=== PATIENT | female | born 1940 | race Caucasian/White ===

== ENCOUNTER → 2018-04-17 07:18 | Outpatient (CLI) | payer MEDICARE, SELFPAY ==
[2018-04-17 08:38] LABS: Alanine Aminotransfer ALT/SGPT 21 U/L (13-56); CPK Total, Creatine Kinase 88 U/L (26-192); Cholesterol 202 mg/dL (200); High Density Lipoprotein 52 mg/dL; Triglycerides 217 mg/dL; Very Low Density Lipoprotein 43 mg/dL (5-40)
== END ==
PROVIDERS: Family Provider Family Medicine; PCP Family Medicine; Visit Provider Internal Medicine Cardiovascular Disease
DX: E78.5 Hyperlipidemia, unspecified (principal)
CPT/HCPCS: 36415; 80061; 82550; 84460

== ENCOUNTER → 2018-07-24 07:36 | Outpatient (CLI) | payer MEDICARE, SELFPAY ==
[2018-07-24 08:30] LABS: Alanine Aminotransfer ALT/SGPT 21 U/L (13-56); CPK Total, Creatine Kinase 108 U/L (26-192); Cholesterol 194 mg/dL (200); High Density Lipoprotein 51 mg/dL; Triglycerides 194 mg/dL; Very Low Density Lipoprotein 39 mg/dL (5-40)
== END ==
PROVIDERS: Family Provider Family Medicine; PCP Family Medicine; Visit Provider Internal Medicine Cardiovascular Disease
DX: E78.5 Hyperlipidemia, unspecified (principal)
CPT/HCPCS: 36415; 80061; 82550; 84460

== ENCOUNTER → 2018-10-30 08:08 | Outpatient (CLI) | payer MEDICARE, SELFPAY ==
[2018-10-30 09:31] LABS: Alanine Aminotransfer ALT/SGPT 20 U/L (13-56); CPK Total, Creatine Kinase 71 U/L (26-192); Cholesterol 172 mg/dL (200); High Density Lipoprotein 51 mg/dL; Triglycerides 192 mg/dL; Very Low Density Lipoprotein 38 mg/dL (5-40)
--- OUTSIDE RECORDS SUMMARY | 2018-12-16 01:15 | XMS RPT_ITS ---
:1940 Author Organization OHIP Care Team Providers Name Role Phone Roya Chaudhary Attending Unavailable Roya Chaudhary Referring Unavailable Cebul III, Brian Primary Care Unavailable Cebul III, Brian Attending Unavailable Cebul III, Brian Primary Care Unavailable Cebul III, Brian Referring Unavailable Cebul III, Brian Attending Unavailable Cebul III, Brian Referring Unavailable Cebul III, Brian Primary Care Unavailable Cebul III, Brian Attending Unavailable Cebul III, Brian Referring Unavailable Cebul III, Brian Primary Care Unavailable Roya Chaudhary Attending Unavailable Cebul III, Brian Primary Care Unavailable Roya Chaudhary Referring Unavailable Roya Chaudhary Attending Unavailable Cebul III, Brian Primary Care Unavailable Jet, Roya Referring Unavailable JET, ROYA Attending Unavailable JET, ROYA Referring Unavailable CEBUL, BRIAN Primary Care Unavailable JET, ROYA Attending Unavailable JET, ROYA Referring Unavailable CEBUL, BRIAN Primary Care Unavailable JET, ROYA E Attending Unavailable JET, ROYA E Referring Unavailable JET, ROYA E Referring Unavailable JET, ROYA E Attending Unavailable JET, ROYA E Referring Unavailable CEBUL III, BRIAN A Attending Unavailable PROBLEMS PROBLEMS DATE TYPE CONDITION / CODE ATTENDING STATUS SOURCE 12/03/2018 Unknown M85.89 - Other Cebul III, Active [place] specified disorders [facility] bone density and Hospital structure, multiple Repository sites / M85.89(ICD-10) 10/30/2018 Unknown Z95.2 - Presence of Jet, 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 [facility] valve / Hospital Z95.2(ICD-10) Repository 10/30/2018 Unknown 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, 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 / Hospital I45.10(ICD-10) Repository 08/25/2018 Active Other hyperlipidemia NA Active [place] / E78.49(ICD-10) [facility] [place] Repository 09/17/2018 Unknown E78.5 - [place], Active [place] Hyperlipidemia, [facility] unspecified / Hospital E78.5(ICD-10) Repository 12/24/2017 Active Presence of JET, Active [place] prosthetic heart [facility] Other valve / [place] Z95.2(ICD-10) Repository 12/24/2017 Active Other hyperlipidemia JET, Active [place] / E78.4(ICD-10) RO[facility] E Clinic Other [place] Repository 12/24/2017 Admitting Unknown / JET, Active [facility] diagnosis UNK(Unknown) [facility] Repository PROCEDURES PROCEDURES No Procedure Records FoundRESULTS RESULTS DEXA BONE DENSITY Observed: 12/03/2018 Status: F Source: [place] ST[place] 9:51 AM [facility] REPOSITORY [facility] Imaging Services [address] [place] [address] Dexa Bone Density Study MR#: [id number] Acct: [id number] Name: CHRISTINA CHEN Rep #: [id number] : 1940 F 78 From: Dharmesh Lee MD PCP: Brian Hayward III, MD Status: REG CLI Study: Dexa Bone Density Study Date of Exam: 12/03/18 Exam# [id number] Ordering Dr: Brian Hayward III, MD STUDY: DUAL ENERGY X-RAY ABSORPTIOMETRY / DXA REASON FOR EXAM: Female, 78 years old. The patient is postmenopausal. Loss of height. TECHNIQUE: Bone Mineral Density (BMD) measurements of lumbar spine and bilateral hips were obtained. COMPARISON: Comparison is made with prior study dated August 17, 2002. FINDINGS: Lumbar Spine (L1-L4): g/cm2 (0.968) / T-score (-1.8) / Z-score (0.0) Findings are suggestive of osteopenia with a moderate fracture risk. Increased kyphosis Left Femur Total: g/cm2 (0.767) / T-score (-1.9) / Z- score (0.0) Left Femoral Neck: g/cm2 (0.733) / T-score (-2.2) / Z- score (-0.1) Right Femur Total: g/cm2 (0.807) / T-score (-1.6) / Z- score (0.3) Right Femoral Neck: g/cm2 (0.690) / T-score (-2.5) / Z-score (-0.5) The T-Scores on the most recent prior examination were: Lumbar Spine (L1-L4): There has been worsening of bone density since the previous examination. Left Femur Total: which represents a worsening of 13%. BD/Dexa Bone Density Study IMPRESSION: The patient is considered osteopenic as outlined below according to World Donovan Organization (WHO) criteria with a high fracture risk. There has been worsening of bone density since the previous examination. Reference Information: The T-score is the number of standard deviations above or below the standard which is normal for young adults at their peak bone mineral density. The World Health Organization (WHO) interprets the T-scores as follows: Above -1 Normal bone density Between -1 and -2.5 Osteopenia Equal to / or below -2.5 Osteoporosis As a practical clinical guideline, osteopenia may be graded as follows: Mild -1 through -1.5 Moderate -1.6 through -2.0 Severe -2.1 through -2.4 The Z-score is the number of standard deviations above or below age-matched controls. A Z-score of less than -1.5 would be considered abnormal. References: 1. NIH Osteoporosis and Related Bone Diseases http://www.osteo.org 2. International Society for Clinical Densitometry http://www.iscd.org 3. National Osteoporosis Foundation http://www.nof.org Electronically Signed: Dharmesh Lee MD at 15:51 EST Tel [phone], Service support , CC: Brian Hayward III, MD User Support Specialist: Signed SCOLIOSIS 1 VIEW Observed: 11/25/2018 Status: F Source: [place] 9:55 AM [facility] REPOSITORY [facility] Imaging Services [address] [place] [address] Scoliosis 1 view MR#: [id number] Acct: [id number] Name: CHRISTINA CHEN Rep #: [id number] : 1940 F 78 From: Gary Rosado MD PCP: Brian Hayward III, MD Status: REG CLI Study: Scoliosis 1 view Date of Exam: 11/25/18 Exam# [id number] Ordering Dr: Brian Hayward III, MD HISTORY: Scoliosis check, pt. states she has notice her bra strap keeps falling down on one side and not the other, no pain EXAM/TECHNIQUE: XR Spine Single View Specify Level: Frontal radiographs of the thoracolumbar spine for scoliosis. COMPARISON: None. FINDINGS: # of images incl. paperwork: 3 Mild to moderate S-shaped scoliosis is noted. Left scoliosis centered at T11 has Wu angle of 16 measured at the inferior endplate of T10 and the inferior endplate of L1. Mild right scoliosis centered at L3 has Wu angle of 14 measured at the inferior endplate of L2 and the inferior end plate of L4. No apparent acute findings. Mild elevation left hemidiaphragm. Sternotomy wires. Calcific atherosclerosis. RAD/Scoliosis 1 view IMPRESSION: Mild to moderate S-shaped scoliosis as above. at 0854 Reported and signed by: Gary Rosado MD Electronically Signed: Gray Rosado, at 8:53 EST Tel , Service support , CC: Brian Hayward III, MD User Support Specialist: Signed PROGRESS Observed: 11/25/2018 Status: COMPLETED Source: [place] 8:45 AM [facility] REPOSITORY O ID: [id number] Author: Brian Hayward III Service: (none) Author Type: Physician Type: Progress Notes Filed: 11/25/2018 10:43 AM Note Text: SUBJECTIVE: This is a 78 year old female that is here today for 1. hypertension 2. hyperlipidemia 3. L shoulder seems lower than R shoulder, for past several mos. Pain L lower back when bending forward to put on shoes 4. painful fingers with some deformities 5. hx of dilatation of ascending aorta: 4.5 cm aorta diameter in 08/2017 (4.2 cm in 2014) 6. 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 7. hyperlipidemia--on crestor. 8. recent excision of skin ca. on tip of nose. Echocardiography Report: [facility] Date of service: 08/25/2018 10:05:13 AM Ordering physician: Roya Chaudhary Indication: Routine surveillance of prosthetic valve (>3yrs) ? Technologist: Korin Gilbert [facility] Interpreting physician: Branden Navarro MD ? PATIENT: Name: MRS. CHRISTINA CHEN : 1940 Age: 78 years Gender: F History of dyslipidemia and valvular heart disease. Previous cardiovascular interventions: Aortic valve replacement (2007) Primary rhythm: sinus. Height: 160.02 cm BSA: 1.73 m? Weight: 67.59 kg ?BMI: 26.4 kg/m? ? Heart rate ? ? 62 bpm Blood pressure 124/73 mmHg Technically difficult exam due to body habitus. Color Doppler was utilized to interrogate the cardiac valves assessed and spectral ?Doppler was utilized to determine the flow velocities and pressure gradients reported in this exam. ? MEASUREMENTS: ?Value ? Indexed ? ?Normal Max aortic dimension ? ? 4.4 cm ?2.54 cm/m? Left atrial volume ? ? ? 63 ml (biplane A-L) 36 ml/m? ? Ashley <= 34 LV ID (diastole) ? 3.9 cm (2D) LV ID (systole) ?2.4 cm (2D) IVS, leaflet tips ?1.1 cm (2D) Posterior wall thickness 0.9 cm (2D) Left ventricular mass ?71 g/m? LV stroke volume ? 36 ml (2D biplane) LV end diastolic volume ?57 ml (2D biplane) ?32.6 ml/m? 29<=EDVi<62 LV end systolic volume ? 21 ml (2D biplane) ?12.0 ml/m? Ejection Fraction ?63 % (2D biplane) ?EF > 54 ? FINDINGS: ? LEFT VENTRICLE The left ventricle is normal in size. Left ventricular systolic function is normal. Grade II left ventricular diastolic dysfunction. Mitral annular lateral E/e': 13.9. Mitral annular septal E/e': 13.9. Wall Motion: All scored segments are normal. ? ? RIGHT VENTRICLE The right ventricle is normal in size. Right ventricular systolic function is normal. RV systolic tissue Doppler velocity ?is 9.0 cm/s. Tricuspid annular displacement is 1.6 cm. Estimated right ventricular systolic pressure is 26 mmHg consistent with normal pulmonary artery pressures. Estimated right atrial pressure is 0 mmHg. ? LEFT ATRIUM The left atrial cavity is mildly dilated. ? RIGHT ATRIUM The right atrial cavity is normal in size. Inferior Vena Cava: The inferior vena cava appears small measuring 1.0 cm. The vessel decreases greater than 50 percent with inspiration. MITRAL VALVE There is trivial (trivial - 1+) mitral valve regurgitation. The pressure half time ?is 53 msec. The peak mitral E/A ratio is 1.17. The average mitral E/e' ratio is 13.9. The mitral flow deceleration time is 184 msec. ? TRICUSPID VALVE The tricuspid valve leaflets are structurally normal. Deering tricuspid valve. There is trivial (trivial - 1+) tricuspid valve regurgitation. ? AORTIC VALVE Bioprosthetic prosthetic valve. There is trivial aortic valve regurgitation. The peak gradient is 25 mmHg (peak velocity = 248.3 cm/s). The mean gradient is 14 mmHg. The LVOT mean velocity is 54.2 cm/s. The aortic VTI is 57.5 cm. The mean velocity in the aortic valve is 176.9 cm/s. The dimensionless valve index is 0.32. ? PULMONIC VALVE There is mild (1+ - 2+) pulmonic valve regurgitation. ? AORTA The visualized aorta is dilated. Measurements - Mid ascending aorta 4.2 cm. Distal ascending aorta 4.4 cm. PULMONARY ARTERIES The pulmonary arteries are unseen or not interrogated. ? PERICARDIUM There is no pericardial effusion. There is an epicardial fat pad. ? CONCLUSIONS: - Technically difficult exam due to body habitus. - Exam indication: Routine surveillance of prosthetic valve (>3yrs) - The left ventricle is normal in size. Left ventricular systolic function is normal. EF = 63 ? 5% (2D biplane) Grade II left ventricular diastolic dysfunction. - The right ventricle is normal in size. Right ventricular systolic function is normal. - The left atrial cavity is mildly dilated. - Bioprosthetic prosthetic aortic valve. There is trivial aortic valve regurgitation. The peak gradient is 25 mmHg, the mean gradient is 14 mmHg and the dimensionless valve index is 0.32. - The aorta is dilated measuring 4.4 cm distal ascending segment - Exam was compared with the prior echocardiographic exam performed on 08/23/2017, no significant change. ? 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 metoprolol tartrate, short acting, (LOPRESSOR) 25 mg tablet Take 0.5 tablets by mouth twice daily. Lssrmzzwoax-Gzwbzaiwu-Lyy C-Mn (GLUCOSAMINE CHONDROITIN MAXSTR) 500-400 mg cap Take 1 capsule by mouth twice daily. CRANBERRY EXTRACT (CRANBERRY ORAL) Take by mouth. cinnamon bark(CINNAMON 500 MG CAP) Take one(1) tablet two(2) times daily. FLAXSEED OIL 1,030 MG CAP Take one(1) tablet once (1) daily. aspirin(ECOTRIN LOW STRENGTH 81 MG TAB) Take one(1) tablet daily. Fshfrordhpwar-Yx-Zyzc-Minerals (ONE-A-DAY WOMENS FORMULA) 27-0.4 mg ORAL Tab Take one(1) tablet daily. triamcinolone (KENALOG) 0.025 % cream Apply 1 application to affected area twice daily. Biotin 10,000 mcg cap Take by mouth. No current facility-administered medications on file prior to visit. FAMILY HISTORY Problem Relation Age of Onset - Cancer Sister Lung - other (cerebral hemorrhage) Mother - Heart Father Social History Substance Use Topics - Smoking status: Never Smoker - Smokeless tobacco: Never Used - Alcohol use No REVIEW OF SYSTEMS GENERAL: No weight loss, malaise or fevers RESPIRATORY: Negative for cough, hemoptysis, wheezing, COPD, dyspnea or shortness of breath CARDIOVASCULAR: Negative for chest pain, leg swelling, hypertension, CHF or palpitations GI: No nausea, vomiting, or diarrhea : No history of dysuria, frequency or incontinence MUSCULOSKELETAL: Negative for joint pain or swelling, back pain or muscle pain SKIN: Negative for lesions, rash, and itching PSYCH: Negative for sleep disturbance, mood disorder and recent psychosocial stressors HEMATOLOGY/LYMPHOLOGY: Negative for prolonged bleeding, bruising easily or swollen nodes ENDOCRINE: Negative for cold or heat intolerance, polyuria, polydipsia and goiter NEURO: No history of headaches, syncope, paralysis, seizures or tremors BP 128/79 Pulse 69 Temp 36.8 ?C (98.2 ?F) (Right Tympanic) Resp 12 Wt 68.5 kg (151 lb) BMI 26.75 kg/m? . OBJECTIVE: APPEARANCE Well appearing, alert, in no acute distress, well-hydrated, well nourished. Left shoulder is lower than the right shoulder with scoliosis of the spine. No localized tenderness along the spinous processes NECK Supple, no adenopathy; thyroid symmetric, normal size, no bruits HEART RRR with normal S1 and S2, no murmurs, no gallops, no JVD appreciated LUNG clear to auscultation BREAST FEMALE Symmetrical, normal consistency without masses., No dimpling or skin changes, Normal nipples without discharge and no axillary lymphadenopathy LYMPH NODES No cervical lymphadenopathy, No supraclavicular lymphadenopathy and No axillary lymphadenopathy. ABDOMEN soft, non-tender, non-distended, without organomegaly or palpable masses, no tenderness to palpation EXTREMITIES Extremities normal, No deformities, No skin discoloration, No edema and Normal pulses bilaterally. [place] nodes involving several fingers bilaterally NEURO Awake, alert and oriented x 3, Normal gait and No involuntary motions. SKIN Skin color, texture, turgor normal, no suspicious rashes or lesions, healing scar on tip of nose. Erythematous plaque on dorsum of the right hand with some keratinization consistent with her known lichen planus. Measured 27 mm x 20 mm Lab Results for CHRISTINA CHEN ( ) as of 11/25/2018 08:46 Ref. Range 11/02/2018 00:00 11/20/2018 00:00 Sodium Latest Ref Range: 136 - 145 MEQ/L 143 Potassium Latest Ref Range: 3.5 - 5.1 MEQ/L 3.7 Chloride Latest Ref Range: 98 - 107 MEQ/L 105 Creatinine Latest Ref Range: 0.6 - 1.3 MG/DL 0.90 Glucose Latest Ref Range: 74 - 106 MG/DL 79 Anion Gap Unknown 8 Triglyceride Latest Ref Range: 149 mg/dL 172 (A) Urea Nitrogen Latest Ref Range: 6 - 20 mg/dL 13 BICARBONATE Unknown 30.0 Calcium Latest Ref Range: 8.8 - 10.5 MG/DL 8.8 Cholesterol, Total Latest Ref Range: 0 - 200 MG/DL 192 GFR Latest Units: mL/MIN 64 GFR AFR AMER Latest Units: mL/MIN 77 HDC-L Latest Ref Range: 41 mg/dL 51 (A) LDL Chol, calculated Latest Ref Range: 130 MG/DL 83 ASSESSMENT: 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 hyperlipidemia--at goal s/p Aortic valve replacement--doing well aortic root dilatation--stable diameter 4.4 cm Lichen planus dorsum right hand Arthritis of fingers PLAN: healthy diet and regular exercise same medications spine xray to evaluate scoliosis bone density test Brian Hayward III MD CNOV Observed: 11/25/2018 Status: COMPLETED Source: [place] 8:40 AM [facility] REPOSITORY Office Visit (FAMPWS) CHRISTINA CHEN ([id number]) 1940 F Date Time Provider Department 11/25/18 8:40 AM BRIAN HAYWARD III During your visit today, we recorded the following information about you: Temperature Pulse Respiration Blood pressure 98.2 degrees 69/minute 12/minute 128/79 Weight 68.5 kg Brian Hayward III MD 11/25/2018 10:43 AM Signed SUBJECTIVE: This is a 78 year old female that is here today for 1. hypertension 2. hyperlipidemia 3. L shoulder seems lower than R shoulder, for past several mos. Pain L lower back when bending forward to put on shoes 4. painful fingers with some deformities 5. hx of dilatation of ascending aorta: 4.5 cm aorta diameter in 08/2017 (4.2 cm in 2015) 6. 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 7. hyperlipidemia--on crestor. 8. recent excision of skin ca. on tip of nose. Echocardiography Report: [facility] Date of service: 08/25/2018 10:05:13 AM Ordering physician: Roya Chaudhary Indication: Routine surveillance of prosthetic valve (>3yrs) ? Technologist: Korin Gilbert [facility] Interpreting physician: Branden Navarro MD ? PATIENT: Name: MRS. CHRISTINA CHEN : 1940 Age: 78 years Gender: F History of dyslipidemia and valvular heart disease. Previous cardiovascular interventions: Aortic valve replacement (2007) Primary rhythm: sinus. Height: 160.02 cm BSA: 1.73 m? Weight: 67.59 kg ?BMI: 26.4 kg/m? ? Heart rate ? ? 62 bpm Blood pressure 124/73 mmHg Technically difficult exam due to body habitus. Color Doppler was utilized to interrogate the cardiac valves assessed and spectral ?Doppler was utilized to determine the flow velocities and pressure gradients reported in this exam. ? MEASUREMENTS: ?Value ? Indexed ? ?Normal Max aortic dimension ? ? 4.4 cm ?2.54 cm/m? Left atrial volume ? ? ? 63 ml (biplane A-L) 36 ml/m? ? Ashley <= 34 LV ID (diastole) ? 3.9 cm (2D) LV ID (systole) ?2.4 cm (2D) IVS, leaflet tips ?1.1 cm (2D) Posterior wall thickness 0.9 cm (2D) Left ventricular mass ?71 g/m? LV stroke volume ? 36 ml (2D biplane) LV end diastolic volume ?57 ml (2D biplane) ?32.6 ml/m? 29<=EDVi<62 LV end systolic volume ? 21 ml (2D biplane) ?12.0 ml/m? Ejection Fraction ?63 % (2D biplane) ?EF > 54 ? FINDINGS: ? LEFT VENTRICLE The left ventricle is normal in size. Left ventricular systolic function is normal. Grade II left ventricular diastolic dysfunction. Mitral annular lateral E/e': 13.9. Mitral annular septal E/e': 13.9. Wall Motion: All scored segments are normal. ? ? RIGHT VENTRICLE The right ventricle is normal in size. Right ventricular systolic function is normal. RV systolic tissue Doppler velocity ?is 9.0 cm/s. Tricuspid annular displacement is 1.6 cm. Estimated right ventricular systolic pressure is 26 mmHg consistent with normal pulmonary artery pressures. Estimated right atrial pressure is 0 mmHg. ? LEFT ATRIUM The left atrial cavity is mildly dilated. ? RIGHT ATRIUM The right atrial cavity is normal in size. Inferior Vena Cava: The inferior vena cava appears small measuring 1.0 cm. The vessel decreases greater than 50 percent with inspiration. MITRAL VALVE There is trivial (trivial - 1+) mitral valve regurgitation. The pressure half time ?is 53 msec. The peak mitral E/A ratio is 1.17. The average mitral E/e' ratio is 13.9. The mitral flow deceleration time is 184 msec. ? TRICUSPID VALVE The tricuspid valve leaflets are structurally normal. Deering tricuspid valve. There is trivial (trivial - 1+) tricuspid valve regurgitation. ? AORTIC VALVE Bioprosthetic prosthetic valve. There is trivial aortic valve regurgitation. The peak gradient is 25 mmHg (peak velocity = 248.3 cm/s). The mean gradient is 14 mmHg. The LVOT mean velocity is 54.2 cm/s. The aortic VTI is 57.5 cm. The mean velocity in the aortic valve is 176.9 cm/s. The dimensionless valve index is 0.32. ? PULMONIC VALVE There is mild (1+ - 2+) pulmonic valve regurgitation. ? AORTA The visualized aorta is dilated. Measurements - Mid ascending aorta 4.2 cm. Distal ascending aorta 4.4 cm. PULMONARY ARTERIES The pulmonary arteries are unseen or not interrogated. ? PERICARDIUM There is no pericardial effusion. There is an epicardial fat pad. ? CONCLUSIONS: - Technically difficult exam due to body habitus. - Exam indication: Routine surveillance of prosthetic valve (>3yrs) - The left ventricle is normal in size. Left ventricular systolic function is normal. EF = 63 ? 5% (2D biplane) Grade II left ventricular diastolic dysfunction. - The right ventricle is normal in size. Right ventricular systolic function is normal. - The left atrial cavity is mildly dilated. - Bioprosthetic prosthetic aortic valve. There is trivial aortic valve regurgitation. The peak gradient is 25 mmHg, the mean gradient is 14 mmHg and the dimensionless valve index is 0.32. - The aorta is dilated measuring 4.4 cm distal ascending segment - Exam was compared with the prior echocardiographic exam performed on 08/23/2017, no significant change. ? MEDICAL HISTORY Diagnosis Date - Acquired absence of ovaries, bilateral - Aortic root dilatation (HCC) 10/07/2015 - Benign neoplasm of colon - Body mass index 26.0-26.9, adult - Essential hypertension, benign - Family history of cancer of trachea, bronchus and lung - Family history of ischemic heart disease and other diseases of the circulatory system - Family history of stroke - H/O aortic valve replacement 08/2008 - Hyperlipidemia LDL goal <130 10/07/2015 - Insomnia, unspecified - Internal hemorrhoids without mention of complication - half-way (current) use of aspirin - Low back pain - Need for prophylactic hormone replacement therapy (postmenopausal) - Osteopenia 10/23/2011 - Other and unspecified hyperlipidemia - Overweight - Presence of prosthetic heart valve - Primary generalized (osteo)arthritis - Statin intolerance 10/07/2015 Current Outpatient Prescriptions on File Prior to Visit: rosuvastatin (CRESTOR) 20 mg tablet Take 1 tablet by mouth daily at bedtime. metoprolol tartrate, short acting, (LOPRESSOR) 25 mg tablet Take 0.5 tablets by mouth twice daily. Onekejznktr-Wuihltida-Pfr C-Mn (GLUCOSAMINE CHONDROITIN MAXSTR) 500-400 mg cap Take 1 capsule by mouth twice daily. CRANBERRY EXTRACT (CRANBERRY ORAL) Take by mouth. cinnamon bark(CINNAMON 500 MG CAP) Take one(1) tablet two(2) times daily. FLAXSEED OIL 1,030 MG CAP Take one(1) tablet once (1) daily. aspirin(ECOTRIN LOW STRENGTH 81 MG TAB) Take one(1) tablet daily. Fuxmbzbsdviwq-Px-Ijem-Minerals (ONE-A-DAY WOMENS FORMULA) 27-0.4 mg ORAL Tab Take one(1) tablet daily. triamcinolone (KENALOG) 0.025 % cream Apply 1 application to affected area twice daily. Biotin 10,000 mcg cap Take by mouth. No current facility-administered medications on file prior to visit. FAMILY HISTORY Problem Relation Age of Onset - Cancer Sister Lung - other (cerebral hemorrhage) Mother - Heart Father Social History Substance Use Topics - Smoking status: Never Smoker - Smokeless tobacco: Never Used - Alcohol use No REVIEW OF SYSTEMS GENERAL: No weight loss, malaise or fevers RESPIRATORY: Negative for cough, hemoptysis, wheezing, COPD, dyspnea or shortness of breath CARDIOVASCULAR: Negative for chest pain, leg swelling, hypertension, CHF or palpitations GI: No nausea, vomiting, or diarrhea : No history of dysuria, frequency or incontinence MUSCULOSKELETAL: Negative for joint pain or swelling, back pain or muscle pain SKIN: Negative for lesions, rash, and itching PSYCH: Negative for sleep disturbance, mood disorder and recent psychosocial stressors HEMATOLOGY/LYMPHOLOGY: Negative for prolonged bleeding, bruising easily or swollen nodes ENDOCRINE: Negative for cold or heat intolerance, polyuria, polydipsia and goiter NEURO: No history of headaches, syncope, paralysis, seizures or tremors BP 128/79 Pulse 69 Temp 36.8 ?C (98.2 ?F) (Right Tympanic) Resp 12 Wt 68.5 kg (151 lb) BMI 26.75 kg/m? . OBJECTIVE: APPEARANCE Well appearing, alert, in no acute distress, well- hydrated, well nourished. Left shoulder is lower than the right shoulder with scoliosis of the spine. No localized tenderness along the spinous processes NECK Supple, no adenopathy; thyroid symmetric, normal size, no bruits HEART RRR with normal S1 and S2, no murmurs, no gallops, no JVD appreciated LUNG clear to auscultation BREAST FEMALE Symmetrical, normal consistency without masses., No dimpling or skin changes, Normal nipples without discharge and no axillary lymphadenopathy LYMPH NODES No cervical lymphadenopathy, No supraclavicular lymphadenopathy and No axillary lymphadenopathy. ABDOMEN soft, non-tender, non-distended, without organomegaly or palpable masses, no tenderness to palpation EXTREMITIES Extremities normal, No deformities, No skin discoloration, No edema and Normal pulses bilaterally. [place] nodes involving several fingers bilaterally NEURO Awake, alert and oriented x 3, Normal gait and No involuntary motions. SKIN Skin color, texture, turgor normal, no suspicious rashes or lesions, healing scar on tip of nose. Erythematous plaque on dorsum of the right hand with some keratinization consistent with her known lichen planus. Measured 27 mm x 20 mm Lab Results for CHRISTINA CHEN ( ) as of 11/25/2018 08:46 Ref. Range 11/02/2018 00:00 11/20/2018 00:00 Sodium Latest Ref Range: 136 - 145 MEQ/L 143 Potassium Latest Ref Range: 3.5 - 5.1 MEQ/L 3.7 Chloride Latest Ref Range: 98 - 107 MEQ/L 105 Creatinine Latest Ref Range: 0.6 - 1.3 MG/DL 0.90 Glucose Latest Ref Range: 74 - 106 MG/DL 79 Anion Gap Unknown 8 Triglyceride Latest Ref Range: 149 mg/dL 172 (A) Urea Nitrogen Latest Ref Range: 6 - 20 mg/dL 13 BICARBONATE Unknown 30.0 Calcium Latest Ref Range: 8.8 - 10.5 MG/DL 8.8 Cholesterol, Total Latest Ref Range: 0 - 200 MG/DL 192 GFR Latest Units: mL/MIN 64 GFR AFR AMER Latest Units: mL/MIN 77 HDC-L Latest Ref Range: 41 mg/dL 51 (A) LDL Chol, calculated Latest Ref Range: 130 MG/DL 83 ASSESSMENT: 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 hyperlipidemia--at goal s/p Aortic valve replacement--doing well aortic root dilatation--stable diameter 4.4 cm Lichen planus dorsum right hand Arthritis of fingers PLAN: healthy diet and regular exercise same medications spine xray to evaluate scoliosis bone density test CHRISTINE Bojorquez MD, III MD 11/25/2018 9:31 AM Signed PLAN: healthy diet and regular exercise same medications spine xray to evaluate scoliosis bone density test Brian Hayward III MD Referring Provider: SELF [[id number]] Allergies As of Date: 11/25/2018 Noted Allergy Reaction AMOXICILLIN 12/17/2008 2 - Rash INFLUENZA VACC,TRI 2002 (LIVE) 07/27/2005 16 - Unknown Comments: Patient states that she gets this every year and is unsure why this is listed. LIPITOR (ATORVASTATIN CALCIUM) 10/07/2015 17 - Myalgia SULFA (SULFONAMIDE ANTIBIOTICS) 07/27/2005 ZOCOR (SIMVASTATIN) 10/07/2015 17 - Myalgia Date Reviewed: 11/25/2018 Reviewed by: Shahida Krishnan Ma - Fully Assessed Reason for Visit: Physical [83] Primary Visit Diagnosis:Osteopenia of lumbar spine [M85.88] Other Visit Diagnoses:H/O aortic valve replacement [Z95.2] Aortic root dilatation (HCC) [I77.810] Hyperlipidemia LDL goal <130 [E78.5] Lichen planus [L43.9] Other idiopathic scoliosis, unspecified spinal region [M41.20] Prescriptions as of 11/25/2018 Sig: CALCIUM 600 + D ORAL Take by mouth. ROSUVASTATIN 20 MG TABLET Take 1 tablet by mouth daily * METOPROLOL TARTRATE 25 MG TAB* Take 0.5 tablets by mouth twi* CVDZRWSFVDP-BROYDDBDJ-DNL C-M* Take 1 capsule by mouth twice* CRANBERRY ORAL Take by mouth. * CINNAMON 500 MG CAPSULE Take one(1) tablet two(2) michelle* * FLAXSEED OIL 1,030 MG CAPSULE Take one(1) tablet once (1) d* * ECOTRIN LOW STRENGTH 81 MG TA* Take one(1) tablet daily. * ONE-A-DAY WOMENS FORMULA 27 M* Take one(1) tablet daily. TRIAMCINOLONE ACETONIDE 0.025* Apply 1 application to affect* BIOTIN 10,000 MCG CAPSULE Take by mouth. Problem List As Of Date 11/25/2018 Noted Resolved Essential hypertension, benign [I10] 11/21/2017 POSTMENOPAUSAL HORMONAL REPLACEMENT TX [Z79.890] DIFFUS CYSTIC MASTOPATHY [N60.19] INVALID FOR* BENIGN NEOPLASM LG BOWEL [D12.6] Internal hemorrhoids without mention of complic* 11/25/2018 Aortic valve disorders [I35.9] 11/17/2014 More... 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 Other instructions from your clinician: PLAN: healthy diet and regular exercise same medications spine xray to evaluate scoliosis bone density test Brian Hayward III MD Encounter Status:Closed by BRIAN HAYWARD III, MD on 11/25/18 BASIC METABOLIC Collected: 11/20/2018 Status: F Source: [place] PROFILE (BMP) 8:11 AM [facility] REPOSITORY TYPE CODE TESTS RESULT OUT OF RANGE REFERENCE UNITS LAB L501.0100 74-106 mg/dL Normal GLU 79 Result Comment: Please note revised GLUCOSE reference range effective 2017. LAB L501.1000 7-18 mg/dL Normal BUN 13 LAB L501.1100 0.55-1.02 mg/dL Normal CREAT,SERUM 0.90 Result Comment: The validity of the calculated GFR AND GFRAA in patients over 70 years has not been determined. Clinical correlation is essential. LAB L501.1110 >60 mL/min Normal EST GFR 64 Result Comment: Non- GFR Calc LAB L501.1115 >60 mL/min Normal EST GFR - AA 77 Result Comment: GFR Calc LAB L501.1300 10-20 RATIO Normal BUN/CRE 14.4 LAB L501.2200 8.5-10.1 mg/dL CA Normal 8.8 LAB L501.5300 136-145 mmol/L NA Normal 143 LAB L501.5600 3.5-5.1 mmol/L K Normal 3.7 LAB L501.5900 98-107 mmol/L CL Normal 105 LAB L501.6100 21.0-32.0 mmol/L Normal CO2 30.0 LAB L501.6200 5-15 Normal GAP 8 Performed By: #### L500.2500 #### [facility] [address] [place], [address] [facility] Observed: 11/20/2018 Status: COMPLETED Source: [place] 12:00 AM [facility] REPOSITORY [facility] CHRISTINA CHEN ([id number]) 1940 F Date Time Provider Department 11/20/18 [facility] During your visit today, we recorded the following information about you: Brian Hayward III MD 11/26/2018 3:04 PM Signed Mrs. Chen, The blood sugar, kidney function tests, and cholesterol panel are all normal. Continue with a healthy diet and regular exercise as able. Same medications. Brian Hayward III, MD, FAAFP Allergies As of Date: 11/20/2018 Noted Allergy Reaction AMOXICILLIN 12/17/2008 2 - Rash INFLUENZA VACC,TRI 2002 (LIVE) 07/27/2005 16 - Unknown Comments: Patient states that she gets this every year and is unsure why this is listed. LIPITOR (ATORVASTATIN CALCIUM) 10/07/2015 17 - Myalgia SULFA (SULFONAMIDE ANTIBIOTICS) 07/27/2005 ZOCOR (SIMVASTATIN) 10/07/2015 17 - Myalgia Date Reviewed: 08/25/2018 Reviewed by: Eboni GalvezField Operations Coordinatorbonnie Merida - Fully Assessed Reason for Visit: Outside Labs-[facility] Ordered [1004] Order(s):LIPID PANEL (EXTERNAL) [0752229] Order #: [id number] BMP - EXTERNAL [0434737] Order #: [id number] Prescriptions as of 11/20/2018 Sig: ROSUVASTATIN 20 MG TABLET Take 1 tablet by mouth daily * METOPROLOL TARTRATE 25 MG TAB* Take 0.5 tablets by mouth twi* TRIAMCINOLONE ACETONIDE 0.025* Apply 1 application to affect* BIOTIN 10,000 MCG CAPSULE Take by mouth. NTYHTPPKETA-BAKUOVJDM-ARE C-M* Take 1 capsule by mouth twice* CRANBERRY ORAL Take by mouth. * CINNAMON 500 MG CAPSULE Take one(1) tablet two(2) michelle* * FLAXSEED OIL 1,030 MG CAPSULE Take one(1) tablet once (1) d* * ECOTRIN LOW STRENGTH 81 MG TA* Take one(1) tablet daily. * ONE-A-DAY WOMENS FORMULA 27 M* Take one(1) tablet daily. Problem List As Of Date 11/20/2018 Noted Resolved Essential hypertension, benign [I10] 11/21/2017 POSTMENOPAUSAL HORMONAL REPLACEMENT TX [Z79.890] DIFFUS CYSTIC MASTOPATHY [N60.19] INVALID FOR* BENIGN NEOPLASM LG BOWEL [D12.6] INT HEMORRHOID W/O COMPL [K64.8] Aortic valve disorders [I35.9] 11/17/2014 More... 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 Letter Text Brian Cadet M.D. [address] [place], [place] [address] Christina Chen [address] [place] [address] [place] [id number] Clinic #: [id number] 11/26/2018 Dear Ms. Chen, I have received the results of your recent tests. The blood sugar, kidney function tests, and cholesterol panel are all normal. Continue with a healthy diet and regular exercise as able. ?Continue the same medications. We can discuss this at your next visit. Please do not hesitate to contact me with any questions. Sincerely, Brian Cadet M.D. electronically signed to expedite mailing Encounter Status:Closed by MICHAEL CONNOLLY MA on 11/20/18 [facility]OUTREACH Observed: 11/10/2018 Status: COMPLETED Source: [place] 12:00 AM [facility] REPOSITORY Patient Outreach ([facility]) CHRISTINA CHEN ([id number]) 1940 F Date Time Provider Department 11/10/18 BRIAN HAYWARD III [facility] During your visit today, we recorded the following information about you: Allergies As of Date: 11/10/2018 Noted Allergy Reaction AMOXICILLIN 12/17/2008 2 - Rash INFLUENZA VACC,TRI 2002 (LIVE) 07/27/2005 16 - Unknown Comments: Patient states that she gets this every year and is unsure why this is listed. LIPITOR (ATORVASTATIN CALCIUM) 10/07/2015 17 - Myalgia SULFA (SULFONAMIDE ANTIBIOTICS) 07/27/2005 ZOCOR (SIMVASTATIN) 10/07/2015 17 - Myalgia Date Reviewed: 08/25/2018 Reviewed by: Eboni (Field Operations Coordinator) Fuad - Fully Assessed Visit Diagnosis:Medication management [Z79.899] Order(s):BASIC METABOLIC PNL [SQBMP] Order #: [id number] FUTURE Prescriptions as of 11/10/2018 Sig: ROSUVASTATIN 20 MG TABLET Take 1 tablet by mouth daily * METOPROLOL TARTRATE 25 MG TAB* Take 0.5 tablets by mouth twi* TRIAMCINOLONE ACETONIDE 0.025* Apply 1 application to affect* BIOTIN 10,000 MCG CAPSULE Take by mouth. WJAMCZBFYWR-VDQBKIHXO-HUR C-M* Take 1 capsule by mouth twice* CRANBERRY ORAL Take by mouth. * CINNAMON 500 MG CAPSULE Take one(1) tablet two(2) michelle* * FLAXSEED OIL 1,030 MG CAPSULE Take one(1) tablet once (1) d* * ECOTRIN LOW STRENGTH 81 MG TA* Take one(1) tablet daily. * ONE-A-DAY WOMENS FORMULA 27 M* Take one(1) tablet daily. Problem List As Of Date 11/10/2018 Noted Resolved Essential hypertension, benign [I10] 11/21/2017 POSTMENOPAUSAL HORMONAL REPLACEMENT TX [Z79.890] DIFFUS CYSTIC MASTOPATHY [N60.19] INVALID FOR* BENIGN NEOPLASM LG BOWEL [D12.6] INT HEMORRHOID W/O COMPL [K64.8] Aortic valve disorders [I35.9] 11/17/2014 More... 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 Encounter Status:Closed by KINA TUCKER on 11/25/18 LIPID PROFILE Collected: 10/30/2018 Status: F Source: [place] 8:14 AM [facility] REPOSITORY TYPE CODE TESTS RESULT OUT OF RANGE REFERENCE UNITS LAB L501.4900 200 mg/dL Normal CHOL 172 Result Comment: <200 mg/dL Desirable 200-240 mg/dL Borderline >240 mg/dL High Risk LAB L501.5000 mg/dL Normal TRIG 192 Result Comment: The drugs N-Acetylcysteine and Metamizole may falsely depress this assay. Serum Triglycerides Reference Interval Normal <150 mg/dL Borderline high 150 - 199 mg/dL High 200 - 499 mg/dL Very High > or = 500 mg/dL LAB L501.6400 mg/dL Normal HDL 51 Result Comment: The drugs N-Acetylcysteine and Metamizole may falsely depress this assay. Reference Range HDL <40 mg/dL Low HDL Cholesterol HDL >or= 60 mg/dL High HDL Cholesterol LAB L501.6500 0-130 mg/dL Normal LDL 83 LAB L501.6600 5-40 mg/dL Normal VLDL 38 Performed By: #### L500.4100, L501.3620, L501.4405 #### [facility] [address] [place], [address] CPK TOTAL, CREATINE Collected: 10/30/2018 Status: F Source: [place] 8:14 AM [facility] REPOSITORY TYPE CODE TESTS RESULT OUT OF RANGE REFERENCE UNITS LAB L501.3620 26-192 U/L Normal CPK TOTAL 71 Performed By: #### L500.4100, L501.3620, L501.4405 #### [facility] [address] [place], [address] ALANINE AMINOTRANSFERAS Collected: 10/30/2018 Status: F Source: [place] (SGPT) 8:14 AM [facility] REPOSITORY TYPE CODE TESTS RESULT OUT OF RANGE REFERENCE UNITS LAB L501.4405 13-56 U/L Normal ALT 20 Performed By: #### L500.4100, L501.3620, L501.4405 #### [facility] [address] [place], [address] PROGRESS Observed: 08/25/2018 Status: COMPLETED Source: [place] 11:15 AM [facility] REPOSITORY HNO ID: [id number] Author: Roya Chaudhary Service: (none) Author Type: Physician Type: Progress Notes Filed: 08/25/2018 5:43 PM Note Text: PERTINENT CARDIAC HISTORY Aortic stenosis - AVR 2007 Normal coronaries 2007 HL - statin intolerant RBBB TAA - 4.5 cm ADHERENCE TO GUIDELINES FARZANEH-I or ARB for HF with prior LVEF<40 (NQF 0081) - N/A ASA or Plavix for ASHD (NQF 0067) - met Beta karina for ASHD with prior VT or prior LVEF<40 (NQF 0070) - N/A Beta karina for HF with prior LVEF<40 (NQF 0083) - N/A FARZANEH-I or ARB for ASHD with DM or prior LVEF<40 (NQF 0066) - N/A Statin therapy for ASHD or FHL or DM - intolerant BMI documented and plan if >25 (NQF 0421) - lifestyle recommendation form Tobacco use screening and referral (NQF 0028) - lifestyle recommendation form Recommendation for whole food, plant based diet - lifestyle recommendation form CLINICAL IMPRESSION/PLAN: Christina Chen is doing well. She is advised to continue her exercise program. She will have her lipids done as scheduled. Her aortic valve disease is stable and she has great exercise tolerance. I will see her in 6 months or as needed. Written and verbal health teaching given to patient, patient verbalizes understanding and agrees with treatment plan. DIAGNOSIS FOR VISIT: AVR HISTORY OF PRESENT ILLNESS Christina Chen returns for follow-up of her valvular heart disease. She reports stable exercise tolerance. She's been walking 3 miles a day and rides her bicycle in her neighborhood. She denies chest discomfort. She's had no edema, syncope, palpitations, TIAs, amaurosis or claudication. ALLERGIES: ALLERGIES Allergen Reactions - Amoxicillin Rash - Influenza Vacc,Tri * Unknown Patient states that she gets this every year and is unsure why this is listed. - Lipitor [Atorvastat* Myalgia - Sulfa (Sulfonamide * - Zocor [Simvastatin] Myalgia CURRENT OUTPATIENT MEDICATIONS: rosuvastatin (CRESTOR) 20 mg tablet Take 1 tablet by mouth daily at bedtime. metoprolol tartrate, short acting, (LOPRESSOR) 25 mg tablet Take 0.5 tablets by mouth twice daily. Iqzbsawqfpr-Csabfamrw-Sbx C-Mn (GLUCOSAMINE CHONDROITIN MAXSTR) 500-400 mg cap Take 1 capsule by mouth twice daily. CRANBERRY EXTRACT (CRANBERRY ORAL) Take by mouth. cinnamon bark(CINNAMON 500 MG CAP) Take one(1) tablet two(2) times daily. FLAXSEED OIL 1,030 MG CAP Take one(1) tablet once (1) daily. aspirin(ECOTRIN LOW STRENGTH 81 MG TAB) Take one(1) tablet daily. triamcinolone (KENALOG) 0.025 % cream Apply 1 application to affected area twice daily. Biotin 10,000 mcg cap Take by mouth. Znrqquvuvxlim-Ff-Eipg-Minerals (ONE-A-DAY WOMENS FORMULA) 27-0.4 mg ORAL Tab Take one(1) tablet daily. PHYSICAL EXAMINATION: VITAL SIGNS: BP 132/81 Pulse 64 Wt 153 lb 12.8 oz (69.8kg) Chest: Clear to auscultation. Trachea is midline. Air entry is equal. Cardiac: Regular rhythm. S1 and S2 are normal. PMI is nondisplaced. There is a soft systolic ejection murmur without radiation. There is no aortic insufficiency. Carotids are brisk without bruits. JVP is less than 10 cm. Abdomen: Soft and nontender. There are no pulsatile masses or bruits. No liver enlargement. Bowel sounds are active. Extremities: No edema. Pulses are intact and symmetrical. Recent lipids were reviewed. He have improved with the addition of Crestor. Echocardiogram was performed today. This shows slight increase in her valve gradients, but they are still within normal range. The aorta is stable. Lipid profile is due again in October. Electronically Signed: Roya Chaudhary MD August 25, 2018 11:15 AM CC: CHRISTINE Bojorquez MD Observed: 08/25/2018 Status: COMPLETED Source: [place] 11:00 AM [facility] REPOSITORY Office Visit (CAWSTR) CHRISTINA CHEN ([id number]) 1940 F Date Time Provider Department 08/25/18 11:00 AM ROYA CHAUDHARY During your visit today, we recorded the following information about you: Pulse Blood pressure Weight 64/minute 132/81 69.8 kg Roya Chaudhary MD 08/25/2018 5:43 PM Signed PERTINENT CARDIAC HISTORY Aortic stenosis - AVR 2007 Normal coronaries 2007 HL - statin intolerant RBBB TAA - 4.5 cm ADHERENCE TO GUIDELINES FARZANEH-I or ARB for HF with prior LVEF<40 (NQF 0081) - N/A ASA or Plavix for ASHD (NQF 0067) - met Beta karina for ASHD with prior VT or prior LVEF<40 (NQF 0070) - N/A Beta karina for HF with prior LVEF<40 (NQF 0083) - N/A FARZANEH-I or ARB for ASHD with DM or prior LVEF<40 (NQF 0066) - N/A Statin therapy for ASHD or FHL or DM - intolerant BMI documented and plan if >25 (NQF 0421) - lifestyle recommendation form Tobacco use screening and referral (NQF 0028) - lifestyle recommendation form Recommendation for whole food, plant based diet - lifestyle recommendation form CLINICAL IMPRESSION/PLAN: Christina Chen is doing well. She is advised to continue her exercise program. She will have her lipids done as scheduled. Her aortic valve disease is stable and she has great exercise tolerance. I will see her in 6 months or as needed. Written and verbal health teaching given to patient, patient verbalizes understanding and agrees with treatment plan. DIAGNOSIS FOR VISIT: AVR HISTORY OF PRESENT ILLNESS Christina Chen returns for follow-up of her valvular heart disease. She reports stable exercise tolerance. She's been walking 3 miles a day and rides her bicycle in her neighborhood. She denies chest discomfort. She's had no edema, syncope, palpitations, TIAs, amaurosis or claudication. ALLERGIES: ALLERGIES Allergen Reactions - Amoxicillin Rash - Influenza Vacc,Tri * Unknown Patient states that she gets this every year and is unsure why this is listed. - Lipitor [Atorvastat* Myalgia - Sulfa (Sulfonamide * - Zocor [Simvastatin] Myalgia CURRENT OUTPATIENT MEDICATIONS: rosuvastatin (CRESTOR) 20 mg tablet Take 1 tablet by mouth daily at bedtime. metoprolol tartrate, short acting, (LOPRESSOR) 25 mg tablet Take 0.5 tablets by mouth twice daily. Dlkklmwskde-Ztcndfunf-Srx C-Mn (GLUCOSAMINE CHONDROITIN MAXSTR) 500-400 mg cap Take 1 capsule by mouth twice daily. CRANBERRY EXTRACT (CRANBERRY ORAL) Take by mouth. cinnamon bark(CINNAMON 500 MG CAP) Take one(1) tablet two(2) times daily. FLAXSEED OIL 1,030 MG CAP Take one(1) tablet once (1) daily. aspirin(ECOTRIN LOW STRENGTH 81 MG TAB) Take one(1) tablet daily. triamcinolone (KENALOG) 0.025 % cream Apply 1 application to affected area twice daily. Biotin 10,000 mcg cap Take by mouth. Klzumihjshgke-Om-Fusk-Minerals (ONE-A-DAY WOMENS FORMULA) 27-0.4 mg ORAL Tab Take one(1) tablet daily. PHYSICAL EXAMINATION: VITAL SIGNS: BP 132/81 Pulse 64 Wt 153 lb 12.8 oz (69.8kg) Chest: Clear to auscultation. Trachea is midline. Air entry is equal. Cardiac: Regular rhythm. S1 and S2 are normal. PMI is nondisplaced. There is a soft systolic ejection murmur without radiation. There is no aortic insufficiency. Carotids are brisk without bruits. JVP is less than 10 cm. Abdomen: Soft and nontender. There are no pulsatile masses or bruits. No liver enlargement. Bowel sounds are active. Extremities: No edema. Pulses are intact and symmetrical. Recent lipids were reviewed. He have improved with the addition of Crestor. Echocardiogram was performed today. This shows slight increase in her valve gradients, but they are still within normal range. The aorta is stable. Lipid profile is due again in October. Electronically Signed: Roya Chaudhary MD August 25, 2018 11:15 AM CC: CHRISTINE Bojorquez MD, MD 08/25/2018 11:15 AM Signed LIFESTYLE CHANGE A healthy lifestyle is the most important component of your overall treatment plan. Please give serious thought to the following areas and commit to making [facility] changes. EAT A WHOLE FOOD, PLANT BASED DIET The nutrition your body gets is more important than the medicine you take. What matters most is the overall way you eat. We encourage you to minimize the use of animal products (which include dairy and all meats except fatty fish) and use whole, unprocessed plant foods to provide your protein, vitamins and other nutrients. We have a lot of information to share with you on this topic. This is not a diet. It is a way of life that you will keep with you. EXERCISE REGULARLY It is not important to spend hours in the gym, lifting weights and perspiring heavily. A total of 2-3 hours per week of aerobic (causing you to be moderately short of breath) exercise is sufficient to improve your health. Talk to us before you begin a new exercise program, if you have heart disease or experience shortness of breath or chest pain. REDUCE STRESS Chronic emotional and physical stress leads to disease. Ways of reducing stress include meditation, visualization, prayer, yoga and other forms of relaxation therapy. Consistency is the david. Find a technique that works for you and do it every day. CULTIVATE RELATIONSHIPS Loneliness and isolation have a major negative impact on health. Seek out others who can love, care for and nurture you. Avoid hurtful relationships. MAINTAIN IDEAL BODY WEIGHT The best way to do this is to do all the things above. Our bodies naturally find the right weight if we keep moving and feed ourselves the right food. If your BMI is greater than 25, we strongly recommend a referral to a weight management program. Please speak to us or your family physician about available programs. AVOID NICOTINE IN ALL FORMS This includes all tobacco products, whether chewed, smoked, vaped, or rubbed on the skin. Smoking cessation programs, which can make use of tobacco substitutes, medications to suppress cravings and behavior management, are available. Please contact your family physician about programs in your area. Referring Provider: ROYA CHAUDHARY [[id number]] Allergies As of Date: 08/25/2018 Noted Allergy Reaction AMOXICILLIN 12/17/2008 2 - Rash INFLUENZA VACC,TRI 2003 (LIVE) 07/27/2005 16 - Unknown Comments: Patient states that she gets this every year and is unsure why this is listed. LIPITOR (ATORVASTATIN CALCIUM) 10/07/2015 17 - Myalgia SULFA (SULFONAMIDE ANTIBIOTICS) 07/27/2005 ZOCOR (SIMVASTATIN) 10/07/2015 17 - Myalgia Date Reviewed: 08/25/2018 Reviewed by: Eboni (Field Operations Coordinator) Fuad - Fully Assessed Reason for Visit: Recheck [92] Primary Visit Diagnosis:S/P AVR [Z95.2] Other Visit Diagnosis:RBBB (right bundle branch block) [I45.10] Order(s):LIPID PANEL BASIC [SQLIPB] Order #: [id number] FUTURE ALT/SGPT [SQALT] Order #: [id number] FUTURE CK CREATINE KINASE [SQCK] Order #: [id number] FUTURE Prescriptions as of 08/25/2018 Sig: ROSUVASTATIN 20 MG TABLET Take 1 tablet by mouth daily * METOPROLOL TARTRATE 25 MG TAB* Take 0.5 tablets by mouth twi* ZUMJPVFTACR-MPDSZKLGU-YRJ C-M* Take 1 capsule by mouth twice* CRANBERRY ORAL Take by mouth. * CINNAMON 500 MG CAPSULE Take one(1) tablet two(2) michelle* * FLAXSEED OIL 1,030 MG CAPSULE Take one(1) tablet once (1) d* * ECOTRIN LOW STRENGTH 81 MG TA* Take one(1) tablet daily. TRIAMCINOLONE ACETONIDE 0.025* Apply 1 application to affect* BIOTIN 10,000 MCG CAPSULE Take by mouth. * ONE-A-DAY WOMENS FORMULA 27 M* Take one(1) tablet daily. Problem List As Of Date 08/25/2018 Noted Resolved Essential hypertension, benign [I10] 11/21/2017 POSTMENOPAUSAL HORMONAL REPLACEMENT TX [Z79.890] DIFFUS CYSTIC MASTOPATHY [N60.19] INVALID FOR* BENIGN NEOPLASM LG BOWEL [D12.6] INT HEMORRHOID W/O COMPL [K64.8] Aortic valve disorders [I35.9] 11/17/2014 More... 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 Other instructions from your clinician: LIFESTYLE CHANGE A healthy lifestyle is the most important component of your overall treatment plan. Please give serious thought to the following areas and commit to making [facility] changes. EAT A WHOLE FOOD, PLANT BASED DIET The nutrition your body gets is more important than the medicine you take. What matters most is the overall way you eat. We encourage you to minimize the use of animal products (which include dairy and all meats except fatty fish) and use whole, unprocessed plant foods to provide your protein, vitamins and other nutrients. We have a lot of information to share with you on this topic. This is not a diet. It is a way of life that you will keep with you. EXERCISE REGULARLY It is not important to spend hours in the gym, lifting weights and perspiring heavily. A total of 2-3 hours per week of aerobic (causing you to be moderately short of breath) exercise is sufficient to improve your health. Talk to us before you begin a new exercise program, if you have heart disease or experience shortness of breath or chest pain. REDUCE STRESS Chronic emotional and physical stress leads to disease. Ways of reducing stress include meditation, visualization, prayer, yoga and other forms of relaxation therapy. Consistency is the david. Find a technique that works for you and do it every day. CULTIVATE RELATIONSHIPS Loneliness and isolation have a major negative impact on health. Seek out others who can love, care for and nurture you. Avoid hurtful relationships. MAINTAIN IDEAL BODY WEIGHT The best way to do this is to do all the things above. Our bodies naturally find the right weight if we keep moving and feed ourselves the right food. If your BMI is greater than 25, we strongly recommend a referral to a weight management program. Please speak to us or your family physician about available programs. AVOID NICOTINE IN ALL FORMS This includes all tobacco products, whether chewed, smoked, vaped, or rubbed on the skin. Smoking cessation programs, which can make use of tobacco substitutes, medications to suppress cravings and behavior management, are available. Please contact your family physician about programs in your area. Encounter Status:Closed by ROYA CHAUDHARY MD on 08/25/18 LIPID PROFILE Collected: 07/24/2018 Status: F Source: ER[place] 7:42 AM [facility] REPOSITORY TYPE CODE TESTS RESULT OUT OF RANGE REFERENCE UNITS LAB L501.4900 200 mg/dL Normal CHOL 194 Result Comment: <200 mg/dL Desirable 200-240 mg/dL Borderline >240 mg/dL High Risk LAB L501.5000 mg/dL Normal TRIG 194 Result Comment: The drugs N-Acetylcysteine and Metamizole may falsely depress this assay. Serum Triglycerides Reference Interval Normal <150 mg/dL Borderline high 150 - 199 mg/dL High 200 - 499 mg/dL Very High > or = 500 mg/dL LAB L501.6400 mg/dL Normal HDL 51 Result Comment: The drugs N-Acetylcysteine and Metamizole may falsely depress this assay. Reference Range HDL <40 mg/dL Low HDL Cholesterol HDL >or= 60 mg/dL High HDL Cholesterol LAB L501.6500 0-130 mg/dL Normal LDL 104 LAB L501.6600 5-40 mg/dL Normal VLDL 39 Performed By: #### L500.4100, L501.3620, L501.4405 #### [facility] [address] [place], [address] CPK TOTAL, CREATINE Collected: 07/24/2018 Status: F Source: ERIN KINASE 7:42 AM [facility] REPOSITORY TYPE CODE TESTS RESULT OUT OF RANGE REFERENCE UNITS LAB L501.3620 26-192 U/L Normal CPK TOTAL 108 Performed By: #### L500.4100, L501.3620, L501.4405 #### [facility] [address] [place], [address] ALANINE AMINOTRANSFERAS Collected: 07/24/2018 Status: F Source: ERIN (SGPT) 7:42 AM [facility] REPOSITORY TYPE CODE TESTS RESULT OUT OF RANGE REFERENCE UNITS LAB L501.4405 13-56 U/L Normal ALT 21 Performed By: #### L500.4100, L501.3620, L501.4405 #### [facility] [address] [place], [address] CNPN Observed: 07/22/2018 Status: COMPLETED Source: [place] 12:00 AM [facility] REPOSITORY Telephone (CAWSTR) CHRISTINA CHEN ([id number]) 1940 F Date Time Provider Department 07/22/18 ROYA CHAUDHARY CAWSTR During your visit today, we recorded the following information about you: Radha Gamble RN 07/22/2018 9:59 AM Signed Pt called, verified by name and birthdate. Pt asking if labs are at [facility] lab for her to be drawn. Told pt I would call [facility] lab to verify and return call to her. Pt verbalized understanding Radha Gamble RN 07/22/2018 9:59 AM Signed Called [facility] lab talked to Cat, verified order is in lab. Radha Gamble RN 07/22/2018 9:59 AM Signed Called pt, notified her that lab order is at [facility] and ready for her. Pt verbalized understanding Radha Gamble RN 07/22/2018 10:13 AM Signed Received call from Cat at [facility] lab, she states after she got off phone she realized order for 04-17-18 that was to be drawn in 3 months pt had drawn when it was received. Radha Gamble RN 07/22/2018 10:44 AM Signed Called AND notified pt order was already used and I will see if Dr. Chaudhary wants new order faxed to [facility]. Pt verbalized understanding. Copy of blood work completed on 04-17-18 placed in box to review. Radha Chaudhary MD 07/22/2018 11:08 AM Signed Please order lipid profile, ALT and CK to be drawn after she has been on Crestor 10 milligrams daily for at least 6 weeks. Roya Chaudhary MD Allergies As of Date: 07/22/2018 Noted Allergy Reaction AMOXICILLIN 12/17/2008 2 - Rash INFLUENZA VACC,TRI 2002 (LIVE) 07/27/2005 16 - Unknown Comments: Patient states that she gets this every year and is unsure why this is listed. LIPITOR (ATORVASTATIN CALCIUM) 10/07/2015 17 - Myalgia SULFA (SULFONAMIDE ANTIBIOTICS) 07/27/2005 ZOCOR (SIMVASTATIN) 10/07/2015 17 - Myalgia Date Reviewed: 05/28/2018 Reviewed by: Nohemi ([facility]) Amena - Fully Assessed Reason for Visit: Orders [681] Reason For Visit History Recorded Prescriptions as of 07/22/2018 Sig: METOPROLOL TARTRATE 25 MG TAB* Take 0.5 tablets by mouth twi* TRIAMCINOLONE ACETONIDE 0.025* Apply 1 application to affect* ROSUVASTATIN 10 MG TABLET Take 1 tablet by mouth daily * BIOTIN 10,000 MCG CAPSULE Take by mouth. CVKQJSSZWTH-JRFCTLONW-NQN C-M* Take 1 capsule by mouth twice* CRANBERRY ORAL Take by mouth. * CINNAMON 500 MG CAPSULE Take one(1) tablet two(2) michelle* * FLAXSEED OIL 1,030 MG CAPSULE Take one(1) tablet once (1) d* * ECOTRIN LOW STRENGTH 81 MG TA* Take one(1) tablet daily. * ONE-A-DAY WOMENS FORMULA 27 M* Take one(1) tablet daily. Problem List As Of Date 07/22/2018 Noted Resolved Essential hypertension, benign [I10] 11/21/2017 POSTMENOPAUSAL HORMONAL REPLACEMENT TX [Z79.890] DIFFUS CYSTIC MASTOPATHY [N60.19] INVALID FOR* BENIGN NEOPLASM LG BOWEL [D12.6] INT HEMORRHOID W/O COMPL [K64.8] Aortic valve disorders [I35.9] 11/17/2014 More... 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 Encounter Status:Closed by RADHA GAMBLE RN on 07/22/18 PROGRESS Observed: 05/28/2018 Status: COMPLETED Source: [place] 7:49 AM [facility] REPOSITORY HNO ID: [id number] Author: Nohemi Beckwith Service: (none) Author Type: Nurse Practitioner Type: Progress Notes Filed: 05/28/2018 8:10 AM Note Text: Subjective HPI Christina Chen is a 78 year old female who presents with an itchy rash for the past few days. She had been cutting jack and the rash appeared afterwards. She used benadryl cream and tablets without relief. Her right eye is slightly swollen today and the rash is present on her face, forearms, abdomen and thighs. Review of Systems Constitutional: Negative. Negative for fever. Respiratory: Negative. Cardiovascular: Negative. Skin: Positive for itching and rash. BP 110/68 Pulse 70 Temp 36.7 ?C (98.1 ?F) (Tympanic) Resp 16 Wt 67.6 kg (149 lb) BMI 26.39 kg/m? PAST MEDICAL HISTORY Diagnosis Date - Acquired absence of ovaries, bilateral - Aortic root dilatation (HCC) 10/07/2015 - Benign neoplasm of colon - Body mass index 26.0-26.9, adult - Essential hypertension, benign - Family history of cancer of trachea, bronchus and lung - Family history of ischemic heart disease and other diseases of the circulatory system - Family history of stroke - H/O aortic valve replacement 08/2008 - Hyperlipidemia LDL goal <130 10/07/2015 - Insomnia, unspecified - Internal hemorrhoids without mention of complication - half-way (current) use of aspirin - Low back pain - Need for prophylactic hormone replacement therapy (postmenopausal) - Osteopenia 10/23/2011 - Other and unspecified hyperlipidemia - Overweight - Presence of prosthetic heart valve - Primary generalized (osteo)arthritis - Statin intolerance 10/07/2015 PAST SURGICAL HISTORY Procedure Laterality Date - COLONOSCOP W/ OR W/O [facility] SPEC 05/16/16 normal - ? follow up - COLONOSCOPY W/BX 12/04/05 - CORRECT BUNION,SIMPLE - LIGATE FALLOPIAN TUBE Tubal ligation - REMOVAL OF OVARY(S) Left Oophorectomy - REPLAC AORT VALV PROSTH VALV 08/24/08 Aortic valve replacement ALLERGIES Amoxicillin; Influenza Vacc,Tri 2002 (Live); Lipitor [Atorvastatin Calcium]; Sulfa (Sulfonamide Antibiotics); Zocor [Simvastatin] MEDICATIONS rosuvastatin (CRESTOR) 10 mg tablet Take 1 tablet by mouth daily at bedtime. metoprolol tartrate, short acting, (LOPRESSOR) 25 mg tablet TAKE ONE-HALF TABLET BY MOUTH TWICE DAILY Erjucejhlki-Iqnmadbvo-Ayq C-Mn (GLUCOSAMINE CHONDROITIN MAXSTR) 500-400 mg cap Take 1 capsule by mouth twice daily. CRANBERRY EXTRACT (CRANBERRY ORAL) Take by mouth. cinnamon bark(CINNAMON 500 MG CAP) Take one(1) tablet two(2) times daily. FLAXSEED OIL 1,030 MG CAP Take one(1) tablet once (1) daily. aspirin(ECOTRIN LOW STRENGTH 81 MG TAB) Take one(1) tablet daily. Wtupdmhwokynv-Bp-Elqz-Minerals (ONE-A-DAY WOMENS FORMULA) 27-0.4 mg ORAL Tab Take one(1) tablet daily. Biotin 10,000 mcg cap Take by mouth. FAMILY HISTORY Problem Relation Age of Onset - Cancer Sister Lung - cerebral hemorrhage [OTHER] Mother - Heart Father Social History Substance Use Topics - Smoking status: Never Smoker - Smokeless tobacco: Never Used - Alcohol use No Objective Physical Exam Constitutional: She is well-developed, well-nourished, and in no distress. HENT: Head: Cardiovascular: Normal rate and regular rhythm. Pulmonary/Chest: Effort normal and breath sounds normal. No respiratory distress. She has no wheezes. Neurological: She is alert. Skin: Skin is warm and dry. Rash noted. There is erythema. Nursing note and vitals reviewed. ASSESSMENT/PLAN: 1. Dermatitis due to plants, including poison anne marie, sumac, and oak - ICD9: 692.6, ICD10: L25.5 - Oral Steriod tx -Prednisone taper - Topical steriod tx with Rx for steriod cream/ointment- for use on extremities only. - discussed skin care of rash - follow up if symptoms persist or worsen. - PREDNISONE 10 MG TABLET - TRIAMCINOLONE ACETONIDE 0.025 % TOPICAL CREAM - avoid use of other NSAIDS while on prednisone. - Follow-up with your PCP in 3-5 days if symptoms have not improved or sooner if symptoms worsen - Discussed red flags and need for immediate medical evaluation if any occur. - Discussed supportive care treatment with fluids, rest and analgesia. - Discussed expected course of illness EVERT RamirezOV Observed: 05/28/2018 Status: COMPLETED Source: [place] 7:45 AM [facility] REPOSITORY Office Visit (WSTR) GUSTAVOCHRISTINA Rosie ([id number]) 1940 F Date Time Provider Department 05/28/18 7:45 AM NOHEMI BECKWITH (MICHAEL) WSTR During your visit today, we recorded the following information about you: Temperature Pulse Respiration Blood pressure 98.1 degrees 70/minute 16/minute 110/68 Weight 67.6 kg Nohemi Beckwith APRN.CNP 05/28/2018 8:10 AM Signed Subjective HPI Christina Chen is a 78 year old female who presents with an itchy rash for the past few days. She had been cutting jack and the rash appeared afterwards. She used benadryl cream and tablets without relief. Her right eye is slightly swollen today and the rash is present on her face, forearms, abdomen and thighs. Review of Systems Constitutional: Negative. Negative for fever. Respiratory: Negative. Cardiovascular: Negative. Skin: Positive for itching and rash. BP 110/68 Pulse 70 Temp 36.7 ?C (98.1 ?F) (Tympanic) Resp 16 Wt 67.6 kg (149 lb) BMI 26.39 kg/m? 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 follow up - COLONOSCOPY W/BX 12/04/05 - CORRECT BUNION,SIMPLE - LIGATE FALLOPIAN TUBE Tubal ligation - REMOVAL OF OVARY(S) Left Oophorectomy - REPLAC AORT VALV PROSTH VALV 08/24/08 Aortic valve replacement ALLERGIES Amoxicillin; Influenza Vacc,Tri 2002 (Live); Lipitor [Atorvastatin Calcium]; Sulfa (Sulfonamide Antibiotics); Zocor [Simvastatin] MEDICATIONS rosuvastatin (CRESTOR) 10 mg tablet Take 1 tablet by mouth daily at bedtime. metoprolol tartrate, short acting, (LOPRESSOR) 25 mg tablet TAKE ONE-HALF TABLET BY MOUTH TWICE DAILY Bppdlrmmkjo-Xtgauetpz-Uji C-Mn (GLUCOSAMINE CHONDROITIN MAXSTR) 500-400 mg cap Take 1 capsule by mouth twice daily. CRANBERRY EXTRACT (CRANBERRY ORAL) Take by mouth. cinnamon bark(CINNAMON 500 MG CAP) Take one(1) tablet two(2) times daily. FLAXSEED OIL 1,030 MG CAP Take one(1) tablet once (1) daily. aspirin(ECOTRIN LOW STRENGTH 81 MG TAB) Take one(1) tablet daily. Hiujrdsnlxdjm-Dg-Vprc-Minerals (ONE-A-DAY WOMENS FORMULA) 27-0.4 mg ORAL Tab Take one(1) tablet daily. Biotin 10,000 mcg cap Take by mouth. FAMILY HISTORY Problem Relation Age of Onset - Cancer Sister Lung - cerebral hemorrhage [OTHER] Mother - Heart Father Social History Substance Use Topics - Smoking status: Never Smoker - Smokeless tobacco: Never Used - Alcohol use No Objective Physical Exam Constitutional: She is well-developed, well-nourished, and in no distress. HENT: Head: Cardiovascular: Normal rate and regular rhythm. Pulmonary/Chest: Effort normal and breath sounds normal. No respiratory distress. She has no wheezes. Neurological: She is alert. Skin: Skin is warm and dry. Rash noted. There is erythema. Nursing note and vitals reviewed. ASSESSMENT/PLAN: 1. Dermatitis due to plants, including poison anne marie, sumac, and oak - ICD9: 692.6, ICD10: L25.5 - Oral Steriod tx -Prednisone taper - Topical steriod tx with Rx for steriod cream/ointment- for use on extremities only. - discussed skin care of rash - follow up if symptoms persist or worsen. - PREDNISONE 10 MG TABLET - TRIAMCINOLONE ACETONIDE 0.025 % TOPICAL CREAM - avoid use of other NSAIDS while on prednisone. - Follow-up with your PCP in 3-5 days if symptoms have not improved or sooner if symptoms worsen - Discussed red flags and need for immediate medical evaluation if any occur. - Discussed supportive care treatment with fluids, rest and analgesia. - Discussed expected course of illness EVERT Ramirez APRN.CNP 05/28/2018 7:57 AM Signed [facility] PATIENT INFO POISON ANNE MARIE INTRODUCTION When the skin comes in direct contact with an irritating or allergy-causing substance, contact dermatitis can develop. Exposure to poison anne marie, poison oak, and poison sumac cause more cases of allergic contact dermatitis than all other plant families combined. People of all ethnicities and skin types are at risk for developing poison anne marie dermatitis. The severity of the reaction tends to decrease with age, especially in people who have had mild reactions in the past. People in occupations such as firefighting, forestry, and farming are at a higher risk of poison anne marie dermatitis because of repeated exposure to toxic plants. POISON ANNE MARIE CAUSES Poison anne marie, poison oak, and poison sumac plants all contain a compound called urushiol, which is a light, colorless oil that is found on the fruit, leaves, stem, root, and sap of the plant. When urushiol is exposed to air, it turns brown and the plant leaves develop small black spots. There are several ways that you can be exposed to urushiol: ? By touching the sap or rubbing against the leaves of the toxic plant ? By touching something that has urushiol on it, such as animal fur or garden tools ? By breathing in smoke when toxic plants are burned ? Ginkgo fruit and the skin of mangoes also contain urushiol and can produce symptoms similar to poison anne marie dermatitis. IDENTIFYING POISON ANNE MARIE Leaves of three, let them be is a phrase often used to identify plants that cause poison anne marie dermatitis. Generally, poison anne marie and poison oak have three leaves with flowering branches on a single stem. Poison sumac has five, seven, or more leaves that angle upward toward the top of the stem. Some types of poison anne marie produce a green or off-white fruit in tulio, and in some cases, black dots form on the plants' leaves. It is not always possible to identify the plant by the leaves alone since the appearance can vary depending upon the season, growth cycle, region, and climate. Poison anne marie, oak, and sumac plants grow in many areas across the [facility] and throughout the world. East of the [facility], poison anne marie commonly grows as a climbing vine. In the [place] area and west, poison anne marie tends to grow low to the ground as a shrub. Poison oak most often grows west of the [facility], and poison sumac inhabits boggy areas in the southeastern part of the [place]. The plants are not usually found in areas at high elevations or in desert climates. POISON ANNE MARIE SIGNS AND SYMPTOMS After contact with urushiol, approximately 50 percent of people develop signs and symptoms of poison anne marie dermatitis. The symptoms and severity differ from person to person. The most common signs and symptoms of poison anne marie dermatitis are: ? Intense itching ? Skin swelling ? Skin redness These symptoms usually develop within four hours to four days after exposure to the urushiol. After the initial symptoms, you will develop fluid-filled blisters in a line or streak-like pattern. The symptoms are worst within 1 to 14 days after touching the plant, but can develop up to 21 days later if you have never been exposed to urushiol before. The blisters can occur at different times in different people; blisters can develop on the arms several days after blisters on the hands developed. This does not mean that the reaction is spreading from one area of the body to the other. The fluid that leaks from blisters does not cause symptoms. Poison anne marie dermatitis is not contagious and cannot be passed from person to person. However, urushiol can be carried under fingernails and on clothes; if another person comes in contact with the urushiol, they can develop poison anne marie dermatitis. POISON ANNE MARIE DIAGNOSIS Poison anne marie is usually diagnosed based upon how your skin looks. Further testing is not usually necessary. POISON ANNE MARIE TREATMENT Poison anne marie dermatitis usually resolves within one to three weeks without treatment. Treatments that may help relieve the itching, soreness, and discomfort caused by poison anne marie dermatitis include: Skin treatments ? For some people, adding oatmeal to a bath, applying cool wet compresses, and applying calamine lotion may help to relieve itching. Once the blisters begin weeping fluid, astringents containing aluminum acetate (Jaelyn's solution) and Domeboro may help to relieve the rash. Antihistamines ? Antihistamines may help to relieve itching caused by poison anne marie dermatitis. Some antihistamines make you sleepy while others do not. ? Antihistamines that make you sleepy (eg, diphenhydramine [Benadryl?]) may be helpful if you have trouble sleeping due to itching. ? Other formulas (eg, loratadine [Claritin?], cetirizine [Zyrtec?]) may be preferable for daytime. Steroid creams ? Steroid creams may be helpful if they are used during the first few days after symptoms develop. Low potency steroid creams, such as 1 percent hydrocortisone (available in the [place] without prescription) are not usually helpful. A stronger prescription formula may be helpful. Steroids ? If you develop severe symptoms or the rash covers a large area (especially on the face or genitals), you may need steroid pills or injections (eg, prednisone) to help relieve itching and swelling. Pills are usually given for 14 to 21 days, with the dosage slowly decreased over time. Antibiotics ? Skin infections are a potential complication of poison anne marie, especially if you scratch your skin. If you develop a skin infection because of poison anne marie dermatitis, you may need antibiotics to treat the infection. Other treatments ? An herbal therapy called jewelweed extract has been used to treat poison anne marie dermatitis, although it has not been proven effective. You should not use antihistamine creams or lotions, anesthetic creams containing benzocaine, or antibiotic creams containing neomycin or bacitracin to the skin. These creams or ointments could make the rash worse. POISON ANNE MRAIE PREVENTION The best way to prevent poison anne marie dermatitis is to identify and avoid the plants that cause it. These plants can irritate the skin year round, even during the winter months, and can still cause a reaction years after the plant dies. ? Wear protective clothing, including long sleeves and pants when working in areas where toxic plants may be found. Keep in mind that the resin and oils from the toxic plants can be carried on clothing, pets, and under fingernails. ? Wear heavy-duty vinyl gloves when doing yard work or gardening. The oils from toxic plants can seep through latex or rubber gloves. ? After coming in contact with poison anne marie, remove any contaminated clothing and gently wash (do not scrub or rub) you skin and under the fingernails with mild soap and water as soon as possible. Washing within two hours after exposure can reduce the likelihood and severity of symptoms; washing the skin after you have symptoms will not help. ? Creams and ointments that create a barrier between the skin and the urushiol oil may be somewhat effective for people who are frequently exposed to poison anne marie. Bentoquatam (Anne Marie Block?) is one type of barrier cream that may prevent poison anne marie dermatitis. It must be reapplied every four hours and it leaves a bert residue on the skin. ? Avoid burning poisonous vegetation, which can disperse the plant particles in the smoke, irritate the skin, and cause poison anne marie dermatitis. Referring Provider: SELF [200] Allergies As of Date: 05/28/2018 Noted Allergy Reaction AMOXICILLIN 12/17/2008 2 - Rash INFLUENZA VACC,TRI 2002 (LIVE) 07/27/2005 16 - Unknown Comments: Patient states that she gets this every year and is unsure why this is listed. LIPITOR (ATORVASTATIN CALCIUM) 10/07/2015 17 - Myalgia SULFA (SULFONAMIDE ANTIBIOTICS) 07/27/2005 ZOCOR (SIMVASTATIN) 10/07/2015 17 - Myalgia Date Reviewed: 05/28/2018 Reviewed by: Nohemi ([facility]) Amena - Fully Assessed Reason for Visit: Rash [1087] Cmt: itching, face and all over using benadryl cream and tablets x saturday Primary Visit Diagnosis:Dermatitis due to plants, including poison anne marie, sumac, and oak [L25.5] Order(s):predniSONE (DELTASONE) 10 mg tabletTake 4 tabs daily for 3 days, then 2 tabs daily for 3 days, then 1 tab daily for 3 days with food.Disp: 21 tabletRfl: 0 triamcinolone (KENALOG) 0.025 % creamApply 1 application to affected area twice daily.Disp: 30 gRfl: 0 Prescriptions as of 05/28/2018 Sig: ROSUVASTATIN 10 MG TABLET Take 1 tablet by mouth daily * METOPROLOL TARTRATE 25 MG TAB* TAKE ONE-HALF TABLET BY MOUTH* [id number]-[id number]-LVO C-M* Take 1 capsule by mouth twice* CRANBERRY ORAL Take by mouth. * CINNAMON 500 MG CAPSULE Take one(1) tablet two(2) michelle* * FLAXSEED OIL 1,030 MG CAPSULE Take one(1) tablet once (1) d* * ECOTRIN LOW STRENGTH 81 MG TA* Take one(1) tablet daily. * ONE-A-DAY WOMENS FORMULA 27 M* Take one(1) tablet daily. PREDNISONE 10 MG TABLET Take 4 tabs daily for 3 days,* TRIAMCINOLONE ACETONIDE 0.025* Apply 1 application to affect* BIOTIN 10,000 MCG CAPSULE Take by mouth. Problem List As Of Date 05/28/2018 Noted Resolved Essential hypertension, benign [I10] 11/21/2017 POSTMENOPAUSAL HORMONAL REPLACEMENT TX [Z79.890] DIFFUS CYSTIC MASTOPATHY [N60.19] INVALID FOR* BENIGN NEOPLASM LG BOWEL [D12.6] INT HEMORRHOID W/O COMPL [K64.8] Aortic valve disorders [I35.9] 11/17/2014 More... 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 Other instructions from your clinician: EXPRESS CARE PATIENT INFO POISON NANE MARIE INTRODUCTION When the skin comes in direct contact with an irritating or allergy-causing substance, contact dermatitis can develop. Exposure to poison anne marie, poison oak, and poison sumac cause more cases of allergic contact dermatitis than all other plant families combined. People of all ethnicities and skin types are at risk for developing poison anne marie dermatitis. The severity of the reaction tends to decrease with age, especially in people who have had mild reactions in the past. People in occupations such as firefighting, forestry, and farming are at a higher risk of poison anne marie dermatitis because of repeated exposure to toxic plants. POISON ANNE MARIE CAUSES Poison anne marie, poison oak, and poison sumac plants all contain a compound called urushiol, which is a light, colorless oil that is found on the fruit, leaves, stem, root, and sap of the plant. When urushiol is exposed to air, it turns brown and the plant leaves develop small black spots. There are several ways that you can be exposed to urushiol: ? By touching the sap or rubbing against the leaves of the toxic plant ? By touching something that has urushiol on it, such as animal fur or garden tools ? By breathing in smoke when toxic plants are burned ? Ginkgo fruit and the skin of mangoes also contain urushiol and can produce symptoms similar to poison anne marie dermatitis. IDENTIFYING POISON ANNE MARIE Leaves of three, let them be is a phrase often used to identify plants that cause poison anne marie dermatitis. Generally, poison anne marie and poison oak have three leaves with flowering branches on a single stem. Poison sumac has five, seven, or more leaves that angle upward toward the top of the stem. Some types of poison anne marie produce a green or off-white fruit in tulio, and in some cases, black dots form on the plants' leaves. It is not always possible to identify the plant by the leaves alone since the appearance can vary depending upon the season, growth cycle, region, and climate. Poison anne marie, oak, and sumac plants grow in many areas across the [facility] and throughout the world. East of the [facility], poison anne marie commonly grows as a climbing vine. In the [place] area and west, poison anne marie tends to grow low to the ground as a shrub. Poison oak most often grows west of the [facility], and poison sumac inhabits boggy areas in the southeastern part of the [facility]. The plants are not usually found in areas at high elevations or in desert climates. POISON ANNE MARIE SIGNS AND SYMPTOMS After contact with urushiol, approximately 50 percent of people develop signs and symptoms of poison anne marie dermatitis. The symptoms and severity differ from person to person. The most common signs and symptoms of poison anne marie dermatitis are: ? Intense itching ? Skin swelling ? Skin redness These symptoms usually develop within four hours to four days after exposure to the urushiol. After the initial symptoms, you will develop fluid-filled blisters in a line or streak-like pattern. The symptoms are worst within 1 to 14 days after touching the plant, but can develop up to 21 days later if you have never been exposed to urushiol before. The blisters can occur at different times in different people; blisters can develop on the arms several days after blisters on the hands developed. This does not mean that the reaction is spreading from one area of the body to the other. The fluid that leaks from blisters does not cause symptoms. Poison anne marie dermatitis is not contagious and cannot be passed from person to person. However, urushiol can be carried under fingernails and on clothes; if another person comes in contact with the urushiol, they can develop poison anne marie dermatitis. POISON ANNE MARIE DIAGNOSIS Poison anne marie is usually diagnosed based upon how your skin looks. Further testing is not usually necessary. POISON ANNE MARIE TREATMENT Poison anne marie dermatitis usually resolves within one to three weeks without treatment. Treatments that may help relieve the itching, soreness, and discomfort caused by poison anne marie dermatitis include: Skin treatments ? For some people, adding oatmeal to a bath, applying cool wet compresses, and applying calamine lotion may help to relieve itching. Once the blisters begin weeping fluid, astringents containing aluminum acetate (Jaelyn's solution) and [place] may help to relieve the rash. Antihistamines ? Antihistamines may help to relieve itching caused by poison anne marie dermatitis. Some antihistamines make you sleepy while others do not. ? Antihistamines that make you sleepy (eg, diphenhydramine [Benadryl?]) may be helpful if you have trouble sleeping due to itching. ? Other formulas (eg, loratadine [Claritin?], cetirizine [Zyrtec?]) may be preferable for daytime. Steroid creams ? Steroid creams may be helpful if they are used during the first few days after symptoms develop. Low potency steroid creams, such as 1 percent hydrocortisone (available in the [place] without prescription) are not usually helpful. A stronger prescription formula may be helpful. Steroids ? If you develop severe symptoms or the rash covers a large area (especially on the face or genitals), you may need steroid pills or injections (eg, prednisone) to help relieve itching and swelling. Pills are usually given for 14 to 21 days, with the dosage slowly decreased over time. Antibiotics ? Skin infections are a potential complication of poison anne marie, especially if you scratch your skin. If you develop a skin infection because of poison anne marie dermatitis, you may need antibiotics to treat the infection. Other treatments ? An herbal therapy called jewelweed extract has been used to treat poison anne marie dermatitis, although it has not been proven effective. You should not use antihistamine creams or lotions, anesthetic creams containing benzocaine, or antibiotic creams containing neomycin or bacitracin to the skin. These creams or ointments could make the rash worse. POISON ANNE MARIE PREVENTION The best way to prevent poison anne marie dermatitis is to identify and avoid the plants that cause it. These plants can irritate the skin year round, even during the winter months, and can still cause a reaction years after the plant dies. ? Wear protective clothing, including long sleeves and pants when working in areas where toxic plants may be found. Keep in mind that the resin and oils from the toxic plants can be carried on clothing, pets, and under fingernails. ? Wear heavy-duty vinyl gloves when doing yard work or gardening. The oils from toxic plants can seep through latex or rubber gloves. ? After coming in contact with poison anne marie, remove any contaminated clothing and gently wash (do not scrub or rub) you skin and under the fingernails with mild soap and water as soon as possible. Washing within two hours after exposure can reduce the likelihood and severity of symptoms; washing the skin after you have symptoms will not help. ? Creams and ointments that create a barrier between the skin and the urushiol oil may be somewhat effective for people who are frequently exposed to poison anne marie. Bentoquatam (Anne Marie Block?) is one type of barrier cream that may prevent poison anne marie dermatitis. It must be reapplied every four hours and it leaves a bert residue on the skin. ? Avoid burning poisonous vegetation, which can disperse the plant particles in the smoke, irritate the skin, and cause poison anne marie dermatitis. Prescriptions ordered this encounter Disp Refills Start End PREDNISONE 10 MG TABLET 21 t* 0 05/28/2018 06/06/2018 Sig: Take 4 tabs daily for 3 days, then 2 tabs daily for 3 days, then 1 tab daily for 3 days with food. TRIAMCINOLONE ACETONIDE 0.025 % TOPI* 30 g 0 05/28/2018 Route: TOPICAL Sig: Apply 1 application to affected area twice daily. Encounter Status:Closed by NOHEMI BECKWITH on 05/28/18 LIPID PROFILE Collected: 04/17/2018 Status: F Source: ER[place] 7:21 AM [facility] REPOSITORY TYPE CODE TESTS RESULT OUT OF RANGE REFERENCE UNITS LAB L501.4900 200 mg/dL High CHOL 202 Result Comment: <200 mg/dL Desirable 200-240 mg/dL Borderline >240 mg/dL High Risk LAB L501.5000 mg/dL High TRIG 217 Result Comment: The drugs N-Acetylcysteine and Metamizole may falsely depress this assay. Serum Triglycerides Reference Interval Normal <150 mg/dL Borderline high 150 - 199 mg/dL High 200 - 499 mg/dL Very High > or = 500 mg/dL LAB L501.6400 mg/dL Normal HDL 52 Result Comment: The drugs N-Acetylcysteine and Metamizole may falsely depress this assay. Reference Range HDL <40 mg/dL Low HDL Cholesterol HDL >or= 60 mg/dL High HDL Cholesterol LAB L501.6500 0-130 mg/dL Normal LDL 107 LAB L501.6600 5-40 mg/dL High VLDL 43 Performed By: #### L500.4100, L501.3620, L501.4405 #### [facility] [address] [place], [address] CPK TOTAL, CREATINE Collected: 04/17/2018 Status: F Source: ERIN KINASE 7:21 AM [facility] REPOSITORY TYPE CODE TESTS RESULT OUT OF RANGE REFERENCE UNITS LAB L501.3620 26-192 U/L Normal CPK TOTAL 88 Performed By: #### L500.4100, L501.3620, L501.4405 #### [facility] [address] [place], [address] ALANINE AMINOTRANSFERAS Collected: 04/17/2018 Status: F Source: ERIN (SGPT) 7:21 AM [facility] REPOSITORY TYPE CODE TESTS RESULT OUT OF RANGE REFERENCE UNITS LAB L501.4405 13-56 U/L Normal ALT 21 Performed By: #### L500.4100, L501.3620, L501.4405 #### [facility] [address] [place], [address] OBSOLETE Observed: 04/01/2018 Status: COMPLETED Source: [place] 12:00 AM [facility] REPOSIT[facility] Refill (AGCARDWST) CHRISTINA CHEN ([id number]) 1940 F Date Time Provider Department 04/01/18 ROYA CHAUDHARY AGCARDWST During your visit today, we recorded the following information about you: Heidi Rollins MA 04/01/2018 10:03 AM Signed Patient phones requesting refills as follows: Pending Prescriptions Disp Refills ROSUVASTATIN 5 MG TABLET 30 tablet 11 Sig: Take 1 tablet by mouth daily at bedtime. HALLIE: No Please review and advise. Heidi Rollins MA Allergies As of Date: 04/01/2018 Noted Allergy Reaction AMOXICILLIN 12/17/2008 2 - Rash INFLUENZA VACC,TRI 2003 (LIVE) 07/27/2005 16 - Unknown Comments: Patient states that she gets this every year and is unsure why this is listed. LIPITOR (ATORVASTATIN CALCIUM) 10/07/2015 17 - Myalgia SULFA (SULFONAMIDE ANTIBIOTICS) 07/27/2005 ZOCOR (SIMVASTATIN) 10/07/2015 17 - Myalgia Date Reviewed: 12/24/2017 Reviewed by: Heidi Rollins - Fully Assessed Reason for Visit: Refill Request [94] Order(s):rosuvastatin (CRESTOR) 5 mg tabletTake 1 tablet by mouth daily at bedtime.Disp: 30 tabletRfl: 11 Prescriptions as of 04/01/2018 Sig: ROSUVASTATIN 5 MG TABLET Take 1 tablet by mouth daily * METOPROLOL TARTRATE 25 MG TAB* TAKE ONE-HALF TABLET BY MOUTH* BIOTIN 10,000 MCG CAPSULE Take by mouth. PJCSRHOZCGD-PAWPOQJEN-OKK C-M* Take 1 capsule by mouth twice* CRANBERRY ORAL Take by mouth. * CINNAMON 500 MG CAPSULE Take one(1) tablet two(2) michelle* * FLAXSEED OIL 1,030 MG CAPSULE Take one(1) tablet once (1) d* * ECOTRIN LOW STRENGTH 81 MG TA* Take one(1) tablet daily. * ONE-A-DAY WOMENS FORMULA 27 M* Take one(1) tablet daily. Problem List As Of Date 04/01/2018 Noted Resolved Essential hypertension, benign [I10] 11/21/2017 POSTMENOPAUSAL HORMONAL REPLACEMENT TX [Z79.890] DIFFUS CYSTIC MASTOPATHY [N60.19] INVALID FOR* BENIGN NEOPLASM LG BOWEL [D12.6] INT HEMORRHOID W/O COMPL [K64.8] Aortic valve disorders [I35.9] 11/17/2014 More... 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 Prescriptions ordered this encounter Disp Refills Start End ROSUVASTATIN 5 MG TABLET 30 t* 11 04/01/2018 Route: ORAL Sig: Take 1 tablet by mouth daily at bedtime. Medications Discontinued During This Encounter rosuvastatin (CRESTOR) 5 mg tablet 30 t* 11 12/24/2017 04/01/2018 Route: ORAL Sig: Take 0.5 tablets by mouth daily at bedtime. Disc: Reason for discontinue is not on file. Encounter Status:Closed by HEIDI ROLLINS MA on 04/01/18 PROGRESS Observed: 12/24/2017 Status: COMPLETED Source: [place] 10:55 AM [facility] O ID: [id number] Author: Roya Chaudhary Service: (none) Author Type: Physician Type: Progress Notes Filed: 12/24/2017 1:38 PM Note Text: PERTINENT CARDIAC HISTORY Aortic stenosis - AVR 2007 Normal coronaries 2007 HL - statin intolerant RBBB TAA - 4.5 cm ADHERENCE TO GUIDELINES FARZANEH-I or ARB for HF with prior LVEF<40 (NQF 0081) - N/A ASA or Plavix for ASHD (NQF 0067) - met Beta karina for ASHD with prior VT or prior LVEF<40 (NQF 0070) - N/A Beta karina for HF with prior LVEF<40 (NQF 0083) - N/A FARZANEH-I or ARB for ASHD with DM or prior LVEF<40 (NQF 0066) - N/A Statin therapy for ASHD or FHL or DM - intolerant BMI documented and plan if >25 (NQF 0421) - lifestyle recommendation form Tobacco use screening and referral (NQF 0028) - lifestyle recommendation form Recommendation for whole food, plant based diet - lifestyle recommendation form CLINICAL IMPRESSION/PLAN: Christina Chen has stable aortic valve disease. Her thoracic aorta will be watched annually. We had a long conversation regarding options for treatment of her hyperlipidemia. She has not tolerated simvastatin or atorvastatin but has never tried rosuvastatin. We will initiate a dose of 2.5 milligrams 3 times weekly. I've asked her to contact me in a couple weeks let me know how she is tolerating this. Dose can be increased as tolerated and we will check lipids. Other options include Zetia or a PCSK9 inhibitor. I will see her in 8 months, which time she will have an echocardiogram. If there is increased chest pain or shortness of breath, she has been advised to contact me. She's been encouraged to remain active. Written and verbal health teaching given to patient, patient verbalizes understanding and agrees with treatment plan. This note was generated using Stealth10 voice recognition system, and there may be some incorrect words, spellings, and punctuation that were not noted in checking the note before saving. DIAGNOSIS FOR VISIT: AVR Hyperlipidemia HISTORY OF PRESENT ILLNESS Christina Chen returns for follow-up of her aortic valve disease, dilated thoracic aorta and hyperlipidemia. She reports stable exercise tolerance. She is walking on a regular basis. She is also been shoveling her walk. She denies chest discomfort. She's had no edema, syncope, palpitations, TIAs, amaurosis or claudication. She reports that she has not tried any statin therapy recently. She was not seen in primary care until just recently and has not had a conversation regarding treatment of her hyperlipidemia. ALLERGIES: ALLERGIES Allergen Reactions - Amoxicillin Rash - Influenza Vacc,Tri * Unknown Patient states that she gets this every year and is unsure why this is listed. - Lipitor [Atorvastat* Myalgia - Sulfa (Sulfonamide * - Zocor [Simvastatin] Myalgia CURRENT OUTPATIENT MEDICATIONS: metoprolol tartrate, short acting, (LOPRESSOR) 25 mg tablet TAKE ONE-HALF TABLET BY MOUTH TWICE DAILY Biotin 10,000 mcg cap Take by mouth. Rdacxszxuae-Cieaubzcu-Qaf C-Mn (GLUCOSAMINE CHONDROITIN MAXSTR) 500-400 mg cap Take 1 capsule by mouth twice daily. CRANBERRY EXTRACT (CRANBERRY ORAL) Take by mouth. cinnamon bark(CINNAMON 500 MG CAP) Take one(1) tablet two(2) times daily. FLAXSEED OIL 1,030 MG CAP Take one(1) tablet once (1) daily. aspirin(ECOTRIN LOW STRENGTH 81 MG TAB) Take one(1) tablet daily. Bnuapkeaiesom-Rq-Omlf-Minerals (ONE-A-DAY WOMENS FORMULA) 27-0.4 mg ORAL Tab Take one(1) tablet daily. PHYSICAL EXAMINATION: VITAL SIGNS: BP 108/80 Pulse 65 Ht 5' 3 (1.60m) Wt 149 lb 9.6 oz (67.9kg) BMI 26.51 kg/(m2). Chest: Clear to percussion and auscultation. Trachea is midline. Air entry is equal. Cardiac: Regular rhythm. S1 and S2 are normal. PMI is nondisplaced. There is a soft systolic ejection murmur. There is no aortic insufficiency. Carotids are brisk without bruits. JVP is less than 10 cm. Abdomen: Soft and nontender. There are no pulsatile masses or bruits. No liver enlargement. Bowel sounds are active. Extremities: No edema. Pulses are intact and symmetrical. EKG demonstrates sinus rhythm with atrial prematures and incomplete right bundle block. There is no change from 12/24/16. Recent labs were reviewed. LDL was 219. Renal function is normal. Recent echocardiogram shows excellent bioprosthetic aortic valve gradients. There is slightly dilated aorta, which is now 4.5 centimeters. This has increased slightly since last study. Electronically Signed: Roya Chaudhary MD December 24, 2017 10:55 AM CC: Brian Hayward III MD CNOV Observed: 12/24/2017 Status: COMPLETED Source: [facility] 10:30 AM [facility] Office Visit (AGCARDWST) CHRISTINA CHEN ([id number]) 1940 F Date Time Provider Department 12/24/17 10:30 AM ROYA CHAUDHARY AGCARDWST During your visit today, we recorded the following information about you: Pulse Blood pressure Weight Height 65/minute 108/80 67.9 kg 1.6 m Roya Chaudhary MD 12/24/2017 1:38 PM Signed PERTINENT CARDIAC HISTORY Aortic stenosis - AVR 2007 Normal coronaries 2007 HL - statin intolerant RBBB TAA - 4.5 cm ADHERENCE TO GUIDELINES FARZANEH-I or ARB for HF with prior LVEFANDlt;40 (NQF 0081) - N/A ASA or Plavix for ASHD (NQF 0067) - met Beta karina for ASHD with prior VT or prior LVEFANDlt;40 (NQF 0070) - N/A Beta karina for HF with prior LVEFANDlt;40 (NQF 0083) - N/A FARZANEH-I or ARB for ASHD with DM or prior LVEFANDlt;40 (NQF 0066) - N/A Statin therapy for ASHD or FHL or DM - intolerant BMI documented and plan if ANDgt;25 (NQF 0421) - lifestyle recommendation form Tobacco use screening and referral (NQF 0028) - lifestyle recommendation form Recommendation for whole food, plant based diet - lifestyle recommendation form CLINICAL IMPRESSION/PLAN: Christina Chen has stable aortic valve disease. Her thoracic aorta will be watched annually. We had a long conversation regarding options for treatment of her hyperlipidemia. She has not tolerated simvastatin or atorvastatin but has never tried rosuvastatin. We will initiate a dose of 2.5 milligrams 3 times weekly. I've asked her to contact me in a couple weeks let me know how she is tolerating this. Dose can be increased as tolerated and we will check lipids. Other options include Zetia or a PCSK9 inhibitor. I will see her in 8 months, which time she will have an echocardiogram. If there is increased chest pain or shortness of breath, she has been advised to contact me. She's been encouraged to remain active. Written and verbal health teaching given to patient, patient verbalizes understanding and agrees with treatment plan. This note was generated using [employer] recognition system, and there may be some incorrect words, spellings, and punctuation that were not noted in checking the note before saving. DIAGNOSIS FOR VISIT: AVR Hyperlipidemia HISTORY OF PRESENT ILLNESS Christina Chen returns for follow-up of her aortic valve disease, dilated thoracic aorta and hyperlipidemia. She reports stable exercise tolerance. She is walking on a regular basis. She is also been shoveling her walk. She denies chest discomfort. She's had no edema, syncope, palpitations, TIAs, amaurosis or claudication. She reports that she has not tried any statin therapy recently. She was not seen in primary care until just recently and has not had a conversation regarding treatment of her hyperlipidemia. ALLERGIES: ALLERGIES Allergen Reactions - Amoxicillin Rash - Influenza Vacc,Tri * Unknown Patient states that she gets this every year and is unsure why this is listed. - Lipitor [Atorvastat* Myalgia - Sulfa (Sulfonamide * - Zocor [Simvastatin] Myalgia CURRENT OUTPATIENT MEDICATIONS: metoprolol tartrate, short acting, (LOPRESSOR) 25 mg tablet TAKE ONE-HALF TABLET BY MOUTH TWICE DAILY Biotin 10,000 mcg cap Take by mouth. Djcxrvkjmqh-Qmmwgpebc-Znm C-Mn (GLUCOSAMINE CHONDROITIN MAXSTR) 500-400 mg cap Take 1 capsule by mouth twice daily. CRANBERRY EXTRACT (CRANBERRY ORAL) Take by mouth. cinnamon bark(CINNAMON 500 MG CAP) Take one(1) tablet two(2) times daily. FLAXSEED OIL 1,030 MG CAP Take one(1) tablet once (1) daily. aspirin(ECOTRIN LOW STRENGTH 81 MG TAB) Take one(1) tablet daily. Tlphsygjndfll-Tj-Tshk-Minerals (ONE-A-DAY WOMENS FORMULA) 27-0.4 mg ORAL Tab Take one(1) tablet daily. PHYSICAL EXAMINATION: VITAL SIGNS: BP 108/80 Pulse 65 Ht 5' 3ANDquot; (1.60m) Wt 149 lb 9.6 oz (67.9kg) BMI 26.51 kg/(m2). Chest: Clear to percussion and auscultation. Trachea is midline. Air entry is equal. Cardiac: Regular rhythm. S1 and S2 are normal. PMI is nondisplaced. There is a soft systolic ejection murmur. There is no aortic insufficiency. Carotids are brisk without bruits. JVP is less than 10 cm. Abdomen: Soft and nontender. There are no pulsatile masses or bruits. No liver enlargement. Bowel sounds are active. Extremities: No edema. Pulses are intact and symmetrical. EKG demonstrates sinus rhythm with atrial prematures and incomplete right bundle block. There is no change from 12/24/16. Recent labs were reviewed. LDL was 219. Renal function is normal. Recent echocardiogram shows excellent bioprosthetic aortic valve gradients. There is slightly dilated aorta, which is now 4.5 centimeters. This has increased slightly since last study. Electronically Signed: Roya Chaudhary MD December 24, 2017 10:55 AM CC: CHRISTINE Bojorquez MD, MD 12/24/2017 10:56 AM Addendum Start Crestor at 2.5 mg three times a week Call in two weeks and report progress LIFESTYLE CHANGE A healthy lifestyle is the most important component of your overall treatment plan. Please give serious thought to the following areas and commit to making [facility] changes. EAT A WHOLE FOOD, PLANT BASED DIET The nutrition your body gets is more important than the medicine you take. What matters most is the overall way you eat. We encourage you to minimize the use of animal products (which include dairy and all meats except fatty fish) and use whole, unprocessed plant foods to provide your protein, vitamins and other nutrients. We have a lot of information to share with you on this topic. We also hold Shared Medical Appointments, where you can come visit with Dr. Chaudhary in the company of other patients and spend over an hour talking about the challenges of changing the way you eat. This is not a ANDquot;dietANDquot;. It is a way of life that you will keep with you. EXERCISE REGULARLY It is not important to spend hours in the gym, lifting weights and perspiring heavily. A total of 2-3 hours per week of aerobic (causing you to be moderately short of breath) exercise is sufficient to improve your health. Talk to us before you begin a new exercise program, if you have heart disease or experience shortness of breath or chest pain. REDUCE STRESS Chronic emotional and physical stress leads to disease. Ways of reducing stress include meditation, visualization, prayer, yoga and other forms of relaxation therapy. Consistency is the david. Find a technique that works for you and do it every day. CULTIVATE RELATIONSHIPS Loneliness and isolation have a major negative impact on health. Seek out others who can love, care for and nurture you. Avoid hurtful relationships. MAINTAIN IDEAL BODY WEIGHT The best way to do this is to do all the things above. Our bodies naturally find the right weight if we keep moving and feed ourselves the right food. If your BMI is greater than 25, we strongly recommend a referral to a weight management program. Please speak to us or your family physician about available programs. AVOID NICOTINE IN ALL FORMS This includes all tobacco products, whether chewed, smoked, vaped, or rubbed on the skin. Smoking cessation programs, which can make use of tobacco substitutes, medications to suppress cravings and behavior management, are available. Please contact your family physician about programs in your area. Referring Provider: ROYA CHAUDHARY [[id number]] Allergies As of Date: 12/24/2017 Noted Allergy Reaction AMOXICILLIN 12/17/2008 2 - Rash INFLUENZA VACC,TRI 2002 (LIVE) 07/27/2005 16 - Unknown Comments: Patient states that she gets this every year and is unsure why this is listed. LIPITOR (ATORVASTATIN CALCIUM) 10/07/2015 17 - Myalgia SULFA (SULFONAMIDE ANTIBIOTICS) 07/27/2005 ZOCOR (SIMVASTATIN) 10/07/2015 17 - Myalgia Date Reviewed: 12/24/2017 Reviewed by: Heidi Rollins - Fully Assessed Reason for Visit: Follow Up [171] Primary Visit Diagnosis:S/P AVR [Z95.2] Other Visit Diagnosis:Other hyperlipidemia [E78.4] Order(s):ECG B/O W INTERP (MED OFFICE) [ECG06] Order #: [id number] rosuvastatin (CRESTOR) 5 mg tabletTake 0.5 tablets by mouth daily at bedtime.Disp: 30 tabletRfl: 11 ECHO [381020] Order #: [id number]: 1 FUTURE Prescriptions as of 12/24/2017 Sig: METOPROLOL TARTRATE 25 MG TAB* TAKE ONE-HALF TABLET BY MOUTH* BIOTIN 10,000 MCG CAPSULE Take by mouth. QPLLRARDPXH-FDKJFXOPM-IWW C-M* Take 1 capsule by mouth twice* CRANBERRY ORAL Take by mouth. * CINNAMON 500 MG CAPSULE Take one(1) tablet two(2) michelle* * FLAXSEED OIL 1,030 MG CAPSULE Take one(1) tablet once (1) d* * ECOTRIN LOW STRENGTH 81 MG TA* Take one(1) tablet daily. * ONE-A-DAY WOMENS FORMULA 27 M* Take one(1) tablet daily. ROSUVASTATIN 5 MG TABLET Take 0.5 tablets by mouth quynh* Problem List As Of Date 12/24/2017 Noted Resolved Essential hypertension, benign [I10] 11/21/2017 POSTMENOPAUSAL HORMONAL REPLACEMENT TX [Z79.890] DIFFUS CYSTIC MASTOPATHY [N60.19] INVALID FOR* BENIGN NEOPLASM LG BOWEL [D12.6] INT HEMORRHOID W/O COMPL [K64.8] Aortic valve disorders [I35.9] 11/17/2014 More... 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 Other instructions from your clinician: Start Crestor at 2.5 mg three times a week Call in two weeks and report progress LIFESTYLE CHANGE A healthy lifestyle is the most important component of your overall treatment plan. 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 EAT A WHOLE FOOD, PLANT BASED DIET The nutrition your body gets is more important than the medicine you take. What matters most is the overall way you eat. We encourage you to minimize the use of animal products (which include dairy and all meats except fatty fish) and use whole, unprocessed plant foods to provide your protein, vitamins and other nutrients. We have a lot of information to share with you on this topic. We also hold Shared Medical Appointments, where you can come visit with Dr. Chaudhary in the company of other patients and spend over an hour talking about the challenges of changing the way you eat. This is not a diet. It is a way of life that you will keep with you. EXERCISE REGULARLY It is not important to spend hours in the gym, lifting weights and perspiring heavily. A total of 2-3 hours per week of aerobic (causing you to be moderately short of breath) exercise is sufficient to improve your health. Talk to us before you begin a new exercise program, if you have heart disease or experience shortness of breath or chest pain. REDUCE STRESS Chronic emotional and physical stress leads to disease. Ways of reducing stress include meditation, visualization, prayer, yoga and other forms of relaxation therapy. Consistency is the david. Find a technique that works for you and do it every day. CULTIVATE RELATIONSHIPS Loneliness and isolation have a major negative impact on health. Seek out others who can love, care for and nurture you. Avoid hurtful relationships. MAINTAIN IDEAL BODY WEIGHT The best way to do this is to do all the things above. Our bodies naturally find the right weight if we keep moving and feed ourselves the right food. If your BMI is greater than 25, we strongly recommend a referral to a weight management program. Please speak to us or your family physician about available programs. AVOID NICOTINE IN ALL FORMS This includes all tobacco products, whether chewed, smoked, vaped, or rubbed on the skin. Smoking cessation programs, which can make use of tobacco substitutes, medications to suppress cravings and behavior management, are available. Please contact your family physician about programs in your area. Prescriptions ordered this encounter Disp Refills Start End ROSUVASTATIN 5 MG TABLET 30 t* 11 12/24/2017 Route: ORAL Sig: Take 0.5 tablets by mouth daily at bedtime. Follow-up and Disposition History Recorded Encounter Status:Closed by ROYA CHAUDHARY MD on 12/24/17 ALLERGIES ALLERGIES DATE TYPE / CODE NAME / CODE REACTION SEVERITY SOURCE 05/16/2016 Drug atorvastatin Pain in joints Unknown [place] Allergy/416 calcium/[id number]( [facility] 369911[facility] ED [facility]) Repository 05/16/2016 Drug Penicillins/[id number] Hives Unknown [place] Allergy/416 476(RXNORM) [facility] 315804([facility] ED CT) Repository 05/16/2016 Drug Sulfa (Sulfonamide Hives Unknown [place] Allergy/416 Antibiotics)/O34690 [place] [id number]([address]) Repository 05/16/2016 Drug Influenza Virus Unknown Unknown [place] Allergy/416 Vaccines/[id number] [place] [id number]([facility] ED CT) Repository 05/16/2016 Drug simvastatin/Q422212 Pain in joints Unknown [place] Allergy/416 621(RXNORM) [facility] 852030([facility] ED [facility]) Repository 10/07/[address] [facility] INGREDI/419 CALCIUM Other [place] 983943(SNOM Repository ED CT) 10/07/[address] [facility] INGREDI/419 Other [place] 552335(SNOM Repository ED CT) 12/17/[address] [facility] INGREDI/419 Other [place] 878058(SNOM Repository ED CT) 07/27/2005 DRUG/585626 INFLUENZA VACC,TRI UNKNOWN [facility] 003(SNOMED 2003 (LIVE) Other [place]) Repository 07/27/2005 Drug SULFA (SULFONAMIDE [facility] Class/21046 ANTIBIOTICS) Other [place] 1003(SNOMED Repository CT) NG/75093278 AMOXICILLIN [facility] 6(SNOMED [facility]) Repository NG/81955101 INFLUENZA VACC,TRI [facility] 6(SNOMED 2003 (LIVE) [facility]) Repository NG/06864865 ATORVASTATIN [facility] 6(SNOMED CALCIUM [facility]) Repository NG/79373773 SULFA (SULFONAMIDE [facility] 6(SNOMED ANTIBIOTICS) [facility] System [facility]) Repository NG/20272477 SIMVASTATIN [facility] 6(SNOMED [facility]) Repository ENCOUNTERS ENCOUNTERS ADMIT/DISCHARGE ACCOUNT NUMBER ADMITTING ENCOUNTER LOCATION SOURCE CLASS 12/03/2018 [id number] [facility] ding:OPBD Repository 11/25/2018 [id number] [facility] ding:RAD Repository 11/25/2018/11/26/19 [id number] Ambulatory [address] [place] Repository 11/20/2018 [id number] [facility] ding:LAB.FUT Repository URE 10/30/2018 [id number] [facility] ding:LAB Repository 08/25/2018/08/26/20 [id number] Ambulatory [address] [place] Repository 08/25/2018/08/25/[id number] Repository 08/25/2018 [id number] Ambulatory [facility] 07/24/2018 [id number] [facility] ding:LAB.FUT Repository URE 05/28/2018/05/28/20 [id number] Ambulatory [address] [place] Repository 04/17/2018 [id number] [facility] ding:LAB.FUT Repository URE 12/24/2017/12/24/19 [id number] Ambulatory [address] Other [place] Repository 12/24/2017/12/24/19 [id number] Ambulatory [address] MEDICAL Repository CENTERBuildi ng:CAGWS PAYERS PAYERS ENCOUNTER GUARANTOR PAYER SUBSCRIBER SOURCE 12/03/2018 CHRISTINA Velez Primary CHRISTINA Khan [id number] [place] Insurance:ALTAF THOMASDOB: [id number] [address]Hbf[facility] Number: Repository [id number] (HP) Date:[id number] [address]BM: 12/03/2018 Secondary NOT GIVENUNK [place] Insurance:SELF PAY [facility] Number: Effective Repository Date:2018-11-25 11/25/2018 CHRISTINA Velez Primary CHRISTINA Khan [id number] [place] Insurance:ALTAF THOMASDOB: [facility] [id number] [place] [address]Dos: OPolicy Number: Repository [id number] (HP) Date:4205-82-11FS [address] [place] [address]JR: 11/25/2018 Secondary NOT GIVENUNK [place] Insurance:SELF PAY [facility] Number: Effective Repository Date:2018-11-25 11/20/2018 CHRISTINA Velez Primary CHRISTINA Khan [id number] [place] Insurance:ALTAF THOMASDOB: [facility] [id number] [place] [address]Baw: OPolicy Number: Repository [id number] (HP) Date:7697-33-57[address] [address]FQ: 11/20/2018 Secondary NOT GIVENUNK [place] Insurance:SELF PAY [facility] Number: Effective Repository Date:2018-11-19 10/30/2018 CHRISTINA Velez Primary CHRISTINA Khan [id number] [place] Insurance:ALTAF THOMASDOB: [facility] [id number] [place] [address]Mmh: OPolicy Number: Repository [id number] (HP) Date:5492-27-70QY [address], [place] [address]GP: 10/30/2018 Secondary NOT GIVENUNK [place] Insurance:SELF PAY [facility] Number: Effective Repository Date:2018-10-30 08/25/2018 CHRISTINA M Primary CHRISTINA Velez [facility] THOMASDOB: Insurance:PRIMETIME THOMASDOB: [facility] HEALTH PLAN [facility] [id number] Repository [place] Number: [place], [place] [id number]: 330) Date: [phone] () 07/24/2018 CHRISTINA Velez Primary CHRISTINA Khan [id number] [place] Insurance:ALTAF THOMASDOB: [facility] [id number] [place] [address]Ifi: [facility] Number: Repository [id number] (HP) Date:7243-89-46OQ [address] [address]BK: 07/24/2018 Secondary NOT GIVENUNK [place] Insurance:SELF PAY [facility] Number: Effective Repository Date:2018-07-23 04/17/2018 MAHENDRA Broderick Primary CHRISTINA Khan [id number] [place] Insurance:ALTAF THOMASDOB[facility] [id number] Hospital [place] [address]Ocn: [facility] Number: Repository [phone] [id number] (HP) Date:3644-57-95IX [address] [address]XX: 04/17/2018 Secondary NOT GIVENUNK [place] Insurance:SELF PAY [facility] Number: Effective Repository Date:2018-03-14 12/24/2017 CHRISTINA Velez Primary [facility]RISTINA [facility]elez [place] [facility] [id number] HEALTH PLAN [facility] [id number] Repository [place] Number: DRWOORUPINDER MILLAN [id number]: 330) Date: [phone] ()
== END ==
PROVIDERS: Family Provider Family Medicine; PCP Family Medicine; Referring Provider Internal Medicine Cardiovascular Disease; Visit Provider Internal Medicine Cardiovascular Disease
DX: I45.10 Unspecified right bundle-branch block (principal); Z95.2 Presence of prosthetic heart valve; E78.5 Hyperlipidemia, unspecified
CPT/HCPCS: 36415; 80061; 82550; 84460

== ENCOUNTER → 2018-11-20 08:06 | Outpatient (CLI) | payer MEDICARE, SELFPAY ==
[2018-11-20 09:36] LABS: Anion Gap 8 (5-15); BUN 13 mg/dL (7-18); BUN/Creat Ratio 14.4 RATIO (10-20); Calcium,Total 8.8 mg/dL (8.5-10.1); Chloride 105 mmol/L (98-107); EST Glomerular Filtration Rate 64 mL/min (>60); Est Glom Filt Rate - Afr Amer 77 mL/min (>60); Glucose 79 mg/dL (74-106); Potassium 3.7 mmol/L (3.5-5.1); Sodium Level 143 mmol/L (136-145)
== END ==
PROVIDERS: Family Provider Family Medicine; PCP Family Medicine; Referring Provider Family Medicine; Visit Provider Family Medicine
DX: Z79.899 Other long term (current) drug therapy (principal)
CPT/HCPCS: 36415; 80048

== ENCOUNTER → 2018-11-25 09:45 | Outpatient (CLI) | payer MEDICARE, SELFPAY ==
--- NOTE | 2018-11-25 10:15 | RAD_ITS ---
HISTORY: Scoliosis check, pt. states she has notice her bra strap keeps falling down on one side and not the other, no pain EXAM/TECHNIQUE: XR Spine Single View Specify Level: Frontal radiographs of the thoracolumbar spine for scoliosis. COMPARISON: None. FINDINGS: # of images incl. paperwork: 3 Mild to moderate S-shaped scoliosis is noted. Left scoliosis centered at T11 has Wu angle of 16 measured at the inferior endplate of T10 and the inferior endplate of L1. Mild right scoliosis centered at L3 has Wu angle of 14 measured at the inferior endplate of L2 and the inferior end plate of L4. No apparent acute findings. Mild elevation left hemidiaphragm. Sternotomy wires. Calcific atherosclerosis. RAD/Scoliosis 1 view IMPRESSION: Mild to moderate S-shaped scoliosis as above. at 0854 Reported and signed by: Gary Rosado MD Electronically Signed: Gary Rosado, at 8:53 EST Tel , Service support ,
== END ==
PROVIDERS: Family Provider Family Medicine; PCP Family Medicine; Referring Provider Family Medicine; Visit Provider Family Medicine
DX: M41.9 Scoliosis, unspecified (principal); M85.80 Other specified disorders of bone density and structure, unspecified site
CPT/HCPCS: 72081

== ENCOUNTER → 2018-12-03 09:47 | Outpatient (CLI) | payer MEDICARE, SELFPAY ==
--- NOTE | 2018-12-03 09:53 | BD_ITS ---
STUDY: DUAL ENERGY X-RAY ABSORPTIOMETRY / DXA REASON FOR EXAM: Female, 78 years old. The patient is postmenopausal. Loss of height. TECHNIQUE: Bone Mineral Density (BMD) measurements of lumbar spine and bilateral hips were obtained. COMPARISON: Comparison is made with prior study dated August 17, 2002. FINDINGS: Lumbar Spine (L1-L4): g/cm2 (0.968) / T-score (-1.8) / Z-score (0.0) Findings are suggestive of osteopenia with a moderate fracture risk. Increased kyphosis Left Femur Total: g/cm2 (0.767) / T-score (-1.9) / Z-score (0.0) Left Femoral Neck: g/cm2 (0.733) / T-score (-2.2) / Z-score (-0.1) Right Femur Total: g/cm2 (0.807) / T-score (-1.6) / Z-score (0.3) Right Femoral Neck: g/cm2 (0.690) / T-score (-2.5) / Z-score (-0.5) The T-Scores on the most recent prior examination were: Lumbar Spine (L1-L4): There has been worsening of bone density since the previous examination. Left Femur Total: which represents a worsening of 13%. BD/Dexa Bone Density Study IMPRESSION: The patient is considered osteopenic as outlined below according to World Donovan Organization (WHO) criteria with a high fracture risk. There has been worsening of bone density since the previous examination. Reference Information: The T-score is the number of standard deviations above or below the standard which is normal for young adults at their peak bone mineral density. The World Health Organization (WHO) interprets the T-scores as follows: Above -1 Normal bone density Between -1 and -2.5 Osteopenia Equal to / or below -2.5 Osteoporosis As a practical clinical guideline, osteopenia may be graded as follows: Mild -1 through -1.5 Moderate -1.6 through -2.0 Severe -2.1 through -2.4 The Z-score is the number of standard deviations above or below age-matched controls. A Z-score of less than -1.5 would be considered abnormal. References: 1. NIH Osteoporosis and Related Bone Diseases http://www.osteo.org 2. International Society for Clinical Densitometry http://www.iscd.org 3. National Osteoporosis Foundation http://www.nof.org Electronically Signed: Dharmesh Lee MD at 15:51 EST Tel [phone], Service support ,
--- OUTSIDE RECORDS SUMMARY | 2019-02-07 02:03 | XMS RPT_ITS ---
:1940 Author Organization OHIP Care Team Providers Name Role Phone Roya Chaudhary Attending Unavailable Cebul III, Brian Primary Care Unavailable Roya Chaudhary Referring Unavailable Cebul III, Brian Attending Unavailable Cebul III, Brian Referring Unavailable Cebul III, Brian Primary Care Unavailable Cebul III, Brian Attending Unavailable Cebul III, Brian Primary Care Unavailable Cebul III, Brian Referring Unavailable Roya Chaudhayr Attending Unavailable Roya Chaudhary Referring Unavailable Cebul III, Brian Primary Care Unavailable Cebul III, Brian Attending Unavailable Cebul III, Brian Referring Unavailable Cebul III, Brian Primary Care Unavailable Roya Chaudhary Attending Unavailable Cebul III, Brian Primary Care Unavailable Jet, Roya Referring Unavailable JET, ROYA E Attending Unavailable JET, ROYA E Referring Unavailable CEBUL III, BRIAN A Attending Unavailable JET, ROYA E Attending Unavailable JET, ROYA E Referring Unavailable JET, ROYA E Referring Unavailable JET, ROYA Attending Unavailable JET, ROYA Referring Unavailable CEBUL, BRIAN Primary Care Unavailable JET, ROYA Attending Unavailable JET, ROYA Referring Unavailable CEBUL, BRIAN Primary Care Unavailable PROBLEMS PROBLEMS DATE TYPE CONDITION / CODE ATTENDING STATUS SOURCE 12/03/2018 Unknown M85.89 - Other Cebul III, Active [place] specified disorders [facility] bone density and Hospital structure, multiple Repository sites / M85.89(ICD-10) 10/30/2018 Unknown Z95.2 - Presence of Jet, 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 [facility] valve / Hospital Z95.2(ICD-10) Repository 10/30/2018 Unknown 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, Active [place] right bundle-branch [facility] block / Hospital I45.10(ICD-10) Repository 08/25/2018 Active Other hyperlipidemia NA Active [place] / E78.49(ICD-10) Clinic Main [place] Repository 09/17/2018 Unknown E78.5 - [place], Active [place] Hyperlipidemia, [facility] unspecified / Hospital E78.5(ICD-10) Repository 12/24/2017 Active Presence of JET, Active [place] prosthetic heart [facility] Other valve / [place] Z95.2(ICD-10) Repository 12/24/2017 Active Other hyperlipidemia JET, Active [place] / E78.4(ICD-10) [facility] E Clinic Other [place] Repository 12/24/2017 Admitting Unknown / JET, Active [facility] diagnosis UNK(Unknown) [facility] Repository PROCEDURES PROCEDURES No Procedure Records FoundRESULTS RESULTS DEXA BONE DENSITY Observed: 12/03/2018 Status: F Source: ERIN STUDY 9:51 AM [facility] REPOSITORY [facility] Imaging Services [address] [place] [address] Dexa Bone Density Study MR#: [id number] Acct: [id number] Name: CHRISTINA CHEN Rep #: [id number] : 1940 F 78 From: Dharmesh Lee MD PCP: Brian Hayward III, MD Status: REG CLI Study: Dexa Bone Density Study Date of Exam: 12/03/18 Exam# [id number] Ordering Dr: Brian Hayward III, MD STUDY: [...] Dharmesh Lee MD at 15:51 EST Tel [phone], Service support , CC: Brian Hayward III, MD Substation Operator Transforming: Signed SCOLIOSIS 1 VIEW Observed: 11/25/2018 Status: F Source: [place] 9:55 AM [facility] REPOSITORY [facility] Imaging Services [address] [place] [address] Scoliosis 1 view MR#: [id number] Acct: [id number] Name: CHRISTINA CHEN Rep #: [id number] : 1940 F 78 From: Gary Rosado MD PCP: Brian Hayward III, MD Status: REG CLI Study: Scoliosis 1 view Date of Exam: 11/25/18 Exam# [id number] Ordering Dr: Brian Hayward III, MD HISTORY: [...] signed by: Gary Rosado MD Electronically Signed: Gary Rosado, at 8:53 EST Tel , Service support , CC: Brian Hayward III, MD Substation Operator Transforming: Signed PROGRESS Observed: 11/25/2018 Status: COMPLETED Source: RACINE 8:45 AM [facility] REPOSITORY O ID: [id number] Author: Brian Hayward III Service: (none) Author [...] tip of nose. Echocardiography Report: Transthoracic Echo [facility] Date of service: 08/25/2018 10:05:13 AM Ordering physician: Roya Chaudhary Indication: Routine surveillance of prosthetic valve (>3yrs) ? Technologist: Korin Gilbert [facility] Interpreting physician: Branden Navarro MD ? [...] The tricuspid valve leaflets are structurally normal. [place] tricuspid valve. There is trivial (trivial - [...] Internal hemorrhoids without mention of complication - intermediate frame tender (current) use of aspirin - Low back [...] Take 0.5 tablets by mouth twice daily. Kmeuuworhqe-Pebhzfdde-Pqk C-Mn (GLUCOSAMINE CHONDROITIN MAXSTR) 500-400 mg cap Take 1 capsule by mouth twice daily. CRANBERRY EXTRACT (CRANBERRY ORAL) Take by mouth. cinnamon bark(CINNAMON 500 MG CAP) Take one(1) tablet two(2) times daily. FLAXSEED OIL 1,030 MG CAP Take one(1) tablet once (1) daily. aspirin(ECOTRIN LOW STRENGTH 81 MG TAB) Take one(1) tablet daily. Nymuzixjaluqy-Tu-Onwm-Minerals (ONE-A-DAY WOMENS FORMULA) 27-0.4 mg ORAL Tab [...] MD CNOV Observed: 11/25/2018 Status: COMPLETED Source: RACINE 8:40 AM [facility] REPOSITORY Office Visit (FAMPWS) CHRISTINA CHEN ([id number]) 1940 F Date Time Provider Department 11/25/18 [...] tip of nose. Echocardiography Report: Transthoracic Echo [facility] Date of service: 08/25/2018 10:05:13 AM Ordering physician: Roya Chaudhary Indication: Routine surveillance of prosthetic valve (>3yrs) ? Technologist: Korin Gilbert [facility] Interpreting physician: Branden Navarro MD ? [...] The tricuspid valve leaflets are structurally normal. [place] tricuspid valve. There is trivial (trivial - [...] Internal hemorrhoids without mention of complication - MCFP (current) use of aspirin - Low back [...] Take 0.5 tablets by mouth twice daily. Xlhkqzxogvr-Pshdnspfo-Uqv C-Mn (GLUCOSAMINE CHONDROITIN MAXSTR) 500-400 mg cap Take 1 capsule by mouth twice daily. CRANBERRY EXTRACT (CRANBERRY ORAL) Take by mouth. cinnamon bark(CINNAMON 500 MG CAP) Take one(1) tablet two(2) times daily. FLAXSEED OIL 1,030 MG CAP Take one(1) tablet once (1) daily. aspirin(ECOTRIN LOW STRENGTH 81 MG TAB) Take one(1) tablet daily. Wblgrpbfthati-Oe-Dggb-Minerals (ONE-A-DAY WOMENS FORMULA) 27-0.4 mg ORAL Tab [...] TAB* Take 0.5 tablets by mouth twi* SHPPLMDXBBU-RAWGTRJUQ-VEB C-M* Take 1 capsule by mouth twice* [...] BASIC METABOLIC Collected: 11/20/2018 Status: F Source: [place] PROFILE (BMP) 8:11 AM [facility] REPOSITORY TYPE CODE TESTS RESULT OUT OF [...] GAP 8 Performed By: #### L500.2500 #### [facility] [address] [place], [address] [facility] Observed: 11/20/2018 Status: COMPLETED Source: RACINE 12:00 AM [facility] REPOSITORY [facility] CHRISTINA CHEN ([id number]) 1940 F Date Time Provider Department 11/20/18 [facility] your visit today, we recorded [...] Myalgia Date Reviewed: 08/25/2018 Reviewed by: Eboni GalvezAluminum Boats Assemblerbonnie Merida - Fully Assessed Reason for Visit: Outside Labs-[facility] Ordered [1004] Order(s):LIPID PANEL (EXTERNAL) [1391374] Order #: [id number] BMP - EXTERNAL [[id number]] Order #: [id number] Prescriptions as of 11/20/2018 Sig: ROSUVASTATIN 20 MG TABLET Take 1 tablet by mouth daily * METOPROLOL TARTRATE 25 MG TAB* Take 0.5 tablets by mouth twi* TRIAMCINOLONE ACETONIDE 0.025* Apply 1 application to affect* BIOTIN 10,000 MCG CAPSULE Take by mouth. NKQORVPNFHQ-YSZNLWAIS-ZKL C-M* Take 1 capsule by mouth twice* [...] FOR* More... Letter Text Brian Cadet M.D. [address] [place], [place] [address] Christina Chen [address] [place] [address] [place] [phone] Clinic #: [id number] 11/26/2018 Dear Ms. Chen, I have received [...] 11/20/18 CNPTOUTREACH Observed: 11/10/2018 Status: COMPLETED Source: RACINE 12:00 AM [facility] REPOSITORY Patient Outreach (INTMWH) CHRISTINA CHEN ([id number]) 1940 F Date Time Provider Department 11/10/18 [facility] During your visit today, we recorded the [...] Myalgia Date Reviewed: 08/25/2018 Reviewed by: Eboni ([employer]er) Fuad - Fully Assessed Visit Diagnosis:Medication management [Z79.899] Order(s):BASIC METABOLIC PNL [SQBMP] Order #: [id number] FUTURE Prescriptions as of 11/10/2018 Sig: ROSUVASTATIN 20 MG TABLET Take 1 tablet by mouth daily * METOPROLOL TARTRATE 25 MG TAB* Take 0.5 tablets by mouth twi* TRIAMCINOLONE ACETONIDE 0.025* Apply 1 application to affect* BIOTIN 10,000 MCG CAPSULE Take by mouth. YBELCNAUNUB-CPTLHDCJF-ZTP C-M* Take 1 capsule by mouth twice* [...] LIPID PROFILE Collected: 10/30/2018 Status: F Source: [place] 8:14 AM [facility] REPOSITORY TYPE CODE TESTS RESULT OUT OF [...] Performed By: #### L500.4100, L501.3620, L501.4405 #### [facility] [address] [place], [address] CPK TOTAL, CREATINE Collected: 10/30/2018 Status: F Source: ERIN KINASE 8:14 AM [facility] REPOSITORY TYPE CODE TESTS RESULT OUT OF RANGE REFERENCE UNITS LAB L501.3620 26-192 U/L Normal CPK TOTAL 71 Performed By: #### L500.4100, L501.3620, L501.4405 #### [facility] [address] [place], [address] ALANINE AMINOTRANSFERAS Collected: 10/30/2018 Status: F Source: ERIN (SGPT) 8:14 AM [facility] REPOSITORY TYPE CODE TESTS RESULT OUT OF RANGE REFERENCE UNITS LAB L501.4405 13-56 U/L Normal ALT 20 Performed By: #### L500.4100, L501.3620, L501.4405 #### [facility] [address] [place], [address] PROGRESS Observed: 08/25/2018 Status: COMPLETED Source: RACINE 11:15 AM [facility] REPOSITORY HNO ID: [id number] Author: Roya Chaudhary Service: (none) Author Type: [...] met Beta karina for ASHD with prior TX or prior LVEF<40 (NQF 0070) - N/A [...] Take 0.5 tablets by mouth twice daily. Bfvbmpuwmqs-Aojzvmgmq-Vim C-Mn (GLUCOSAMINE CHONDROITIN MAXSTR) 500-400 mg cap [...] Biotin 10,000 mcg cap Take by mouth. Kxpzyrwhhxpke-Hq-Mctg-Minerals (ONE-A-DAY WOMENS FORMULA) 27-0.4 mg ORAL Tab [...] Bojorquez MD Observed: 08/25/2018 Status: COMPLETED Source: RACINE 11:00 AM [facility] REPOSITORY Office Visit (CAWSTR) CHRISTINA CHEN ([id number]) 1940 F Date Time Provider Department 08/25/18 [...] met Beta karina for ASHD with prior TX or prior LVEF<40 (NQF 0070) - N/A [...] Take 0.5 tablets by mouth twice daily. Wjdwzwavslu-Lhrjtldrl-Yln C-Mn (GLUCOSAMINE CHONDROITIN MAXSTR) 500-400 mg cap [...] Biotin 10,000 mcg cap Take by mouth. Fnevnkimidjdh-Rs-Ocki-Minerals (ONE-A-DAY WOMENS FORMULA) 27-0.4 mg ORAL Tab [...] the following areas and commit to making senior care changes. EAT A WHOLE FOOD, PLANT BASED [...] in your area. Referring Provider: ROYA CHAUDHARY [[id number]] Allergies As of Date: 08/25/2018 Noted Allergy Reaction AMOXICILLIN 12/17/2008 2 - Rash INFLUENZA VACC,TRI 2003 (LIVE) 07/27/2005 16 - Unknown Comments: Patient states that she gets this every year and is unsure why this is listed. LIPITOR (ATORVASTATIN CALCIUM) 10/07/2015 17 - Myalgia SULFA (SULFONAMIDE ANTIBIOTICS) 07/27/2005 ZOCOR (SIMVASTATIN) 10/07/2015 17 - Myalgia Date Reviewed: 08/25/2018 Reviewed by: Eboni ([employer]um [employer]ats [employer]sembler) Fuad - Fully Assessed Reason for Visit: Recheck [92] Primary Visit Diagnosis:S/P AVR [Z95.2] Other Visit Diagnosis:RBBB (right bundle branch block) [I45.10] Order(s):LIPID PANEL BASIC [SQLIPB] Order #: [id number] FUTURE ALT/SGPT [SQALT] Order #: [id number] FUTURE CK CREATINE KINASE [SQCK] Order #: [id number] FUTURE Prescriptions as of 08/25/2018 Sig: ROSUVASTATIN 20 MG TABLET Take 1 tablet by mouth daily * METOPROLOL TARTRATE 25 MG TAB* Take 0.5 tablets by mouth twi* HIWEREOCASW-GLYBTWECV-GLP C-M* Take 1 capsule by mouth twice* [...] the following areas and commit to making senior care changes. EAT A WHOLE FOOD, PLANT BASED [...] 07/24/2018 Status: F Source: ERIN 7:42 AM [facility] REPOSITORY TYPE CODE TESTS RESULT OUT OF [...] Performed By: #### L500.4100, L501.3620, L501.4405 #### [facility] [address] [place], [address] CPK TOTAL, CREATINE Collected: 07/24/2018 Status: F Source: ERIN KINASE 7:42 AM [facility] REPOSITORY TYPE CODE TESTS RESULT OUT OF RANGE REFERENCE UNITS LAB L501.3620 26-192 U/L Normal CPK TOTAL 108 Performed By: #### L500.4100, L501.3620, L501.4405 #### [place] [facility] [address] [place], [address] ALANINE AMINOTRANSFERAS Collected: 07/24/2018 Status: F Source: ERIN (SGPT) 7:42 AM [facility] REPOSITORY TYPE CODE TESTS RESULT OUT OF RANGE REFERENCE UNITS LAB L501.4405 13-56 U/L Normal ALT 21 Performed By: #### L500.4100, L501.3620, L501.4405 #### [facility] [address] [place], [address] CNPN Observed: 07/22/2018 Status: COMPLETED Source: RACINE 12:00 AM [facility] REPOSITORY Telephone (CAWSTR) CHRISTINA CHEN ([id number]) 1940 F Date Time Provider Department 07/22/18 ROYA CHAUDHARY CAWSTR During your visit today, we recorded the following information about you: Radha Gamble RN 07/22/2018 9:59 AM Signed Pt called, verified by name and birthdate. Pt asking if labs are at [facility] lab for her to be drawn. Told pt I would call [facility] lab to verify and return call to her. Pt verbalized understanding Radha Gamble RN 07/22/2018 9:59 AM Signed Called [facility] lab talked to Cat, verified order is in lab. Radha Gamble RN 07/22/2018 9:59 AM Signed Called pt, notified her that lab order is at [facility] and ready for her. Pt verbalized understanding Radha Gamble RN 07/22/2018 10:13 AM Signed Received call from Cat at [facility] lab, she states after she got off phone she realized order for 04-17-18 that was to be drawn in 3 months pt had drawn when it was received. Radha Gamble RN 07/22/2018 10:44 AM Signed Called AND notified pt order was already used and I will see if Dr. Chaudhary wants new order faxed to [facility]. Pt verbalized understanding. Copy of blood work [...] Myalgia Date Reviewed: 05/28/2018 Reviewed by: Nohemi ([facility]) Amena - Fully Assessed Reason for Visit: Orders [681] Reason For Visit History Recorded Prescriptions as of 07/22/2018 Sig: METOPROLOL TARTRATE 25 MG TAB* Take 0.5 tablets by mouth twi* TRIAMCINOLONE ACETONIDE 0.025* Apply 1 application to affect* ROSUVASTATIN 10 MG TABLET Take 1 tablet by mouth daily * BIOTIN 10,000 MCG CAPSULE Take by mouth. SHCOBDNMOCI-DDKWVMJBZ-PFS C-M* Take 1 capsule by mouth twice* [...] 07/22/18 PROGRESS Observed: 05/28/2018 Status: COMPLETED Source: RACINE 7:49 AM [facility] [place] REPOSITORY HNO ID: [id number] Author: Nohemi Beckwith Service: (none) Author Type: [...] Internal hemorrhoids without mention of complication - MCFP (current) use of aspirin - Low back [...] TAKE ONE-HALF TABLET BY MOUTH TWICE DAILY Tuanjnrfyts-Owckoamvt-Nyy C-Mn (GLUCOSAMINE CHONDROITIN MAXSTR) 500-400 mg cap Take 1 capsule by mouth twice daily. CRANBERRY EXTRACT (CRANBERRY ORAL) Take by mouth. cinnamon bark(CINNAMON 500 MG CAP) Take one(1) tablet two(2) times daily. FLAXSEED OIL 1,030 MG CAP Take one(1) tablet once (1) daily. aspirin(ECOTRIN LOW STRENGTH 81 MG TAB) Take one(1) tablet daily. Sbszmxglbcwwq-Mi-Rvre-Minerals (ONE-A-DAY WOMENS FORMULA) 27-0.4 mg ORAL Tab [...] EVERT RamirezOV Observed: 05/28/2018 Status: COMPLETED Source: RACINE 7:45 AM [facility] REPOSITORY Office Visit (WSTR) GUSTAVOCHIRSTINA Rosie ([id number]) 1940 F Date Time Provider Department 05/28/18 [...] Internal hemorrhoids without mention of complication - intermediate frame tender (current) use of aspirin - Low back pain - Need for prophylactic hormone replacement therapy (postmenopausal) - Osteopenia 10/23/2011 - Other and unspecified hyperlipidemia - Overweight - Presence of prosthetic heart valve - Primary generalized (osteo)arthritis - Statin intolerance 10/07/2015 PAST SURGICAL HISTORY Procedure Laterality Date - COLONOSCOP W/ OR W/O [facility] SPEC 05/16/16 normal - ? follow [...] TAKE ONE-HALF TABLET BY MOUTH TWICE DAILY Bhqjxosrsdx-Flfimowop-Kcv C-Mn (GLUCOSAMINE CHONDROITIN MAXSTR) 500-400 mg cap Take 1 capsule by mouth twice daily. CRANBERRY EXTRACT (CRANBERRY ORAL) Take by mouth. cinnamon bark(CINNAMON 500 MG CAP) Take one(1) tablet two(2) times daily. FLAXSEED OIL 1,030 MG CAP Take one(1) tablet once (1) daily. aspirin(ECOTRIN LOW STRENGTH 81 MG TAB) Take one(1) tablet daily. Ooafpqwjrulht-Kf-Fmnw-Minerals (ONE-A-DAY WOMENS FORMULA) 27-0.4 mg ORAL Tab [...] plants grow in many areas across the [facility] and throughout the world. [place] of the [facility], poison anne marie commonly grows as a climbing vine. In the [place] area and west, poison anne marie tends to grow low to the ground as a shrub. Poison oak most often grows west of the [facility], and poison sumac inhabits boggy areas in the southeastern part of the [place]. The plants are not usually found [...] Myalgia Date Reviewed: 05/28/2018 Reviewed by: Nohemi ([facility]) Amena - Fully Assessed Reason for [...] MG TAB* TAKE ONE-HALF TABLET BY MOUTH* NKLIHAIMXGB-MJEOSUFOZ-JDT C-M* Take 1 capsule by mouth twice* [...] your clinician: [facility] PATIENT INFO POISON ANNE MARIE [...] plants grow in many areas across the [facility] and throughout the world. [place] of the [facility], poison anne marie commonly grows as a climbing vine. In the [place] area and west, poison anne marie tends to grow low to the ground as a shrub. Poison oak most often grows west of the [facility], and poison sumac inhabits boggy areas in the southeastern part of the [facility]. The plants are not usually found in [...] 04/17/2018 Status: F Source: ERIN 7:21 AM [facility] REPOSITORY TYPE CODE TESTS RESULT OUT OF [...] Performed By: #### L500.4100, L501.3620, L501.4405 #### [facility] [address] [place], [address] CPK TOTAL, CREATINE Collected: 04/17/2018 Status: F Source: ERIN KINASE 7:21 AM [facility] REPOSITORY TYPE CODE TESTS RESULT OUT OF RANGE REFERENCE UNITS LAB L501.3620 26-192 U/L Normal CPK TOTAL 88 Performed By: #### L500.4100, L501.3620, L501.4405 #### [facility] [address] [facility] [place], [address] ALANINE AMINOTRANSFERAS Collected: 04/17/2018 Status: F Source: ERIN (SGPT) 7:21 AM [facility] REPOSITORY TYPE CODE TESTS RESULT OUT OF RANGE REFERENCE UNITS LAB L501.4405 13-56 U/L Normal ALT 21 Performed By: #### L500.4100, L501.3620, L501.4405 #### [facility] [address] [facility] [place], [address] OBSOLETE Observed: 04/01/2018 Status: COMPLETED Source: RACINE 12:00 AM [facility] OTHER [place] REPOSITORY Refill (AGCARDWST) CHRISTINA CHEN ([id number]) 1940 F Date Time Provider Department 04/01/18 [...] BIOTIN 10,000 MCG CAPSULE Take by mouth. QZOUXWASFVN-OFNZSRTBX-PMY C-M* Take 1 capsule by mouth twice* [...] 04/01/18 PROGRESS Observed: 12/24/2017 Status: COMPLETED Source: RACINE 10:55 AM [facility] OTHER CAMPUS REPOSITORY O ID: [id number] Author: Roya Chaudhary Service: (none) Author Type: [...] met Beta karina for ASHD with prior TX or prior LVEF<40 (NQF 0070) - N/A [...] treatment plan. This note was generated using [employer] voice recognition system, and there may be [...] Biotin 10,000 mcg cap Take by mouth. Oqlrflbuvsb-Zzltqwpph-Lmt C-Mn (GLUCOSAMINE CHONDROITIN MAXSTR) 500-400 mg cap Take 1 capsule by mouth twice daily. CRANBERRY EXTRACT (CRANBERRY ORAL) Take by mouth. cinnamon bark(CINNAMON 500 MG CAP) Take one(1) tablet two(2) times daily. FLAXSEED OIL 1,030 MG CAP Take one(1) tablet once (1) daily. aspirin(ECOTRIN LOW STRENGTH 81 MG TAB) Take one(1) tablet daily. Kjufoqdzosseh-Pt-Wypv-Minerals (ONE-A-DAY WOMENS FORMULA) 27-0.4 mg ORAL Tab [...] MD CNOV Observed: 12/24/2017 Status: COMPLETED Source: RACINE 10:30 AM CLINIC OTHER CAMPUS REPOSITORY Office Visit (AGCARDWST) CHRISTINA CHEN ([id number]) 1940 F Date Time Provider Department 12/24/17 [...] met Beta karina for ASHD with prior TX or prior LVEFANDlt;40 (NQF 0070) - N/A [...] treatment plan. This note was generated using [employer] recognition system, and there may be some [...] Biotin 10,000 mcg cap Take by mouth. Rgohoqwsjkx-Fiqtsekjg-Ygf C-Mn (GLUCOSAMINE CHONDROITIN MAXSTR) 500-400 mg cap Take 1 capsule by mouth twice daily. CRANBERRY EXTRACT (CRANBERRY ORAL) Take by mouth. cinnamon bark(CINNAMON 500 MG CAP) Take one(1) tablet two(2) times daily. FLAXSEED OIL 1,030 MG CAP Take one(1) tablet once (1) daily. aspirin(ECOTRIN LOW STRENGTH 81 MG TAB) Take one(1) tablet daily. Abekiwqskfszl-Kz-Ufaj-Minerals (ONE-A-DAY WOMENS FORMULA) 27-0.4 mg ORAL Tab [...] the following areas and commit to making senior care changes. EAT A WHOLE FOOD, PLANT BASED [...] in your area. Referring Provider: ROYA CHAUDHARY [[id number]] Allergies As of Date: 12/24/2017 Noted Allergy [...] W INTERP (MED OFFICE) [ECG06] Order #: [id number] rosuvastatin (CRESTOR) 5 mg tabletTake 0.5 tablets by mouth daily at bedtime.Disp: 30 tabletRfl: 11 ECHO [[id number]] Order #: [id number]: 1 FUTURE Prescriptions as of 12/24/2017 Sig: METOPROLOL TARTRATE 25 MG TAB* TAKE ONE-HALF TABLET BY MOUTH* BIOTIN 10,000 MCG CAPSULE Take by mouth. ADIMLCPRFRI-CJIJQWXKL-YIR C-M* Take 1 capsule by mouth twice* [...] the following areas and commit to making termite control technician changes. EAT A WHOLE FOOD, [...] 05/16/2016 Drug atorvastatin Pain in joints Unknown [place] All[facility]/416 calcium/[id number]( [facility] 136303[facility] ED CT) Repository 05/16/2016 Drug Penicillins/[id number] Hives Unknown [place] [facility]/416 476(RXNORM) [facility] 710775([facility] ED CT) Repository 05/16/2016 Drug Sulfa (Sulfonamide Hives Unknown [place] Allergy/416 Antibiotics)/[id number] [place] [id number]([address]) Repository 05/16/2016 Drug Influenza Virus Unknown Unknown [place] [facility]/416 Vaccines/[id number] [place] [id number]([facility] ED [facility]) Repository 05/16/2016 Drug simvastatin/D919574 Pain in joints Unknown [place] [facility]/416 621(RXNORM) [facility] 322724([facility] ED CT) Repository 10/07/2015 DRUG ATORVASTATIN Myalgia [facility] INGREDI/419 CALCIUM Other [place] 694380(SNOM Repository ED CT) 10/07/2015 DRUG SIMVASTATIN Myalgia [facility] INGREDI/419 Other [place] 815727(SNOM Repository ED CT) 12/17/2008 DRUG AMOXICILLIN RASH [facility] INGREDI/419 Other [place] 924416(SNOM Repository ED CT) 07/27/2005 DRUG/199120 INFLUENZA VACC,TRI UNKNOWN [facility] 003(SNOMED 2003 (LIVE) Other [place] CT) Repository 07/27/2005 Drug SULFA (SULFONAMIDE [facility] Class/61035 ANTIBIOTICS) Other [place] 1003(SNOMED Repository CT) NG/13650039 AMOXICILLIN [facility] 6(SNOMED [facility]) Repository NG/[id number] INFLUENZA VACC,TRI [facility] 6(SNOMED 2003 (LIVE) [facility]) Repository NG/[id number] ATORVASTATIN [facility] 6(SNOMED CALCIUM [facility]) Repository NG/[id number] SULFA (SULFONAMIDE [facility] 6(SNOMED ANTIBIOTICS) [facility] System [facility]) Repository NG/[id number] SIMVASTATIN [facility] 6(SNOMED [facility]) Repository ENCOUNTERS ENCOUNTERS ADMIT/DISCHARGE ACCOUNT NUMBER ADMITTING ENCOUNTER LOCATION SOURCE CLASS 12/03/2018 [id number] [facility] ding:OPBD Repository 11/25/2018 [id number] [facility] ding:RAD Repository 11/25/2018/11/26/19 [id number] Ambulatory [address] Main [place] Repository 11/20/2018 [id number] [facility] ding:LAB.FUT Repository URE 10/30/2018 [id number] [facility] ding:LAB Repository 08/25/2018/08/26/20 [id number] Ambulatory [address] [place] Repository 08/25/2018/08/25/[id number] Repository 08/25/2018 [id number] Ambulatory [facility] 07/24/2018 [id number] [facility] ding:LAB.FUT Repository URE 05/28/2018/05/28/20 [id number] Ambulatory [address] [place] Repository 04/17/2018 [id number] [facility] ding:LAB.FUT Repository URE 12/24/2017/12/24/19 [id number] Ambulatory [address] Other [place] Repository 12/24/2017/12/24/19 [id number] Ambulatory [address] MEDICAL Repository CENTERBuildi ng:CAGWS PAYERS PAYERS ENCOUNTER GUARANTOR PAYER SUBSCRIBER SOURCE 12/03/2018 CHRISTINA Velez Primary CHRISTINA Khan [id number] [place] Insurance:ALTAF THOMASDOB: [id number] [address]Vli: [facility] Repository [id number] (HP) Date:[id number] [address]OC: 12/03/2018 Secondary NOT GIVENUNK [place] Insurance:SELF PAY [facility] ([place], [place]) Number: Effective Repository Date:2018-11-25 11/25/2018 CHRISTINA Velez Primary CHRISTINA Khan [id number] [place] Insurance:ALTAF THOMASDOB: [facility] [id number] [place] [address]Gvc: OPolicy Number: Repository [id number] (HP) Date:7625-92-68[address] [place] [id number]: 11/25/2018 Secondary NOT GIVENUNK [place] Insurance:SELF PAY [facility] ([place], [place]) Number: Effective Repository Date:2018-11-25 11/20/2018 CHRISTINA Velez Primary CHRISTINA Khan [id number] [place] Insurance:ALTAF THOMASDOB: [facility] [id number] [place] [address]Piy: OPolicy Number: Repository [id number] (HP) Date:0553-08-67SY [address] [address]AI: 11/20/2018 Secondary NOT GIVENUNK [place] Insurance:SELF PAY [facility] ([place], [place]) Number: Effective Repository Date:2018-11-19 10/30/2018 CHRISTINA Velez Primary CHRISTINA Khan [id number] [place] Insurance:ALTAF THOMASDOB: [facility] [id number] [place] [address]Ehj: OPolicy Number: Repository [id number] (HP) Date:0190-98-13[address], [place] [address]AS: 10/30/2018 Secondary NOT GIVENUNK [place] Insurance:SELF PAY [facility] ([place], [place]) Number: Effective Repository Date:2018-10-30 08/25/2018 CHRISTINA M Primary CHRISTINA Velez [facility] THOMASDOB: Insurance:PRIMETIME THOMASDOB: [facility] HEALTH PLAN [facility] [id number] Repository [place] STILLAGUAMISH Number: [place], [place] [id number]: 330) Date: [phone] () 07/24/2018 CHRISTINA Velez Primary CHRISTINA Khan [id number] [place] Insurance:ALTAF THOMASDOB: [facility] [id number] [place] [address]Htm: [facility] Number: Repository [id number] (HP) Date:[id number] [address]MY: 07/24/2018 Secondary NOT GIVENUNK [place] Insurance:SELF PAY [facility] ([place], [place]) Number: Effective Repository Date:2018-07-23 04/17/2018 MAHENDRA Broderick Primary CHRISTINA Khan [id number] [place] Insurance:ALTAF THOMASDOB: [facility], [facility] [id number] [place] [address]Vtz: [facility] Number: Repository [phone] [id number] (HP) Date:4169-28-09MI [address] [address]PU: 04/17/2018 Secondary NOT GIVENUNK [place] Insurance:SELF PAY [facility] Number: Effective Repository Date:2018-03-14 12/24/2017 CHRISTINA Velez Primary [facility]RISTINA [facility]elez [facility] [id number] HEALTH PLAN [facility] [id number] Repository [place] Number: DRWOORUPINDER MILLAN [id number]: [phone]) Date: [phone] ()
== END ==
PROVIDERS: Family Provider Family Medicine; PCP Family Medicine; Referring Provider Family Medicine; Visit Provider Family Medicine
DX: M85.80 Other specified disorders of bone density and structure, unspecified site (principal); Z78.0 Asymptomatic menopausal state; M41.9 Scoliosis, unspecified
CPT/HCPCS: 77080

== ENCOUNTER → 2019-05-15 | Outpatient (CLI) | payer MEDICARE, SELFPAY ==
[2019-05-12 09:03] VITALS: BMI 28.2
--- NOTE | 2019-05-15 10:36 | ECHOCS_ITS ---
Reason For Study: Valve Replacement Evaluation Procedure This was a 2D Doppler, Color Flow transthoracic echocardiogram. The study was technically difficult. Contrast injection was performed. Exam performed in department. Left Ventricle Mild eccentric left ventricular hypertrophy. The estimated ejection fraction is 65 %. Stage 1 diastolic dysfunction. No regional wall motion abnormalities noted. Right Ventricle Normal size and thickness. Normal systolic function. Atria The left atrium is moderately enlarged. Normal right atrium. Normal atrial septum. Mitral Valve The mitral valve is structurally normal. No prolapse or stenosis seen. Tricuspid Valve Normal tricuspid valve. Mild (1+) tricuspid valve insufficiency. Right ventricular systolic pressure estimated to be 28 mmHg. Aortic Valve Peak aortic valve gradient 19 mmHg. Mean aortic valve gradient 9 mmHg. Trivial aortic valve insufficiency. Stable appearing bioprosthetic aortic valve apparatus. Pulmonic Valve Normal pulmonic valve. Mild (1+) pulmonic valve insufficiency. Great Vessels Mildly dilated aortic root. Normal arch. Normal inferior vena cava. Inferior vena cava collapse with sniff. Pericardium/Pleural No pericardial effusion. Medication 22 gauge I.V. with prn adaptor inserted into right arm. Diluted definity 2ml given slow IV push to enhance endocardial definition. MMode/2D Measurements & Calculations LVIDd: 3.7 cm IVSd: 1.5 cm LVOT diam: 2.0 cm LVIDs: 2.5 cm LVPWd: 1.1 cm RVDd: 3.6 cm FS: 32.5 % LVOT area: 3.0 cm2 Ao root diam: 3.5 cm LAV(MOD-sp4): 76.8 ml LVAd ap4: 24.9 cm2 EDV(MOD-sp4): 72.3 ml EDV(sp4-el): 73.1 ml LVAs ap4: 13.9 cm2 ESV(MOD-sp4): 28.8 ml ESV(sp4-el): 27.7 ml EF(MOD-sp4): 60.2 % EF(sp4-el): 62.1 % SV(MOD-sp4): 43.5 ml SV(sp4-el): 45.4 ml LA A4 area: 24.7 cm2 RA A4 area: 17.3 cm2 Time Measurements MV dec time: 0.24 sec Doppler Measurements & Calculations MV E max julián: 75.5 cm/sec Lat Peak E' Julián: 5.6 cm/sec Med Peak E' Julián: 5.1 cm/sec MV A max julián: 82.5 cm/sec E/E' lat: 13.4 E/E' med: 14.8 MV E/A: 0.92 MV V2 max: 84.7 cm/sec MV P1/2t max julián: 79.0 cm/sec Ao V2 max: 222.6 cm/sec MV max P.9 mmHg MV P1/2t: 91.4 msec Ao max P.8 mmHg MV V2 mean: 49.2 cm/sec MV dec slope: 253.0 cm/sec2 Ao V2 mean: 134.1 cm/sec MV mean P.1 mmHg MVA(P1/2t): 2.4 cm2 Ao mean P.6 mmHg MV V2 VTI: 29.0 cm Ao V2 VTI: 44.5 cm MVA(VTI): 1.8 cm2 MATHEW(I,D): 1.2 cm2 MATHEW(V,D): 1.1 cm2 LV V1 max: 78.8 cm/sec SV(LVOT): 51.3 ml PA V2 max: 82.8 cm/sec LV V1 max P.5 mmHg LV V1 mean P.4 mmHg LV V1 mean: 55.8 cm/sec LV V1 VTI: 17.1 cm PI end-d julián: 93.4 cm/sec TR max julián: 226.4 cm/sec TR max P.6 mmHg Interpretation Summary The estimated ejection fraction is 65 %. Stage 1 diastolic dysfunction. The left atrium is moderately enlarged. Mild (1+) tricuspid valve insufficiency. Right ventricular systolic pressure estimated to be 28 mmHg. Peak aortic valve gradient 19 mmHg. Mean aortic valve gradient 9 mmHg. Mildly dilated aortic root. Compared to echo report dated 08/18/2008, no appreciable changes noted. The study was technically difficult. Contrast injection was performed. Ordering Physician: James Shoemaker Referring Physician: CHRISTINE Hayward M.D. Performed By: Bryan Montanez RCS
== END | disposition home or self-care (01) ==
LOC: CVS 10:33
PROVIDERS: Family Provider Family Medicine; PCP Family Medicine; Referring Provider Internal Medicine Cardiovascular Disease; Visit Provider Internal Medicine Cardiovascular Disease
DX: Z95.2 Presence of prosthetic heart valve (principal)
CPT/HCPCS: 93306; Q9957; A4216; C8929

== ENCOUNTER → 2019-05-26 | Outpatient (CLI) | payer MEDICARE, SELFPAY ==
[2019-05-12 09:03] VITALS: BMI 28.2
--- NOTE | 2019-05-26 12:20 | STEWCON_ITS ---
Reason For Study: DYSPNEA/SOB Stress Results Protocol: [place] Protocol WITH DEFINITY Maximum Predicted HR: 142 bpm Target HR: 121 bpm % Maximum Predicted HR: 132 % DurationHeart Rate Stage (mm:ss) (bpm) BP Comment BASELINE 66 142/883 CC DEFINITY STAGE 1 3:00 131 172/90INCREASED SOB STAGE 2 3:00 188 178/881.5CC DEFINITY RECOVERY 79 144/82 Stress Duration: 6:00 mm:ss Maximum Stress HR: 188 bpm Baseline Echocardiogram Findings The estimated ejection fraction is 65 %. Stress Echo Wall motion Data Resting WM Intermediate WM Stress WM Resting Wall Motion Wall Motion Stress No regional wall motion No regional wall motion abnormalities noted. abnormalities noted. EKG Data The baseline ECG displays normal sinus rhythm. The patient exercised according to the regular [place] protocol for a total duration of 6:00. The maximum heart rate attained was 187 beats per minute. This was 131% of maximum predicted heart rate. The patient exercised into stage 3 of the Gilmar protocol. During stress, there were no ST or T wave changes noted to suggest ischemia. No clinical angina was noted. Interpretation Summary The estimated ejection fraction is 65 %. Normal, adequate, treadmill echocardiogram. Negative for ischemia by EKG and echocardiographic criteria. No anginal symptoms noted. Rare PVCs noted. Appropriate blood pressure response to exercise. Average exercise capacity for age. Final LVEF is 75%. Decreased sensitivity due to poor echo windows requiring Definity agent. Test terminated due to dyspnea and attainment of target heart rate. No complications. The study was technically difficult. Contrast injection was performed. Ordering Physician: James Shoemaker Referring Physician: James Shoemaker Performed By: Gina Davis, RDCS, RVT
== END | disposition home or self-care (01) ==
LOC: CVS 12:19
PROVIDERS: Family Provider Family Medicine; PCP Family Medicine; Referring Provider Internal Medicine Cardiovascular Disease; Visit Provider Internal Medicine Cardiovascular Disease
DX: R06.02 Shortness of breath (principal); I10 Essential (primary) hypertension; Z95.2 Presence of prosthetic heart valve; Z86.79 Personal history of other diseases of the circulatory system; E78.5 Hyperlipidemia, unspecified; I45.10 Unspecified right bundle-branch block
CPT/HCPCS: 93017; 93350; Q9957; A4216; C8928

== ENCOUNTER → 2019-11-25 08:16 | Outpatient (CLI) | payer MEDICARE, SELFPAY ==
[2019-11-19 09:47] VITALS: BMI 29.8
[2019-11-25 10:53] LABS: AST(SGOT) 26 U/L (15-37); Alanine Aminotransfer ALT/SGPT 23 U/L (13-56); Albumin, Serum 3.9 g/dL (3.2-5.0); Alkaline Phosphatase 66 U/L (45-117); Bilirubin, Direct 0.19 mg/dL (0.00-0.30); Cholesterol 168 mg/dL (200); Globulin 3.6 g/dL (2.2-4.2); High Density Lipoprotein 58 mg/dL; Protein, Total 7.5 g/dL (6.4-8.2); Triglycerides 210 mg/dL; Very Low Density Lipoprotein 42 mg/dL (5-40)
== END ==
PROVIDERS: Family Provider Family Medicine; PCP Family Medicine; Referring Provider Internal Medicine Cardiovascular Disease; Visit Provider Internal Medicine Cardiovascular Disease
DX: E78.5 Hyperlipidemia, unspecified (principal)
CPT/HCPCS: 36415; 80061; 80076

== ENCOUNTER → 2020-06-03 10:34 | Outpatient (CLI) | payer MEDICARE, SELFPAY ==
[2020-05-23 13:36] VITALS: BMI 30.5
--- NOTE | 2020-06-03 10:38 | ECHOCS_ITS ---
Reason For Study: VALVE REPL Procedure This was a 2D Doppler, Color Flow transthoracic echocardiogram. The study was technically difficult. Contrast injection was performed. Exam performed in department. Left Ventricle Normal size and thickness. The estimated ejection fraction is 65 %. Stage 1 diastolic dysfunction. No regional wall motion abnormalities noted. Right Ventricle Normal size and thickness. Normal systolic function. Atria Normal left atrium. Normal right atrium. Normal atrial septum. Bubble contrast study negative for right to left interatrial shunt. Mitral Valve The mitral valve is structurally normal. No prolapse or stenosis seen. Trivial mitral valve insufficiency. Tricuspid Valve Normal tricuspid valve. Mild (1+) tricuspid valve insufficiency. Right ventricular systolic pressure estimated to be 24 mmHg. Aortic Valve Mild focal aortic valve thickening. Mild aortic stenosis. Peak aortic valve gradient 38 mmHg. Mean aortic valve gradient 27 mmHg. Trivial aortic valve insufficiency. Stable appearing bioprosthetic aortic valve apparatus. Pulmonic Valve Normal pulmonic valve. Mild (1+) pulmonic valve insufficiency. Great Vessels Mildly dilated aortic root. Normal arch. Normal inferior vena cava. Inferior vena cava collapse with sniff. Pericardium/Pleural No pericardial effusion. Medication 22 gauge I.V. with prn adaptor inserted into right arm. Diluted definity 3.0ml given slow IV push to enhance endocardial definition. MMode/2D Measurements & Calculations LVIDd: 4.6 cm IVSd: 0.97 cm LVOT diam: 2.1 cm LVIDs: 2.2 cm LVPWd: 1.0 cm FS: 51.6 % LVOT area: 3.3 cm2 Ao root diam: 4.5 cm LAV(MOD-bp): 50.9 ml LA A4 area: 18.9 cm2 LAV(MOD-bp) Indexed: 28.0 ml/m2 LAV(MOD-sp2): 53.6 ml LAV(MOD-sp4): 45.6 ml LA dimension(2D): 4.3 cm RA A4 area: 11.8 cm2 Doppler Measurements & Calculations MV E max julián: 59.6 cm/sec Lat Peak E' Julián: 6.5 cm/sec Med Peak E' Julián: 3.7 cm/sec MV A max julián: 96.3 cm/sec E/E' lat: 9.2 E/E' med: 15.9 MV E/A: 0.62 Ao V2 max: 307.8 cm/sec AI max julián: 454.0 cm/sec LV V1 max: 92.4 cm/sec Ao max P.0 mmHg AI max P.5 mmHg LV V1 max P.4 mmHg Ao V2 mean: 228.1 cm/sec AI dec slope: 350.0 cm/sec2 LV V1 mean P.0 mmHg Ao mean P.7 mmHg AI P1/2t: 379.9 msec LV V1 mean: 66.8 cm/sec Ao V2 VTI: 58.2 cm LV V1 VTI: 18.5 cm MATHEW(I,D): 1.1 cm2 MATHEW(V,D): 1.00 cm2 SV(LVOT): 61.2 ml PA V2 max: 87.5 cm/sec PI end-d julián: 104.2 cm/sec TR max julián: 229.0 cm/sec TR max P.1 mmHg Interpretation Summary The estimated ejection fraction is 65 %. Stage 1 diastolic dysfunction. Bubble contrast study negative for right to left interatrial shunt. Trivial mitral valve insufficiency. Mild (1+) tricuspid valve insufficiency. Right ventricular systolic pressure estimated to be 24 mmHg. Stable appearing bioprosthetic aortic valve apparatus with mild aortic leaflet restriction. Mild aortic stenosis. Peak aortic valve gradient 38 mmHg. Mean aortic valve gradient 27 mmHg. Trivial aortic valve insufficiency. Mildly dilated aortic root. Compared to echo report dated 05/15/2019, LV function has remained the same, RVSP has remained about the same, and peak/mean gradient have increased across the aortic valve to 38/27 mmHg respectively, giving an estimated aortic valve area of 1.1 cm??. Estimated aortic valve area on previous echocardiogram was 1.1 cm??. Ordering Physician: James Shoemaker Referring Physician: MASON TORRES Performed By: Gina Davis, KAMRYN, RVT
== END ==
PROVIDERS: PCP Family Medicine; Referring Provider Internal Medicine Cardiovascular Disease; Visit Provider Internal Medicine Cardiovascular Disease
DX: R06.00 Dyspnea, unspecified (principal); R06.02 Shortness of breath; I10 Essential (primary) hypertension; Z95.2 Presence of prosthetic heart valve
CPT/HCPCS: 93306; Q9957; A4216; C8929

== ENCOUNTER → 2020-06-10 12:06 | Outpatient (CLI) | payer MEDICARE, SELFPAY ==
[2020-05-23 13:36] VITALS: BMI 30.5
--- NOTE | 2020-06-10 12:09 | STEWCON_ITS ---
Reason For Study: dyspnea/shortness of breath Stress Results Protocol: Stress Echocardiogram Maximum Predicted HR: 141 bpm Target HR: 120 bpm % Maximum Predicted HR: 113 % DurationHeart Rate Stage (mm:ss) (bpm) BP Comment baseline 68 124/805ml total definity given per protocol stage 1 3:00 151 130/80mild shortness of breath, I'm getting tired stage 2 1:31 160 / mild shortness of breath, mild leg weakness, I'm ready to stop recovery 82 132/74shortness of breath resolved Stress Duration: 4:31 mm:ss Maximum Stress HR: 160 bpm Baseline Echocardiogram Findings The estimated ejection fraction is 65 %. Stress Echo Wall motion Data Resting WM Intermediate WM Stress WM Resting Wall Motion Wall Motion Stress No regional wall motion No regional wall motion abnormalities noted. abnormalities noted. EKG Data The baseline ECG displays normal sinus rhythm. The patient exercised according to the regular [place] protocol for a total duration of 4:30. The maximum heart rate attained was 160 beats per minute. This was 113% of maximum predicted heart rate. The patient exercised into stage 2 of the [place]mar protocol. During stress, there were no ST or T wave changes noted to suggest ischemia. No clinical angina was noted. Interpretation Summary The estimated ejection fraction is 65 %. Normal, adequate, treadmill echocardiogram. Negative for ischemia by EKG or echocardiographic criteria. No anginal symptoms noted. Rare PVCs noted. Appropriate blood pressure response to exercise. Average exercise capacity for age. Test terminated with attainment of target heart rate. Final LVEF is 75%. Decrease sensitivity due to poor echo windows requiring Definity agent. No complications. The study was technically difficult. Contrast injection was performed. Ordering Physician: James Shoemaker Referring Physician: James Shoemaker Performed By: Chen Hermosillo RDCS
== END ==
PROVIDERS: PCP Family Medicine; Referring Provider Internal Medicine Cardiovascular Disease; Visit Provider Internal Medicine Cardiovascular Disease
DX: R06.00 Dyspnea, unspecified (principal); R06.02 Shortness of breath; I10 Essential (primary) hypertension; Z95.2 Presence of prosthetic heart valve
CPT/HCPCS: 93017; 93350; Q9957; A4216; C8928

== ENCOUNTER 2020-07-20 20:07 | Emergency (ER) | payer MEDICARE, SELFPAY ==
[2020-05-23 13:36] VITALS: BMI 30.5
[2020-07-20 20:09] VITALS: BP 163/102; PULSE 75; RESP 18; TEMP 36.6; O2SAT 96; BMI 30.1
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
[2020-07-20] MEDS: Diphth,Pertuss(Acell),Tet Vac 0.5 ML Vial IM (21:43)
[2020-07-20] MEDS: traMADol 50 MG Tablet PO (21:43)
[2020-07-20 21:48] VITALS: RESP 18
== END 2020-07-20 22:23 | disposition home or self-care (01) ==
LOC: ED 21:27
PROVIDERS: Emergency Provider Student in an Organized Health Care Education/Training Program; PCP Family Medicine
DX: S42.322A Displaced transverse fracture of shaft of humerus, left arm, initial encounter for closed fracture (principal); S50.312A Abrasion of left elbow, initial encounter; S80.212A Abrasion, left knee, initial encounter; V19.9XXA Pedal cyclist (driver) (passenger) injured in unspecified traffic accident, initial encounter; Y93.55 Activity, bike riding; Y92.9 Unspecified place or not applicable; I10 Essential (primary) hypertension; Q23.1 Congenital insufficiency of aortic valve; E78.5 Hyperlipidemia, unspecified; Z95.2 Presence of prosthetic heart valve; Z79.82 Long term (current) use of aspirin; Z79.899 Other long term (current) drug therapy
CPT/HCPCS: 73030; 90715; 99283

== ENCOUNTER → 2020-07-21 15:56 | Outpatient (CLI) | payer MEDICARE, SELFPAY ==
[2020-07-21 14:41] VITALS: BMI 30.1
--- NOTE | 2020-07-21 15:58 | CT_ITS ---
STUDY: CT UPPER EXTREMITY WITHOUT CONTRAST: LEFT REASON FOR EXAM: Female, 80 years old. PT STATED LEFT HUMERUS FX LAST NIGHT, PRE OP RADIATION DOSAGE (If Supplied By Facility): CTDIvol = ( 24.72 ) mGy, DLP = ( 569.77 ) mGycm. Individualized dose optimization techniques were used for this CT.? TECHNIQUE: Transaxial imaging with sagittal and coronal reconstruction. COMPARISON: Prior left shoulder radiographs of July 20 and 2019. FINDINGS: Acute comminuted fracture of the left humeral neck extending into the greater tubercle with mild impaction and 7 mm medial displacement and no substantial anterior or posterior displacement. The glenohumeral joint is located. Negative for scapular fracture. Moderate degenerative narrowing of the AC joint without fracture of the clavicle. Negative for adjacent rib fracture. CT/Extremity Upper without Contra IMPRESSION: Acute comminuted fracture of the left humeral neck extending into the greater tubercle with mild impaction, 7 mm medial displacement and no substantial anterior or posterior displacement. Glenohumeral joint located. No other fracture in the [id number]. Electronically Signed: Celia Bryant MD at 16:48 EDT , Service support ,
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
== END ==
PROVIDERS: PCP Family Medicine; Referring Provider Orthopaedic Surgery; Visit Provider Orthopaedic Surgery
DX: S59.902A Unspecified injury of left elbow, initial encounter (principal); S42.212A Unspecified displaced fracture of surgical neck of left humerus, initial encounter for closed fracture
CPT/HCPCS: 73080; 73200

== ENCOUNTER 2020-11-17 07:30 | Outpatient (RCR) | payer MEDICARE, SELFPAY ==
[2020-07-21 14:41] VITALS: BMI 30.1
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
--- NOTE | 2020-09-23 08:41 | HP.PTREVAL ---
Dr. Kristina Werner MD, It has been my pleasure to treat ERIC CHEN over the last 13 visits for 3 part fx of surgical neck of L humerus. Please see the progress note below for an update on the physical therapy plan of care! Subjective: Pt reports minimal pain today it feels like arthritis. Like I have in my hands. SHe did reprot some shoulder symptoms when she woke up this AM. Objective/Function: Pt. is doing well overall. PROM- flexion 130deg, abd 120deg, ER 20deg, IR 30deg. AROM- flexion 125deg, abd 100deg, functional ER C1 aberrant motion, functional IR L5 aberrant motion. MMT- 3+/5 throughout. Pt. is sleeping well without issues most of the time. Plan Plan: Cont. with AROM and PROM focus on slowly increasing. Progress strength as tolerated. Goals Goal 1:: LTG: Pt. to be I with HEP. Goal Time Frame: 4-6 Weeks Goal Progress: Progressing Goal 2:: STG: Pt. to have PROM of L shoulder to 90deg of flexion, scaption and abuction. Goal Time Frame: 2-4 Weeks Goal Progress: Goal Met Goal 3:: LTG: pt. to have greater than 120deg of flexion, scaption, and abduction of L shoulder passively. Goal Time Frame: 4-6 Weeks Goal Progress: Progressing Goal 4:: LTG: pt. to have 120deg of active L shoulder flexion, scaption and abduction. Goal Time Frame: 6-8 Weeks Goal Progress: Progressing Goal 5:: STG: Pt. to have full L elbow active ROM. NEW GOAL: 09/23/20: Pt. to have icnreased strength of L shoulder to 4/5 allowing for increased ability to complete all ADLs. Goal Time Frame: 2-4 Weeks Goal Progress: Goal Met Goal 6:: STG: Pt. to have no increase in symptoms with sleeping, allowing for increased quality of life. Goal Time Frame: 2-4 Weeks Goal Progress: Progressing Anticipated Interventions Patient/Client Instruction: Educate patient on: Condition, Plan of Care, Risk Factors, Benefits of Fitness Program For the Purpose of:: To facilitate caregiver knowledge, To improve self management, To prevent re-injury, To improve ability to perform tasks related to life management, To improve tolerance to ADL's Therapeutic Exercise to Include: Strength training, Power training, Passive ROM, Active ROM, Dynamic Lumbar Stabilization, Scapular Strength/Stabilization For the Purpose of:: To decrease pain, To decrease swelling/inflammation, To increase ROM, To improve nutrient delivery to tissue, To increase oxygenation perfusion, To improve muscle performance and motor function, To improve health of tissue, To decrease soft tissue restriction Please do not hesitate to contact me at [phone] by phone or if you have questions or concerns regarding this new plan of care! Sincerely, JESSE PerryT
--- NOTE | 2020-10-28 12:08 | HP.PTREVAL ---
Dr. Kristina Werner MD, It has been my pleasure to treat ERIC CHEN over the last 28 visits for 3 part fx of surgical neck of L humerus. Please see the progress note below for an update on the physical therapy plan of care! Subjective: Pt. reports overall she is doing very well. Pt. reports being ~80% better. Pt. reports no pain, occassional twinge in her arm, but no sharp pain. Eric also reports being HEP compliant. Objective/Function: ROM: AROM: L shoulder- flexon 100deg, abd 95deg, functional ER C3 aberrant motion, functional IR L PSIS aberrant motion. MMT: 4/5 throughout LUE without increase in symptoms. Pt. is doing well, but is limited with her function active ROM. Pt. is back to most actiivities. I would like her to have increased functional IR/ER. Cont. to work on ROM progressing HEP and and increase endurance focused strengthening, of deltoid and RTC/scapular musculature. Plan Plan: Cont. to work on ROM progressing HEP and and increase endurance focused strengthening, of deltoid and RTC/scapular musculature. Goals Goal 1:: LTG: Pt. to be I with HEP. Goal Time Frame: 4-6 Weeks Goal Progress: Goal Met Goal 2:: STG: Pt. to have PROM of L shoulder to 90deg of flexion, scaption and abuction. Goal Time Frame: 2-4 Weeks Goal Progress: Goal Met Goal 3:: LTG: pt. to have greater than 120deg of flexion, scaption, and abduction of L shoulder passively. Goal Time Frame: 4-6 Weeks Goal Progress: Progressing Goal 4:: LTG: pt. to have 120deg of active L shoulder flexion, scaption and abduction. Goal Time Frame: 6-8 Weeks Goal Progress: Progressing Goal 5:: STG: Pt. to have full L elbow active ROM. NEW GOAL: 09/23/20: Pt. to have icnreased strength of L shoulder to 4/5 allowing for increased ability to complete all ADLs. Goal Time Frame: 2-4 Weeks Goal Progress: Goal Met Goal 6:: STG: Pt. to have no increase in symptoms with sleeping, allowing for increased quality of life. Goal Time Frame: 2-4 Weeks Goal Progress: Goal Met Anticipated Interventions Patient/Client Instruction: Educate patient on: Condition, Plan of Care, Risk Factors, Benefits of Fitness Program For the Purpose of:: To facilitate caregiver knowledge, To improve self management, To prevent re-injury, To improve ability to perform tasks related to life management, To improve tolerance to ADL's Therapeutic Exercise to Include: Strength training, Power training, Passive ROM, Active ROM, Dynamic Lumbar Stabilization, Scapular Strength/Stabilization For the Purpose of:: To decrease pain, To decrease swelling/inflammation, To increase ROM, To improve nutrient delivery to tissue, To increase oxygenation perfusion, To improve muscle performance and motor function, To improve health of tissue, To decrease soft tissue restriction Please do not hesitate to contact me at [phone] by phone or if you have questions or concerns regarding this new plan of care! Sincerely, Michael Chung DPT
== END 2020-11-17 19:00 | disposition home or self-care (01) ==
LOC: PT 07:30
PROVIDERS: PCP Family Medicine; Visit Provider Orthopaedic Surgery
DX: S42.232D 3-part fracture of surgical neck of left humerus, subsequent encounter for fracture with routine healing (principal); M25.512 Pain in left shoulder
CPT/HCPCS: 97110; 97140; 97161; 97530

== ENCOUNTER → 2021-01-25 07:23 | Outpatient (CLI) | payer MEDICARE, SELFPAY ==
[2020-12-12 13:13] VITALS: BMI 31.1
[2021-01-25 09:05] LABS: AST(SGOT) 27 U/L (15-37); Alanine Aminotransfer ALT/SGPT 26 U/L (13-56); Albumin, Serum 3.7 g/dL (3.2-5.0); Alkaline Phosphatase 70 U/L (45-117); Anion Gap 5 (5-15); BUN 14 mg/dL (7-18); BUN/Creat Ratio 14.9 RATIO (10-20); Bilirubin, Direct 0.19 mg/dL (0.00-0.30); Calcium,Total 8.9 mg/dL (8.5-10.1); Chloride 105 mmol/L (98-107); Cholesterol 188 mg/dL (200); Creatinine, Serum 0.94 mg/dL (0.55-1.02); EST Glomerular Filtration Rate 61 mL/min (>60); Est Glom Filt Rate - Afr Amer 74 mL/min (>60); Globulin 3.6 g/dL (2.2-4.2); Glucose 108 mg/dL (74-106); High Density Lipoprotein 53 mg/dL; Potassium 4.1 mmol/L (3.5-5.1); Protein, Total 7.3 g/dL (6.4-8.2); Sodium Level 139 mmol/L (136-145); Triglycerides 268 mg/dL; Very Low Density Lipoprotein 54 mg/dL (5-40)
== END ==
PROVIDERS: PCP Family Medicine; Referring Provider Nurse Practitioner Family; Visit Provider Nurse Practitioner Family
DX: I10 Essential (primary) hypertension (principal); Z95.2 Presence of prosthetic heart valve; E78.5 Hyperlipidemia, unspecified
CPT/HCPCS: 36415; 80053; 80061; 82248

== ENCOUNTER → 2021-05-29 08:45 | Outpatient (CLI) | payer MEDICARE, SELFPAY ==
[2021-03-29 14:14] VITALS: BMI 31.9
--- NOTE | 2021-05-29 08:46 | ECHOCS_ITS ---
Reason For Study: VALVE REPLACEMENT EVAL Procedure This was a 2D Doppler, Color Flow transthoracic echocardiogram. The study was technically difficult. Poor parasternal accoustic windows. Contrast injection was performed. Exam performed in department. Left Ventricle Normal LV size. Left ventricular systolic function is normal. The estimated ejection fraction is 65 %. Diastolic function is indeterminate. No regional wall motion abnormalities noted. Right Ventricle Normal RV size. Normal systolic function. Atria The left atrium is mildly enlarged. Normal right atrium. No doppler evidence for ASD. Mitral Valve There is no mitral annular calcification. Normal mitral valve. Trivial mitral valve insufficiency. Tricuspid Valve Normal tricuspid valve. Mild tricuspid valve insufficiency. Right ventricular systolic pressure estimated to be 25 mmHg. Aortic Valve The aortic valve apparatus is not well visualized, however, based upon the 2D echocardiographic images obtained there appears to be a stable appearing bioprosthetic aortic valve apparatus present. Mild aortic stenosis. Trivial transvalvular insufficiency of the aortic valve. Pulmonic Valve The pulmonic valve is not well visualized. Great Vessels Mildly dilated aortic root. Pericardium/Pleural No pericardial effusion. Medication 22 gauge I.V. with prn adaptor inserted into right arm. Diluted definity 4.0ml given slow IV push to enhance endocardial definition. MMode/2D Measurements & Calculations LVIDd: 4.6 cm IVSd: 0.66 cm LVOT diam: 2.1 cm LVIDs: 3.2 cm LVPWd: 0.99 cm RVDd: 2.9 cm FS: 31.0 % LVOT area: 3.3 cm2 Ao root diam: 4.0 cm LAV(MOD-bp): 69.4 ml LA A4 area: 21.9 cm2 LAV(MOD-bp) Indexed: 38.0 ml/m2 LAV(MOD-sp2): 72.0 ml LAV(MOD-sp4): 66.4 ml LA dimension(2D): 3.9 cm RA A4 area: 10.3 cm2 Time Measurements MV dec time: 0.21 sec Doppler Measurements & Calculations MV E max julián: 68.4 cm/sec Lat Peak E' Julián: 5.7 cm/sec Med Peak E' Julián: 7.4 cm/sec MV A max julián: 92.9 cm/sec E/E' lat: 11.9 E/E' med: 9.3 MV E/A: 0.74 Ao V2 max: 220.0 cm/sec LV V1 max: 91.1 cm/sec SV(LVOT): 60.6 ml Ao max P.4 mmHg LV V1 max P.3 mmHg Ao V2 mean: 151.5 cm/sec LV V1 mean P.7 mmHg Ao mean P.0 mmHg LV V1 mean: 62.8 cm/sec Ao V2 VTI: 44.3 cm LV V1 VTI: 18.3 cm MATHEW(I,D): 1.4 cm2 MATHEW(V,D): 1.4 cm2 PA V2 max: 93.8 cm/sec TR max julián: 235.9 cm/sec TR max P.3 mmHg ECHO/Echo Complete W/ Contrast Interpretation Summary The study was technically difficult. Contrast injection was performed. Left ventricular systolic function is normal. The estimated ejection fraction is 65 %. The left atrium is mildly enlarged. Trivial mitral valve insufficiency. Mild tricuspid valve insufficiency. The aortic valve apparatus is not well visualized, however, based upon the 2D e chocardiographic images obtained there appears to be a stable appearing bioprosthetic aortic maria elena ve apparatus present. Mild aortic stenosis. Trivial transvalvular insufficiency of the aortic valve. Mildly dilated aortic root. Right ventricular systolic pressure estimated to be 25 mmHg. Diastolic function is indeterminate. Ordering Physician: Reuben Ramirez Referring Physician: Brian Hayward Performed By: Elise Chi, IDALIACS, RVT
== END ==
PROVIDERS: PCP Family Medicine; Referring Provider Internal Medicine Cardiovascular Disease; Visit Provider Internal Medicine Cardiovascular Disease
DX: Z95.3 Presence of xenogenic heart valve (principal)
CPT/HCPCS: 93306; Q9957; C8929; J3490

== ENCOUNTER → 2021-07-29 08:13 | Outpatient (CLI) | payer MEDICARE, SELFPAY ==
[2021-07-29 09:31] LABS: AST(SGOT) 23 U/L (15-37); Alanine Aminotransfer ALT/SGPT 30 U/L (13-56); Albumin, Serum 3.8 g/dL (3.2-5.0); Alkaline Phosphatase 65 U/L (45-117); Bilirubin, Direct 0.23 mg/dL (0.00-0.30); Cholesterol 175 mg/dL (200); Globulin 3.6 g/dL (2.2-4.2); High Density Lipoprotein 57 mg/dL; Protein, Total 7.4 g/dL (6.4-8.2); Triglycerides 223 mg/dL; Very Low Density Lipoprotein 45 mg/dL (5-40)
== END ==
PROVIDERS: PCP Family Medicine; Referring Provider Nurse Practitioner Family; Visit Provider Nurse Practitioner Family
DX: E78.5 Hyperlipidemia, unspecified (principal); E78.00 Pure hypercholesterolemia, unspecified
CPT/HCPCS: 36415; 80061; 80076

== ENCOUNTER → 2021-10-04 11:00 | Outpatient (CLI) | payer MEDICARE, SELFPAY ==
[2021-10-04 11:03] LABS: Mucous, Urine 0 SEEN /hpf (<or=2+)
[2021-10-04 12:47] LABS: Absolute Lymphocyte Count 1.84 X10^3/uL (0.83-4.51); Absolute Neutrophil Count 4.8 X10^3/uL (2.0-7.7); Basophil# 0.07 X10^3/uL; Basophil% 0.9 % (0-1); Color, Urine Yellow (Yellow); Eosinophil# 0.13 X10^3/uL; Eosinophils% 1.7 % (0-5); Glucose, Dipstick Normal (Normal); Hematocrit 43.9 % (37-47); Hemoglobin 14.9 g/dL (12.0-15.0); Ketone-Dipstick Negative (Negative); Leukocyte Esterase-Dipstick 500 /ul (Negative); Lymphocyte # 1.84 X10^3/ul (0.83-4.51); Mean Corp Hgb Conc 33.9 g/dL (32-36); Mean Corpuscular Hgb 32.3 pg (27.0-32.0); Mean Corpuscular Volume 95.2 fL (81-99); Mean Platelet Vol. 9.8 fl (6.2-12.0); Monocyte# 0.79 X10^3/uL; Monocyte% 10.3 % (0-10); NRBC Flagged by Analyzer 0 % (0-5); Neutrophil # 4.81 X10^3/uL (2.7-7.7); Neutrophil % 62.8 % (47-70); Nitrite-Dipstick Negative (Negative); Occult Blood-Urine Negative /ul (Negative); Platelet Count 246 K/mm3 (150-450); Protein-Dipstick Negative (Negative); RBC Distribution Width CV 12.7 % (11.6-14.6); RBC Distribution Width SD 44.7 fl (35.1-43.9); Red Blood Count 4.61 M/mm3 (4.2-5.4); Urine Bilirubin Dipstick Negative (Negative); Urine Clarity Clear (Clear); Urine Urobilinogen Normal (Normal); White Blood Count 7.7 K/mm3 (4.4-11.0)
[2021-10-04 13:09] LABS: Bacteria RARE /hpf (None Seen); Red Blood Cells-Urine 0-5 SEEN /hpf (0-5); Squamous Epithelial Cells - UA 0-5 SEEN /hpf (5-10); White Blood Cells 0-5 SEEN /hpf (0-5)
[2021-10-04 13:35] LABS: AST(SGOT) 23 U/L (15-37); Alanine Aminotransfer ALT/SGPT 25 U/L (13-56); Albumin, Serum 3.8 g/dL (3.2-5.0); Alkaline Phosphatase 63 U/L (45-117); Anion Gap 7 (5-15); BUN 19 mg/dL (7-18); BUN/Creat Ratio 21.3 RATIO (10-20); Calcium,Total 10.1 mg/dL (8.5-10.1); Chloride 104 mmol/L (98-107); Creatinine, Serum 0.89 mg/dL (0.55-1.02); EST Glomerular Filtration Rate 65 mL/min (>60); Est Glom Filt Rate - Afr Amer 78 mL/min (>60); Globulin 3.7 g/dL (2.2-4.2); Glucose 91 mg/dL (74-106); Magnesium 2.1 mg/dL (1.6-2.6); Potassium 3.5 mmol/L (3.5-5.1); Protein, Total 7.5 g/dL (6.4-8.2); Sodium Level 138 mmol/L (136-145)
== END ==
PROVIDERS: PCP Family Medicine; Referring Provider Family Medicine; Visit Provider Family Medicine
DX: I10 Essential (primary) hypertension (principal)
CPT/HCPCS: 36415; 80053; 81001; 83735; 84443; 85025

== ENCOUNTER 2021-12-18 18:20 | Outpatient (CLI) | payer MEDICARE, SELFPAY ==
[2021-12-18 18:22] LABS: Mucous, Urine 0 SEEN /hpf (<or=2+); Squamous Epithelial Cells - UA 0 SEEN /hpf (5-10)
[2021-12-18 18:43] LABS: Color, Urine Yellow (Yellow); Glucose, Dipstick Normal (Normal); Ketone-Dipstick Negative (Negative); Leukocyte Esterase-Dipstick 500 /ul (Negative); Nitrite-Dipstick Negative (Negative); Occult Blood-Urine 250 /ul (Negative); Protein-Dipstick 30 mg/dl (Negative); Urine Bilirubin Dipstick Negative (Negative); Urine Clarity Cloudy (Clear); Urine Urobilinogen Normal (Normal); Urine pH 6.5 (5.0 - 8.0)
[2021-12-18 18:50] LABS: White Blood Cells >100 SEEN /hpf (0-5)
[2021-12-18 18:52] LABS: Red Blood Cells-Urine 50-100 SEEN /hpf (0-5)
[2021-12-18 18:53] LABS: Bacteria 2+ /hpf (None Seen)
== END 2021-12-18 23:59 | disposition short-term general hospital (02) ==
PROVIDERS: PCP Family Medicine; Visit Provider Physician Assistant
DX: N39.0 Urinary tract infection, site not specified (principal); R30.9 Painful micturition, unspecified
CPT/HCPCS: 81001; 87077; 87086; 87088; 87186

== ENCOUNTER 2022-01-04 23:35 | Outpatient (CLI) | payer MEDICARE, SELFPAY ==
[2022-01-04 23:40] LABS: Mucous, Urine 0 SEEN /hpf (<or=2+); Squamous Epithelial Cells - UA 0 SEEN /hpf (5-10)
[2022-01-04 23:45] LABS: Color, Urine Yellow (Yellow); Glucose, Dipstick Normal (Normal); Ketone-Dipstick Negative (Negative); Leukocyte Esterase-Dipstick 500 /ul (Negative); Nitrite-Dipstick Negative (Negative); Occult Blood-Urine 250 /ul (Negative); Protein-Dipstick 30 mg/dl (Negative); Urine Bilirubin Dipstick Negative (Negative); Urine Clarity Sl. Cloudy (Clear); Urine Urobilinogen Normal (Normal)
[2022-01-04 23:52] LABS: White Blood Cells >100 SEEN /hpf (0-5)
[2022-01-04 23:53] LABS: Bacteria 1+ /hpf (None Seen); Red Blood Cells-Urine 0-5 SEEN /hpf (0-5)
== END 2022-01-04 23:59 | disposition home or self-care (01) ==
PROVIDERS: PCP Family Medicine; Referring Provider Physician Assistant; Visit Provider Physician Assistant
DX: N39.0 Urinary tract infection, site not specified (principal); R31.9 Hematuria, unspecified
CPT/HCPCS: 81001; 87077; 87086; 87088; 87186

== ENCOUNTER 2022-01-26 08:00 | Outpatient (CLI) | payer MEDICARE, SELFPAY ==
[2022-01-26 08:46] LABS: AST(SGOT) 26 U/L (15-37); Alanine Aminotransfer ALT/SGPT 24 U/L (13-56); Albumin, Serum 3.9 g/dL (3.2-5.0); Alkaline Phosphatase 59 U/L (45-117); Bilirubin, Direct 0.17 mg/dL (0.00-0.30); Cholesterol 159 mg/dL (200); Globulin 3.5 g/dL (2.2-4.2); High Density Lipoprotein 53 mg/dL; Protein, Total 7.4 g/dL (6.4-8.2); Triglycerides 209 mg/dL; Very Low Density Lipoprotein 42 mg/dL (5-40)
== END 2022-01-26 23:59 | disposition home or self-care (01) ==
LOC: LAB 08:02
PROVIDERS: PCP Family Medicine; Referring Provider Nurse Practitioner Family; Visit Provider Nurse Practitioner Family
DX: E78.00 Pure hypercholesterolemia, unspecified (principal); E78.5 Hyperlipidemia, unspecified
CPT/HCPCS: 36415; 80061; 80076

== ENCOUNTER → 2022-03-20 | Outpatient (CLI) | payer MEDICARE, SELFPAY ==
--- NOTE | 2022-03-20 10:31 | BD_ITS ---
STUDY: DUAL ENERGY X-RAY ABSORPTIOMETRY / DXA REASON FOR EXAM: Female, 82 years old. Z78.0 TECHNIQUE: Bone Mineral Density (BMD) measurements of lumbar spine and bilateral hips were obtained. COMPARISON: Comparison is made with prior study dated 12/03/2018. FINDINGS: Lumbar Spine (L1-L4): g/cm2 (0.897) / T-score (-1.1) / Z-score (1.6) Findings are suggestive of osteopenia with a low fracture risk. Left Femur Total: g/cm2 (0.776) / T-score (-1.4) / Z-score (0.8) Left Femoral Neck: g/cm2 (0.590) / T-score (-2.3) / Z-score (0.0) Right Femur Total: g/cm2 (0.773) / T-score (-1.4) / Z-score (0.7) Right Femoral Neck: g/cm2 (0.574) / T-score (-2.5) / Z-score (-0.1) The T-Scores on the most recent prior examination were: Lumbar Spine (L1-L4): There has been improvement of bone density since the previous examination. Left Femur Total: which represents an improvement of 9.6%. Right Femur Total: which represents an improvement of 3.4%. BD/Dexa Bone Density Study IMPRESSION: The patient is considered osteopenic as outlined below according to World Donovan Organization (WHO) criteria with a high fracture risk. There has been improvement of bone density since the previous examination. Reference Information: The T-score is the number of standard deviations above or below the standard which is normal for young adults at their peak bone mineral density. The World Health Organization (WHO) interprets the T-scores as follows: Above -1 Normal bone density Between -1 and -2.5 Osteopenia Equal to / or below -2.5 Osteoporosis As a practical clinical guideline, osteopenia may be graded as follows: Mild -1 through -1.5 Moderate -1.6 through -2.0 Severe -2.1 through -2.4 The Z-score is the number of standard deviations above or below age-matched controls. A Z-score of less than -1.5 would be considered abnormal. References: 1. NIH Osteoporosis and Related Bone Diseases www osteo.org 2. International Society for Clinical Densitometry www iscd.org 3. National Osteoporosis Foundation www nof.org Electronically Signed: Dharmesh Lee MD at 13:46 EDT ,
== END | disposition home or self-care (01) ==
LOC: OPBD 10:18
PROVIDERS: PCP Family Medicine; Referring Provider Family Medicine; Visit Provider Family Medicine
DX: Z78.0 Asymptomatic menopausal state (principal)
CPT/HCPCS: 77080

== ENCOUNTER → 2022-03-29 | Outpatient (CLI) | payer MEDICARE, SELFPAY ==
[2022-03-29 16:02] LABS: ALB/GLOB Ratio 1.2 RATIO (0.9-2.4); AST(SGOT) 26 U/L (15-37); Alanine Aminotransfer ALT/SGPT 23 U/L (13-56); Alkaline Phosphatase 57 U/L (45-117); Anion Gap 8 (5-15); BUN 15 mg/dL (7-18); BUN/Creat Ratio 16.3 RATIO (10-20); Calcium,Total 9.5 mg/dL (8.5-10.1); Chloride 105 mmol/L (98-107); Creatinine, Serum 0.92 mg/dL (0.55-1.02); EST Glomerular Filtration Rate 62 mL/min (>60); Est Glom Filt Rate - Afr Amer 75 mL/min (>60); Globulin 3.3 g/dL (2.2-4.2); Glucose 88 mg/dL (74-106); Potassium 3.4 mmol/L (3.5-5.1); Protein, Total 7.3 g/dL (6.4-8.2); Sodium Level 139 mmol/L (136-145)
[2022-03-29 16:20] LABS: Vitamin D,25 Hydroxy 64.4 ng/mL
== END | disposition home or self-care (01) ==
LOC: MFPLAB 13:47
PROVIDERS: PCP Family Medicine; Visit Provider Family Medicine
DX: M81.0 Age-related osteoporosis without current pathological fracture (principal)
CPT/HCPCS: 36415; 80053; 82306

== ENCOUNTER → 2022-07-06 | Outpatient (CLI) | payer MEDICARE, SELFPAY ==
[2022-07-06 10:06] LABS: Absolute Lymphocyte Count 1.65 X10^3/uL (0.83-4.51); Absolute Neutrophil Count 7.4 X10^3/uL (2.0-7.7); Basophil# 0.07 X10^3/uL; Basophil% 0.7 % (0-1); Color, Urine Yellow (Yellow); Eosinophil# 0.18 X10^3/uL; Eosinophils% 1.7 % (0-5); Glucose, Dipstick Normal (Normal); Hematocrit 43.5 % (37-47); Hemoglobin 15.2 g/dL (12.0-15.0); Ketone-Dipstick Negative (Negative); Leukocyte Esterase-Dipstick 500 /ul (Negative); Lymphocyte # 1.65 X10^3/ul (0.83-4.51); Lymphocyte % 15.8 % (19-41); Mean Corp Hgb Conc 34.9 g/dL (32-36); Mean Corpuscular Hgb 32.4 pg (27.0-32.0); Mean Corpuscular Volume 92.8 fL (81-99); Mean Platelet Vol. 10.6 fl (6.2-12.0); Monocyte# 1.08 X10^3/uL; Monocyte% 10.4 % (0-10); NRBC Flagged by Analyzer 0 % (0-5); Neutrophil # 7.42 X10^3/uL (2.7-7.7); Neutrophil % 71.1 % (47-70); Nitrite-Dipstick Positive (Negative); Occult Blood-Urine 250 /ul (Negative); Platelet Count 191 K/mm3 (150-450); Protein-Dipstick 30 mg/dl (Negative); RBC Distribution Width CV 13.2 % (11.6-14.6); RBC Distribution Width SD 44.3 fl (35.1-43.9); Red Blood Count 4.69 M/mm3 (4.2-5.4); Urine Bilirubin Dipstick Negative (Negative); Urine Clarity Turbid (Clear); Urine Urobilinogen Normal (Normal); White Blood Count 10.4 K/mm3 (4.4-11.0)
[2022-07-06 10:25] LABS: AST(SGOT) 23 U/L (15-37); Alanine Aminotransfer ALT/SGPT 24 U/L (13-56); Albumin, Serum 3.8 g/dL (3.2-5.0); Alkaline Phosphatase 52 U/L (45-117); Bilirubin, Direct 0.23 mg/dL (0.00-0.30); Cholesterol 160 mg/dL (200); Globulin 3.6 g/dL (2.2-4.2); High Density Lipoprotein 51 mg/dL; Protein, Total 7.4 g/dL (6.4-8.2); Triglycerides 204 mg/dL; Very Low Density Lipoprotein 41 mg/dL (5-40)
[2022-07-06 10:36] LABS: AST(SGOT) 24 U/L (15-37); Alanine Aminotransfer ALT/SGPT 23 U/L (13-56); Albumin, Serum 3.8 g/dL (3.2-5.0); Alkaline Phosphatase 53 U/L (45-117); Anion Gap 7 (5-15); BUN 14 mg/dL (7-18); BUN/Creat Ratio 15.8 RATIO (10-20); Calcium,Total 9.4 mg/dL (8.5-10.1); Chloride 106 mmol/L (98-107); Cholesterol 158 mg/dL (200); Creatinine, Serum 0.88 mg/dL (0.55-1.02); EST Glomerular Filtration Rate 65 mL/min (>60); Est Glom Filt Rate - Afr Amer 79 mL/min (>60); Globulin 3.7 g/dL (2.2-4.2); Glucose 123 mg/dL (74-106); High Density Lipoprotein 51 mg/dL; Potassium 3.5 mmol/L (3.5-5.1); Protein, Total 7.5 g/dL (6.4-8.2); Sodium Level 139 mmol/L (136-145); Thyroid Stim Hormone (TSH) 2.21 uIU/mL (0.358-3.74); Triglycerides 201 mg/dL; Very Low Density Lipoprotein 40 mg/dL (5-40)
[2022-07-06 15:11] LABS: Mucous, Urine 0 SEEN /hpf (<or=2+)
[2022-07-06 15:23] LABS: Color, Urine Straw (Yellow); Glucose, Dipstick Normal (Normal); Ketone-Dipstick Negative (Negative); Leukocyte Esterase-Dipstick 500 /ul (Negative); Nitrite-Dipstick Positive (Negative); Occult Blood-Urine 250 /ul (Negative); Protein-Dipstick 30 mg/dl (Negative); Urine Bilirubin Dipstick Negative (Negative); Urine Clarity Cloudy (Clear); Urine Urobilinogen Normal (Normal); Urine pH 6.5 (5.0 - 8.0)
[2022-07-06 15:33] LABS: Bacteria 4+ /hpf (None Seen); Red Blood Cells-Urine 50-100 SEEN /hpf (0-5); Squamous Epithelial Cells - UA 5-10 SEEN /hpf (5-10); White Blood Cells >100 SEEN /hpf (0-5)
== END | disposition home or self-care (01) ==
PROVIDERS: Nurse Practitioner Family; Physician Assistant Surgical; PCP Family Medicine; Referring Provider Family Medicine; Visit Provider Family Medicine
DX: N39.0 Urinary tract infection, site not specified (principal); R31.9 Hematuria, unspecified; E78.00 Pure hypercholesterolemia, unspecified; I10 Essential (primary) hypertension; N39.41 Urge incontinence
CPT/HCPCS: 36415; 80053; 80061; 80076; 81001; 81002; 84443; 85025; 87086; 87088; 87186

== ENCOUNTER → 2022-07-13 | Outpatient (CLI) | payer MEDICARE, SELFPAY ==
--- NOTE | 2022-07-13 09:43 | RAD_ITS ---
INDICATION: PAIN EXAMINATION/TECHNIQUE: X-RAY - BILATERAL XR Hips Bilateral with Pelvis when performed; 2 Views COMPARISON: None. FINDINGS: PELVIC BONES: No displaced fracture, destructive or sclerotic lesions. Note that overlapping bowel shadows may however obscure fine detail. Sacroiliac joints are unremarkable. No widening of the pubic symphysis. HIPS: Normal joint spacing with no degenerative bony proliferative changes. No displaced fracture seen in this frontal view. Chronic enthesopathic changes anterior iliac spine and greater tuberosities, bilaterally symmetric, as can be seen in older patients. SOFT TISSUES: No soft tissue swelling or gas. RAD/Hips B/L min 2 views w/ Pelvis IMPRESSION: No evidence of displaced pelvic or hip fracture. Electronically Signed: Silvestre Carpenter DO at 20:12 EDT ,
== END | disposition home or self-care (01) ==
LOC: MTRAD 09:41
PROVIDERS: PCP Family Medicine; Referring Provider Family Medicine; Visit Provider Family Medicine
DX: M25.551 Pain in right hip (principal); M25.552 Pain in left hip
CPT/HCPCS: 73521

== ENCOUNTER → 2022-08-06 | Outpatient (CLI) | payer MEDICARE, SELFPAY ==
[2022-08-06 12:17] LABS: Color, Urine Yellow (Yellow); Glucose, Dipstick Normal (Normal); Ketone-Dipstick Negative (Negative); Leukocyte Esterase-Dipstick 500 /ul (Negative); Nitrite-Dipstick Negative (Negative); Occult Blood-Urine 50 /ul (Negative); Protein-Dipstick 30 mg/dl (Negative); Urine Bilirubin Dipstick Negative (Negative); Urine Clarity Sl. Cloudy (Clear); Urine Urobilinogen Normal (Normal); Urine pH 6.5 (5.0 - 8.0)
== END | disposition home or self-care (01) ==
LOC: MFPLAB 08:17
PROVIDERS: PCP Family Medicine; Visit Provider Family Medicine
DX: N39.41 Urge incontinence (principal)
CPT/HCPCS: 81002; 87086; 87088; 87186

== ENCOUNTER → 2022-08-29 | Outpatient (CLI) | payer MEDICARE, SELFPAY ==
--- NOTE | 2022-08-29 11:45 | US_ITS ---
HISTORY: UTI. TECHNIQUE: Glez scale and color doppler images were obtained of the kidneys. 56 images. COMPARISON: None. FINDINGS: RIGHT KIDNEY: 10.4 cm in length with a cortical thickness of 1.2 cm. Echogenicity unremarkable. No hydronephrosis. No gross renal mass demonstrated. LEFT KIDNEY: 10.3 cm in length with a cortical thickness of 1.1 cm. Echogenicity unremarkable. No hydronephrosis. No gross renal mass demonstrated. URINARY BLADDER: Unremarkable at 221 cc with the bilateral ureteral jets visualized. 4 mm wall thickness. US/Kidney and Bladder IMPRESSION: Unremarkable examination of the kidneys. Electronically Signed: Jannet Montana MD at 15:57 EDT ,
== END | disposition home or self-care (01) ==
LOC: US 11:44
PROVIDERS: PCP Family Medicine; Referring Provider Urology; Visit Provider Urology
DX: N39.0 Urinary tract infection, site not specified (principal)
CPT/HCPCS: 76770

== ENCOUNTER → 2022-10-02 | Outpatient (CLI) | payer MEDICARE, SELFPAY ==
[2022-10-03 00:16] LABS: Mucous, Urine 0 SEEN /hpf (<or=2+); Squamous Epithelial Cells - UA 0 SEEN /hpf (5-10)
[2022-10-03 00:19] LABS: Color, Urine Yellow (Yellow); Glucose, Dipstick Normal (Normal); Ketone-Dipstick Negative (Negative); Leukocyte Esterase-Dipstick 500 /ul (Negative); Nitrite-Dipstick Positive (Negative); Occult Blood-Urine 50 /ul (Negative); Protein-Dipstick 30 mg/dl (Negative); Urine Bilirubin Dipstick Negative (Negative); Urine Clarity Cloudy (Clear); Urine Urobilinogen Normal (Normal)
[2022-10-03 00:28] LABS: Bacteria 3+ /hpf (None Seen); Red Blood Cells-Urine 0-5 SEEN /hpf (0-5); White Blood Cells >100 SEEN /hpf (0-5)
== END | disposition home or self-care (01) ==
PROVIDERS: PCP Family Medicine; Referring Provider Physician Assistant Surgical; Visit Provider Physician Assistant Surgical
DX: N39.0 Urinary tract infection, site not specified (principal); R31.9 Hematuria, unspecified
CPT/HCPCS: 81001; 87077; 87086; 87088; 87186

== ENCOUNTER → 2022-11-06 | Outpatient (CLI) | payer MEDICARE, SELFPAY ==
[2022-11-06 10:21] LABS: Mucous, Urine 0 SEEN /hpf (<or=2+)
[2022-11-06 10:29] LABS: Color, Urine Yellow (Yellow); Glucose, Dipstick Normal (Normal); Ketone-Dipstick Negative (Negative); Leukocyte Esterase-Dipstick 500 /ul (Negative); Nitrite-Dipstick Negative (Negative); Occult Blood-Urine 150 /ul (Negative); Protein-Dipstick 30 mg/dl (Negative); Urine Bilirubin Dipstick Negative (Negative); Urine Clarity Sl. Cloudy (Clear); Urine Urobilinogen Normal (Normal)
[2022-11-06 10:41] LABS: Bacteria 1+ /hpf (None Seen); Red Blood Cells-Urine 10-25 SEEN /hpf (0-5); Squamous Epithelial Cells - UA 0-5 SEEN /hpf (5-10); White Blood Cells 25-50 SEEN /hpf (0-5)
== END | disposition home or self-care (01) ==
LOC: LABSPEC 10:02
PROVIDERS: PCP Family Medicine; Visit Provider Physician Assistant Surgical
DX: N39.0 Urinary tract infection, site not specified (principal); R31.9 Hematuria, unspecified
CPT/HCPCS: 81001; 87086; 87088; 87186

== ENCOUNTER → 2022-11-14 | Outpatient (CLI) | payer MEDICARE, SELFPAY ==
--- NOTE | 2022-11-14 09:50 | ECHOD_ITS ---
Reason For Study: VALVE REPLACEMENT Procedure This was a 2D Doppler, Color Flow transthoracic echocardiogram. The study was technically difficult. Exam performed in department. Left Ventricle Left ventricular systolic function is normal. The estimated ejection fraction is 65 %. The global longitudinal strain = -21 % (normal). Stage 2 diastolic dysfunction. No regional wall motion abnormalities noted. Right Ventricle Normal RV size. Normal systolic function. Atria The left atrium is severely enlarged. The right atrium is mildly enlarged. No doppler evidence for ASD. Mitral Valve There is no mitral annular calcification. Normal mitral valve. Mild (1+) mitral valve insufficiency. Tricuspid Valve Normal tricuspid valve. Moderate (2+) tricuspid valve insufficiency. Right ventricular systolic pressure estimated to be 34 mmHg. Aortic Valve The aortic valve apparatus is not well visualized, however, based upon the 2D echocardiographic images obtained, spectral Doppler information obtained, and color-flow Doppler information obtained there appears to be a stable bioprosthetic aortic valve apparatus with associated mild aortic valve stenosis and trivial transvalvular aortic valve insufficiency. Pulmonic Valve The pulmonic valve is not well visualized. Mild (1+) pulmonic valve insufficiency. Great Vessels Mildly dilated aortic root. Pericardium/Pleural No pericardial effusion. MMode/2D Measurements & Calculations RVDd: 3.1 cm LVOT diam: 2.0 cm Ao root diam: 4.4 cm LVOT area: 3.2 cm2 LAV(MOD-bp): 83.0 ml SV(MOD-sp4): 25.6 ml LVAd ap4: 18.8 cm2 LAV(MOD-bp) Indexed: 46.0 ml/m2 LVLd ap4: 6.4 cm LAV(MOD-sp2): 72.7 ml EDV(MOD-sp4): 44.9 ml LAV(MOD-sp4): 84.3 ml EDV(sp4-el): 47.1 ml LVAs ap4: 10.4 cm2 LVLs ap4: 4.8 cm ESV(MOD-sp4): 19.3 ml ESV(sp4-el): 19.0 ml EF(MOD-sp4): 57.0 % EF(sp4-el): 59.6 % SV(sp4-el): 28.1 ml LA A4 area: 26.0 cm2 LA dimension(2D): 3.9 cm RA A4 area: 14.2 cm2 Time Measurements MV dec time: 0.17 sec Doppler Measurements & Calculations MV E max julián: 86.7 cm/sec Lat Peak E' Julián: 6.0 cm/sec Med Peak E' Julián: 4.9 cm/sec MV A max julián: 74.5 cm/sec E/E' lat: 14.4 E/E' med: 17.7 MV E/A: 1.2 MV V2 max: 83.9 cm/sec MV dec slope: 508.5 cm/sec2 Ao V2 max: 208.0 cm/sec MV max P.8 mmHg Ao max P.3 mmHg MV V2 mean: 43.8 cm/sec Ao V2 mean: 143.6 cm/sec MV mean P.95 mmHg Ao mean P.5 mmHg MV V2 VTI: 25.4 cm Ao V2 VTI: 47.5 cm MVA(VTI): 3.5 cm2 AV (velocity ratio): 0.58 MATHEW(I,D): 1.9 cm2 MATHEW(V,D): 1.9 cm2 AI max julián: 286.4 cm/sec LV V1 max: 120.3 cm/sec MR max julián: 371.9 cm/sec AI max P.9 mmHg LV V1 max P.9 mmHg MR max P.3 mmHg AI dec slope: 170.0 cm/sec2 LV V1 mean P.4 mmHg AI P1/2t: 493.4 msec LV V1 mean: 86.8 cm/sec LV V1 VTI: 27.7 cm SV(LVOT): 88.7 ml PA V2 max: 85.0 cm/sec PA V2 mean: 55.0 cm/sec PI dec slope: 222.4 cm/sec2 TR max julián: 276.8 cm/sec TR max P.6 mmHg ECHO/Echo Complete Interpretation Summary The study was technically difficult. Left ventricular systolic function is normal. The estimated ejection fraction is 65 %. The global longitudinal strain = -21 % (normal). The left atrium is severely enlarged. The right atrium is mildly enlarged. Mild (1+) mitral valve insufficiency. Moderate (2+) tricuspid valve insufficiency. The aortic valve apparatus is not well visualized, however, based upon the 2D e chocardiographic images obtained, spectral Doppler information obtained, and color-flow Doppler information obtained there appears to be a stable bioprosthetic aortic valve apparatus with associat ed mild aortic valve stenosis and trivial transvalvular aortic valve insufficiency. Mild (1+) pulmonic valve insufficiency. Mildly dilated aortic root. Right ventricular systolic pressure estimated to be 34 mmHg. Stage 2 diastolic dysfunction. Ordering Physician: Reuben Ramirez Referring Physician: Lul Domínguez Performed By: Ees Montalvo RCS
== END | disposition home or self-care (01) ==
LOC: CVS 09:49
PROVIDERS: PCP Family Medicine; Visit Provider Internal Medicine Cardiovascular Disease
DX: Z95.3 Presence of xenogenic heart valve (principal); I77.810 Thoracic aortic ectasia; I10 Essential (primary) hypertension; E78.5 Hyperlipidemia, unspecified
CPT/HCPCS: 93306

== ENCOUNTER → 2023-01-02 | Outpatient (CLI) | payer MEDICARE, SELFPAY ==
[2023-01-02 10:46] LABS: Absolute Lymphocyte Count 1.45 X10^3/uL (0.83-4.51); Absolute Neutrophil Count 4.8 X10^3/uL (2.0-7.7); Basophil# 0.07 X10^3/uL; Eosinophils% 2.8 % (0-5); Hemoglobin 14.2 g/dL (12.0-15.0); Lymphocyte # 1.45 X10^3/ul (0.83-4.51); Mean Corpuscular Volume 96.8 fL (81-99); Mean Platelet Vol. 10.4 fl (6.2-12.0); Monocyte# 0.67 X10^3/uL; Monocyte% 9.2 % (0-10); NRBC Flagged by Analyzer 0 % (0-5); Neutrophil # 4.84 X10^3/uL (2.7-7.7); Neutrophil % 66.7 % (47-70); Platelet Count 210 K/mm3 (150-450); RBC Distribution Width CV 13.1 % (11.6-14.6); RBC Distribution Width SD 46.7 fl (35.1-43.9); Red Blood Count 4.44 M/mm3 (4.2-5.4); White Blood Count 7.3 K/mm3 (4.4-11.0)
[2023-01-02 11:01] LABS: Color, Urine Yellow (Yellow); Glucose, Dipstick Normal (Normal); Ketone-Dipstick Negative (Negative); Leukocyte Esterase-Dipstick 500 /ul (Negative); Nitrite-Dipstick Positive (Negative); Occult Blood-Urine 50 /ul (Negative); Protein-Dipstick 30 mg/dl (Negative); Urine Bilirubin Dipstick Negative (Negative); Urine Clarity Cloudy (Clear); Urine Urobilinogen Normal (Normal)
[2023-01-02 11:06] LABS: White Blood Cells >100 SEEN /hpf (0-5)
[2023-01-02 11:07] LABS: Bacteria 4+ /hpf (None Seen); Mucous, Urine 1+ /hpf (<or=2+); Red Blood Cells-Urine 0-5 SEEN /hpf (0-5); Squamous Epithelial Cells - UA 5-10 SEEN /hpf (5-10)
[2023-01-02 11:10] LABS: AST(SGOT) 21 U/L (15-37); Alanine Aminotransfer ALT/SGPT 20 U/L (13-56); Albumin, Serum 3.6 g/dL (3.2-5.0); Alkaline Phosphatase 63 U/L (45-117); Anion Gap 8 (5-15); BUN 16 mg/dL (7-18); BUN/Creat Ratio 19.9 RATIO (10-20); Chloride 106 mmol/L (98-107); Cholesterol 154 mg/dL (200); Creatinine, Serum 0.81 mg/dL (0.55-1.02); EST Glomerular Filtration Rate 72 mL/min (>60); Est Glom Filt Rate - Afr Amer 88 mL/min (>60); Globulin 3.7 g/dL (2.2-4.2); Glucose 106 mg/dL (74-106); High Density Lipoprotein 55 mg/dL; Potassium 3.7 mmol/L (3.5-5.1); Protein, Total 7.3 g/dL (6.4-8.2); Sodium Level 141 mmol/L (136-145); Triglycerides 163 mg/dL; Very Low Density Lipoprotein 33 mg/dL (5-40)
[2023-01-02 11:14] LABS: Vitamin D,25 Hydroxy 47.8 ng/mL
== END | disposition home or self-care (01) ==
LOC: MFPLAB 08:30
PROVIDERS: PCP Family Medicine; Referring Provider Family Medicine; Visit Provider Family Medicine
DX: N39.41 Urge incontinence (principal); M81.0 Age-related osteoporosis without current pathological fracture; E78.5 Hyperlipidemia, unspecified; I10 Essential (primary) hypertension
CPT/HCPCS: 36415; 80053; 80061; 81001; 82306; 85025; 87077; 87086; 87088; 87186

== ENCOUNTER → 2023-03-14 | Outpatient (CLI) | payer MEDICARE, SELFPAY ==
[2023-03-14 15:41] LABS: Bacteria 0 SEEN /hpf (None Seen); Mucous, Urine 0 SEEN /hpf (<or=2+); Red Blood Cells-Urine 0 SEEN /hpf (0-5); Squamous Epithelial Cells - UA 0 SEEN /hpf (5-10)
[2023-03-14 15:58] LABS: Color, Urine Yellow (Yellow); Glucose, Dipstick Normal (Normal); Ketone-Dipstick Negative (Negative); Leukocyte Esterase-Dipstick 500 /ul (Negative); Nitrite-Dipstick Positive (Negative); Occult Blood-Urine 50 /ul (Negative); Protein-Dipstick 100 mg/dl (Negative); Urine Bilirubin Dipstick Negative (Negative); Urine Clarity Turbid (Clear); Urine Urobilinogen Normal (Normal)
[2023-03-14 16:37] LABS: White Blood Cells >100 SEEN /hpf (0-5)
== END | disposition home or self-care (01) ==
LOC: LABSPEC 15:20
PROVIDERS: PCP Family Medicine; Referring Provider Physician Assistant; Visit Provider Physician Assistant
DX: N39.0 Urinary tract infection, site not specified (principal); R35.0 Frequency of micturition
CPT/HCPCS: 81001; 87077; 87086; 87088; 87186

== ENCOUNTER → 2023-09-02 | Outpatient (CLI) | payer MEDICARE, SELFPAY ==
--- NOTE | 2023-09-02 08:27 | RAD_ITS ---
STUDY: X-RAY CHEST REASON FOR EXAM: Female, 83 years old. Shortness of breath and cough TECHNIQUE: Frontal and lateral views of the chest. COMPARISON: None. FINDINGS: The lungs are clear and expanded. Probable mild scarring in the right lung base. There is no demonstrated pleural abnormality. Normal size heart. Previous median sternotomy. Normal mediastinum and laura. Normal visualized pulmonary arteries. Normal visualized aortic arch and descending thoracic aorta. Normal visualized thoracic spine. Old proximal left humeral fracture, otherwise negative visualized ribs, clavicles, and shoulders. There is no demonstrated abnormality of the visualized soft tissue structures of the upper abdomen. RAD/Chest PA and Lateral IMPRESSION: No definite acute or significant abnormality seen. Electronically Signed: Bg Donahue MD at 23:01 EDT ,
[2023-09-02 08:47] LABS: Absolute Lymphocyte Count 1.52 X10^3/uL (0.83-4.51); Absolute Neutrophil Count 7.5 X10^3/uL (2.0-7.7); Basophil# 0.08 X10^3/uL; Basophil% 0.8 % (0-1); Eosinophil# 0.27 X10^3/uL; Eosinophils% 2.7 % (0-5); Hematocrit 43.2 % (37-47); Hemoglobin 14.5 g/dL (12.0-15.0); Lymphocyte # 1.52 X10^3/ul (0.83-4.51); Lymphocyte % 14.9 % (19-41); Mean Corp Hgb Conc 33.6 g/dL (32-36); Mean Corpuscular Hgb 32.2 pg (27.0-32.0); Mean Corpuscular Volume 95.8 fL (81-99); Mean Platelet Vol. 9.9 fl (6.2-12.0); Monocyte# 0.76 X10^3/uL; Monocyte% 7.5 % (0-10); NRBC Flagged by Analyzer 0 % (0-5); Neutrophil # 7.53 X10^3/uL (2.7-7.7); Neutrophil % 73.9 % (47-70); Platelet Count 215 K/mm3 (150-450); RBC Distribution Width CV 13.6 % (11.6-14.6); Red Blood Count 4.51 M/mm3 (4.2-5.4); White Blood Count 10.2 K/mm3 (4.4-11.0)
[2023-09-02 09:26] LABS: BNP,B-Type NATRIURETIC PEPTIDE 260.8 pg/mL (0-100)
[2023-09-02 09:30] LABS: Vitamin D,25 Hydroxy 44.9 ng/mL
[2023-09-02 09:41] LABS: AST(SGOT) 24 U/L (15-37); Alanine Aminotransfer ALT/SGPT 33 U/L (13-56); Albumin, Serum 3.6 g/dL (3.2-5.0); Alkaline Phosphatase 101 U/L (45-117); Anion Gap 5 (5-15); BUN 10 mg/dL (7-18); BUN/Creat Ratio 10.6 RATIO (10-20); Calcium,Total 9.1 mg/dL (8.5-10.1); Chloride 107 mmol/L (98-107); Cholesterol 122 mg/dL (200); Creatinine, Serum 0.94 mg/dL (0.55-1.02); EST Glomerular Filtration Rate 60 mL/min (>60); Est Glom Filt Rate - Afr Amer 73 mL/min (>60); Globulin 3.6 g/dL (2.2-4.2); Glucose 131 mg/dL (74-106); High Density Lipoprotein 61 mg/dL; Potassium 3.7 mmol/L (3.5-5.1); Protein, Total 7.2 g/dL (6.4-8.2); Sodium Level 139 mmol/L (136-145); Thyroid Stim Hormone (TSH) 2.79 uIU/mL (0.358-3.74); Triglycerides 156 mg/dL; Very Low Density Lipoprotein 31 mg/dL (5-40)
[2023-09-04 18:51] LABS: Hemoglobin A1c 5.9 % (3.8-5.6)
== END | disposition home or self-care (01) ==
LOC: LAB 08:10
PROVIDERS: PCP Family Medicine; Referring Provider Nurse Practitioner Family; Visit Provider Nurse Practitioner Family
DX: R05.8 Other specified cough (principal); R06.02 Shortness of breath; Z95.3 Presence of xenogenic heart valve; E78.00 Pure hypercholesterolemia, unspecified; R73.09 Other abnormal glucose; I10 Essential (primary) hypertension; M81.0 Age-related osteoporosis without current pathological fracture
CPT/HCPCS: 36415; 71046; 80053; 80061; 82306; 83036; 83880; 84443; 85025

== ENCOUNTER → 2023-09-10 | Outpatient (CLI) | payer MEDICARE, SELFPAY ==
[2023-09-10 09:55] LABS: International Normalized Ratio 1.7
[2023-09-10 09:57] LABS: Partial Thromboplast Time 38.7 Seconds (24.1-36.2)
[2023-09-10 10:19] LABS: Anion Gap 3 (5-15); BUN 16 mg/dL (7-18); BUN/Creat Ratio 16.2 RATIO (10-20); Calcium,Total 9.2 mg/dL (8.5-10.1); Chloride 104 mmol/L (98-107); Creatinine, Serum 0.99 mg/dL (0.55-1.02); EST Glomerular Filtration Rate 57 mL/min (>60); Est Glom Filt Rate - Afr Amer 69 mL/min (>60); Glucose 136 mg/dL (74-106); Potassium 3.4 mmol/L (3.5-5.1); Sodium Level 138 mmol/L (136-145)
[2023-09-10 10:32] LABS: Hemoglobin A1c 5.8 % (3.8-5.6)
== END | disposition home or self-care (01) ==
LOC: LAB 08:59
PROVIDERS: PCP Family Medicine; Referring Provider Nurse Practitioner Gerontology; Visit Provider Nurse Practitioner Gerontology
DX: R73.09 Other abnormal glucose (principal); I48.91 Unspecified atrial fibrillation; Z95.3 Presence of xenogenic heart valve
CPT/HCPCS: 36415; 80048; 83036; 85610; 85730

== ENCOUNTER → 2023-09-17 | Outpatient (CLI) | payer MEDICARE, SELFPAY ==
--- NOTE | 2023-09-17 06:53 | ECHOD_ITS ---
Reason For Study: NEW ONSET AFIB Procedure This was a 2D Doppler, Color Flow transthoracic echocardiogram. Exam performed in department. Left Ventricle Normal LV size. Left ventricular systolic function is normal. The estimated ejection fraction is 55 %. No regional wall motion abnormalities noted. Right Ventricle Normal RV size. Normal systolic function. Atria The left atrium is mildly enlarged. The right atrium is moderately enlarged. Mitral Valve Normal mitral valve. Mild-Moderate (1-2+) eccentric mitral valve insufficiency. Tricuspid Valve Normal tricuspid valve. Mild to moderate (1-2+) tricuspid valve insufficiency. Pulmonary artery systolic pressure is 44 mmHg. Aortic Valve Mean aortic valve gradient 7 mmHg. Bioprosthetic aortic valve. Pulmonic Valve Normal pulmonic valve. Great Vessels Mildly dilated aortic root. The pulmonary artery is normal size. Normal inferior vena cava. Pericardium/Pleural No pericardial effusion. MMode/2D Measurements & Calculations RVDd: 3.1 cm Ao root diam: 4.1 cm LAV(MOD-bp): 96.7 ml LAV(MOD-bp) Indexed: 53.6 ml/m2 LAV(MOD-sp2): 118.4 ml LAV(MOD-sp4): 77.8 ml SV(MOD-sp4): 19.7 ml SV(sp4-el): 19.3 ml LVAd ap4: 15.6 cm2 LVLd ap4: 6.0 cm EDV(MOD-sp4): 36.1 ml EDV(sp4-el): 34.5 ml LVAs ap4: 9.1 cm2 LVLs ap4: 4.7 cm ESV(MOD-sp4): 16.4 ml ESV(sp4-el): 15.2 ml EF(MOD-sp4): 54.5 % EF(sp4-el): 56.0 % LA A4 area: 24.8 cm2 LA dimension(2D): 4.8 cm RA A4 area: 21.0 cm2 TAPSE: 1.2 cm Time Measurements MV dec time: 0.17 sec Doppler Measurements & Calculations MV E max antonio: 110.2 cm/sec Ao V2 max: 186.9 cm/sec LV V1 max: 140.1 cm/sec Ao max P.1 mmHg LV V1 max P.0 mmHg Ao V2 mean: 127.1 cm/sec LV V1 mean P.3 mmHg Ao mean P.4 mmHg LV V1 mean: 95.8 cm/sec Ao V2 VTI: 33.5 cm LV V1 VTI: 24.6 cm AV (velocity ratio): 0.73 TR max antonio: 311.9 cm/sec TR max P.9 mmHg ECHO/Echo Complete Interpretation Summary Normal LV size. Left ventricular systolic function is normal. The estimated ejection fraction is 55 %. The right atrium is moderately enlarged. Mild-Moderate (1-2+) eccentric mitral valve insufficiency. Pulmonary artery systolic pressure is 44 mmHg. Bioprosthetic aortic valve. Ordering Physician: Elizabeth Krishnan Referring Physician: Elizabeth Krishnan Performed By: Ese Montalvo RCS
[2023-09-17 12:07] LABS: Anion Gap 2 (5-15); BUN 12 mg/dL (7-18); BUN/Creat Ratio 12.8 RATIO (10-20); Calcium,Total 9.1 mg/dL (8.5-10.1); Chloride 108 mmol/L (98-107); Creatinine, Serum 0.94 mg/dL (0.55-1.02); EST Glomerular Filtration Rate 61 mL/min (>60); Est Glom Filt Rate - Afr Amer 74 mL/min (>60); Glucose 120 mg/dL (74-106); Potassium 4.1 mmol/L (3.5-5.1); Sodium Level 138 mmol/L (136-145)
--- NOTE | 2023-09-17 17:17 | STRESSREP ---
Stress Test Report Pharmacologic myocardial perfusion stress test. 83-year-old with a history of new onset atrial fibrillation Resting EKG demonstrates atrial fibrillation with a rate of 88 bpm. Resting blood pressure is 120/84 mmHg. 0.4 mg of regadenoson was infused per usual protocol followed by rapid intravenous saline flush injection. Continuous EKG monitoring was performed. The maximum heart rate was 121 bpm which was 87% of max impacted heart rate the maximum workload was 1 metabolic equivalent. At rest there were no ST or T wave changes noted to suggest ischemia and at peak infusion nonspecific ST changes were noted which did not meet the criteria for ischemia. No clinical angina is noted. The final blood pressure was 116/84 mmHg. Myocardial perfusion protocol. 11.1 mCi of technetium 99m sestamibi was injected at rest. 0.4 mg of regadenoson was infused per usual protocol. At peak infusion 34.2 mCi of technetium 99m sestamibi was injected stress images were obtained stress and rest images were reconstructed and compared in the short axis vertical long and horizontal long axis. Gated images were also obtained. Perfusion SPECT analysis: Review of the stress images demonstrate normal uptake of tracer noted in all areas of the myocardium. The resting images similar demonstrated normal uptake of tracer noted in all areas of the myocardium. No areas of reversibility are noted to suggest ischemia and no previous infarct is noted. Gated SPECT analysis: The gated ejection fraction is 65%. Conclusion: Normal pharmacologic myocardial perfusion stress test. Preserved ejection fraction.
== END | disposition home or self-care (01) ==
PROVIDERS: PCP Family Medicine; Referring Provider Nurse Practitioner Gerontology; Visit Provider Nurse Practitioner Gerontology
DX: I48.91 Unspecified atrial fibrillation (principal); Z95.3 Presence of xenogenic heart valve; R94.31 Abnormal electrocardiogram [ECG] [EKG]; R06.02 Shortness of breath
CPT/HCPCS: 36415; 78452; 80048; 93017; 93225; 93226; 93306; A9500; A4216; J2785

== ENCOUNTER → 2023-09-25 | Outpatient (CLI) | payer MEDICARE, SELFPAY ==
[2023-09-25 11:01] LABS: Anion Gap 4 (5-15); BUN 14 mg/dL (7-18); BUN/Creat Ratio 15.8 RATIO (10-20); Calcium,Total 8.8 mg/dL (8.5-10.1); Chloride 107 mmol/L (98-107); Creatinine, Serum 0.88 mg/dL (0.55-1.02); EST Glomerular Filtration Rate 65 mL/min (>60); Est Glom Filt Rate - Afr Amer 79 mL/min (>60); Glucose 92 mg/dL (74-106); Potassium 3.3 mmol/L (3.5-5.1); Sodium Level 140 mmol/L (136-145)
== END | disposition home or self-care (01) ==
LOC: MFPLAB 09:10
PROVIDERS: PCP Family Medicine; Visit Provider Nurse Practitioner Gerontology
DX: R06.02 Shortness of breath (principal)
CPT/HCPCS: 36415; 80048

== ENCOUNTER → 2023-10-03 | Outpatient (CLI) | payer MEDICARE, SELFPAY ==
[2023-10-03 09:32] LABS: Anion Gap 6 (5-15); BUN 13 mg/dL (7-18); BUN/Creat Ratio 14.1 RATIO (10-20); Calcium,Total 8.5 mg/dL (8.5-10.1); Chloride 108 mmol/L (98-107); Creatinine, Serum 0.92 mg/dL (0.55-1.02); EST Glomerular Filtration Rate 62 mL/min (>60); Est Glom Filt Rate - Afr Amer 75 mL/min (>60); Glucose 114 mg/dL (74-106); Potassium 4.1 mmol/L (3.5-5.1); Sodium Level 141 mmol/L (136-145)
== END | disposition home or self-care (01) ==
LOC: LAB 08:02
PROVIDERS: PCP Family Medicine; Referring Provider Nurse Practitioner Gerontology; Visit Provider Nurse Practitioner Gerontology
DX: E87.6 Hypokalemia (principal)
CPT/HCPCS: 36415; 80048

== ENCOUNTER → 2023-10-14 | Outpatient (CLI) | payer MEDICARE, SELFPAY ==
--- NOTE | 2023-10-14 15:27 | US_ITS ---
INDICATION: PMB EXAMINATION: Ultrasound US Pelvis Non-OB Complete TECHNIQUE: Transabdominal and transvaginal pelvic ultrasound was performed. Grayscale, spectral waveform, and color flow Doppler evaluation of the adnexa. COMPARISON: FINDINGS: UTERUS: Anteverted. The uterus measures 7.3 x 3.1 x 4.2 cm. There is a possible 2 cm fibroid. There is echogenicity in the endometrial cavity up to 9 mm . Nabothian cysts. RIGHT OVARY: Nonvisualization. LEFT OVARY: Nonvisualization. FREE FLUID: None. US/Pelvic (Non ) IMPRESSION: Left-sided uterine fibroid. Echogenicity in the endometrial cavity. Electronically Signed: Jordan Woods DO at 16:11 EST Reading Location ID and State: [facility] / [place] Tel [phone], Service support ,
== END | disposition home or self-care (01) ==
LOC: US 15:25
PROVIDERS: PCP Family Medicine; Referring Provider Urology; Visit Provider Urology
DX: N93.9 Abnormal uterine and vaginal bleeding, unspecified (principal)
CPT/HCPCS: 76856

== ENCOUNTER → 2023-10-14 | Outpatient (CLI) | payer MEDICARE, SELFPAY ==
[2023-10-14 12:58] LABS: International Normalized Ratio 3.8; Prothrombin Time (Protime)PT. 38.4 SECONDS (11.7-14.9)
== END | disposition home or self-care (01) ==
LOC: LAB 11:13
PROVIDERS: PCP Family Medicine; Referring Provider Nurse Practitioner Gerontology; Visit Provider Nurse Practitioner Gerontology
DX: I48.91 Unspecified atrial fibrillation (principal)
CPT/HCPCS: 36415; 85610

== ENCOUNTER → 2023-10-24 | Outpatient (CLI) | payer MEDICARE, SELFPAY ==
[2023-10-29 17:07] LABS: HPV APTIMA, High Risk Negative (Negative)
== END | disposition home or self-care (01) ==
PROVIDERS: PCP Family Medicine; Referring Provider Obstetrics & Gynecology; Visit Provider Obstetrics & Gynecology
DX: N93.9 Abnormal uterine and vaginal bleeding, unspecified (principal); Z12.4 Encounter for screening for malignant neoplasm of cervix
CPT/HCPCS: 87624; 88175; G0145

== ENCOUNTER 2023-11-13 09:20 | Outpatient (RCR) | payer MEDICARE, SELFPAY ==
--- OUTSIDE RECORDS SUMMARY | 2023-10-18 09:10 | XMS RPT_ITS | CCD ---
Author Name Unknown Address [facility] [place] [address] Organization [facility] Care Team Providers Care Medication Tech Name Role Phone JET, ROYA E Unavailable Unavailable JET, ROYA E Unavailable Unavailable JET, ROYA Unavailable Unavailable JET, ROYA Unavailable Unavailable CEBUL, BRIAN Unavailable Unavailable JET, ROYA Unavailable Unavailable JET, ROYA Unavailable Unavailable CEBUL, BRIAN Unavailable Unavailable Allergies Allergy Classification Reported Allergen(s) Allergy Type Date of Onset Reaction(s) Facility (2 sources) amoxicillin; Translations: [AMOXICILLIN] Drug Allergy 9 [facility] Repository (2 sources) atorvastatin; Translations: [ATORVASTATIN CALCIUM] Drug Allergy 5 [facility] Repository (2 sources) influenza virus vaccine; Translations: [INFLUENZA VACC,TRI 2002 (LIVE)] Drug Allergy 5 [facility] Repository (2 sources) simvastatin; Translations: [SIMVASTATIN] Drug Allergy 5 [facility] Repository (2 sources) Sulfonamides (Antibiotic); Translations: [SULFA (SULFONAMIDE ANTIBIOTICS)] Propensity to adverse reactions to drug (disorder) 5 [facility] Repository Problems Problem Classification Problem Date Documented Da te Episodic/Chronic Disorders of lipid metabolism (1 source) Other hyperlipidemia; Translations: [Other hyperlipidemia] Onset: 12-24-2017 Chronic Heart valve disorders (2 sources) Presence of prosthetic heart valve; Translations: [Presence of prosthetic heart valve] Onset: 12-24-2017 Chronic Unclassified (1 source) Unknown / UNK(Unknown) Onset: 12-24-2017 Results Test Name Value Interpretation Reference Range Facil ity Encounters Encounter Date Encounter Type Care Provider Facility Start: 08-25-2018 Ambulatory ROYA CHAUDHARY Facility :[facility] Start: 12-24-2017 End: 12-24-2017 Ambulatory ROYA CHAUDHARY [facility] Payers Date Payer Category Payer Policy ID Unknown [id number] Progress note 11-14-2021 Note Date & Type Note Facility 11-14-2021 Note HNO ID: [id number] Author: Elise Fitch MA Service: ? Author Type: Chenille Machine Operator Type: Progress Notes Filed: 11/14/2021 3:01 PM Note Text: POPULATION HEALTH NAVIGATION OUTREACH Action/FYI Upon reviewing the patient's chart, it has been found that Dr. Lul Domínguez with [facility] is her current PCP. PCP field has been updated. Medical Record release form scanned into patient's chart on 10/19/2021. Contact made with patient or family member? NO Pt identified by name and : NO Outreach Outcome/Action PCP field updated Reason for Outreach Attribution: Provider Off-boarding Payer: Payor: PRIMETIME / Plan: PRIMETIME HMO POS / Product Type: HMO / Care Gap Reviewed:: Reminder: Reminder note to check Health Maintenance for items below Health Maintenance items due: There are no preventive care reminders to display for this patient. Advanced Directives Completed: Have you ever planned for future healthcare decisions with a power of sidewalk repairer, living will, or advance directives? Referrals: Message Sent to Practice: Navigation Signature: Elise Fitch MA November 14, 2021 2:57 PM [facility] Clinical Note 11-14-2021 Note Date & Type Note Facility 11-14-2021 Note Patient Outreach (NE TNAV) ERIC CUEVAS ([id number]) 1940 F Date Time Provider Department 11/14/21 ELISE FITCH During your visit today, we recorded the following information about you: Elise Fitch MA 11/14/2021 3:01 PM Signed POPULATION HEALTH NAVIGATION OUTREACH Action/FYI Upon reviewing the patient's chart, it has been found that Dr. Lul Domínguez with [facility] is her current PCP. PCP field has been updated. Medical Record release form scanned into patient's chart on 10/19/2021. Contact made with patient or family member? NO Pt identified by name and : NO Outreach Outcome/Action PCP field updated Reason for Outreach Attribution: Provider Off-boarding Payer: Payor: PRIMETIME / Plan: PRIMETIME HMO POS / Product Type: HMO / Care Gap Reviewed:: Reminder: Reminder note to check Health Maintenance for items below Health Maintenance items due: There are no preventive care reminders to display for this patient. Advanced Directives Completed: Have you ever planned for future healthcare decisions with a power of sidewalk repairer, living will, or advance directives? Referrals: Message Sent to Practice: Navigation Signature: Elise Fitch MA November 14, 2021 2:57 PM Allergies As of Date: 11/14/2021 Noted Allergy Reaction AMOXICILLIN 12/17/2008 2 - Rash LIPITOR (ATORVASTATIN CALCIUM) 10/07/2015 17 - Myalgia SULFA (SULFONAMIDE ANTIBIOTICS) 07/27/2005 ZOCOR (SIMVASTATIN) 10/07/2015 17 - Myalgia Date Reviewed: 06/02/2021 Reviewed by: Adela Kumar Ma - Fully Assessed Reason for Visit: Population Health Navigation Outreach [3910] Cmt: PCP Offboarding Prescriptions as of 11/14/2021 - losartan-hydrochlorothiazide (HYZAAR) 50-12.5 mg per tablet Take 1 tablet by mouth once daily. - calcium carbonate/vitamin D3 (CALCIUM 600 + D ORAL) Take by mouth. - rosuvastatin (CRESTOR) 20 mg tablet Take 1 tablet by mouth daily at bedtime. - metoprolol tartrate, short acting, (LOPRESSOR) 25 mg tablet Take 0.5 tablets by mouth twice daily. - Biotin 10,000 mcg cap Take by mouth. - Dudyfbikqzv-Qwnowsxlr-Fzo C-Mn (GLUCOSAMINE CHONDROITIN MAXSTR) 500-400 mg cap Take 1 capsule by mouth twice daily. - CRANBERRY EXTRACT (CRANBERRY ORAL) Take by mouth. - cinnamon bark(CINNAMON 500 MG CAP) Take one(1) tablet two(2) times daily. - FLAXSEED OIL 1,030 MG CAP Take one(1) tablet once (1) daily. - aspirin(ECOTRIN LOW STRENGTH 81 MG TAB) Take one(1) tablet daily. - Udmbffwyntmzp-Cd-Lnil-Minerals (ONE-A-DAY WOMENS FORMULA) 27-0.4 mg ORAL Tab Take one(1) tablet daily. 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 Author Type: Nurse Practitioner Type: Progress Notes Filed: 06/02/2021 10:16 AM Note Text: Subjective HPI HPI Eric Cuevas is a 81 year old female who presents today for CC of increase frequency and incontinence. She denies any fever, nausea or vomiting. Did feel chilled in past week. Last UTI 03/2020. Normal kidney function 01/2021 BP 128/70 Pulse 82 Temp 36.8 ?C (98.2 ?F) Resp 16 Wt 81.2 kg (179 lb) SpO2 96% BMI 31.72 kg/m? Social History Tobacco Use - Smoking status: Never Smoker - Smokeless tobacco: Never Used Substance Use Topics - Alcohol use: No - Drug use: No PAST MEDICAL HISTORY Diagnosis Date - Acquired [...] Internal hemorrhoids without mention of complication - USP (current) use of aspirin - Low back pain - Need for prophylactic hormone replacement therapy (postmenopausal) - Osteopenia 10/23/2011 - Other and unspecified hyperlipidemia - Overweight - Presence of prosthetic heart valve - Primary generalized (osteo)arthritis - Statin intolerance 10/07/2015 I have confirmed and edited as necessary, the [facility] Review of Systems Constitutional: Negative for chills and fever. Gastrointestinal: Negative for abdominal pain. Genitourinary: Positive for dysuria and frequency. Negative for flank pain, hematuria and urgency. Objective Physical Exam Vitals and nursing note reviewed. Constitutional: Appearance: Normal appearance. Abdominal: General: Bowel sounds are normal. There is no abdominal bruit. Palpations: Abdomen is not rigid. There is no mass or pulsatile mass. Tenderness: There is no abdominal tenderness. There is no guarding or rebound. Negative signs include Vail's sign and McBurney's sign. Neurological: Mental Status: She is alert and oriented to person, place, and time. Psychiatric: Mood and Affect: Affect normal. Component Latest Ref Rng AND Units 06/02/2021 GLUCOSE UA (POCT) Negative mg/dL Negative BILIRUBIN UA (POCT) Negative Negative KETONE UA (POCT) Negative mg/dL Negative SPECIFIC GRAVITY UA (POCT) 1.005 - 1.030 1.015 HEMOGLOBIN/BLOOD UA (POCT) Negative Moderate (A) PH UA (POCT) 4.5 - 8.0 7.0 PROTEIN UA (POCT) Negative mg/dL Negative UROBILINOGEN UA (POCT) Normal E.U./dL 0.2 NITRITE UA (POCT) Negative Negative LEUKOCYTES UA (POCT) Negative Moderate (A) COLOR UA (POCT) Yellow CLARITY UA (POCT) Slightly Cloudy ASSESSMENT/PLAN: 1. Urinary frequency - ICD9: 788.41, ICD10: R35.0 (primary diagnosis) acute - UA positive for evens esterase and proteinuria - Send urine for culture - Begin treatment with Macrobid 100 mg BID for 5 days - Patient education for prevention given - UA DIP, URINE (POC) - URINE CULTURE 2. UTI symptoms - ICD9: 788.99, ICD10: R39.9 Follow up with PCP if no improvement ER precautions given Diagnosis and treatment plan were discussed and questions were answered to the patient's satisfaction. Pt acknowledged understanding of concepts and follow up plan. Specific signs and symptoms that would indicate the need for higher level of care were discussed in detail warranting prompt ER evaluation. Chrissy Freitas APRN.[facility] Progress note 01-24-2021 Note Date & Type Note Facility 01-24-2021 Note HNO ID: [id number] Author: Brian Hayward III Service: ? Author Type: Physician Type: Progress Notes Filed: 01/24/2021 9:19 AM Note Text: SUBJECTIVE: This is a 81 year old female that is here today for physical exam 1. hx of aortic root dilatation. s/p aortic valve replacement 13 yrs ago. (porcine). 2. treadmill stress echo test 06/10/20 normal at 113 % MPHR; and echo in 06/03/20= normal. aortic valve Regular exercise-walking and cycle. no chest pain, angina, KLINE, cough, abd pain, change in BM, rectal bleeding, change in urination depression screen 02/11 PAST MEDICAL HISTORY Diagnosis Date - Acquired [...] Internal hemorrhoids without mention of complication - emt intermediate (current) use of aspirin - Low back pain - Need for prophylactic hormone replacement therapy (postmenopausal) - Osteopenia 10/23/2011 - Other and unspecified hyperlipidemia - Overweight - Presence of prosthetic heart valve - Primary generalized (osteo)arthritis - Statin intolerance 10/07/2015 Current Outpatient Medications on File Prior to Visit Medication Sig - losartan-hydrochlorothiazide (HYZAAR) 50-12.5 mg per tablet Take 1 tablet by mouth once daily. - calcium carbonate/vitamin D3 (CALCIUM 600 + D ORAL) Take by mouth. - rosuvastatin (CRESTOR) 20 mg tablet Take 1 tablet by mouth daily at bedtime. - metoprolol tartrate, short acting, (LOPRESSOR) 25 mg tablet Take 0.5 tablets by mouth twice daily. - Llqttgcurao-Cmeyryare-Aht C-Mn (GLUCOSAMINE CHONDROITIN MAXSTR) 500-400 mg cap Take 1 capsule by mouth twice daily. - CRANBERRY EXTRACT (CRANBERRY ORAL) Take by mouth. - cinnamon bark(CINNAMON 500 MG CAP) Take one(1) tablet two(2) times daily. - Calwtryauujoe-Kt-Lfmp-Minerals (ONE-A-DAY WOMENS FORMULA) 27-0.4 mg ORAL Tab Take one(1) tablet daily. - Biotin 10,000 mcg cap Take by mouth. - FLAXSEED OIL 1,030 MG CAP Take one(1) tablet once (1) daily. - aspirin(ECOTRIN LOW STRENGTH 81 MG TAB) Take one(1) tablet daily. No current facility-administered medications on file prior to visit. FAMILY HISTORY Problem Relation Age of Onset - Cancer Sister Lung - other (cerebral hemorrhage) Mother - Heart Father Social History Tobacco Use - Smoking status: Never Smoker - Smokeless tobacco: Never Used Substance Use Topics - Alcohol use: No - Drug use: No BP 140/84 Pulse 80 Resp 18 Ht 160 cm (5' 2.99 ) Wt 80.3 kg (177 lb) BMI 31.36 kg/m? . OBJECTIVE: APPEARANCE Well appearing, alert, in no acute distress, well-hydrated, well nourished. NECK Supple, no adenopathy; thyroid symmetric, normal size, no bruits HEART RRR with normal S1 and S2, no murmurs, no gallops, no JVD appreciated LUNG clear to auscultation ABDOMEN soft, non-tender, non-distended, without organomegaly or palpable masses, no tenderness to palpation EXTREMITIES Extremities normal, No deformities, No edema and Normal pulses bilaterally. NEURO Awake, alert and oriented x 3, Normal gait and No involuntary motions. ASSESSMENT: hypertension--at goal hyperlipidemia-at goal s/p aortic valve replacement--doing well PLAN: healthy diet and regular exercise same medications CMP, lipid Brian Hayward III MD Medical Decision Making: Problems: Moderate: 2+ stable chronic illnesses Data: Unique test result(s) reviewed: 2 Unique test(s) ordered: 2 Risk: Moderate: Drug management Medical Decision Making Level: 4 - Moderate Brian Hayward III MD [facility] Summary Purpose Family History No Family History Records FoundNo Family History Records FoundNo Family History Records FoundNo Family History Records Found Advance Directives No Advanced Directives Records FoundNo Advanced Directives Records FoundNo Advanced Directives Records FoundNo Advanced Directives Records Found Additional Source Comments INFORMATION SOURCE (unrecogn ized section and content) DATE CREATED AUTHOR AUTHOR'S ORGANIZ ATION 05/12/2018 [facility] DATE CREATED AUTHOR AUTHOR'S ORGANIZ ATION 02/25/2021 [facility] DATE CREATED AUTHOR AUTHOR'S ORGANIZ ATION 01/06/2022 [facility] FOR RECORDS PERTAINING TO PATIENTS WHO ARE OR HAVE BEEN ENROLLED IN A CHEMICAL DEPENDENCY/SUBSTANCEABUSE PROGRAM, SOME INFORMATION MAY BE OMITTED. This clinical summary was aggregated from multiple sources. Caution should be exercised in using it in the provision of clinical care. This summary normalizes information from multiple sources, and as a consequence, information in this document may materially change the coding, format and clinical context of patient data. In addition, data may be omitted in some cases. CLINICAL DECISIONS SHOULD BE BASED ON THE PRIMARY CLINICAL RECORDS. [facility] [employer] [facility]. provides no warranty or guarantee of the accuracy or completeness of information in this document.
[2023-10-18 10:19] LABS: International Normalized Ratio 3.5; Prothrombin Time (Protime)PT. 35.9 SECONDS (11.7-14.9)
[2023-10-23 09:56] LABS: International Normalized Ratio 2.2; Prothrombin Time (Protime)PT. 24.5 SECONDS (11.7-14.9)
[2023-10-30 10:31] LABS: International Normalized Ratio 1.8; Prothrombin Time (Protime)PT. 20.5 SECONDS (11.7-14.9)
[2023-11-06 10:28] LABS: International Normalized Ratio 1.9; Prothrombin Time (Protime)PT. 21.7 SECONDS (11.7-14.9)
[2023-11-13 10:10] LABS: International Normalized Ratio 2.1; Prothrombin Time (Protime)PT. 23.8 SECONDS (11.7-14.9)
== END 2023-11-17 18:00 | disposition home or self-care (01) ==
LOC: MTLAB 09:20
PROVIDERS: PCP Family Medicine; Referring Provider Nurse Practitioner Gerontology; Visit Provider Nurse Practitioner Gerontology
DX: I48.91 Unspecified atrial fibrillation (principal); Z79.01 Long term (current) use of anticoagulants
CPT/HCPCS: 36415; 85610

== ENCOUNTER → 2023-11-28 | Outpatient (CLI) | payer MEDICARE, SELFPAY ==
[2023-11-28 12:25] LABS: Absolute Lymphocyte Count 1.35 X10^3/uL (0.83-4.51); Absolute Neutrophil Count 6.1 X10^3/uL (2.0-7.7); Basophil% 1.2 % (0-1); Eosinophils% 2.3 % (0-5); Hematocrit 45.3 % (37-47); Hemoglobin 14.9 g/dL (12.0-15.0); Lymphocyte # 1.35 X10^3/ul (0.83-4.51); Lymphocyte % 15.8 % (19-41); Mean Corp Hgb Conc 32.9 g/dL (32-36); Mean Corpuscular Hgb 30.4 pg (27.0-32.0); Mean Corpuscular Volume 92.4 fL (81-99); Mean Platelet Vol. 10.5 fl (6.2-12.0); Monocyte# 0.79 X10^3/uL; Monocyte% 9.2 % (0-10); NRBC Flagged by Analyzer 0 % (0-5); Neutrophil # 6.09 X10^3/uL (2.7-7.7); Neutrophil % 71.3 % (47-70); Platelet Count 206 K/mm3 (150-450); RBC Distribution Width CV 13.3 % (11.6-14.6); RBC Distribution Width SD 45.8 fl (35.1-43.9); White Blood Count 8.6 K/mm3 (4.4-11.0)
[2023-11-28 13:37] LABS: ALB/GLOB Ratio 0.9 RATIO (0.9-2.4); AST(SGOT) 31 U/L (15-37); Alanine Aminotransfer ALT/SGPT 30 U/L (13-56); Albumin, Serum 3.6 g/dL (3.2-5.0); Alkaline Phosphatase 88 U/L (45-117); Anion Gap 6 (5-15); BUN 16 mg/dL (7-18); BUN/Creat Ratio 15.5 RATIO (10-20); Calcium,Total 9.7 mg/dL (8.5-10.1); Chloride 106 mmol/L (98-107); Cholesterol 147 mg/dL (200); Creatinine, Serum 1.03 mg/dL (0.55-1.02); EST Glomerular Filtration Rate 54 mL/min (>60); Est Glom Filt Rate - Afr Amer 66 mL/min (>60); Globulin 3.8 g/dL (2.2-4.2); Glucose 92 mg/dL (74-106); High Density Lipoprotein 57 mg/dL; Magnesium 2.4 mg/dL (1.6-2.6); Potassium 4.2 mmol/L (3.5-5.1); Protein, Total 7.4 g/dL (6.4-8.2); Sodium Level 138 mmol/L (136-145); Thyroid Stim Hormone (TSH) 2.78 uIU/mL (0.358-3.74); Triglycerides 159 mg/dL; Very Low Density Lipoprotein 32 mg/dL (5-40)
[2023-11-28 14:34] LABS: Hemoglobin A1c 6.2 % (3.8-5.6)
== END | disposition home or self-care (01) ==
LOC: MTLAB 09:32
PROVIDERS: PCP Family Medicine; Referring Provider Family Medicine; Visit Provider Family Medicine
DX: I10 Essential (primary) hypertension (principal); R73.02 Impaired glucose tolerance (oral); M81.0 Age-related osteoporosis without current pathological fracture
CPT/HCPCS: 36415; 80053; 80061; 82306; 83036; 83735; 84443; 85025

== ENCOUNTER 2023-12-04 08:00 | Outpatient (CLI) | payer MEDICARE, SELFPAY ==
--- NOTE | 2023-12-17 | EMB_PTH ---
PATHOLOGY RESULTS PATIENT: ERIC CHEN LOC: [facility] U#:[id number] AGE/SX: 83/F ROOM: RE12/04/[address]: Dr. Shyann Chamberlain MD : 1940 BED: DIS: 12/04/2023 SPEC #: [id number] RECD: 12/17/23 13:06 STATUS: CORINA REDe #: [id number] LAN: 12/17/23 00:[address]: Shyann Chamberlain DEPT: SURGICAL PATHOLOGY RECD BY: Ana Raman ENTERED: 12/17/23 13:44 SP TYPE: ENDOM BX/C CATALINA DR: Dr. Lul Domínguez MD Tissues: Endometrium, NOS Procedures: Surgery Specimen Level IV HEADER OPERATION: Endometrial biopsy PRE-OP DIAGNOSIS: Abnormal uterine bleeding, postmenopausal bleeding TISSUE SUBMITTED: Endometrial lining MICROSCOPIC DIAGNOSIS Endometrial biopsy: Strips of benign endometrial epithelium and scant fragments of superficial benign endometrial tissue. See comment. SJ:eliza 12/18/2023 COMMENT Clinical correlation and appropriate follow up are necessary. MICROSCOPIC DESCRIPTION Slides are reviewed. GROSS DESCRIPTION Received is one container labeled with the patient's name and not further designated. The specimen consists of multiple irregular fragments of mucoid tissue that in aggregate measure 1.5 x 1.0 x 0.1 cm. The specimen is totally submitted in one cassette. / RACHEL:eliza 12/17/2023 TC:4 CPT: 31977
[2023-12-17 10:20] LABS: INR Fingerstick 1.4; Prothrombin Time Fingerstick 15.1 SEC (11.7-14.9)
--- OUTSIDE RECORDS SUMMARY | 2023-12-17 10:28 | XMS RPT_ITS | CCD ---
Author Name Unknown Address [facility] [place] [address] Organization [facility] Care Team Providers Care Union Organiser Name Role Phone JET, ROYA E Unavailable Unavailable JET, ROYA E Unavailable Unavailable JET, ROYA Unavailable Unavailable JET, ROYA Unavailable Unavailable CEBUL, BRIAN Unavailable Unavailable JET, ROYA Unavailable Unavailable JET, ROYA Unavailable Unavailable CEBUL, BRIAN Unavailable Unavailable Allergies Allergy Classification Reported Allergen(s) Allergy Type Date of Onset Reaction(s) Facility (2 sources) amoxicillin; Translations: [AMOXICILLIN] Drug Allergy 9 [facility] Repository (2 sources) atorvastatin; Translations: [ATORVASTATIN CALCIUM] Drug Allergy 5 [facility] Repository (2 sources) influenza virus vaccine; Translations: [INFLUENZA VACC,TRI 2002 (LIVE)] Drug Allergy 5 [facility] Repository (2 sources) simvastatin; Translations: [SIMVASTATIN] Drug Allergy 5 [facility] Repository (2 sources) Sulfonamides (Antibiotic); Translations: [SULFA (SULFONAMIDE ANTIBIOTICS)] Propensity to adverse reactions to drug (disorder) 5 [facility] Repository Problems Problem Classification Problem Date [...] Facility Start: 08-25-2018 Ambulatory ROYA CHAUDHARY Facility :[facility] Start: 12-24-2017 End: 12-24-2017 Ambulatory ROYA CHAUDHARY [facility] Payers Date Payer Category Payer Policy ID Unknown [id number] Progress note 11-14-2021 Note Date & Type Note Facility 11-14-2021 Note HNO ID: [id number] Author: Elise Fitch MA Service: ? Author Type: [employer] Maker Type: Progress Notes Filed: 11/14/2021 3:01 PM Note Text: POPULATION HEALTH NAVIGATION OUTREACH Action/FYI Upon reviewing the patient's chart, it has been found that Dr. Lul Domínguez with [facility] is her current PCP. PCP field [...] future healthcare decisions with a power of consumer loan officer, living will, or advance directives? Referrals: Message Sent to Practice: Navigation Signature: Elise Fitch MA November 14, 2021 2:57 PM [facility] Clinical Note 11-14-2021 Note Date & Type Note Facility 11-14-2021 Note Patient Outreach (NE TNAV) ERIC CUEVAS ([id number]) 1940 F Date Time Provider Department 11/14/21 ELISE FITCH During your visit today, we recorded the following information about you: Elise Fitch MA 11/14/2021 3:01 PM Signed POPULATION HEALTH NAVIGATION OUTREACH Action/FYI Upon reviewing the patient's chart, it has been found that Dr. Lul Domínguez with [facility] is her current PCP. PCP field [...] future healthcare decisions with a power of consumer loan officer, living will, or advance directives? Referrals: Message [...] 10,000 mcg cap Take by mouth. - Dhriixpamek-Yednknpwx-Rod C-Mn (GLUCOSAMINE CHONDROITIN MAXSTR) 500-400 mg cap Take 1 capsule by mouth twice daily. - CRANBERRY EXTRACT (CRANBERRY ORAL) Take by mouth. - cinnamon bark(CINNAMON 500 MG CAP) Take one(1) tablet two(2) times daily. - FLAXSEED OIL 1,030 MG CAP Take one(1) tablet once (1) daily. - aspirin(ECOTRIN LOW STRENGTH 81 MG TAB) Take one(1) tablet daily. - Dmetsixupnbnh-Kb-Cyrg-Minerals (ONE-A-DAY WOMENS FORMULA) 27-0.4 mg ORAL Tab [...] Encounter Status:Closed by ELISE FITCH on 11/14/21 [facility] Progress note 06-02-2021 Note Date & Type Note Facility 06-02-2021 Note HNO ID: [id number] Author: Chrissy Freitas APRN.[facility] Service: ? Author Type: Nurse Practitioner Type: [...] Internal hemorrhoids without mention of complication - [facility] (current) use of aspirin - Low back pain - Need for prophylactic hormone replacement therapy (postmenopausal) - Osteopenia 10/23/2011 - Other and unspecified hyperlipidemia - Overweight - Presence of prosthetic heart valve - Primary generalized (osteo)arthritis - Statin intolerance 10/07/2015 I have confirmed and edited as necessary, the [facility] Review of Systems Constitutional: Negative for chills [...] detail warranting prompt ER evaluation. Chrissy Freitas APRN.[facility] Progress note 01-24-2021 Note Date & Type Note Facility 01-24-2021 Note HNO ID: [id number] Author: Brian Hayward III Service: ? Author [...] Internal hemorrhoids without mention of complication - rodent exterminator (current) use of aspirin - Low back [...] 0.5 tablets by mouth twice daily. - Fpbqbrfualj-Puldcqujt-Qif C-Mn (GLUCOSAMINE CHONDROITIN MAXSTR) 500-400 mg cap Take 1 capsule by mouth twice daily. - CRANBERRY EXTRACT (CRANBERRY ORAL) Take by mouth. - cinnamon bark(CINNAMON 500 MG CAP) Take one(1) tablet two(2) times daily. - Nvxobquqapuhq-Zo-Bifq-Minerals (ONE-A-DAY WOMENS FORMULA) 27-0.4 mg ORAL Tab [...] 4 - Moderate Brian Hayward III MD [facility] Summary Purpose Family History No Family History Records FoundNo Family History Records FoundNo Family History Records FoundNo Family History Records Found Advance Directives No Advanced Directives Records FoundNo Advanced Directives Records FoundNo Advanced Directives Records FoundNo Advanced Directives Records Found Additional Source Comments INFORMATION SOURCE (unrecogn ized section and content) DATE CREATED AUTHOR AUTHOR'S ORGANIZ ATION 05/12/2018 [facility] DATE CREATED AUTHOR AUTHOR'S ORGANIZ ATION 02/25/2021 [facility] DATE CREATED AUTHOR AUTHOR'S ORGANIZ ATION 01/06/2022 [facility] FOR RECORDS PERTAINING TO PATIENTS WHO [...] BE BASED ON THE PRIMARY CLINICAL RECORDS. [facility]. provides no warranty or guarantee of the accuracy or completeness of information in this document.
[2023-12-17 11:20] VITALS: BP 133/88; PULSE 105
[2023-12-17] MEDS: Metoprolol Tartrate 50 MG Tablet PO (11:20)
--- NOTE | 2023-12-17 11:33 | NURSING ---
Patient arrived for procedure with Dr. Chamberlain. Upon check in, patient's pulse on the monitor was seen to change from 80-134 BPM. Asymptomatic. Patient took 50mg metoprolol this morning, as prescribed. Dr. Tate ordered EKG with shows Afib. See ekg for rate change. Dr Chamberlain made aware. Patient educated on the change in rate and need to see her PCP. Patient taken to dr. sylvester's office for bedside procedure without anesthesia. iv removed. daughter with patient. vss. see chart.
== END 2023-12-04 09:00 | disposition home or self-care (01) ==
LOC: AC 12-17 10:56 → PAT 01-15 13:37
PROVIDERS: PCP Family Medicine; Referring Provider Obstetrics & Gynecology; Visit Provider Obstetrics & Gynecology
DX: N93.9 Abnormal uterine and vaginal bleeding, unspecified (principal); N95.0 Postmenopausal bleeding
CPT/HCPCS: 36416; 85610; 88305; 93005; J7120; J2405

== ENCOUNTER 2023-12-11 08:15 | Outpatient (RCR) | payer MEDICARE, SELFPAY ==
[2023-11-20 11:07] LABS: International Normalized Ratio 3.3; Prothrombin Time (Protime)PT. 33.7 SECONDS (11.7-14.9)
[2023-11-27 10:42] LABS: International Normalized Ratio 3.4; Prothrombin Time (Protime)PT. 34.6 SECONDS (11.7-14.9)
[2023-12-11 10:47] LABS: Hematocrit 40.9 % (37-47); Hemoglobin 13.5 g/dL (12.0-15.0); Mean Corpuscular Hgb 30.4 pg (27.0-32.0); Mean Corpuscular Volume 92.1 fL (81-99); Mean Platelet Vol. 10.8 fl (6.2-12.0); Platelet Count 179 K/mm3 (150-450); RBC Distribution Width CV 13.4 % (11.6-14.6); RBC Distribution Width SD 45.7 fl (35.1-43.9); Red Blood Count 4.44 M/mm3 (4.2-5.4); White Blood Count 6.6 K/mm3 (4.4-11.0)
[2023-12-11 10:58] LABS: International Normalized Ratio 3.9; Prothrombin Time (Protime)PT. 38.8 SECONDS (11.7-14.9)
[2023-12-11 11:58] LABS: Anion Gap 7 (5-15); BUN 14 mg/dL (7-18); BUN/Creat Ratio 15.5 RATIO (10-20); Calcium,Total 9.1 mg/dL (8.5-10.1); Chloride 110 mmol/L (98-107); Creatinine, Serum 0.91 mg/dL (0.55-1.02); EST Glomerular Filtration Rate 63 mL/min (>60); Est Glom Filt Rate - Afr Amer 76 mL/min (>60); Glucose 125 mg/dL (74-106); Sodium Level 139 mmol/L (136-145)
== END 2023-12-11 18:00 | disposition home or self-care (01) ==
LOC: MTLAB 08:15
PROVIDERS: Obstetrics & Gynecology; PCP Family Medicine; Referring Provider Nurse Practitioner Gerontology; Visit Provider Nurse Practitioner Gerontology
DX: I48.91 Unspecified atrial fibrillation (principal); Z79.01 Long term (current) use of anticoagulants
CPT/HCPCS: 36415; 80048; 85027; 85610; 85730; 86850; 86900; 86901

== ENCOUNTER → 2023-12-23 | Outpatient (CLI) | payer MEDICARE, SELFPAY | END | disposition home or self-care (01) | LOC: PSN 08:47 | PROVIDERS: PCP Family Medicine; Referring Provider Physician Assistant Medical; Visit Provider Physician Assistant Medical | DX: I48.91 Unspecified atrial fibrillation (principal); R00.0 Tachycardia, unspecified | CPT/HCPCS: 93225; 93226 ==

== ENCOUNTER → 2023-12-30 | Outpatient (CLI) | payer MEDICARE, SELFPAY ==
--- NOTE | 2023-12-30 12:12 | US_ITS ---
STUDY: ULTRASOUND OF THE FEMALE PELVIS - COMPLETE REASON FOR EXAM: Female, 83 years old. Abnormal uterine bleeding LMP: Patient is postmenopausal. TECHNIQUE: Transabdominal and Transvaginal TECHNICAL QUALITY: Adequate. COMPARISON: Comparison is made with prior study dated October 14, 2023. FINDINGS: The uterus is anteverted and is in a midline position. The uterus measures 6.9 cm x 4 cm x 3 cm. Normal uterine cervix. The endometrium is thickened and measures 5.8 mm in thickness, and is hyperechoic. The endometrium is fluid distended. Possible 1 cm x 0.8 cm x 0.4 cm endometrial polyp. There is a 1.6 cm x 1.7 cm and 1.3 cm uterine fibroid. I.U.D. - The patient does not have an I.U.D. The right ovary is non-visualized. The left ovary is non-visualized. There is no fluid in the cul-de-sac. The pre void volume of the bladder was 217.7 ml. US/Pelvic (Non ) IMPRESSION: Thickened endometrium. Possible endometrial polyp. Heterogeneous echotexture of the myometrium with small fibroid. Electronically Signed: Dharmesh Lee MD at 14:48 EST ,
== END | disposition home or self-care (01) ==
LOC: OPUS 12:11
PROVIDERS: PCP Family Medicine; Referring Provider Obstetrics & Gynecology; Visit Provider Obstetrics & Gynecology
DX: R93.89 Abnormal findings on diagnostic imaging of other specified body structures (principal); N95.0 Postmenopausal bleeding
CPT/HCPCS: 76830; 76856

== ENCOUNTER 2024-01-13 08:07 | Outpatient (RCR) | payer MEDICARE, SELFPAY ==
[2023-12-24 12:22] LABS: International Normalized Ratio 1.8; Prothrombin Time (Protime)PT. 21.3 SECONDS (11.7-14.9)
[2023-12-31 10:35] LABS: International Normalized Ratio 2.9; Prothrombin Time (Protime)PT. 30.9 SECONDS (11.7-14.9)
[2024-01-13 10:28] LABS: International Normalized Ratio 3.3; Prothrombin Time (Protime)PT. 33.1 SECONDS (11.7-14.9)
== END 2024-01-16 18:00 | disposition home or self-care (01) ==
LOC: MTLAB 08:07
PROVIDERS: PCP Family Medicine; Referring Provider Nurse Practitioner Gerontology; Visit Provider Nurse Practitioner Gerontology
DX: I48.91 Unspecified atrial fibrillation (principal); Z79.01 Long term (current) use of anticoagulants
CPT/HCPCS: 36415; 85610

== ENCOUNTER 2024-02-03 07:50 | Outpatient (RCR) | payer MEDICARE, SELFPAY ==
[2024-02-03 11:01] LABS: International Normalized Ratio 3.2; Prothrombin Time (Protime)PT. 32.2 SECONDS (11.7-14.9)
== END 2024-02-16 02:17 | disposition home or self-care (01) ==
LOC: MTLAB 07:50
PROVIDERS: PCP Family Medicine; Referring Provider Nurse Practitioner Gerontology; Visit Provider Nurse Practitioner Gerontology
DX: I48.91 Unspecified atrial fibrillation (principal); Z79.01 Long term (current) use of anticoagulants
CPT/HCPCS: 36415; 85610

== ENCOUNTER → 2024-02-06 | Outpatient (CLI) | payer MEDICARE, SELFPAY | END | disposition home or self-care (01) | LOC: LABSPEC 16:59 | PROVIDERS: PCP Family Medicine; Referring Provider Obstetrics & Gynecology; Visit Provider Obstetrics & Gynecology | DX: N39.0 Urinary tract infection, site not specified (principal); R31.9 Hematuria, unspecified | CPT/HCPCS: 87086; 87088; 87186 ==

== ENCOUNTER → 2024-02-07 | Outpatient (CLI) | payer MEDICARE, SELFPAY ==
[2024-02-07 10:23] LABS: Absolute Lymphocyte Count 1.46 X10^3/uL (0.83-4.51); Absolute Neutrophil Count 4.6 X10^3/uL (2.0-7.7); Basophil# 0.08 X10^3/uL; Basophil% 1.1 % (0-1); Eosinophil# 0.28 X10^3/uL; Hematocrit 45.3 % (37-47); Hemoglobin 14.9 g/dL (12.0-15.0); Lymphocyte # 1.46 X10^3/ul (0.83-4.51); Lymphocyte % 20.9 % (19-41); Mean Corp Hgb Conc 32.9 g/dL (32-36); Mean Corpuscular Hgb 30.6 pg (27.0-32.0); Mean Platelet Vol. 10.6 fl (6.2-12.0); Monocyte% 8.6 % (0-10); NRBC Flagged by Analyzer 0 % (0-5); Neutrophil # 4.55 X10^3/uL (2.7-7.7); Neutrophil % 65.3 % (47-70); Platelet Count 203 K/mm3 (150-450); RBC Distribution Width CV 14.4 % (11.6-14.6); RBC Distribution Width SD 49.1 fl (35.1-43.9); Red Blood Count 4.87 M/mm3 (4.2-5.4)
== END | disposition home or self-care (01) ==
LOC: MTLAB 08:52
PROVIDERS: PCP Family Medicine; Referring Provider Nurse Practitioner Gerontology; Visit Provider Nurse Practitioner Gerontology
DX: Z79.01 Long term (current) use of anticoagulants (principal)
CPT/HCPCS: 36415; 85025

== ENCOUNTER 2024-03-16 07:59 | Outpatient (RCR) | payer MEDICARE, SELFPAY ==
[2024-02-17 10:18] LABS: International Normalized Ratio 3.1; Prothrombin Time (Protime)PT. 31.9 SECONDS (11.7-14.9)
[2024-03-02 10:29] LABS: International Normalized Ratio 2.9; Prothrombin Time (Protime)PT. 29.8 SECONDS (11.7-14.9)
[2024-03-16 10:13] LABS: International Normalized Ratio 3.6; Prothrombin Time (Protime)PT. 35.5 SECONDS (11.7-14.9)
== END 2024-03-17 21:48 | disposition home or self-care (01) ==
LOC: MTLAB 07:59
PROVIDERS: PCP Family Medicine; Referring Provider Nurse Practitioner Gerontology; Visit Provider Nurse Practitioner Gerontology
DX: I48.91 Unspecified atrial fibrillation (principal); Z79.01 Long term (current) use of anticoagulants
CPT/HCPCS: 36415; 85610

== ENCOUNTER 2024-04-14 08:02 | Outpatient (RCR) | payer MEDICARE, SELFPAY ==
[2024-03-23 11:15] LABS: International Normalized Ratio 4.1
[2024-03-30 10:18] LABS: International Normalized Ratio 3.1
[2024-04-14 10:28] LABS: International Normalized Ratio 3.2; Prothrombin Time (Protime)PT. 32.5 SECONDS (11.7-14.9)
== END 2024-04-14 18:00 | disposition home or self-care (01) ==
LOC: MTLAB 08:02
PROVIDERS: PCP Family Medicine; Referring Provider Nurse Practitioner Gerontology; Visit Provider Nurse Practitioner Gerontology
DX: I48.91 Unspecified atrial fibrillation (principal); Z79.01 Long term (current) use of anticoagulants
CPT/HCPCS: 36415; 85610

== ENCOUNTER 2024-05-04 07:58 | Outpatient (RCR) | payer MEDICARE, SELFPAY ==
[2024-05-04 10:12] LABS: International Normalized Ratio 3.6; Prothrombin Time (Protime)PT. 35.6 SECONDS (11.7-14.9)
== END 2024-05-04 18:00 | disposition home or self-care (01) ==
LOC: MTLAB 07:58
PROVIDERS: PCP Family Medicine; Referring Provider Nurse Practitioner Gerontology; Visit Provider Nurse Practitioner Gerontology
DX: I48.91 Unspecified atrial fibrillation (principal); Z79.01 Long term (current) use of anticoagulants
CPT/HCPCS: 36415; 85610

== ENCOUNTER 2024-06-08 07:31 | Outpatient (RCR) | payer MEDICARE, SELFPAY ==
[2024-05-18 10:20] LABS: International Normalized Ratio 3.3; Prothrombin Time (Protime)PT. 33.6 SECONDS (11.7-14.9)
[2024-06-08 10:02] LABS: International Normalized Ratio 3.1; Prothrombin Time (Protime)PT. 31.7 SECONDS (11.7-14.9)
== END 2024-06-17 18:00 | disposition home or self-care (01) ==
LOC: MTLAB 07:31
PROVIDERS: PCP Family Medicine; Referring Provider Nurse Practitioner Gerontology; Visit Provider Nurse Practitioner Gerontology
DX: I48.91 Unspecified atrial fibrillation (principal); Z79.01 Long term (current) use of anticoagulants
CPT/HCPCS: 36415; 85610

== ENCOUNTER 2024-07-01 07:56 | Outpatient (RCR) | payer MEDICARE, SELFPAY ==
[2024-07-01 10:17] LABS: International Normalized Ratio 2.9; Prothrombin Time (Protime)PT. 30.2 SECONDS (11.7-14.9)
== END 2024-07-01 18:00 | disposition home or self-care (01) ==
LOC: MTLAB 07:56
PROVIDERS: PCP Family Medicine; Referring Provider Nurse Practitioner Gerontology; Visit Provider Nurse Practitioner Gerontology
DX: I48.91 Unspecified atrial fibrillation (principal); Z79.01 Long term (current) use of anticoagulants
CPT/HCPCS: 36415; 85610

== ENCOUNTER → 2024-07-21 | Outpatient (CLI) | payer MEDICARE, SELFPAY ==
[2024-07-21 09:56] LABS: Absolute Lymphocyte Count 1.27 X10^3/uL (0.83-4.51); Absolute Neutrophil Count 4.9 X10^3/uL (2.0-7.7); Basophil# 0.08 X10^3/uL; Basophil% 1.1 % (0-1); Eosinophil# 0.22 X10^3/uL; Eosinophils% 3.1 % (0-5); Hematocrit 41.5 % (37-47); Hemoglobin 13.7 g/dL (12.0-15.0); Lymphocyte # 1.27 X10^3/ul (0.83-4.51); Lymphocyte % 17.7 % (19-41); Mean Corpuscular Hgb 30.6 pg (27.0-32.0); Mean Corpuscular Volume 92.8 fL (81-99); Mean Platelet Vol. 10.7 fl (6.2-12.0); Monocyte# 0.64 X10^3/uL; Monocyte% 8.9 % (0-10); NRBC Flagged by Analyzer 0 % (0-5); Neutrophil # 4.94 X10^3/uL (2.7-7.7); Neutrophil % 69.1 % (47-70); Platelet Count 142 K/mm3 (150-450); RBC Distribution Width CV 13.6 % (11.6-14.6); RBC Distribution Width SD 46.8 fl (35.1-43.9); Red Blood Count 4.47 M/mm3 (4.2-5.4); White Blood Count 7.2 K/mm3 (4.4-11.0)
[2024-07-21 10:23] LABS: AST(SGOT) 33 U/L (15-37); Alanine Aminotransfer ALT/SGPT 28 U/L (13-56); Albumin, Serum 3.5 g/dL (3.2-5.0); Alkaline Phosphatase 88 U/L (45-117); Anion Gap 6 (5-15); BUN 14 mg/dL (7-18); BUN/Creat Ratio 15.2 RATIO (10-20); Calcium,Total 9.4 mg/dL (8.5-10.1); Chloride 105 mmol/L (98-107); Cholesterol 126 mg/dL (200); Creatinine, Serum 0.92 mg/dL (0.55-1.02); EST Glomerular Filtration Rate 62 mL/min (>60); Est Glom Filt Rate - Afr Amer 75 mL/min (>60); Globulin 3.4 g/dL (2.2-4.2); Glucose 122 mg/dL (74-106); High Density Lipoprotein 56 mg/dL; Magnesium 2.2 mg/dL (1.6-2.6); Potassium 3.7 mmol/L (3.5-5.1); Protein, Total 6.9 g/dL (6.4-8.2); Sodium Level 138 mmol/L (136-145); Triglycerides 138 mg/dL; Very Low Density Lipoprotein 28 mg/dL (5-40)
[2024-07-21 12:00] LABS: Hemoglobin A1c 6.3 % (3.8-5.6)
== END | disposition home or self-care (01) ==
LOC: MTLAB 07:51
PROVIDERS: PCP Family Medicine; Referring Provider Family Medicine; Visit Provider Family Medicine
DX: I10 Essential (primary) hypertension (principal); R73.02 Impaired glucose tolerance (oral); M81.0 Age-related osteoporosis without current pathological fracture
CPT/HCPCS: 36415; 80053; 80061; 82306; 83036; 83735; 85025

== ENCOUNTER → 2024-07-23 | Outpatient (CLI) | payer MEDICARE, SELFPAY | END | disposition home or self-care (01) | LOC: LABSPEC 13:08 | PROVIDERS: PCP Family Medicine; Referring Provider Physician Assistant Surgical; Visit Provider Physician Assistant Surgical | DX: N39.0 Urinary tract infection, site not specified (principal) | CPT/HCPCS: 87077; 87086; 87088; 87186 ==

== ENCOUNTER 2024-07-29 07:43 | Outpatient (RCR) | payer MEDICARE, SELFPAY ==
[2024-07-29 10:18] LABS: International Normalized Ratio 3.1; Prothrombin Time (Protime)PT. 31.4 SECONDS (11.7-14.9)
== END 2024-07-29 18:00 | disposition home or self-care (01) ==
LOC: MTLAB 07:43
PROVIDERS: PCP Family Medicine; Referring Provider Nurse Practitioner Gerontology; Visit Provider Nurse Practitioner Gerontology
DX: I48.91 Unspecified atrial fibrillation (principal); Z79.01 Long term (current) use of anticoagulants
CPT/HCPCS: 36415; 85610

== ENCOUNTER → 2024-08-04 | Outpatient (CLI) | payer MEDICARE, SELFPAY ==
--- NOTE | 2024-08-04 07:41 | ECHOD_ITS ---
Reason For Study: Valve Replacement Eval Procedure This was a 2D Doppler, Color Flow transthoracic echocardiogram. The study was technically difficult. Exam performed in department. Left Ventricle Normal LV size. Left ventricular systolic function is lower limits of normal. The estimated ejection fraction is 53 %. No regional wall motion abnormalities noted. Right Ventricle Normal RV size. Normal systolic function. Atria The left atrium is mildly enlarged. The right atrium is mildly enlarged. Mitral Valve Normal mitral valve. Tricuspid Valve Normal tricuspid valve. Mild tricuspid valve insufficiency. Pulmonary artery systolic pressure is 30 mmHg. Aortic Valve Peak aortic valve gradient 10 mmHg. Mean aortic valve gradient 6 mmHg. Bioprosthetic aortic valve. Pulmonic Valve Normal pulmonic valve. Great Vessels Mildly dilated aortic root. The pulmonary artery is normal size. Normal inferior vena cava. Pericardium/Pleural No pericardial effusion. MMode/2D Measurements & Calculations LVIDd: 3.6 cm IVSd: 1.3 cm LVOT diam: 2.0 cm LVIDs: 2.5 cm LVPWd: 0.82 cm LVOT area: 3.2 cm2 RVDd: 3.7 cm FS: 30.2 % Ao root diam: 3.3 cm asc Aorta Diam: 4.1 cm LAV(MOD-bp): 84.2 ml LAV(MOD-bp) Indexed: 46.0 ml/m2 LAV(MOD-sp2): 95.3 ml LAV(MOD-sp4): 74.5 ml Ao sinus diam: 3.[address] Junction: 2.7 cm LA A4 area: 25.2 cm2 TAPSE: 1.4 cm RA A4 area: 22.9 cm2 Doppler Measurements & Calculations MV E max antonio: 89.3 cm/sec MV V2 max: 112.5 cm/sec Ao V2 max: 159.6 cm/sec MV max P.1 mmHg Ao max P.2 mmHg MV V2 mean: 54.9 cm/sec Ao V2 mean: 114.6 cm/sec MV mean P.6 mmHg Ao mean P.0 mmHg MV V2 VTI: 22.2 cm Ao V2 VTI: 30.2 cm MVA(VTI): 2.9 cm2 AV (velocity ratio): 0.68 MATHEW(I,D): 2.1 cm2 MTAHEW(V,D): 2.2 cm2 LV V1 max: 112.4 cm/sec MR max antonio: 479.2 cm/sec SV(LVOT): 64.9 ml LV V1 max P.1 mmHg MR max P.9 mmHg LV V1 mean P.0 mmHg MR mean antonio: 340.7 cm/sec LV V1 mean: 79.8 cm/sec MR mean P.5 mmHg LV V1 VTI: 20.4 cm MR VTI: 140.4 cm PA V2 max: 58.9 cm/sec PI dec slope: 236.8 cm/sec2 TR max antonio: 261.7 cm/sec PA max PG (full): 0.81 mmHg TR max P.4 mmHg ECHO/Echo Complete Interpretation Summary Normal LV size. Left ventricular systolic function is lower limits of normal. The estimated ejection fraction is 53 %. Bioprosthetic aortic valve. Mildly dilated aortic root. Ordering Physician: Elizabeth Krishnan Referring Physician: Elizabeth Krishnan Performed By: Bryan Montanez RCS
== END | disposition home or self-care (01) ==
LOC: CVS 07:39
PROVIDERS: PCP Family Medicine; Referring Provider Nurse Practitioner Gerontology; Visit Provider Nurse Practitioner Gerontology
DX: Z95.3 Presence of xenogenic heart valve (principal)
CPT/HCPCS: 93306

== ENCOUNTER 2024-08-17 06:41 | Observation (INO) | payer MEDICARE, SELFPAY ==
[2024-08-17] VITALS (11 sets, daily range): BP systolic 109–153; BP diastolic 72–108; PULSE 98–123; RESP 14–18; TEMP 36.4–36.6; O2SAT 95–98; BMI 31.7; BMI 31.1
--- NOTE | 2024-08-17 07:05 | EKG12_ITS ---
Test Reason : Blood Pressure : / mmHG Vent. Rate : 096 BPM Atrial Rate : 000 BPM P-R Int : 000 ms QRS Dur : 118 ms QT Int : 372 ms P-R-T Axes : 000 106 032 degrees QTc Int : 469 ms Atrial fibrillation Right bundle branch block Abnormal ECG Confirmed by MARGARET MONTIEL MD ([id number]), editor index JANINE PAUL ([id number]) on 08/18/2024 8:54:24 AM Referred By: CHANTALE Confirmed By:MARGARET MONTIEL MD
--- NOTE | 2024-08-17 07:05 | CT_ITS ---
INDICATION: Neuro deficit, acute, stroke suspected -- Problems with balance and homonymous quadrantanops EXAMINATION: CT BRAIN - CT Head Stroke Protocol W/O Contrast Injection TECHNIQUE: Multiple axial images were obtained of the head without intravenous contrast. A radiation dose optimization technique was used for this scan. IV Contrast dosage and agent: None. COMPARISON: August 17, 2008 FINDINGS: BRAIN PARENCHYMA: No intra- or extra-axial hemorrhage. Unchanged sequela of old left thalamic and posterior medial right cerebellar infarct compared with November 16, 2008. In addition there have been 2 other right cerebellar infarcts which are new from prior CT but are similar in density to the other old infarcts. No evidence of acute lackey-white matter differentiation loss. No intracranial mass or mass effect. Mild periventricular and subcortical white matter hypodense chronic small vessel white matter ischemic change. There is preservation of the lackey/white matter interface. Posterior fossa structures are unremarkable. Carotid and vertebral atherosclerosis CSF SPACES: Mild global cerebral volume loss. No hydrocephalus. Basal cisterns are patent. CALVARIUM, SKULL BASE, PARANASAL SINUSES AND MASTOID AIR CELLS: No acute osseous finding. Paransasal sinuses are clear. Mastoid air cells are clear. ORBITS: Both globes, extraocular muscles, optic nerves and retrobulbar fat appear unremarkable. ASPECTS Score for Acute Strokes: 10 CT/STROKE Brain/Head without Cont IMPRESSION: No CT evidence of acute intracranial hemorrhage. 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 MRI could further assess for acute infarct as clinically indicated. N.B. : The above Results were Read Back by Branden Cage MD to Demian Young MD, and understanding confirmed on 08/17/2024 07:28:12 (ET). Electronically Signed: Branden Cage MD at 7:29 EDT ,
--- NOTE | 2024-08-17 07:06 | CT_ITS ---
INDICATION: Neuro deficit, acute, stroke suspected EXAMINATION: CTA CAROTIDS AND BRAIN - CTA Head and Neck Stroke W/ Contrast (and W/O if performed) TECHNIQUE: Routine CTA of the head and neck was performed with post processing of the angiographic images for volumetric reconstructions. In addition, images were obtained of the [place]. Nascet criteria using the distal ICAs for comparison were used for evaluation of stenoses. 3D reconstructions were reviewed. A radiation dose optimization technique was used for this scan. IV Contrast dosage and agent: 100 mL Isovue-370 w COMPARISON: CT head on same day. FINDINGS: --NECK: AORTIC ARCH AND BRANCHES: Partially seen aortic ectasia to 4.0 cm with distal tapering. Mild aortic arch atherosclerosis.. RIGHT CCA: No occlusion, significant stenosis or dissection. RIGHT ICA: Mild bifurcation atherosclerosis. No occlusion, significant stenosis or dissection. LEFT CCA: No occlusion, significant stenosis or dissection. LEFT ICA: Mild bifurcation atherosclerosis. No occlusion, significant stenosis or dissection. RIGHT VERTEBRAL ARTERY: Congenitally smaller in caliber. No occlusion, significant stenosis or dissection. LEFT VERTEBRAL ARTERY: No occlusion, significant stenosis or dissection. NECK SOFT TISSUES: Unremarkable. LUNG APICES: Mild apical peribronchial thickening.. BONES: Unremarkable. --HEAD: --Anterior circulation: ICAs: No significant stenosis at the intracranial/visualized segments. ACAs: No significant stenosis at the visualized segments. ACOM: Present. MCAs: No focal flow-limiting stenosis along the visualized segments. 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 No significant stenosis at the visualized segments. BASILAR ARTERY: No significant stenosis. VERTEBRAL ARTERIES: Right vertebral artery terminates into the posterior inferior cerebellar artery. No significant stenosis at the intradural/visualized segments. No evidence of intracranial aneurysm or vascular malformation. CT/STROKE CTA Head AND Neck W/Con IMPRESSION: No CT evidence of cervical or proximal intracranial vascular occlusion or focal flow-limiting stenosis. 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 N.B. : The above Results were Read Back by Branden Cage MD to Demian Young MD, and understanding confirmed on 08/17/2024 07:43:50 (ET). Electronically Signed: Branden Cage MD at 7:47 EDT ,
--- NOTE | 2024-08-17 07:07 | ED.VIS.STROK ---
HPI History of Present Illness Chief Complaint: Dizziness Detail of Chief Complaint: Problems with coordination/balance and vision Informant: patient Onset/Context/Timing Onset: Today (99) Context: Sudden Onset Quality and Location: Positive for Difficulty with Ambulation and - (Problems with vision) Associated Symptoms Associated Symptoms: Negative for Headache, Nausea, Vomiting or Chest Pain Narrative Narrative: Patient presents because of problems with vision and balance. She had used a cane. She normally does not use a cane. She noted this after getting up to use the restroom at 01 100. Difficult to determine whether this was present before she woke up or after she woke up. Based on her responses my belief is that it is occurred after she woke up at 1 AM. She then made the comment that she attempted to read at 1 AM and had difficulty seeing words clearly. She denies trouble with speech or swallowing. She denies headache. She denies ringing or decreased hearing. She denies cardiac respiratory symptoms. She denies nausea or vomiting. She has no prior history of stroke. She does have history of atrial fibrillation on Coumadin. She also has a history of aortic valve replacement. Patient does have history of right bundle branch block per review of prior records as well as hypertension, hyperlipidemia. Prior similar symptoms: No Recent Illness/Hospitalization: No [facility] Medical History Wears glasses Post-menopausal Cancer High cholesterol Back pain Non-smoker Shortness of breath on exertion History of Holter monitoring History of echocardiogram History of stress test Cardiology follow-up encounter History of atrial fibrillation Osteoporosis Urinary tract infection with hematuria Aortic root dilatation Nonrheumatic aortic (valve) stenosis Aortic dilatation Essential hypertension History of bicuspid aortic valve Hyperlipidemia Right bundle branch block Home Medications ?Medication ?Instructions ?Recorded ?Last Taken ?Type aspirin 81 mg chewable tablet 81 mg PO DAILY@0800 05/16/16 Unknown History Lactobacillus 25 billion 1 cap PO BID 10/29/22 Unknown History cell-Bifido 25 billion [id number] capsule (Women's Probiotic) alendronate 70 mg tablet 70 mg PO QWEEK 10/29/22 Unknown History ascorbic acid (vitamin C) 500 mg 500 mg PO DAILY 10/29/22 Unknown History capsule d-mannose 500 mg capsule (AZO 1,000 mg PO BID 10/29/22 Unknown History D-Mannose) glucosamine 500 1 cap PO .twice daily 10/29/22 Unknown History bl-wckfxashi-ykagzivv comp 400 mg-D3 667 unit-C-Mn cap mirabegron 50 mg tablet,extended 50 mg PO DAILY 10/29/22 Unknown History release 24 hr (Myrbetriq) losartan 25 mg tablet 25 mg PO DAILY #30 tabs 09/18/23 Unknown Rx potassium chloride 20 mEq 20 meq PO DAILY #30 tabs 09/25/23 Unknown Rx tablet,extended release clindamycin HCl 300 mg capsule 300 mg PO Q8H PRN PRN 10/24/23 Unknown History rosuvastatin 20 mg tablet (Crestor) 20 mg PO DAILY #90 tabs 10/30/23 Unknown Rx multivitamin with minerals-folic 2 tab PO DAILY 12/04/23 Unknown History acid 200 mcg chewable tablet (Women's Multivitamin Gummies) warfarin 2 mg tablet 2 mg PO FLETCHER 12/04/23 Unknown History warfarin 4 mg tablet 4 mg PO MOTUWETHFRSA 12/04/23 Unknown History metoprolol tartrate 100 mg tablet 100 mg PO BID #60 tabs 12/26/23 Unknown Rx furosemide 40 mg tablet (Lasix) 40 mg PO DAILY #30 tabs 01/02/24 Unknown Rx Allergy/AdvReac Type Severity Reaction Status Date / Time Penicillins Allergy Hives Verified 07/23/24 07:35 Sulfa (Sulfonamide Allergy Hives Verified 07/23/24 07:35 Antibiotics) atorvastatin calcium (From AdvReac Pain in Verified 07/23/24 07:35 Lipitor) joints simvastatin (From Zocor) AdvReac Pain in Verified 07/23/24 07:35 joints Family History Father CAD (coronary artery disease) Mother Cerebral hemorrhage Sister Lung cancer Surgical History History of aortic valve replacement with bioprosthetic valve (~08/24/08) History of bilateral oophorectomy History of tubal ligation History of bunionectomy Social History Smoking Status: Never smoker alcohol intake: never substance use type: does not use caffeine: Yes Type: other Number of servings: 1 EXAM Physical Exam Const Vital Signs: 08/17/24 06:42 08/17/24 07:05 08/17/24 07:05 Temperature 97.5 F L Temperature Source Oral Pulse Rate 103 H 99 Respiratory Rate 18 18 Blood Pressure 153/108 H 131/88 H Blood Pressure Mean 123 102 Pulse Ox 98 97 96 Oxygen Delivery Method Room Air Room Air Room Air 08/17/24 07:05 08/17/24 07:33 08/17/24 08:05 Temperature Temperature Source Pulse Rate 108 H 99 98 Respiratory Rate 16 14 15 Blood Pressure 142/92 H 129/104 H 110/74 Blood Pressure Mean 108 112 86 Pulse Ox 98 97 97 Oxygen Delivery Method Room Air Room Air Room Air Positive well nourished and well developed General Appearance ED: well developed and NAD HEENT Reports moist mucous membranes atraumatic Eyes PERRL and EOMs intact bilaterally Neck no lymphadenopathy, supple and no JVD Resp normal respiratory effort and clear to auscultation bilaterally Cardio no murmurs Rate: regular rate Rhythm: abnormal rhythm irregularly irregular GI normal to inspection, nondistended, normoactive bowel sounds, soft to palpation, non-tender, non-distended and no masses Auscultation: normoactive bowel sounds Extremity normal to inspection General Extremety ED: Negative for deformity or edema General Extremity: Negative for deformity or edema Neuro oriented x3, CN's II-XII intact bilaterally and no sensory deficits noted Neuro Narrative: Problem has trouble with balance. She has to use a cane which is new. Tandem gait patient falls the left. Patient has a upper homonymous quadrantanopsia on the right. Jeremiah Coma Scale: document GCS findings Spontaneous Obeys Commands Oriented 15 Sensorium / Orientation: alert Speech: speech normal Gait (Neuro): Negative for normal gait Motor Exam: strength 5/5 throughout Psych mental status grossly normal Skin no wounds General Skin Exam: Negative for jaundice Lesions: no lesions Rashes: no rashes NIHSS NIHSS Initial: 1a Level of Consciousness: 0 1b LOC Questions (Score 2 if aphasic/stupor): 0 1c LOC Commands (Only score 1st attempt): 0 2 Best Gaze (If aphasic, use reflexive mvmts.): 0 3 Visual: 1 4 Facial Palsy: 0 5 Motor Arm Right (UN = amputation/fusion): 0 5 Motor Arm Left: 0 6 Motor Leg Right: 0 6 Motor Leg Left: 0 7 Limb ataxia (Only + if out of proportion): 0 8 Sensory (Aphasia/stupor=0 or 1, coma=2): 0 9 Best Language: 0 10 Dysarthria (mute, coma=2, intubated=UN): 0 11 Extinction and Inattention (only scored if +): 0 Total Score: 1 MDM MDM MDM Narrative Medical decision making narrative: Patient is a 84-year-old woman. She has history of atrial fibrillation on Coumadin. She presents because after awaking using the restroom she had trouble walking. She noted that time she had trouble reading. She presently denies headache. She states her vision is fuzzy and the top of her head feels fuzzy. When asked to define what she means by dizziness she responded fuzzy and top of her head. Since patient has a upper left homonymous quadrantanopsia and patient has trouble with gait concerned she has a posterior circulatory event. She is outside the window for thrombolytics. Since she has A-fib will obtain PT/INR to determine if she is properly anticoagulated and CTA determine if there is a clot and determine if she is a candidate for retrieval. Stroke team was called. Lab Data Attestation: I reviewed the patient's lab results. Lab results narrative: CBC is unremarkable. Basic metabolic panel reveals slight elevation of glucose of 129 with normal CO2 anion gap. Troponin is normal. Coags are elevated. UA is unremarkable. Labs: Laboratory Results - last 24 hr 08/17/24 08/17/24 08/17/24 06:55 07:20 07:23 WBC 6.7 RBC 4.65 Hgb 14.3 Hct 43.5 MCV 93.5 MCH 30.8 MCHC 32.9 RDW Std Deviation 46.5 H RDW Coeff of Rocael 13.6 Plt Count 189 MPV 10.2 Immature Gran % (Auto) 0.500 Neut % (Auto) 68.1 Lymph % (Auto) 18.0 L [place] % (Auto) 7.5 Eos % (Auto) 4.5 Baso % (Auto) 1.4 H Absolute Neuts (auto) 4.5 Absolute Lymphs (auto) 1.20 Nucleated RBC % 0 PT 41.9 H INR 4.4 H* APTT 47.0 H Sodium 140 Potassium 3.9 Chloride 104 Carbon Dioxide 27.0 Anion Gap 10 BUN 12 Creatinine 0.98 Estim Creat Clear Calc 43.92 Est GFR (MDRD) Af Amer 69 Est GFR (MDRD) Non-Af 57 L BUN/Creatinine Ratio 12.2 Glucose 129 H Calcium 9.1 Troponin I High Sens 28 Urine Color Urine Clarity Urine pH Ur Specific [place] Urine Protein Urine Glucose (UA) Urine Ketones Urine Occult Blood Urine Nitrite Urine Bilirubin Urine Urobilinogen Ur Leukocyte Esterase Urine RBC Urine WBC Ur Squamous Epith Cells Urine Bacteria Urine Mucus POC Glucose 109 H 08/17/24 07:46 WBC RBC Hgb Hct MCV MCH MCHC RDW Std Deviation RDW Coeff of Rocael Plt Count MPV Immature Gran % (Auto) Neut % (Auto) Lymph % (Auto) [place] % (Auto) Eos % (Auto) Baso % (Auto) Absolute Neuts (auto) Absolute Lymphs (auto) Nucleated RBC % PT INR APTT Sodium Potassium Chloride Carbon Dioxide Anion Gap BUN Creatinine Estim Creat Clear Calc Est GFR (MDRD) Af Amer Est GFR (MDRD) Non-Af BUN/Creatinine Ratio Glucose Calcium Troponin I High Sens Urine Color Yellow Urine Clarity Clear Urine pH 7.0 Ur Specific [place] 1.010 Urine Protein 15 H Urine Glucose (UA) Normal Urine Ketones Negative Urine Occult Blood 10 H Urine Nitrite Negative Urine Bilirubin Negative Urine Urobilinogen Normal Ur Leukocyte Esterase 100 H Urine RBC 0-5 SEEN Urine WBC 5-10 SEEN Ur Squamous Epith Cells 5-10 SEEN Urine Bacteria RARE Urine Mucus 0 SEEN POC Glucose Radiography Diagnostic Testing: Clinical Impression(s) from Imaging Studies Brain CT 08/17/24 07:05 IMPRESSION: No CT evidence of acute intracranial hemorrhage. 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 MRI could further assess for acute infarct as clinically indicated. N.B. : The above Results were Read Back by Branden Cage MD to Demian Young MD, and understanding confirmed on 08/17/2024 07:28:12 (ET). Electronically Signed: Branden Cage MD at 7:29 EDT Reading Location ID and State: [facility] / [place] Tel , Service support , ADDENDUM: 08/17/24 0736 IMPRESSION: No CT evidence of acute intracranial hemorrhage. 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 MRI could further assess for acute infarct as clinically indicated. N.B. : The above Results were Read Back by Branden Cage MD to Demian Young MD, and understanding confirmed on 08/17/2024 07:28:12 (ET). Electronically Signed: Branden Cage MD at 7:29 EDT , Head/Neck CTA 08/17/24 07:06 IMPRESSION: No CT evidence of cervical or proximal intracranial vascular occlusion or focal flow-limiting stenosis. 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 N.B. : The above Results were Read Back by Branden Cage MD to Demian Young MD, and understanding confirmed on 08/17/2024 07:43:50 (ET). Electronically Signed: Branden Cage MD at 7:47 EDT , ADDENDUM: 08/17/24 0754 IMPRESSION: No CT evidence of cervical or proximal intracranial vascular occlusion or focal flow-limiting stenosis. 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 N.B. : The above Results were Read Back by Branden Cage MD to Demian Young MD, and understanding confirmed on 08/17/2024 07:43:50 (ET). Electronically Signed: Branden Cage MD at 7:47 EDT , Chest X-Ray 08/17/24 07:40 IMPRESSION: No acute cardiopulmonary process identified. Electronically Signed: Jannet Montana MD at 8:04 EDT , EKG Initial EKG: Attestation: I personally reviewed and interpreted this EKG as follows: Interpretation: Atrial Fibrillation (Rate 96. QRS duration 118 ms. QRS morphology consistent with right bundle branch block. QT is 372 ms. [place] to the right.) Management Discussion w/another healthcare provider: Hospitalist (Discussed case with Dr. Cervantes), Medical Lab Assistant (Dr. Kowalski's [facility] neurologist. Recommended MRI and UA. Uncertain if symptoms are due to new event versus due to prior multiple right cerebellar strokes.) and Radiologist (Regarding CT without contrast and CTA of the head and neck.) Discharge Plan Dx/Rx/DC Orders Clinical Impression: Right homonymous superior quadrantanopia, Trouble walking, Atrial fibrillation, chronic, [facility] current use of anticoagulant, Warfarin-induced coagulopathy, History of prosthetic aortic valve Disposition Disposition: Acute Care Hospital [facility]
[2024-08-17 07:18] LABS: Absolute Neutrophil Count 4.5 X10^3/uL (2.0-7.7); Basophil# 0.09 X10^3/uL; Basophil% 1.4 % (0-1); Eosinophils% 4.5 % (0-5); Hematocrit 43.5 % (37-47); Hemoglobin 14.3 g/dL (12.0-15.0); Mean Corp Hgb Conc 32.9 g/dL (32-36); Mean Corpuscular Hgb 30.8 pg (27.0-32.0); Mean Corpuscular Volume 93.5 fL (81-99); Mean Platelet Vol. 10.2 fl (6.2-12.0); Monocyte% 7.5 % (0-10); NRBC Flagged by Analyzer 0 % (0-5); Neutrophil # 4.54 X10^3/uL (2.7-7.7); Neutrophil % 68.1 % (47-70); Platelet Count 189 K/mm3 (150-450); RBC Distribution Width CV 13.6 % (11.6-14.6); RBC Distribution Width SD 46.5 fl (35.1-43.9); Red Blood Count 4.65 M/mm3 (4.2-5.4); White Blood Count 6.7 K/mm3 (4.4-11.0)
[2024-08-17 07:38] LABS: Anion Gap 10 (5-15); BUN 12 mg/dL (7-18); BUN/Creat Ratio 12.2 RATIO (10-20); Calcium,Total 9.1 mg/dL (8.5-10.1); Chloride 104 mmol/L (98-107); Creatinine, Serum 0.98 mg/dL (0.55-1.02); EST Glomerular Filtration Rate 57 mL/min (>60); Est Glom Filt Rate - Afr Amer 69 mL/min (>60); Estimated Creatinine Clearance 43.92 ml/min; Glucose 129 mg/dL (74-106); Potassium 3.9 mmol/L (3.5-5.1); Sodium Level 140 mmol/L (136-145); Troponin-I HS 28 pg/mL (3.0-54.0)
--- NOTE | 2024-08-17 07:40 | RAD_ITS ---
HISTORY: Neuro deficit, acute, stroke suspected. TECHNIQUE: XR Chest 1 View. COMPARISON: 09/02/2023. FINDINGS: CARDIOMEDIASTINAL BORDERS: Cardiac silhouette and mediastinal contour unchanged. Midline sternotomy. LUNGS: Chronic linear scarring in the right lung base. PLEURA: No pleural effusion or pneumothorax seen. OSSEOUS STRUCTURES: Old left humeral neck fracture. RAD/Chest 1 View IMPRESSION: No acute cardiopulmonary process identified. Electronically Signed: Jannet Montana MD at 8:04 EDT ,
[2024-08-17 07:47] LABS: Prothrombin Time (Protime)PT. 41.9 SECONDS (11.7-14.9)
[2024-08-17 07:51] LABS: Mucous, Urine 0 SEEN /hpf (<or=2+)
[2024-08-17 07:55] LABS: International Normalized Ratio 4.4
[2024-08-17 07:55] LABS: Bedside Glucose 109 mg/dL (74-106)
[2024-08-17 08:00] LABS: Color, Urine Yellow (Yellow); Glucose, Dipstick Normal (Normal); Ketone-Dipstick Negative (Negative); Leukocyte Esterase-Dipstick 100 /ul (Negative); Nitrite-Dipstick Negative (Negative); Occult Blood-Urine 10 /ul (Negative); Protein-Dipstick 15 mg/dl (Negative); Urine Bilirubin Dipstick Negative (Negative); Urine Clarity Clear (Clear); Urine Urobilinogen Normal (Normal)
[2024-08-17 08:10] LABS: Bacteria RARE /hpf (None Seen)
[2024-08-17 08:11] LABS: Red Blood Cells-Urine 0-5 SEEN /hpf (0-5); White Blood Cells 5-10 SEEN /hpf (0-5)
[2024-08-17 08:12] LABS: Squamous Epithelial Cells - UA 5-10 SEEN /hpf (5-10)
--- NOTE | 2024-08-17 09:18 | ED.RN ---
Per Dr. Hector manriquez to discontinue NIH assessments.
--- NOTE | 2024-08-17 09:29 | MRI_ITS ---
STUDY: MRI BRAIN WITHOUT CONTRAST REASON FOR EXAM: Female, 84 years old. ataxia TECHNIQUE: Standardized multiplanar fat and water weighted pulse sequences were obtained. COMPARISON: 08/18/2008, head CT 08/17/2024 FINDINGS: There is mild cerebral atrophy with widening of the extra-axial spaces and ventricular dilatation. There are a limited number of small white matter hyperintensities, distributed throughout the deep white matter tracts of the cerebral hemispheres, consistent with mild chronic white matter ischemic changes. There is no evidence for recent intracranial ischemia or other cause of cytotoxic edema on diffusion weighted imaging (DWI). Normal T2* images of the brain without demonstrated susceptibility artifact. There is no demonstrated hemosiderin stain. Normal bilateral basal ganglia. Normal thalami. There is no extra-axial fluid accumulation. Normal flow voids within the major intracranial circulation suggesting patency by spin echo criteria. Normal sella turcica, pituitary gland, infundibular stalk, optic chiasm and hypothalamus. Normal tectal plate and pineal gland. Normal midbrain, susan and medulla. Normal cerebellum. Normal basal cisterns. Normal bilateral temporal bones. Normal bilateral internal auditory canals. There is an ocular lens implant the left globe. Normal right globe. The intraorbital contents otherwise are normal. Normal visualized paranasal sinuses. Normal calvarium and skull base. Normal visualized soft tissue structures. Normal visualized upper cervical spine. MRI/Brain without Contrast IMPRESSION: Involutional changes of the brain, as described above. No acute infarct. Electronically Signed: Saurav Prjaapati MD at 13:21 EDT ,
--- NOTE | 2024-08-17 09:29 | ECHOLC_ITS ---
Reason For Study: TIA/CVA, Check for Thrombus Procedure This was a limited 2D transthoracic echocardiogram. The study was technically difficult. Contrast injection was performed. Exam performed portable in patient room. Left Ventricle Normal LV size. No LV thrombus noted. The estimated ejection fraction is 70 %. Unable to assess diastolic dysfunction. No regional wall motion abnormalities noted. Right Ventricle Normal RV size. Normal systolic function. Atria There is moderate biatrial dilatation. No doppler evidence for ASD. Mitral Valve There is no mitral valve stenosis. No mitral valve insufficiency. Tricuspid Valve There is no tricuspid stenosis. Mild tricuspid valve insufficiency. Pulmonary artery systolic pressure is 40 mmHg. Aortic Valve The aortic valve is not well visualized. Pericardium/Pleural No pericardial effusion. Medication Diluted definity 2ml given slow IV push to enhance endocardial definition. Previous NEGATIVE Bubble study (2019). MMode/2D Measurements & Calculations LVIDd: 3.5 cm IVSd: 1.1 cm LAV(MOD-sp4): 61.1 ml LVIDs: 2.7 cm LVPWd: 0.92 cm FS: 23.2 % LVAd ap4: 18.2 cm2 SV(MOD-sp4): 23.3 ml SV(sp4-el): 23.7 ml LVLd ap4: 6.3 cm EDV(MOD-sp4): 44.7 ml EDV(sp4-el): 45.1 ml LVAs ap4: 11.7 cm2 LVLs ap4: 5.4 cm ESV(MOD-sp4): 21.4 ml ESV(sp4-el): 21.4 ml EF(MOD-sp4): 52.2 % EF(sp4-el): 52.5 % LA A4 area: 22.2 cm2 RA A4 area: 20.2 cm2 Doppler Measurements & Calculations TR max antonio: 293.1 cm/sec TR max P.4 mmHg ECHO/Echo Limited w/Contrast Interpretation Summary The estimated ejection fraction is 70 %. Unable to assess diastolic dysfunction. There is moderate biatrial dilatation. Ordering Physician: Kyree Aldridge Performed By: Bryan Montanez RCS
[2024-08-17] MEDS: Metoprolol Tartrate 100 MG Tablet PO (11:17)
[2024-08-17] MEDS: Vibegron 75 MG TABLET PO (11:17)
[2024-08-17] MEDS: Potassium Chloride Oral Tablet 20 MEQ PO (11:23)
--- NOTE | 2024-08-17 13:28 | CON.PCM.NE_ITS ---
Assessment and Plan: Neuro Assessment/Plan ERIC CHEN, is a 84 woman with HTN, HLD, Afib on Warfarin who is presenting with lightheadedness upon waking up in the morning, which has resolved by now. Exam is reassuring with no focal findings. MRI brain with no acute stroke. She is at her baseline and her symptoms have resolved. Recommend obtaining orthostatic vitals No further workup Diagnosis: lightheadedness I personally attended this patient and spent a total time of 40 min evaluating this patient including clinical assessment, review of chart, medical history, and imaging, and determining appropriate treatment and workup. HPI Consult Data Date of Consult: 08/17/24 HPI Narrative HPI Narrative: ERIC CHEN, is a 84 woman with HTN, HLD, Aortic valve replacement, Afib on Warfarin who is presenting with lightheadedness Patient reports she woke up at 1 am and felt lightheaded a bit, but went back to sleep. Woke up again around 5 am, and had to get her cane out to use to balance herself because she was also feeling lightheaded and fuzzy in the head. She could see fine, with no blurry vision, but felt a bit dizzy over all. No spinning sensation. No fall. This lasted about 2 hours, and was gone around 7 am. Reports she has been hydrating well. Has been eating fine. She is at her baseline now. Na 138 Cr 0.9 CTA with no flow limiting stenosis MRI brain with generalized volume loss, but no acute findings or evidence of acute stroke In the ER SBP 140-150 PFSH Medical History Wears glasses Post-menopausal Cancer High cholesterol Back pain Non-smoker Shortness of breath on exertion History of Holter monitoring History of echocardiogram History of stress test Cardiology follow-up encounter History of atrial fibrillation Osteoporosis Urinary tract infection with hematuria Aortic root dilatation Nonrheumatic aortic (valve) stenosis Aortic dilatation Essential hypertension History of bicuspid aortic valve Hyperlipidemia Right bundle branch block Home Medications ?Medication ?Instructions ?Recorded ?Last Taken ?Type aspirin 81 mg chewable tablet 81 mg PO DAILY@0800 05/16/16 Unknown History Lactobacillus 25 billion 1 cap PO BID 10/29/22 Unknown History cell-Bifido 25 billion [id number] capsule (Women's Probiotic) alendronate 70 mg tablet 70 mg PO QWEEK 10/29/22 Unknown History ascorbic acid (vitamin C) 500 mg 500 mg PO DAILY 10/29/22 Unknown History capsule d-mannose 500 mg capsule (AZO 1,000 mg PO BID 10/29/22 Unknown History D-Mannose) glucosamine 500 1 cap PO .twice daily 10/29/22 Unknown History lf-abxvbqymn-himetvll comp 400 mg-D3 667 unit-C-Mn cap mirabegron 50 mg tablet,extended 50 mg PO DAILY 10/29/22 Unknown History release 24 hr (Myrbetriq) losartan 25 mg tablet 25 mg PO DAILY #30 tabs 09/18/23 Unknown Rx potassium chloride 20 mEq 20 meq PO DAILY #30 tabs 09/25/23 Unknown Rx tablet,extended release rosuvastatin 20 mg tablet (Crestor) 20 mg PO DAILY #90 tabs 10/30/23 Unknown Rx multivitamin with minerals-folic 2 tab PO DAILY 12/04/23 Unknown History acid 200 mcg chewable tablet (Women's Multivitamin Gummies) warfarin 4 mg tablet 4 mg PO DAILY 12/04/23 Unknown History metoprolol tartrate 100 mg tablet 100 mg PO BID #60 tabs 12/26/23 Unknown Rx furosemide 40 mg tablet (Lasix) 40 mg PO DAILY #30 tabs 01/02/24 Unknown Rx Allergy/AdvReac Type Severity Reaction Status Date / Time Penicillins Allergy Hives Verified 07/23/24 07:35 Sulfa (Sulfonamide Allergy Hives Verified 07/23/24 07:35 Antibiotics) atorvastatin calcium (From AdvReac Pain in Verified 07/23/24 07:35 Lipitor) joints simvastatin (From Zocor) AdvReac Pain in Verified 07/23/24 07:35 joints Family History Father CAD (coronary artery disease) Mother Cerebral hemorrhage Sister Lung cancer Surgical History History of aortic valve replacement with bioprosthetic valve (~08/24/08) History of bilateral oophorectomy History of tubal ligation History of bunionectomy Social History Smoking Status: Never smoker alcohol intake: never substance use type: does not use caffeine: Yes Type: other Number of servings: 1 Vital Signs Vital Signs Vital Signs: 08/17/24 06:42 08/17/24 07:05 08/17/24 07:05 Temperature 97.5 F L Temperature Source Oral Pulse Rate 103 H 99 Pulse Strength Respiratory Rate 18 18 Blood Pressure 153/108 H 131/88 H Blood Pressure Mean 123 102 Blood Pressure Source Blood Pressure Position Blood Pressure Location Pulse Ox 98 97 96 Oxygen Delivery Method Room Air Room Air Room Air 08/17/24 07:05 08/17/24 07:33 08/17/24 08:05 Temperature Temperature Source Pulse Rate 108 H 99 98 Pulse Strength Respiratory Rate 16 14 15 Blood Pressure 142/92 H 129/104 H 110/74 Blood Pressure Mean 108 112 86 Blood Pressure Source Blood Pressure Position Blood Pressure Location Pulse Ox 98 97 97 Oxygen Delivery Method Room Air Room Air Room Air 08/17/24 08:26 08/17/24 08:30 08/17/24 09:00 Temperature 98 F Temperature Source Pulse Rate 102 H 98 102 H Pulse Strength Respiratory Rate 14 15 17 Blood Pressure 109/82 H 114/73 126/88 H Blood Pressure Mean 91 86 100 Blood Pressure Source Blood Pressure Position Blood Pressure Location Pulse Ox 97 97 98 Oxygen Delivery Method Room Air Room Air 08/17/24 09:32 08/17/24 09:52 08/17/24 11:00 Temperature 97.7 F L Temperature Source Oral Pulse Rate 108 H Pulse Strength Normal (2+) Respiratory Rate 18 Blood Pressure 141/100 H Blood Pressure Mean 113 Blood Pressure Source Monitor Blood Pressure Position Semi-Fowlers Blood Pressure Location Left Arm Pulse Ox 96 Oxygen Delivery Method Room Air Room Air 08/17/24 11:13 08/17/24 11:17 08/17/24 11:18 Temperature Temperature Source Pulse Rate 123 H 123 H Pulse Strength Respiratory Rate Blood Pressure 131/89 H Blood Pressure Mean 103 Blood Pressure Source Monitor Blood Pressure Position Semi-Fowlers Blood Pressure Location Left Arm Pulse Ox Oxygen Delivery Method Room Air Weight Weight: 79.8 kg Body Mass Index (BMI) 31.1 EEG Results Procedure Details EEG Procedure Details: ERIC CHEN is a 84 year old F with a past medical history of , who presents for evaluation of Electroencephalogram on DATE at TIME NIHSS NIHSS Nursing Documentation NIHSS Nursing Documentation: NIHSS: Ischemic Stroke/TIA Start: 08/17/24 09:29 Text: For PCU Patients: NIH and Neuro Check every 4 Status: Active hours, PRN and with change in RN caregiver. Freq: [id number] Protocol: Activity Type Activity Date Activity User E-sign Co-sign Detail Recorded Client Recorded Date Recorded By Document 08/17/24 09:32 desktop 08/17/24 09:32 08/17/24 09:32 NIH Stroke Scale [NIHSS] A score of 0 is normal or asymptomatic . Total possible score is 42. Inpatient: RN or Physician to activate a stroke alert for onset of new stroke symptoms or with NIHSS increase >/= 3 points. Following change in neurological status, NIHSS will be performed per physician order or more frequently PRN. -1a. Level of Consciousness Alert; keenly responsive -1b. LOC Questions Answers BOTH questions correctly. -1c. LOC Commands Performs both tasks correctly . -2. Best Gaze Normal -3. Visual No visual loss -4. Facial Palsy Normal symmetrical movements -5a. Left Arm No drift; arm holds 90 (or 45 ) degrees for full 10 seconds -5b. Right Arm No drift; arm holds 90 (or 45 ) degrees for full 10 seconds -6a. Left Leg No drift; leg holds 30-degree position for full 5 seconds -6b. Right Leg No drift; leg holds 30-degree position for full 5 seconds -7. Limb Ataxia Absent -8. Sensory Normal; no sensory loss -9. Best Language No aphasia; normal -10. Dysarthria Normal -11. Extinction and Inattention No abnormality -Total 0 Query Text:A score of 0 is normal or asymptomatic. Total possible score is 42 . ED: Notify Physician for NIHSS increase by > / = 3 points. Inpatient: RN or Physician to activate a stroke alert for NIHSS increase of > / = 3 points. Coma Scale [Assess] -Eye Opening Spontaneous -Motor Obeys Commands -Verbal Oriented [Total] -Coma Scale Total 15 Physical Exam Narrative Exam performed with help of the nurse/DEREK present with patient on Tele site NEURO: AAOx3, follows commands, no aphasia/dysarthria. EOMI, no gaze preference/nystagmus. Face symmetric, Intact facial sensation. Tongue midline. Sensation: intact to light touch all over Motor: All extremities antigravity Coordination: FTN intact bilaterally Lab / Micro Data 08/17/24 06:55 08/17/24 06:55 Labs: Laboratory Results - last 24 hr 08/17/24 06:55: WBC 6.7, RBC 4.65, Hgb 14.3, Hct 43.5, MCV 93.5, MCH 30.8, MCHC 32.9, RDW Std Deviation 46.5 H, RDW Coeff of Rocael 13.6, Plt Count 189, MPV 10.2, Immature Gran % (Auto) 0.500, Neut % (Auto) 68.1, Lymph % (Auto) 18.0 L, [place] % (Auto) 7.5, Eos % (Auto) 4.5, Baso % (Auto) 1.4 H, Absolute Neuts (auto) 4.5, Absolute Lymphs (auto) 1.20, Nucleated RBC % 0, Sodium 140, Potassium 3.9, Chloride 104, Carbon Dioxide 27.0, Anion Gap 10, BUN 12, Creatinine 0.98, Estim Creat Clear Calc 43.92, Est GFR (MDRD) Af Amer 69, Est GFR (MDRD) Non-Af 57 L, BUN/Creatinine Ratio 12.2, Glucose 129 H, Calcium 9.1, Troponin I High Sens 28 08/17/24 07:20: PT 41.9 H, INR 4.4 H*, APTT 47.0 H 08/17/24 07:23: POC Glucose 109 H 08/17/24 07:46: Urine Color Yellow, Urine Clarity Clear, Urine pH 7.0, Ur Specific [place] 1.010, Urine Protein 15 H, Urine Glucose (UA) Normal, Urine Ketones Negative, Urine Occult Blood 10 H, Urine Nitrite Negative, Urine Bilirubin Negative, Urine Urobilinogen Normal, Ur Leukocyte Esterase 100 H, Urine RBC 0-5 SEEN, Urine WBC 5-10 SEEN, Ur Squamous Epith Cells 5-10 SEEN, Urine Bacteria RARE, Urine Mucus 0 SEEN Imaging Radiology Impression Brain CT 08/17/24 07:05 IMPRESSION: No CT evidence of acute intracranial hemorrhage. 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 MRI could further assess for acute infarct as clinically indicated. N.B. : The above Results were Read Back by Branden Cage MD to Demian Young MD, and understanding confirmed on 08/17/2024 07:28:12 (ET). Electronically Signed: Branden Cage MD at 7:29 EDT Reading Location ID and State: [facility] / [place] Tel , Service support , ADDENDUM: 08/17/24 0736 IMPRESSION: No CT evidence of acute intracranial hemorrhage. 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 MRI could further assess for acute infarct as clinically indicated. N.B. : The above Results were Read Back by Branden Cage MD to Demian Young MD, and understanding confirmed on 08/17/2024 07:28:12 (ET). Electronically Signed: Branden Cage MD at 7:29 EDT Reading Location ID and State: [facility] / [place] Tel , Service support , Head/Neck CTA 08/17/24 07:06 IMPRESSION: No CT evidence of cervical or proximal intracranial vascular occlusion or focal flow-limiting stenosis. 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 N.B. : The above Results were Read Back by Branden Cage MD to Demian Young MD, and understanding confirmed on 08/17/2024 07:43:50 (ET). Electronically Signed: Branden Cage MD at 7:47 EDT , ADDENDUM: 08/17/24 0754 IMPRESSION: No CT evidence of cervical or proximal intracranial vascular occlusion or focal flow-limiting stenosis. 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 N.B. : The above Results were Read Back by Branden Cage MD to Demian Young MD, and understanding confirmed on 08/17/2024 07:43:50 (ET). Electronically Signed: Branden Cage MD at 7:47 EDT , Chest X-Ray 08/17/24 07:40 IMPRESSION: No acute cardiopulmonary process identified. Electronically Signed: Jannet Montana MD at 8:04 EDT , Brain MRI 08/17/24 09:29 IMPRESSION: Involutional changes of the brain, as described above. No acute infarct. Electronically Signed: Saurav Prajapati MD at 13:21 EDT , Active Medications Active Medications Active Medications: Current Medications Generic Name Dose Route Start Last Admin Trade Name Freq PRN Reason Stop Dose Admin Acetaminophen 650 mg 08/17/24 09:29 Acetaminophen 325 Mg Tablet PO Q6H PRN PRN Pain 1-10 Or Fever >100.7 Aspirin 81 mg 08/18/24 08:00 Aspirin 81 Mg Tab.Chew PO DAILY@0800 [facility] Furosemide 40 mg 08/18/24 08:00 Furosemide 40 Mg Tablet PO DAILY@0800 [facility] Protocol Hydralazine HCl 5 mg 08/17/24 09:29 Hydralazine 20 Mg/Ml Vial IV 08/18/24 09:29 Q30M PRN maintain BP parameters with HR <60 Sodium Chloride 250 mls @ 15 mls/hr 08/17/24 09:37 IV .[id number] PRN Additional IVPB Infusion Sodium Chloride 250 mls @ 15 mls/hr 08/17/24 09:37 IV .[id number] PRN Saline Flush Labetalol HCl 10 - 20 mg 08/17/24 09:29 Labetalol (Prefilled) 20 Mg/4 Ml IV 08/18/24 09:29 Q10M PRN PRN maintain BP parameters with HR >/=60 Losartan Potassium 25 mg 08/17/24 10:00 08/17/24 11:21 Losartan Potassium 25 Mg Tablet PO Not Given DAILY ERICA Protocol Metoprolol Tartrate 100 mg 08/17/24 10:00 08/17/24 11:17 Metoprolol Tartrate 100 Mg Tablet PO 100 mg BID ERICA Administration Protocol Ondansetron HCl 4 mg 08/17/24 09:29 Ondansetron 4 Mg/2 Ml Vial IV Q8H PRN PRN NAUSEA/VOMITING Potassium Chloride 20 meq 08/17/24 10:00 08/17/24 11:23 Potassium Chloride Oral Tablet 20 Meq PO 20 meq DAILY ERICA Administration Rosuvastatin Calcium 20 mg 08/17/24 22:00 Rosuvastatin 20 Mg Tablet PO QHS ERICA Sodium Chloride 10 - 40 ml 08/17/24 09:37 0.9% Saline Lock 10 Ml Syringe IV UD PRN SALINE FLUSH
--- NOTE | 2024-08-17 16:38 | DCINST_ITS ---
Discharge Instructions Diet Discharge Diet: No restrictions Activity Discharge Activity: Return to Normal Activity Weight Bearing Status: Full weight bearing Follow Up Care Test Results: Test results from this visit will be discussed in further detail at your follow- up appointment, if applicable. Discharge Plan Admission Admit Date/Time: 08/17/24 09:03 Primary Reason for Your Visit: TIA, lightheadedness Attending Provider: Kyree Aldridge Primary Care Provider: Lul Domínguez Consulting Providers: Kory Vaca; Kellie Amaya; Bethany Maldonado; Penny Chance; Lali Steven; James Spain; Tana Casper; Eliecer Robertson; Rajiv Bedoya; Jaime Novoa; Vanessa Perez; Branden Ba; Renata Mena; Cosmo Gutierrez; Anne-Marie Hummel; Tad Sorensen; Loulou Kauffman; Michael Rico; Jocelyn Reeves; Jose Francisco Eduardo Discharge Orders/Prescriptions Prescriptions: Continued [id number]-Mn [id number] mg-mg-unit capsule 1 cap PO .twice daily Myrbetriq 50 mg tablet extended release 24 hr 50 mg PO DAILY Patient Comments: take 1 tablet by mouth once daily alendronate 70 mg tablet 70 mg PO QWEEK Patient Comments: take 1 tablet by mouth every week Women's Probiotic 25B cell-25B cell-50 mg capsule 1 cap PO BID ascorbic acid (vitamin C) 500 mg capsule 500 mg PO DAILY AZO D-Mannose 500 mg capsule 1,000 mg PO BID aspirin 81 MG tablet,chewable 81 mg PO DAILY@0800 multivit with min-folic acid [Women's Multivitamin Gummies] 200 mcg tablet,chewable 2 tab PO DAILY warfarin 4 mg tablet 4 mg PO DAILY Protocol: Dose Management Condition: Saturday Dose/Route: 4 mg Instruction: 1 x 4 mg tablet Condition: Saturday Dose/Route: 2 mg Instruction: 1 x 2 mg tablet Condition: Saturday Dose/Route: 4 mg Instruction: 1 x 4 mg tablet Condition: Saturday Dose/Route: 4 mg Instruction: 1 x 4 mg tablet Condition: Dose/Route: 4 mg Instruction: 1 x 4 mg tablet Condition: Saturday Dose/Route: 4 mg Instruction: 1 x 4 mg tablet Condition: Saturday Dose/Route: 4 mg Instruction: 1 x 4 mg tablet Protocol Text: Adjustment Start Date: Saturday07/29/24 INR Value: 3.1 INR Date: 07/29/24 Recheck Date: 08/28/24 Patient Comments: LAST DOSE 12/11 Rx Instructions: one tablet daily except on Sunday 11/19 a tablet (2mg) losartan 25 mg tablet 25 mg PO DAILY Qty: 30 11RF potassium chloride 20 mEq tablet extended release 20 meq PO DAILY Qty: 30 11RF rosuvastatin [Crestor] 20 mg tablet 20 mg PO DAILY Qty: 90 3RF metoprolol tartrate 100 mg tablet 100 mg PO BID Qty: 60 11RF furosemide [Lasix] 40 mg tablet 40 mg PO DAILY Qty: 30 11RF Referrals / Follow Up: Lul Domínguez MD [Primary Care Provider] - See Referral Note (Follow-up at next office visit) Disposition Disposition (needs filled in before D/C Order can be placed): Home, Self Care
--- NOTE | 2024-08-17 16:54 | DS.PCM_ITS ---
Providers Date of Admission: 08/17/24 Date of Discharge: 08/17/24 Primary Care Physician: Dr. Lul Domínguez MD Consultations 08/17/24 09:29 Consult: Tele-Neurology Routine Consulting Provider: [facility] Reason for Consult: Acute Ischemic Stroke/TIA EMERGENT Consult: No Notified: Yes Date Notified: 08/17/24 Time Notified: 09:30 Method of Notification: Answering Service Nursing Unit Staff Notify [facility] of Tele-Neurology Consult: Yes Reason For Visit: SUPERIOR RT HOMONYNOUS QUADRANTANOPSIA Diagnosis Discharge Diagnosis (1) Trouble walking: Status: Acute Code(s): R26.2 - Difficulty in walking, not elsewhere classified Plan 1. Transient ischemic attack #2 chronic atrial fibrillation #3 supratherapeutic INR secondary to Coumadin usage #4 essential hypertension #5 hyperlipidemia #6 cerebrovascular disease Medications at Discharge Home Medications aspirin 81 mg chewable tablet 81 mg PO DAILY@0800 05/16/16 Lactobacillus 25 billion cell-Bifido 25 billion tqjt-SKE-qhkre capsule (Women's Probiotic) 1 cap PO BID 10/29/22 alendronate 70 mg tablet 70 mg PO QWEEK 10/29/22 ascorbic acid (vitamin C) 500 mg capsule 500 mg PO DAILY 10/29/22 d-mannose 500 mg capsule (AZO D-Mannose) 1,000 mg PO BID 10/29/22 glucosamine 500 lj-pycyvmytj-nbzrjblg comp 400 mg-D3 667 unit-C-Mn cap 1 cap PO .twice daily 10/29/22 mirabegron 50 mg tablet,extended release 24 hr (Myrbetriq) 50 mg PO DAILY 10/29/22 losartan 25 mg tablet 25 mg PO DAILY #30 tabs 09/18/23 potassium chloride 20 mEq tablet,extended release 20 meq PO DAILY #30 tabs 09/25/23 rosuvastatin 20 mg tablet (Crestor) 20 mg PO DAILY #90 tabs 10/30/23 multivitamin with minerals-folic acid 200 mcg chewable tablet (Women's Multivitamin Gummies) 2 tab PO DAILY 12/04/23 warfarin 4 mg tablet 4 mg PO DAILY 12/04/23 metoprolol tartrate 100 mg tablet 100 mg PO BID #60 tabs 12/26/23 furosemide 40 mg tablet (Lasix) 40 mg PO DAILY #30 tabs 01/02/24 Hospital Course Operations None Procedures 2-D Echocardiogram Summary of Care Provided Minutes Spent on Discharge: 32 Hospital Course: This 84-year-old white female was seen in the emergency room at [facility] with complaints of difficulty walking with lightheadedness. A stroke team was called and the patient was evaluated using imaging studies (brain CT and CTA of the head and neck) CT of the brain showed evidence of old strokes, there is no evidence of bleed and the patient was not given tenecteplase as it was not recommended by teleneurology and the patient was out of the window for this medication and she was also on Coumadin with a supratherapeutic INR. There was discussion with the emergency room physician and myself, the emergency room physician felt that the patient had a visual field defect, in talking with the patient she denied this. Patient was placed into observation status on PCU and shortly thereafter underwent an MRI of the brain which showed evidence of small strokes but no acute stroke. Patient was seen by PT who did not feel the patient had any needs for continued physical therapy. I had a long discussion with the patient and her daughter concerning switching from Coumadin to a factor X inhibitor such as Xarelto or Eliquis, I had called the patient's pharmacy and confirmed that Eliquis would be approximately $42 per month, patient preferred to stay on Coumadin and I asked her to have her INR repeated in 24 hours and to stay off her warfarin. On 08/17/2024, patient was seen and examined: On examination she appeared in good health and spirits, she does not appear to be in any distress. Vital signs as documented. Skin warm and dry and without overt rashes. Neck without JVD, thyroid appears normal, trachea is midline, neck is supple. Lungs clear, normal air movement was noted. Heart exam notable for irregular rhythm, normal sounds and absence of murmurs, rubs or gallops. Abdomen unremarkable and without evidence of organomegaly, masses, or abdominal aortic enlargement, bowel sounds are present in all 4 quadrants, no abdominal tenderness was noted. Extremities nonedematous, no cyanosis was noted, no clubbing was noted. Neuro: Cranial nerves II through XII are grossly intact, no focal motor deficits were noted, sensation to light touch and pinprick is intact, motor exam 5/5 throughout. Psych: Patient is alert and oriented x3, she does not appear anxious or depressed, she does not appear agitated. Patient was discharged home in stable condition on 08/17/2024 Weight / BMI Weight Weight: 79.8 kg Body Mass Index (BMI) 31.1 ABG / Lab / Microbiology Data 08/17/24 06:55 08/17/24 06:55 Laboratory: Laboratory Results - last 24 hr 08/17/24 06:55: WBC 6.7, RBC 4.65, Hgb 14.3, Hct 43.5, MCV 93.5, MCH 30.8, MCHC 32.9, RDW Std Deviation 46.5 H, RDW Coeff of Rocael 13.6, Plt Count 189, MPV 10.2, Immature Gran % (Auto) 0.500, Neut % (Auto) 68.1, Lymph % (Auto) 18.0 L, Curry % (Auto) 7.5, Eos % (Auto) 4.5, Baso % (Auto) 1.4 H, Absolute Neuts (auto) 4.5, Absolute Lymphs (auto) 1.20, Nucleated RBC % 0, Sodium 140, Potassium 3.9, Chloride 104, Carbon Dioxide 27.0, Anion Gap 10, BUN 12, Creatinine 0.98, Estim Creat Clear Calc 43.92, Est GFR (MDRD) Af Amer 69, Est GFR (MDRD) Non-Af 57 L, BUN/Creatinine Ratio 12.2, Glucose 129 H, Calcium 9.1, Troponin I High Sens 28 08/17/24 07:20: PT 41.9 H, INR 4.4 H*, APTT 47.0 H 08/17/24 07:23: POC Glucose 109 H 08/17/24 07:46: Urine Color Yellow, Urine Clarity Clear, Urine pH 7.0, Ur Specific [place] 1.010, Urine Protein 15 H, Urine Glucose (UA) Normal, Urine Ketones Negative, Urine Occult Blood 10 H, Urine Nitrite Negative, Urine Bilirubin Negative, Urine Urobilinogen Normal, Ur Leukocyte Esterase 100 H, Urine RBC 0-5 SEEN, Urine WBC 5-10 SEEN, Ur Squamous Epith Cells 5-10 SEEN, Urine Bacteria RARE, Urine Mucus 0 SEEN Radiography Diagnostic Testing: Radiology Impression Brain CT 08/17/24 07:05 IMPRESSION: No CT evidence of acute intracranial hemorrhage. 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 MRI could further assess for acute infarct as clinically indicated. N.B. : The above Results were Read Back by Branden Cage MD to Demian Young MD, and understanding confirmed on 08/17/2024 07:28:12 (ET). Electronically Signed: Branden Cage MD at 7:29 EDT , ADDENDUM: 08/17/24 0736 IMPRESSION: No CT evidence of acute intracranial hemorrhage. 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 MRI could further assess for acute infarct as clinically indicated. N.B. : The above Results were Read Back by Branden Cage MD to Demian Young MD, and understanding confirmed on 08/17/2024 07:28:12 (ET). Electronically Signed: Branden Cage MD at 7:29 EDT , Head/Neck CTA 08/17/24 07:06 IMPRESSION: No CT evidence of cervical or proximal intracranial vascular occlusion or focal flow-limiting stenosis. 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 N.B. : The above Results were Read Back by Branden Cage MD to Demian Young MD, and understanding confirmed on 08/17/2024 07:43:50 (ET). Electronically Signed: Branden Cage MD at 7:47 EDT , ADDENDUM: 08/17/24 0754 IMPRESSION: No CT evidence of cervical or proximal intracranial vascular occlusion or focal flow-limiting stenosis. 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 N.B. : The above Results were Read Back by Branden Cage MD to Demian Young MD, and understanding confirmed on 08/17/2024 07:43:50 (ET). Electronically Signed: Branden Cage MD at 7:47 EDT , Chest X-Ray 08/17/24 07:40 IMPRESSION: No acute cardiopulmonary process identified. Electronically Signed: Jannet Montana MD at 8:04 EDT , Brain MRI 08/17/24 09:29 IMPRESSION: Involutional changes of the brain, as described above. No acute infarct. Electronically Signed: Saurav Prajapati MD at 13:21 EDT , Echocardiogram 08/17/24 09:29 Interpretation Summary The estimated ejection fraction is 70 %. Unable to assess diastolic dysfunction. There is moderate biatrial dilatation. Ordering Physician: Kyree Aldridge Performed By: Bryan Montanez RCS D/C Instructions Discharge Diet: No restrictions Weight Bearing Status: Full weight bearing Meaningful Use Info Meaningful Use Meaningful Use Diagnoses (Choose all that apply): None applicable Ischemic Stroke Statin Dosing Therapy Reference: STATIN DOSE THERAPY REFERENCE: * Patients > 75 years receive moderate or high dose statin therapy. * Patients 75 years or YOUNGER should receive HIGH intensity statin dose unless contraindicated. You will be required to document reason for non-treatment if statin daily dose does not meet guidelines. HIGH DOSE STATIN THERAPY DAILY Atorvastatin > than or = to 40 mg Rosuvastatin > than or = to 20 mg Amlodipine + Atorvastatin > than or = to 2.5/40 mg Ezetimibe + Simvastatin 10/80 mg Simvastatin 80mg Discharge Plan Admission Admit Date/Time: 08/17/24 09:03 Primary Reason for Your Visit: TIA, lightheadedness Attending Provider: Kyree Aldridge Primary Care Provider: Lul Domínguez Consulting Providers: Kory Vaca; Kellie Amaya; Bethany Maldonado; Penny Chance; Lali Steven; James Spain; Tana Casper; Eliecer Robertson; Rajiv Bedoya; Jaime Novoa; Vanessa Perez; Branden aB; Renata Mena; Cosmo Gutierrez; Anne-Marie Hummel; Tad Sorensen; Loulou Kauffman; Michael Rico; Jocelyn Reeves; Jose Francisco Eduardo Discharge Orders/Prescriptions Prescriptions: Continued uugs-binlcv-efgniign-D3-C-Mn 500-400-667 mg-mg-unit capsule 1 cap PO .twice daily Myrbetriq 50 mg tablet extended release 24 hr 50 mg PO DAILY Patient Comments: take 1 tablet by mouth once daily alendronate 70 mg tablet 70 mg PO QWEEK Patient Comments: take 1 tablet by mouth every week Women's Probiotic 25B cell-25B cell-50 mg capsule 1 cap PO BID ascorbic acid (vitamin C) 500 mg capsule 500 mg PO DAILY AZO D-Mannose 500 mg capsule 1,000 mg PO BID aspirin 81 MG tablet,chewable 81 mg PO DAILY@0800 multivit with min-folic acid [Women's Multivitamin Gummies] 200 mcg tablet,chewable 2 tab PO DAILY warfarin 4 mg tablet 4 mg PO DAILY Protocol: Dose Management Condition: Saturday Dose/Route: 4 mg Instruction: 1 x 4 mg tablet Condition: Saturday Dose/Route: 2 mg Instruction: 0.5 x 4 mg tablets Condition: Saturday Dose/Route: 4 mg Instruction: 1 x 4 mg tablet Condition: Saturday Dose/Route: 4 mg Instruction: 1 x 4 mg tablet Condition: Dose/Route: 4 mg Instruction: 1 x 4 mg tablet Condition: Saturday Dose/Route: 4 mg Instruction: 1 x 4 mg tablet Condition: Saturday Dose/Route: 4 mg Instruction: 1 x 4 mg tablet Protocol Text: Adjustment Start Date: Saturday08/18/24 INR Value: 2.6 INR Date: 08/18/24 Recheck Date: 09/17/24 Patient Comments: LAST DOSE 12/11 Rx Instructions: one tablet daily except on Sunday 11/19 a tablet (2mg) losartan 25 mg tablet 25 mg PO DAILY Qty: 30 11RF potassium chloride 20 mEq tablet extended release 20 meq PO DAILY Qty: 30 11RF rosuvastatin [Crestor] 20 mg tablet 20 mg PO DAILY Qty: 90 3RF metoprolol tartrate 100 mg tablet 100 mg PO BID Qty: 60 11RF furosemide [Lasix] 40 mg tablet 40 mg PO DAILY Qty: 30 11RF Referrals / Follow Up: Lul Domínguez MD [Primary Care Provider] - See Referral Note (Follow-up at next office visit) Disposition Disposition (needs filled in before D/C Order can be placed): Home, Self Care Charges/Coding Visit Charges Inpatient E&M: 14331 Disch Hosp >30min
--- NOTE | 2024-08-17 19:30 | PCM.HP.STD ---
HPI - General General Date of Admission: 08/17/24 Date of Service: 08/17/24 Chief Complaint: Lightheadedness HPI Narrative ERIC CHEN, is a 84 F who presents to the emergency room at [facility] with complaints of lightheadedness that started approximately 1 AM this morning. Patient denied any focal weakness, she denied any visual disturbances. Stroke team was called when the patient reached the emergency room, CT of the brain showed several old infarct and areas, patient was unaware that she never had any history of stroke. CTA of the head and neck showed no large vessel occlusion, teleneurology did not recommend tPA administration. ER physician told me on examination she had visual field defect-patient denied this and stated that the emergency room doctor had examined her to closely and he was not able to make out an area of his face . CBC was unremarkable, patient's chemistry profile was unremarkable. Patient was placed in observation status on PCU, she will be seen by PT and OT, she will have a limited echocardiogram performed due to the fact that she had an echocardiogram approximately a week ago and had a bubble study performed approximately 4 years ago on a previous echo. Patient will undergo an MRI of the brain, she is already on an 81 mg aspirin daily and warfarin. Patient will be seen by teleneurology. [facility] Medical History Wears glasses Post-menopausal Cancer High cholesterol Back pain Non-smoker Shortness of breath on exertion History of Holter monitoring History of echocardiogram History of stress test Cardiology follow-up encounter History of atrial fibrillation Osteoporosis Urinary tract infection with hematuria Aortic root dilatation Nonrheumatic aortic (valve) stenosis Aortic dilatation Essential hypertension History of bicuspid aortic valve Hyperlipidemia Right bundle branch block Home Medications ?Medication ?Instructions ?Recorded ?Last Taken ?Type aspirin 81 mg chewable tablet 81 mg PO DAILY@0800 05/16/16 Unknown History Lactobacillus 25 billion 1 cap PO BID 10/29/22 Unknown History cell-Bifido 25 billion pkoe-AUC-swlng capsule (Women's Probiotic) alendronate 70 mg tablet 70 mg PO QWEEK 10/29/22 Unknown History ascorbic acid (vitamin C) 500 mg 500 mg PO DAILY 10/29/22 Unknown History capsule d-mannose 500 mg capsule (AZO 1,000 mg PO BID 10/29/22 Unknown History D-Mannose) glucosamine 500 1 cap PO .twice daily 10/29/22 Unknown History bp-vsufymezx-lgexones comp 400 mg-D3 667 unit-C-Mn cap mirabegron 50 mg tablet,extended 50 mg PO DAILY 10/29/22 Unknown History release 24 hr (Myrbetriq) losartan 25 mg tablet 25 mg PO DAILY #30 tabs 09/18/23 Unknown Rx potassium chloride 20 mEq 20 meq PO DAILY #30 tabs 09/25/23 Unknown Rx tablet,extended release rosuvastatin 20 mg tablet (Crestor) 20 mg PO DAILY #90 tabs 10/30/23 Unknown Rx multivitamin with minerals-folic 2 tab PO DAILY 12/04/23 Unknown History acid 200 mcg chewable tablet (Women's Multivitamin Gummies) warfarin 4 mg tablet 4 mg PO DAILY 12/04/23 Unknown History metoprolol tartrate 100 mg tablet 100 mg PO BID #60 tabs 12/26/23 Unknown Rx furosemide 40 mg tablet (Lasix) 40 mg PO DAILY #30 tabs 01/02/24 Unknown Rx Allergy/AdvReac Type Severity Reaction Status Date / Time Penicillins Allergy Hives Verified 07/23/24 07:35 Sulfa (Sulfonamide Allergy Hives Verified 07/23/24 07:35 Antibiotics) atorvastatin calcium (From AdvReac Pain in Verified 07/23/24 07:35 Lipitor) joints simvastatin (From Zocor) AdvReac Pain in Verified 07/23/24 07:35 joints Family History Father CAD (coronary artery disease) Mother Cerebral hemorrhage Sister Lung cancer Surgical History History of aortic valve replacement with bioprosthetic valve (~08/24/08) History of bilateral oophorectomy History of tubal ligation History of bunionectomy Social History Smoking Status: Never smoker alcohol intake: never substance use type: does not use caffeine: Yes Type: other Number of servings: 1 ROS Constitutional Constitutional: Denies anorexia, change in weight, chills, fatigue, fever(s), night sweats or weakness Eyes Eyes: Denies blurry vision, change in vision, discharge from eye(s) or eye pain Cardiovascular Cardiovascular: Denies chest pain, claudication, edema or palpitations Respiratory/Chest Respiratory/Chest: Denies cough, hemoptysis, shortness of breath at rest or shortness of breath with exertion Gastrointestinal Gastrointestinal: Denies abdominal pain, constipation, diarrhea, hematemesis, hematochezia, melena, nausea or vomiting Genitourinary Genitourinary: Denies dysuria, hematuria, urinary frequency, urinary hesitancy, urinary incontinence or urinary urgency Musculoskeletal Musculoskeletal: Denies back pain, joint pain, joint stiffness, joint swelling, myalgias or neck pain Neurologic Neurologic: Reports disequilibrium; Denies abnormal gait, abnormal speech, dizziness, focal weakness, headache(s), loss of vision, numbness, other visual disturbances, paresthesias, syncope or tingling Psychiatric Psychiatric: Denies anxiety, cognitive impairment, depression, irritability, mood swings or suicidal ideation Endocrine Endocrinology: Denies change in body appearance, cold intolerance, excessive sweating, heat intolerance, polydipsia or polyuria Hematologic/Lymphatic Hematologic/Lymphatic: Denies none, anemia, easy bleeding, easy bruising or lymphadenopathy Allergic/Immunologic Allergic/Immunologic: Denies rhinitis, urticaria, eczemia or asthma Vital Signs Vital Signs Vital Signs: 08/17/24 06:42 08/17/24 07:05 08/17/24 07:05 Temperature 97.5 F L Temperature Source Oral Pulse Rate 103 H 99 Pulse Strength Respiratory Rate 18 18 Blood Pressure 153/108 H 131/88 H Blood Pressure Mean 123 102 Blood Pressure Source Blood Pressure Position Blood Pressure Location Pulse Ox 98 97 96 Oxygen Delivery Method Room Air Room Air Room Air 08/17/24 07:05 08/17/24 07:33 08/17/24 08:05 Temperature Temperature Source Pulse Rate 108 H 99 98 Pulse Strength Respiratory Rate 16 14 15 Blood Pressure 142/92 H 129/104 H 110/74 Blood Pressure Mean 108 112 86 Blood Pressure Source Blood Pressure Position Blood Pressure Location Pulse Ox 98 97 97 Oxygen Delivery Method Room Air Room Air Room Air 08/17/24 08:26 08/17/24 08:30 08/17/24 09:00 Temperature 98 F Temperature Source Pulse Rate 102 H 98 102 H Pulse Strength Respiratory Rate 14 15 17 Blood Pressure 109/82 H 114/73 126/88 H Blood Pressure Mean 91 86 100 Blood Pressure Source Blood Pressure Position Blood Pressure Location Pulse Ox 97 97 98 Oxygen Delivery Method Room Air Room Air 08/17/24 09:32 08/17/24 09:52 08/17/24 11:00 Temperature 97.7 F L Temperature Source Oral Pulse Rate 108 H Pulse Strength Normal (2+) Respiratory Rate 18 Blood Pressure 141/100 H Blood Pressure Mean 113 Blood Pressure Source Monitor Blood Pressure Position Semi-Fowlers Blood Pressure Location Left Arm Pulse Ox 96 Oxygen Delivery Method Room Air Room Air 08/17/24 11:13 08/17/24 11:17 08/17/24 11:18 Temperature Temperature Source Pulse Rate 123 H 123 H Pulse Strength Respiratory Rate Blood Pressure 131/89 H Blood Pressure Mean 103 Blood Pressure Source Monitor Blood Pressure Position Semi-Fowlers Blood Pressure Location Left Arm Pulse Ox Oxygen Delivery Method Room Air 08/17/24 13:27 Temperature 97.7 F L Temperature Source Oral Pulse Rate 99 Pulse Strength Respiratory Rate 17 Blood Pressure 112/72 Blood Pressure Mean 85 Blood Pressure Source Monitor Blood Pressure Position Semi-Fowlers Blood Pressure Location Left Arm Pulse Ox 95 Oxygen Delivery Method Room Air Weight Weight: 79.8 kg Body Mass Index (BMI) 31.1 Physical Exam Const alert, oriented x3, no apparent distress, average body habitus and healthy appearing General Appearance: cooperative, well kempt and well developed Orientation / Consciousness: awake, oriented to person, oriented to place and oriented to time HEENT normocephalic, head/scalp atraumatic and moist oral mucous membranes Eyes PERRL, EOMs intact bilaterally and conjunctivae normal Neck supple, no JVD, thyroid normal and no carotid bruits General: trachea midline Resp normal respiratory effort, no retractions and clear to auscultation bilaterally Auscultation: Negative for rales, rhonchi or wheezes Cardio S1 normal heart sound, S2 normal heart sound, no murmurs, no rub and no gallops Cardio Narrative: Heart rate and rhythm is irregular GI normal to inspection, nondistended, normoactive bowel sounds, soft to palpation, non-tender and non-distended Extremity no clubbing, cyanosis or edema Skin no rashes or lesions noted General Skin Exam: no breakdown Neuro oriented x3, CN's II-XII intact bilaterally, no focal motor deficits and no sensory deficits noted Sensorium / Orientation: awake and alert Speech: speech normal Psych affect normal Results Lab / Micro Data 08/17/24 06:55 08/17/24 06:55 Labs: Laboratory Results - last 24 hr 08/17/24 06:55: WBC 6.7, RBC 4.65, Hgb 14.3, Hct 43.5, MCV 93.5, MCH 30.8, MCHC 32.9, RDW Std Deviation 46.5 H, RDW Coeff of Rocael 13.6, Plt Count 189, MPV 10.2, Immature Gran % (Auto) 0.500, Neut % (Auto) 68.1, Lymph % (Auto) 18.0 L, [place] % (Auto) 7.5, Eos % (Auto) 4.5, Baso % (Auto) 1.4 H, Absolute Neuts (auto) 4.5, Absolute Lymphs (auto) 1.20, Nucleated RBC % 0, Sodium 140, Potassium 3.9, Chloride 104, Carbon Dioxide 27.0, Anion Gap 10, BUN 12, Creatinine 0.98, Estim Creat Clear Calc 43.92, Est GFR (MDRD) Af Amer 69, Est GFR (MDRD) Non-Af 57 L, BUN/Creatinine Ratio 12.2, Glucose 129 H, Calcium 9.1, Troponin I High Sens 28 08/17/24 07:20: PT 41.9 H, INR 4.4 H*, APTT 47.0 H 08/17/24 07:23: POC Glucose 109 H 08/17/24 07:46: Urine Color Yellow, Urine Clarity Clear, Urine pH 7.0, Ur Specific [place] 1.010, Urine Protein 15 H, Urine Glucose (UA) Normal, Urine Ketones Negative, Urine Occult Blood 10 H, Urine Nitrite Negative, Urine Bilirubin Negative, Urine Urobilinogen Normal, Ur Leukocyte Esterase 100 H, Urine RBC 0-5 SEEN, Urine WBC 5-10 SEEN, Ur Squamous Epith Cells 5-10 SEEN, Urine Bacteria RARE, Urine Mucus 0 SEEN Imaging Radiology Impression Brain CT 08/17/24 07:05 IMPRESSION: No CT evidence of acute intracranial hemorrhage. 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 MRI could further assess for acute infarct as clinically indicated. N.B. : The above Results were Read Back by Branden Cage MD to Demian Young MD, and understanding confirmed on 08/17/2024 07:28:12 (ET). Electronically Signed: Branden Cage MD at 7:29 EDT , ADDENDUM: 08/17/24 0736 IMPRESSION: No CT evidence of acute intracranial hemorrhage. 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 MRI could further assess for acute infarct as clinically indicated. N.B. : The above Results were Read Back by Branden Cage MD to Demian Young MD, and understanding confirmed on 08/17/2024 07:28:12 (ET). Electronically Signed: Branden Cage MD at 7:29 EDT Reading Location ID and State: formerly [facility] / [place] Tel , Service support , Head/Neck CTA 08/17/24 07:06 IMPRESSION: No CT evidence of cervical or proximal intracranial vascular occlusion or focal flow-limiting stenosis. 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 N.B. : The above Results were Read Back by Branden Cage MD to Demian Young MD, and understanding confirmed on 08/17/2024 07:43:50 (ET). Electronically Signed: Branden Cage MD at 7:47 EDT , ADDENDUM: 08/17/24 0754 IMPRESSION: No CT evidence of cervical or proximal intracranial vascular occlusion or focal flow-limiting stenosis. 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 N.B. : The above Results were Read Back by Branden Cage MD to Demian Young MD, and understanding confirmed on 08/17/2024 07:43:50 (ET). Electronically Signed: Branden Cage MD at 7:47 EDT , Chest X-Ray 08/17/24 07:40 IMPRESSION: No acute cardiopulmonary process identified. Electronically Signed: Jannet Montana MD at 8:04 EDT , Brain MRI 08/17/24 09:29 IMPRESSION: Involutional changes of the brain, as described above. No acute infarct. Electronically Signed: Saurav Prajapati MD at 13:21 EDT , Echocardiogram 08/17/24 09:29 Interpretation Summary The estimated ejection fraction is 70 %. Unable to assess diastolic dysfunction. There is moderate biatrial dilatation. Ordering Physician: Kyree Aldridge Performed By: Bryan Montanez RCS Assessment & Plan Assessment/Plan (1) Trouble walking: PLAN: Plan 1. Ataxia with lightheadedness-patient will be placed in observation status on PCU, she will be seen by PT and OT, NIH scores will be monitored, patient will undergo an MRI of the brain without contrast, she will have a limited echocardiogram due to the fact that she had a recent echocardiogram performed approximately a week ago. #2 chronic atrial fibrillation-patient will remain on her current medications, she will be monitored on telemetry #3 chronic use of anticoagulation-patient is on Coumadin chronically, her INR is elevated, Coumadin will be held #4 essential hypertension-patient will remain on her current medications Total clinical time spent by myself addressing the patient's medical issues, reviewing all of her data, and collaborating with patient's care team: 55 minutes Charges/Coding Visit Charges Inpatient E&M: 55061 Init Hosp L2
== END 2024-08-17 16:54 | disposition home or self-care (01) ==
LOC: ED 07:50 → PCU 08:55
PROVIDERS: Admitting Provider Internal Medicine; Emergency Provider Emergency Medicine; PCP Family Medicine; Visit Provider Internal Medicine
DX: G45.9 Transient cerebral ischemic attack, unspecified (principal); I48.20 Chronic atrial fibrillation, unspecified; R27.0 Ataxia, unspecified; R42 Dizziness and giddiness; Z79.01 Long term (current) use of anticoagulants; E78.00 Pure hypercholesterolemia, unspecified; I10 Essential (primary) hypertension; Z95.2 Presence of prosthetic heart valve; D68.9 Coagulation defect, unspecified; Z79.82 Long term (current) use of aspirin; Z79.899 Other long term (current) drug therapy; H53.461 Homonymous bilateral field defects, right side; I45.10 Unspecified right bundle-branch block; R94.31 Abnormal electrocardiogram [ECG] [EKG]; E87.6 Hypokalemia
CPT/HCPCS: 70450; 70496; 70498; 70551; 71045; 80048; 81001; 82962; 84484; 85025; 85610; 85730; 93005; 93308; 97802; 99221; 99285; Q9957; Q9967; A4216; C8924; G0378

== ENCOUNTER 2024-09-15 08:07 | Outpatient (RCR) | payer MEDICARE, SELFPAY ==
[2024-08-18 10:11] LABS: International Normalized Ratio 2.6; Prothrombin Time (Protime)PT. 27.3 SECONDS (11.7-14.9)
[2024-09-15 10:28] LABS: International Normalized Ratio 2.9; Prothrombin Time (Protime)PT. 29.8 SECONDS (11.7-14.9)
== END 2024-09-15 18:00 | disposition home or self-care (01) ==
LOC: MTLAB 08:07
PROVIDERS: PCP Family Medicine; Referring Provider Nurse Practitioner Gerontology; Visit Provider Nurse Practitioner Gerontology
DX: I48.91 Unspecified atrial fibrillation (principal); Z79.01 Long term (current) use of anticoagulants
CPT/HCPCS: 36415; 85610

== ENCOUNTER 2024-10-13 07:56 | Outpatient (RCR) | payer MEDICARE, SELFPAY ==
[2024-10-13 10:12] LABS: International Normalized Ratio 3.1; Prothrombin Time (Protime)PT. 31.9 SECONDS (11.7-14.9)
== END 2024-10-17 18:00 | disposition home or self-care (01) ==
LOC: MTLAB 07:56
PROVIDERS: PCP Family Medicine; Referring Provider Nurse Practitioner Gerontology; Visit Provider Nurse Practitioner Gerontology
DX: I48.91 Unspecified atrial fibrillation (principal); Z79.01 Long term (current) use of anticoagulants
CPT/HCPCS: 36415; 85610

== ENCOUNTER 2024-11-09 07:39 | Outpatient (RCR) | payer MEDICARE, SELFPAY ==
[2024-11-09 10:27] LABS: International Normalized Ratio 3.2; Prothrombin Time (Protime)PT. 32.2 SECONDS (11.7-14.9)
== END 2024-11-09 18:00 | disposition home or self-care (01) ==
LOC: MTLAB 07:39
PROVIDERS: PCP Family Medicine; Referring Provider Nurse Practitioner Gerontology; Visit Provider Nurse Practitioner Gerontology
DX: I48.91 Unspecified atrial fibrillation (principal); Z79.01 Long term (current) use of anticoagulants
CPT/HCPCS: 36415; 85610

== ENCOUNTER → 2024-12-02 | Outpatient (CLI) | payer MEDICARE, SELFPAY ==
[2024-12-02 10:08] LABS: Absolute Neutrophil Count 5.1 X10^3/uL (2.0-7.7); Basophil% 1.3 % (0-1); Eosinophil# 0.25 X10^3/uL; Eosinophils% 3.3 % (0-5); Hematocrit 44.2 % (37-47); Hemoglobin 14.6 g/dL (12.0-15.0); Lymphocyte % 18.3 % (19-41); Mean Corpuscular Hgb 31.4 pg (27.0-32.0); Mean Corpuscular Volume 95.1 fL (81-99); Mean Platelet Vol. 10.5 fl (6.2-12.0); Monocyte# 0.76 X10^3/uL; NRBC Flagged by Analyzer 0 % (0-5); Neutrophil % 66.8 % (47-70); Platelet Count 191 K/mm3 (150-450); RBC Distribution Width CV 13.7 % (11.6-14.6); RBC Distribution Width SD 47.7 fl (35.1-43.9); Red Blood Count 4.65 M/mm3 (4.2-5.4); White Blood Count 7.6 K/mm3 (4.4-11.0)
[2024-12-02 10:22] LABS: Vitamin D,25 Hydroxy 43.7 ng/mL
[2024-12-02 10:44] LABS: AST(SGOT) 41 U/L (15-37); Alanine Aminotransfer ALT/SGPT 46 U/L (13-56); Albumin, Serum 3.6 g/dL (3.2-5.0); Alkaline Phosphatase 146 U/L (45-117); Anion Gap 5 (5-15); BUN 16 mg/dL (7-18); BUN/Creat Ratio 16.6 RATIO (10-20); Calcium,Total 9.4 mg/dL (8.5-10.1); Chloride 104 mmol/L (98-107); Cholesterol 136 mg/dL (200); Creatinine, Serum 0.96 mg/dL (0.55-1.02); EST Glomerular Filtration Rate 59 mL/min (>60); Est Glom Filt Rate - Afr Amer 71 mL/min (>60); Globulin 3.7 g/dL (2.2-4.2); Glucose 115 mg/dL (74-106); High Density Lipoprotein 52 mg/dL; Magnesium 2.6 mg/dL (1.6-2.6); Potassium 3.9 mmol/L (3.5-5.1); Protein, Total 7.3 g/dL (6.4-8.2); Sodium Level 138 mmol/L (136-145); Triglycerides 161 mg/dL; Very Low Density Lipoprotein 32 mg/dL (5-40)
[2024-12-02 12:29] LABS: Hemoglobin A1c 6.4 % (3.8-5.6)
== END | disposition home or self-care (01) ==
LOC: MTLAB 08:01
PROVIDERS: PCP Family Medicine; Referring Provider Family Medicine; Visit Provider Family Medicine
DX: R73.02 Impaired glucose tolerance (oral) (principal); I48.91 Unspecified atrial fibrillation; I10 Essential (primary) hypertension; M81.0 Age-related osteoporosis without current pathological fracture
CPT/HCPCS: 36415; 80053; 80061; 82306; 83036; 83735; 85025

== ENCOUNTER 2024-12-07 08:20 | Outpatient (RCR) | payer MEDICARE, SELFPAY ==
[2024-12-07 10:41] LABS: International Normalized Ratio 3.1
== END 2024-12-07 18:00 | disposition home or self-care (01) ==
LOC: MTLAB 08:20
PROVIDERS: PCP Family Medicine; Referring Provider Nurse Practitioner Gerontology; Visit Provider Nurse Practitioner Gerontology
DX: I48.91 Unspecified atrial fibrillation (principal); Z79.01 Long term (current) use of anticoagulants

== ENCOUNTER 2025-01-04 08:05 | Outpatient (RCR) | payer MEDICARE, SELFPAY ==
[2025-01-04 10:57] LABS: International Normalized Ratio 2.8; Prothrombin Time (Protime)PT. 29.7 SECONDS (11.7-14.9)
== END 2025-01-15 18:00 | disposition home or self-care (01) ==
LOC: MTLAB 08:05
PROVIDERS: PCP Family Medicine; Referring Provider Nurse Practitioner Gerontology; Visit Provider Nurse Practitioner Gerontology
DX: Z79.01 Long term (current) use of anticoagulants; I48.20 Chronic atrial fibrillation, unspecified
CPT/HCPCS: 36415; 85610

== ENCOUNTER 2025-03-01 08:11 | Outpatient (RCR) | payer MEDICARE, SELFPAY ==
[2025-03-01 11:18] LABS: International Normalized Ratio 3.2; Prothrombin Time (Protime)PT. 33.5 SECONDS (11.7-14.9)
== END 2025-03-17 18:00 | disposition home or self-care (01) ==
LOC: MTLAB 08:11
PROVIDERS: PCP Family Medicine; Referring Provider Nurse Practitioner Gerontology; Visit Provider Nurse Practitioner Gerontology
DX: I48.20 Chronic atrial fibrillation, unspecified (principal); Z79.01 Long term (current) use of anticoagulants
CPT/HCPCS: 36415; 85610

== ENCOUNTER 2025-03-29 07:52 | Outpatient (RCR) | payer MEDICARE, SELFPAY ==
[2025-03-29 10:02] LABS: International Normalized Ratio 3.2; Prothrombin Time (Protime)PT. 33.1 SECONDS (11.7-14.9)
== END 2025-03-29 18:00 | disposition home or self-care (01) ==
LOC: MTLAB 07:52
PROVIDERS: PCP Family Medicine; Referring Provider Nurse Practitioner Gerontology; Visit Provider Nurse Practitioner Gerontology
DX: Z79.01 Long term (current) use of anticoagulants; I48.20 Chronic atrial fibrillation, unspecified
CPT/HCPCS: 36415; 85610

== ENCOUNTER 2025-04-26 07:30 | Outpatient (RCR) | payer MEDICARE, SELFPAY ==
[2025-04-26 10:13] LABS: International Normalized Ratio 3.1; Prothrombin Time (Protime)PT. 32.5 SECONDS (11.7-14.9)
== END 2025-04-26 18:00 | disposition home or self-care (01) ==
LOC: MTLAB 07:30
PROVIDERS: PCP Family Medicine; Referring Provider Nurse Practitioner Gerontology; Visit Provider Nurse Practitioner Gerontology
DX: Z79.01 Long term (current) use of anticoagulants; I48.20 Chronic atrial fibrillation, unspecified
CPT/HCPCS: 36415; 85610

== ENCOUNTER 2025-05-24 07:38 | Outpatient (RCR) | payer MEDICARE, SELFPAY ==
[2025-05-24 10:45] LABS: Prothrombin Time (Protime)PT. 33.4 SECONDS (11.7-14.9)
== END 2025-06-17 18:00 | disposition home or self-care (01) ==
LOC: MTLAB 07:38
PROVIDERS: PCP Family Medicine; Referring Provider Nurse Practitioner Gerontology; Visit Provider Nurse Practitioner Gerontology
DX: Z79.01 Long term (current) use of anticoagulants; I48.20 Chronic atrial fibrillation, unspecified
CPT/HCPCS: 36415; 85610

== ENCOUNTER 2025-07-05 08:37 | Outpatient (RCR) | payer MEDICARE, SELFPAY ==
[2025-06-21 10:58] LABS: Prothrombin Time (Protime)PT. 37.9 SECONDS (11.7-14.9)
[2025-07-05 10:41] LABS: Prothrombin Time (Protime)PT. 35.3 SECONDS (11.7-14.9)
== END 2025-07-05 18:00 | disposition home or self-care (01) ==
LOC: MTLAB 08:37
PROVIDERS: Nurse Practitioner Family; PCP Family Medicine; Referring Provider Nurse Practitioner Gerontology; Visit Provider Nurse Practitioner Gerontology
DX: I48.20 Chronic atrial fibrillation, unspecified (principal); Z79.01 Long term (current) use of anticoagulants
CPT/HCPCS: 36415; 85610

== ENCOUNTER 2025-07-26 07:58 | Outpatient (RCR) | payer MEDICARE, SELFPAY ==
[2025-07-26 11:02] LABS: Prothrombin Time (Protime)PT. 34.6 SECONDS (11.7-14.9)
== END 2025-08-17 18:00 | disposition home or self-care (01) ==
LOC: MTLAB 07:58
PROVIDERS: PCP Family Medicine; Referring Provider Nurse Practitioner Gerontology; Visit Provider Nurse Practitioner Gerontology
DX: I48.91 Unspecified atrial fibrillation (principal); Z79.01 Long term (current) use of anticoagulants
CPT/HCPCS: 36415; 85610

== ENCOUNTER → 2025-08-02 | Outpatient (CLI) | payer MEDICARE, SELFPAY | END | disposition home or self-care (01) | LOC: PSN 08:38 | PROVIDERS: PCP Family Medicine; Referring Provider Student in an Organized Health Care Education/Training Program; Visit Provider Student in an Organized Health Care Education/Training Program | DX: I48.91 Unspecified atrial fibrillation (principal) | CPT/HCPCS: 93225; 93226 ==

== ENCOUNTER → 2025-08-19 | Outpatient (CLI) | payer MEDICARE, SELFPAY ==
--- NOTE | 2025-08-19 12:28 | ECHOD_ITS ---
Reason For Study : PROSTHETIC HEART VALVE Procedure This was a 2D Doppler, Color Flow transthoracic echocardiogram. Exam performed in department. Left Ventricle Normal LV size. The left ventricular ejection fraction is 55 %. No regional wall motion abnormalities noted. Right Ventricle Normal RV size. Normal systolic function. Atria The left atrium is moderately enlarged. The right atrium is moderately enlarged. Mitral Valve Normal mitral valve. Trivial eccentric mitral valve insufficiency. Tricuspid Valve Normal tricuspid valve. Moderate (2+) tricuspid valve insufficiency. Pulmonary artery systolic pressure is 50 mmHg. Moderate pulmonary hypertension. Aortic Valve Peak aortic valve gradient 12 mmHg. Mean aortic valve gradient 7 mmHg. Bioprosthetic aortic valve. Pulmonic Valve Normal pulmonic valve. Great Vessels Normal aortic root. The pulmonary artery is normal size. Inferior vena cava collapse with respiration. Pericardium/Pleural No pericardial effusion. MMode/2D Measurements & Calculations LVIDd: 4.3 cm IVSd: 0.82 cm LVOT diam: 2.0 cm LVIDs: 2.9 cm LVPWd: 0.73 cm LVOT area: 3.0 cm2 RVDd: 3.2 cm FS: 32.6 % Ao root diam: 3.1 cm LAV(MOD-bp): 70.0 ml LVAd ap4: 17.1 cm2 LAV(MOD-bp) Indexed: 38.8 ml/m2 LVLd ap4: 6.3 cm LAV(MOD-sp2): 67.0 ml EDV(MOD-sp4): 40.0 ml LAV(MOD-sp4): 63.0 ml EDV(sp4-el): 39.7 ml LVAs ap4: 10.2 cm2 LVLs ap4: 5.1 cm ESV(MOD-sp4): 18.6 ml ESV(sp4-el): 17.3 ml EF(MOD-sp4): 53.4 % EF(sp4-el): 56.3 % SV(MOD-sp4): 21.4 ml SV(sp4-el): 22.3 ml LA A4 area: 23.5 cm2 SI(MOD-sp4): 11.8 ml/m2 LA dimension(2D): 3.6 cm RA A4 area: 24.9 cm2 TAPSE: 1.4 cm Doppler Measurements & Calculations MV E max antonio: 109.4 cm/sec Ao V2 max: 175.7 cm/sec LV V1 max: 127.4 cm/sec Ao max P.4 mmHg LV V1 max P.6 mmHg Ao V2 mean: 127.8 cm/sec LV V1 mean P.7 mmHg Ao mean P.2 mmHg LV V1 mean: 90.3 cm/sec Ao V2 VTI: 35.5 cm LV V1 VTI: 24.0 cm AV (velocity ratio): 0.68 MATHEW(I,D): 2.1 cm2 MATHEW(V,D): 2.2 cm2 SV(LVOT): 73.1 ml PA V2 max: 56.6 cm/sec TR max antonio: 339.6 cm/sec TR max P.1 mmHg ECHO/Echo Complete Interpretation Summary Normal LV size. The left ventricular ejection fraction is 55 %. The left atrium is moderately enlarged. The right atrium is moderately enlarged. Pulmonary artery systolic pressure is 50 mmHg. Moderate pulmonary hypertension. Bioprosthetic aortic valve. Mean aortic valve gradient 7 mmHg. Ordering Physician: Larry Nolasco Referring Physician: SYL NEWTON Performed By: Adry Sosa RDCS
== END | disposition home or self-care (01) ==
LOC: CVS 12:27
PROVIDERS: PCP Family Medicine; Referring Provider Student in an Organized Health Care Education/Training Program; Visit Provider Student in an Organized Health Care Education/Training Program
DX: Z95.3 Presence of xenogenic heart valve (principal)
CPT/HCPCS: 93306

== ENCOUNTER 2025-09-13 08:43 | Outpatient (RCR) | payer MEDICARE, SELFPAY ==
[2025-08-23 10:21] LABS: Prothrombin Time (Protime)PT. 40.5 SECONDS (11.7-14.9)
[2025-08-23 10:44] LABS: Anion Gap 12 (5-15); BUN 8 mg/dL (4-19); BUN/Creat Ratio 9.8 RATIO (10-20); Calcium,Total 9.2 mg/dL (7.6-11.0); Carbon Dioxide 22.6 mmol/L (21.0-32.0); Chloride 105 mmol/L (98-108); Glucose 117 mg/dL (70-99); Magnesium 2.3 mg/dL (1.5-2.2); Potassium 4.2 mmol/L (3.3-5.1)
[2025-08-30 10:49] LABS: Prothrombin Time (Protime)PT. 30.2 SECONDS (11.7-14.9)
[2025-09-13 10:35] LABS: Prothrombin Time (Protime)PT. 26.9 SECONDS (11.7-14.9)
== END 2025-09-13 18:00 | disposition home or self-care (01) ==
LOC: MTLAB 08:43
PROVIDERS: Student in an Organized Health Care Education/Training Program; PCP Family Medicine; Referring Provider Nurse Practitioner Gerontology; Visit Provider Nurse Practitioner Gerontology
DX: Z79.01 Long term (current) use of anticoagulants; I48.20 Chronic atrial fibrillation, unspecified; R00.2 Palpitations
CPT/HCPCS: 36415; 80048; 83735; 84443; 85610

== ENCOUNTER 2025-10-04 08:18 | Outpatient (RCR) | payer MEDICARE, SELFPAY ==
[2025-10-04 10:36] LABS: Prothrombin Time (Protime)PT. 25.0 SECONDS (11.7-14.9)
== END 2025-10-16 18:00 | disposition home or self-care (01) ==
LOC: MTLAB 08:18
PROVIDERS: PCP Family Medicine; Referring Provider Nurse Practitioner Gerontology; Visit Provider Nurse Practitioner Gerontology
DX: I48.20 Chronic atrial fibrillation, unspecified (principal); Z79.01 Long term (current) use of anticoagulants
CPT/HCPCS: 36415; 85610

== ENCOUNTER → 2025-10-06 | Outpatient (CLI) | payer MEDICARE, SELFPAY ==
--- OUTSIDE RECORDS SUMMARY | 2025-10-06 11:37 | XMS RPT_ITS | CCD ---
Author Organization [facility] Care Team Providers Care Child Protective Services Social Worker Name Role Phone JTE, GRANT E Unavailable Unavailable JET, GRANT E Unavailable Unavailable EJT, GRANT Unavailable Unavailable JET, GRANT Unavailable Unavailable CEBUL, MASON Unavailable Unavailable JET, GRANT Unavailable Unavailable JET, GRANT Unavailable Unavailable CEBUL, MASON Unavailable Unavailable MD Syl Domínguez Primary Care Provider UnavailMD Syl Baltazar Referring Provider Unavailable LEATHA Armijo Attending Provider MD Syl Domínguez Primary Care Provider UnavailMD Syl Baltazar Referring Provider Unavailable Roof REGISTRY RN, REGISTRY RN-C Syl Walton Attending Provider Dr. Syl Domínguez Primary Care Provider Dr. Syl Domínguez Referring Provider [phone] LEATHA Orozco Attending Provider Dr. Syl Domínguez Primary Care Provider Dr. Syl Domínguez Referring Provider LEATHA Orozco Attending Provider Dr. Syl Domínguez Primary Care Provider Dr. Syl Domínguez Referring Provider LEATHA Orozco Attending Provider [phone] MD Syl Domínguez Referring Provider Unavailable Dr. Reuben Ramirez Attending Provider [phone] Syl Domínguez Primary Care Provider Dr. Syl Domínguez Referring Provider [phone] LEATHA Armijo Attending Provider Dr. Syl Domínguez Primary Care Provider Dr. Syl Domínguez Referring Provider 1([facility])[phone] Eulogio REGISTRY RN, REGISTRY RN-C Elizabeth Attending Provider Dr. Mario Orellana Attending Provider 1([facility])-[phone] Syl Domínguez Primary Care Provider 1([facility] )[phone] Dr. Syl Domínguez Referring Provider 1([facility])[phone] Eulogio REGISTRY RN, REGISTRY RN-C Elizabeth Attending Provider Dr. Mario Orellana Attending Provider 1([facility])-[phone] Shyann Ambriz Attending Provider 1([facility] )62 Dr. Silvestre Teran Attending Provider 1([facility])0 Dr. Shyann Ambriz Referring Provider 1([facility] )62 Dr. Syl Domínguez Primary Care Provider 1([facility] )[phone] Eulogio SEGAL, REGISTRY RN-C Elizabeth Attending Provider Dr. Syl Domínguez Referring Provider 1([facility])[phone] Dr. Peter Burgos Attending Provider 1([facility])[phone] Josue ZHANG, [place] Shanell Velez Referring Provider Dr. Syl Domínguez Primary Care Provider 1([facility] )[phone] Eulogio SEGAL, REGISTRY RN-C Elizabeth Attending Provider Dr. Syl Domínguez Primary Care Provider 1([facility] )[phone] Dr. Syl Domínguez Referring Provider 1([facility])[phone] Dr. Shyann Ambriz Attending Provider 1([facility] )62 Dr. Silvestre Teran Attending Provider 1([facility])0 Dr. Shyann Ambriz Referring Provider 1([facility] )[phone] Dr. Peter Burgos Attending Provider 1([facility])[phone] Josue ZHANG, PA Shanell Velez Referring Provider Eulogio SEGAL, REGISTRY RN-C Elizabeth Attending Provider Dr. Syl Domínguez Primary Care Provider Dr. Syl Domínguez Referring Provider Dr. Shyann Ambriz Attending Provider Sang RODRIGUEZ, Dr. Syl Mason Primary Care Provider [phone] Eulogio REGISTRY RN-C, Elizabeth Attending Provider Krishnan REGISTRY RN-C, Elizabeth Referring Provider 1([facility])[phone] Sang RODRIGUEZ, Dr. Syl Mason Attending Provider Sang RODRIGUEZ, Dr. Syl Mason Referring Provider [phone] Reyna RODRIGUEZ, Dr. Martin Attending Provider Sang RODRIGUEZ, Dr. Syl Mason Primary Care Provider [phone] Sang RODRIGUEZ, Dr. Syl Mason Referring Provider [phone] Krishnan REGISTRY RN-C, Elizabeth Attending Provider Krishnan REGISTRY RN-C, Elizabeth Referring Provider 1([facility])[phone] Roof REGISTRY RN-C, Syl Walton Other Provider Sang RODRIGUEZ, Dr. Syl Mason Primary Care Provider Krishnan REGISTRY RN-C, Elizabeth Attending Provider Krishnan REGISTRY RN-C, Elizabeth Referring Provider Sang RODRIGUEZ, Dr. Syl Mason Primary Care Provider Krishnan REGISTRY RN-C, Elizabeth Attending Provider Eulogio REGISTRY RN-C, Elizabeth Referring Provider 1([facility])[phone] Dr. Juanis Jj MD Attending Provider 1([facility])[phone] Sang RODRIGUEZ, Dr. Syl Mason Primary Care Provider [phone] Krishnan REGISTRY RN-C, Elizabeth Attending Provider Krishnan REGISTRY RN-C, Elizabeth Referring Provider Roof REGISTRY RN-C, Syl Walton Other Provider Анна RODRIGUEZ, Dr. Olivarez Attending Provider Sang RODRIGUEZ, Dr. Syl Mason Referring Provider [phone] Larry Martines Attending Provider Sang RODRIGUEZ, Dr. Syl Mason Primary Care Physician Eulogio REGISTRY RN-C, Elizabeth Attending Physician Eulogio REGISTRY RN-C, Elizabeth Referring Provider Meredith REGISTRY RN-C, Syl Walton Nurse Practitioner Анна RODRIGUEZ, Dr. Olivarez Attending Physician Larry Martines Attending Physician Larry Martines Referring Provider Reyna RODRIGUEZ, Dr. Martin Attending Physician Dr. Syl Domínguez MD Primary Care Physician Eulogio REGISTRY RN-C, Elizabeth Attending Physician Eulogio REGISTRY RN-C, Elizabeth Referring Provider Meredith REGISTRY RN-C, Syl Walton Nurse Practitioner Larry Martines Nurse Practitioner Larry Nolasco Referring Unavailable Larry Nolasco Attending Unavailable Schinner, Syl E Primary Care Unavailable Roof REGISTRY RN, Syl H Consulting Unavailable Schinner, Syl E Primary Care Unavailable Elizabeth Krishnan Attending Unavailable Elizabeth Krishnan Referring Unavailable Roof REGISTRY RN, Syl H Consulting Unavailable Elizabeth Krishnan Referring Unavailable Schinner, Syl E Primary Care Unavailable Elizabeth Krishnan Attending Unavailable Elizabeth Krishnan Referring Unavailable Schinner, Syl E Primary Care Unavailable Elizabeth Krishnan Attending Unavailable Elizabeth Krishnan Referring Unavailable Schinner, Syl E Primary Care Unavailable Elizabeth Krishnan Attending Unavailable Roof REGISTRY RN, Syl H Consulting Unavailable Elizabeth Krishnan Referring Unavailable Schinner, Syl E Primary Care Unavailable Elizabeth Krishnan Attending Unavailable Schinner, Syl E Primary Care Unavailable Elizabeth Krishnan Referring Unavailable Elizabeth Krishnan Attending Unavailable Elizabeth Krishnan Referring Unavailable Schinner, Syl E Primary Care Unavailable Elizabeth Krishnan Attending Unavailable Elizabeth Krishnan Referring Unavailable Schinner, Syl E Primary Care Unavailable Elizabeth Krishnan Attending Unavailable Schinner, Syl E Attending Unavailable Schinner, Syl E Primary Care Unavailable Schinner, Syl E Referring Unavailable Roof REGISTRY RN, Syl H Consulting Unavailable Elizabeth Krishnan Attending Unavailable Schinner, Syl E Primary Care Unavailable Elizabeth Krishnan Referring Unavailable DemiterLarry Attending Unavailable Schinner, Syl E Primary Care Unavailable Schinner, Syl E Referring Unavailable Shay Orozco Attending Unavailable Schinner, Syl E Primary Care Unavailable Schinner, Syl E Referring Unavailable Roof REGISTRY RN, Syl H Consulting Unavailable Schinner, Syl E Primary Care Unavailable Elizabeth Krishnan Attending Unavailable Elizabeth Krishnan Referring Unavailable Demiter, Larry Consulting Unavailable Demiter, Larry Referring Unavailable Demiter, Larry Attending Unavailable Schinner, Syl E Primary Care Unavailable Schinner, Syl E Primary Care Unavailable Reyna, Redig Attending Unavailable Schinner, Syl E Referring Unavailable Schinner, Syl E Primary Care Unavailable ReynaRaji mullinsril Attending Unavailable Roof REGISTRY RN, Syl H Consulting Unavailable Elizabeth Krishnan Referring Unavailable Schinner, Syl E Primary Care Unavailable Elizabeth Krishnan Attending Unavailable Roof REGISTRY RN, Syl H Consulting Unavailable Elizabeth Krishnan Attending Unavailable Schinner, Syl E Primary Care Unavailable Elizabeth Krishnan Referring Unavailable Demiter, Larry Consulting Unavailable Roof REGISTRY RN, Syl H Consulting Unavailable Elizabeth Krishnan Attending Unavailable Schinner, Syl E Primary Care Unavailable Elizabeth Krishnan Referring Unavailable Allergies Allergy Classification Reported Allergen(s) Allergy Type Date of Onset Reaction(s) Facility (2 sources) amoxicillin; Translations: [AMOXICILLIN] Drug Allergy 9 [facility] Repository (20 sources) atorvastatin; Translations: [ATORVASTATIN CALCIUM] Drug Allergy 5 [facility], Pain in joints [facility] Repository (2 sources) influenza virus vaccine; Translations: [INFLUENZA VACC,TRI 2002 (LIVE)] Drug Allergy 5 [facility] Repository (20 sources) simvastatin; Translations: [SIMVASTATIN] Drug Allergy 5 [facility], Pain in joints [facility] Repository (20 sources) Sulfonamides (Antibiotic); Translations: [SULFA (SULFONAMIDE ANTIBIOTICS)] Propensity to adverse reactions to drug (disorder) 5 [facility] Repository (20 sources) Penicillins; Translations: [Penicillins] Allergy to substance 2 [facility] Medications Current Medications Medication Drug Class(es) Dates Sig (Normalized) Sig (Original) alendronic acid 70 mg oral tablet (20 sources) Bisphosphonate Start: 10-29-2022 take 1 tablet by mouth every week ascorbic acid 500 mg oral capsule (20 sources) Vitamin C Start: 10-29-2022 take 1 capsule by mouth once daily Cranberry Extract (20 sources) Non-Standardized Food Allergenic Extract, Non-Standardized Plant Allergenic Extract Start: 05-16-2016 take 200 mg by mouth once daily Cranberry Extract Active 200 MG PO DAILY May 16, 2016 6:49am Start: 05-16-2016 End: 10-29-2022 take 1 capsule by mouth once daily Cranberry Extract 200 MG capsule Discontinued 200 mg PO DAILY May 16, 2016 12:00am October 29, 2022 12:01pm Start: 05-16-2016 End: 10-29-2022 take 200 mg by mouth once daily Cranberry Extract Disc ontinued 200 MG PO DAILY May 16, 2016 12:00am October 29, 2022 12:01pm Start: 05-16-2016 End: 10-29-2022 take 200 mg by mouth once daily Cranberry Extract Disc ontinued 200 MG PO DAILY May 15, 2016 11:00pm October 29, 2022 11:01am Start: 05-16-2016 take 200 mg by mouth once david y Cranberry Extract Active 200 MG PO DAILY May 15, 2016 11:00pm Start: 05-16-2016 take 200 mg by mouth once david y Cranberry Extract Active 200 MG PO DAILY May 16, 2016 12:00am D-Mannose (20 sources) Start: 10-29-2022 take 2 capsules by m outh twice daily, then take 1 capsule by mouth once Start: 10-29-2022 take 2 capsules by m outh twice daily, then take 1 capsule by mouth once D-Mannose (Azo D-Mannose) 500 mg capsule Active 1000 mg PO TWICE A DAY October 29, 2022 1:00am Start: 10-29-2022 take 2 capsules by m outh twice daily, then take 1 capsule by mouth once D-Mannose (Azo D-Mannose) 500 mg capsule Active 1000 MG PO TWICE A DAY October 29, 2022 1:00am Start: 10-29-2022 take 2 capsules by m outh twice daily, then take 1 capsule by mouth once D-Mannose (Azo D-Mannose) 500 mg capsule Active 1000 MG PO TWICE A DAY October 29, 2022 12:00am glucosamine 500 va-gagnmygtt-cmsqpzdw comp 400 mg-D3 667 unit-C-Mn cap (20 sources) Start: 10-29-2022 take 1 capsule by mouth twice daily glucosamine 500 ev-efqbrxzzk-hamykjom comp 400 mg-D3 667 unit-C-Mn cap Active 1 CAP PO .twice daily October 29, 2022 11:58am Start: 10-29-2022 take 1 capsule by mo ut twice daily glucosamine 500 ku-aurmjpsyy-ydiupjvv comp 400 mg-D3 667 unit-C-Mn cap Active 1 CAP PO .twice daily October 29, 2022 10:58am Start: 05-06-2019 take 1 capsule by mo ut twice daily glucosamine 500 ub-acaxghhpx-bifxvuee comp 400 mg-D3 667 unit-C-Mn cap Active CAP PO .twice daily May 06, 2019 10:42am Start: 05-06-2019 End: 10-29-2022 take 1 capsule by mouth twice daily glucosamine 500 pg-cobsvolel-jvhqvwph comp 400 mg-D3 667 unit-C-Mn cap Discontinued CAP PO .twice daily May 06, 2019 12:00am October 29, 2022 12:01pm Start: 05-06-2019 End: 10-29-2022 take 1 capsule by mouth twice daily glucosamine 500 sg-ppnhdpetm-rxidygem comp 400 mg-D3 667 unit-C-Mn cap Discontinued CAP PO .twice daily May 05, 2019 11:00pm October 29, 2022 11:01am Start: 05-06-2019 take 1 capsule by [facility] twice daily glucosamine 500 za-rapodfqih-vnbmostz comp 400 mg-D3 667 unit-C-Mn cap Active CAP PO .twice daily May 05, 2019 11:00pm Start: 05-06-2019 take 1 capsule by [facility] twice daily glucosamine 500 qm-luxqsatus-kdaobkhd comp 400 mg-D3 667 unit-C-Mn cap Active CAP PO .twice daily May 06, 2019 12:00am Handicap placard (1 source) Start: 09-01-[address] Active 0 .Route .MEDSUPPLY 1 0 September 01, 2025 12:00am September 01, 2030 12:00am History of aortic valve replacement with bioprosthetic valve Shortness of breath Presence of xenogenic heart valve Shortness of breath Lifetime Lacto No.42-Lgmbmz-Rio-Lar ch (Women's Probiotic) 25B cell-25B cell-50 mg capsule (20 sources) Start: 10-29-2022 take 1 capsule by mouth twice daily Start: 10-29-2022 take 1 capsule by mo uth twice daily Lacto No.28-Dqkiod-Ezr-Larch (Women's Probiotic) 25B cell-25B cell-50 mg capsule Active 1 NMA PO TWICE A DAY October 29, 2022 1:00am Start: 10-29-2022 take 1 capsule by mo uth twice daily Lacto No.27-Grkigl-Htk-Larch (Women's Probiotic) 25B cell-25B cell-50 mg capsule Active 1 CAP PO TWICE A DAY October 29, 2022 1:00am Start: 10-29-2022 take 1 capsule by mo uth twice daily Lacto No.78-Sogwxz-Ore-Larch (Women's Probiotic) 25B cell-25B cell-50 mg capsule Active 1 CAP PO TWICE A DAY October 29, 2022 12:00am Start: 10-29-2022 take 1 capsule by mo uth once daily Lacto No.19-Mmqsoc-Aaw-Larch (Women's Probiotic) 25B cell-25B cell-50 mg capsule Active 1 CAP PO DAILY October 29, 2022 1:00am Start: 10-29-2022 take 1 capsule by mo uth once daily Lacto No.01-Qnpjsr-Gbc-Larch (Women's Probiotic) 25B cell-25B cell-50 mg capsule Active 1 CAP PO DAILY October 29, 2022 12:00am metoprolol tartrate 100 mg oral tablet (20 sources) beta-Adrenergic Karina Start: 12-26-2023 End: 10-28-2024 take 1 tablet by mouth twice daily Start: 12-26-2023 End: 12-26-2023 take 2 tablets by mouth twice daily Metoprolol Tartrate 50 mg tablet Discontinued 100 mg PO TWICE A DAY 60 December 26, 2023 4:23pm December 26, 2023 4:25pm Start: 12-26-2023 End: 12-26-2023 take 100 mg by mouth twice daily Metoprolol Tartrate Discontinued 100 MG PO TWICE A DAY 60 December 26, 2023 4:23pm December 26, 2023 4:25pm Start: 09-18-2023 End: 12-26-2023 take 1 tablet by mouth twice daily Metoprolol Tartrate 50 mg tablet Discontinued 50 mg PO TWICE A DAY 60 September 18, 2023 9:45am December 26, 2023 4:25pm Start: 09-10-2023 End: 09-18-2023 take 2 tablets by mouth twice daily Metoprolol Tartrate 25 mg tablet Discontinued 50 mg PO TWICE A DAY 180 September 10, 2023 3:56pm September 18, 2023 9:47am Start: 09-10-2023 End: 09-18-2023 take 50 mg by mouth twice daily Metoprolol Tartrate Di scontinued 50 MG PO TWICE A DAY 180 September 10, 2023 3:56pm September 18, 2023 9:47am Start: 09-02-2023 End: 09-10-2023 take 1 tablet by mouth twice daily Metoprolol Tartrate 25 mg tablet Discontinued 25 mg PO TWICE A DAY 180 September 02, 2023 10:16am September 10, 2023 3:57pm Start: 05-16-2016 End: 09-02-2023 Metoprolol Tartrate 25 mg ta blet Discontinued 12.5 mg PO TWICE A DAY 90 May 07, 2023 8:20pm September 02, 2023 10:20am Start: 05-16-2016 End: 09-02-2023 take 12.5 mg by mouth twice daily Metoprolol Tartrate Discontinued 12.5 MG PO TWICE A DAY 90 May 07, 2023 8:20pm September 02, 2023 10:20am Multivit With Min-Folic Acid (Women's Multivitamin Gummies) 200 mcg tablet,chewable (18 sources) Start: 12-04-2023 take 1 tablet by patricia th once daily Start: 12-04-2023 take 1 tablet by patricia once daily Multivit With Min-Folic Acid (Women's Multivitamin Gummies) 200 mcg tablet,chewable Active 2 {tbl} PO DAILY December 04, 2023 1:00am Start: 12-04-2023 take 2 tablets by mo [facility] once daily Multivit With Min-Folic Acid (Women's Multivitamin Gummies) 200 mcg tablet,chewable Active 2 TABLET PO DAILY December 04, 2023 1:00am Start: 12-04-2023 take 2 tablets by mo mdh once daily Multivit With Min-Folic Acid (Women's Multivitamin Gummies) 200 mcg tablet,chewable Active 2 TABLET PO DAILY December 04, 2023 12:00am Hgdjlzkmhhzk-Kwn-Zaxp-Fa-Vit K (20 sources) Start: 10-29-2022 take 1 capsule by mouth once daily Woielzpsccht-Vmj-Ejxf-Fa-Vit K Active 1 CAP PO DAILY October 29, 2022 11:58am Start: 10-29-2022 take 1 capsule by mo ut once daily Hkrmoovakdiw-Enb-Zbva-Fa-Vit K Active 1 CAP PO DAILY October 29, 2022 10:58am Start: 05-16-2016 Multivitamin-M qb-Igdm-Sn-Vit K Active 1 EACH PO DAILY May 16, 2016 6:49am Start: 05-16-2016 End: 10-29-2022 Dvltqvmzpzgf-Djx-Htfj-Fa-Vit K Discontinued 1 EACH PO DAILY May 16, 2016 12:00am October 29, 2022 12:01pm Start: 05-16-2016 End: 10-29-2022 Dnbsdxuplufh-Rdb-Pbfn-Fa-Vit K Discontinued 1 EACH PO DAILY May 15, 2016 11:00pm October 29, 2022 11:01am Start: 05-16-2016 Multivitamin-M ii-Alfp-Pb-Vit K Active 1 EACH PO DAILY May 15, 2016 11:00pm Start: 05-16-2016 Multivitamin-M vq-Mghj-Xo-Vit K Active 1 EACH PO DAILY May 16, 2016 12:00am Vibegron (4 sources) Start: 07-23-2025 take 1 tablet by mouth once da marylu Start: 07-23-2025 take 1 tablet by patricia once daily Vibegron (Gemtesa) 75 mg tablet Active 75 mg PO daily July 23, 2025 12:00am Completed/Discontinued Medications Medication Drug Class(es) Dates Sig (Normalized) Sig (Original) aspirin 81 mg chewable tablet (20 sources) Platelet Aggregation Inhibitor, Nonsteroidal Anti-inflammatory Drug Start: 05-16-2016 End: 07-23-2025 take 1 tablet by mouth once daily Aspirin 81 MG tablet,chewable Discontinued 81 mg PO DAILY@0800 May 16, 2016 12:00am July 23, 2025 11:00am azithromycin 250 mg oral tablet (9 sources) Macrolide Antimicrobial Start: 06-28-2024 End: 07-02-2024 Azithromycin (Zithromax Z-Juanito) 250 mg tablet Discontinued 0 PO .COMPLEX 6 0 June 28, 2024 12:00am July 02, 2024 9:25am For 250 mg dose pack: take 500 mg today (day 1), then 250 mg for 4 days (days 2-5) PO biotin 10 mg oral capsule (20 sources) Start: 05-06-2019 End: 05-12-2019 Biotin 10,000 mcg capsule Discontinued ug PO 0 May 06, 2019 12:00am May 12, 2019 9:30am Start: 05-06-2019 End: 05-12-2019 Biotin Discontinued MCG PO J 2018 12:00am May 12, 2019 9:30am calcium carbonate 1500 mg / cholecalciferol 0.01 mg oral tablet (20 sources) Vitamin D Start: 05-16-2016 End: 10-29-2022 Calcium Carbonate-Vitamin D3 1 EACH tablet Discontinued 1 NMA PO DAILY May 16, 2016 12:00am October 29, 2022 12:01pm Start: 05-16-2016 End: 10-29-2022 Calcium Carbonate-Vitamin D3 Discontinued 1 EACH PO DAILY May 16, 2016 12:00am October 29, 2022 12:01pm cinnamon bark 500 mg oral capsule (20 sources) Start: 05-23-2020 End: 04-20-2022 take 1000 mg by mouth twice daily Cinnamon Bark Discontinued 1000 MG PO TWICE A DAY May 23, 2020 1:41pm April 20, 2022 8:54am Start: 05-06-2019 End: 04-20-2022 take 1 capsule by mouth twice daily Cinnamon Bark 500 mg capsule Discontinued 1000 mg PO TWICE A DAY May 23, 2020 1:41pm April 20, 2022 8:54am ciprofloxacin 500 mg oral tablet (20 sources) Quinolone Antimicrobial Start: 01-04-2022 End: 04-20-2022 take 1 tablet by mouth twice daily Ciprofloxacin Hcl 500 mg tablet Discontinued 500 mg PO TWICE A DAY 14 0 January 04, 2022 1:00am April 20, 2022 8:56am clindamycin 300 mg oral capsule (20 sources) Lincosamide Antibacterial Start: 10-24-2023 End: 08-17-2024 take 1 capsule by mouth every eight hours as needed Clindamycin Hcl 300 mg capsule Discontinued 300 mg PO Q8H as needed for PRN October 24, 2023 1:00am August 17, 2024 8:21am 1 hr prior to dentist Start: 05-12-2019 End: 07-06-2022 take 2 capsules by mouth every hour Clindamycin Hcl 300 mg capsule Discontinued 600 mg PO .COMPLEX May 12, 2019 12:00am July 06, 2022 1:20pm 600 mg PO 1 hour prior to dental appt.; Start: 05-12-2019 End: 07-06-2022 take 600 mg by mouth every hour Clindamycin Hcl Discon tinued 600 MG PO .COMPLEX May 12, 2019 12:00am July 06, 2022 1:20pm 600 mg PO 1 hour prior to dental appt.; doxycycline hyclate 100 mg oral tablet (20 sources) Tetracycline-class Drug Start: 03-14-2023 End: 03-21-2023 take 1 tablet by mouth twice daily Doxycycline Hyclate 100 mg tablet Discontinued 100 mg PO TWICE A DAY 14 7 0 March 14, 2023 12:00am March 20, 2023 12:00am March 21, 2023 12:04am Start: 11-06-2022 End: 11-16-2022 take 1 capsule by mouth twice daily Doxycycline Hyclate 100 mg capsule Discontinued 100 mg PO TWICE A DAY 20 10 0 November 06, 2022 1:00am November 15, 2022 1:00am November 16, 2022 1:04am Acute sinusitis, unspecified Start: 10-02-2022 End: 10-12-2022 take 1 capsule by mouth twice daily Doxycycline Hyclate 100 mg capsule Discontinued 100 mg PO TWICE A DAY 20 10 0 October 02, 2022 1:00am October 11, 2022 1:00am October 12, 2022 1:04am Acute sinusitis, unspecified Flavoring Agent (Bulk) (20 sources) Start: 05-16-2016 End: 05-06-2019 Flavoring Agent (Bulk) Disco ntinued 3.7 ML MC DAILY May 16, 2016 6:49am May 06, 2019 10:43am Start: 05-16-2016 End: 05-06-2019 Flavoring Agent (Bulk) Disco ntinued 3.7 ML MC DAILY May 15, 2016 11:00pm May 06, 2019 9:43am Start: 05-16-2016 End: 05-06-2019 Flavoring Agent (Bulk) Disco ntinued 3.7 ML MC DAILY May 16, 2016 12:00am May 06, 2019 10:43am Flavoring Agent (Bulk) 3.7 ML oil (9 sources) Start: 05-16-2016 End: 05-06-2019 Flavoring Agent (Bulk) 3.7 ML oil Discontinued 3.7 mL MC DAILY May 16, 2016 12:00am May 06, 2019 10:43am furosemide 40 mg oral tablet (20 sources) Loop Diuretic Start: 09-02-2023 End: 07-23-2025 take 1 tablet by mouth once daily Furosemide (Lasix) 40 mg tablet Discontinued 40 mg PO DAILY 90 November 23, 2024 10:44am July 23, 2025 11:57am Wlsz-Fagdpk-Kvjvudd n-D3-C-Mn 500-400-667 mg-mg-unit capsule (18 sources) Start: 10-29-2022 End: 12-24-2024 Xwkq-Vsekuw-Ezodviuy -D3-C-Mn 500-400-667 mg-mg-unit capsule Discontinued 1 NMA PO .twice daily 0 October 29, 2022 11:58am December 24, 2024 2:10pm Start: 10-29-2022 End: 12-24-2024 Ckzx-Quqgop-Qglpynun-D3-C-Mn 500-400-667 mg-mg-unit capsule Discontinued 1 NMA PO .twice daily October 29, 2022 11:58am December 24, 2024 2:10pm Start: 05-06-2019 End: 10-29-2022 Eaih-Bdxzdh-Ykvrggzq-D3-C-Mn 500-400-667 mg-mg-unit capsule Discontinued NMA PO .twice daily 0 May 06, 2019 12:00am October 29, 2022 12:01pm Start: 05-06-2019 End: 10-29-2022 Knns-Yrqvnf-Foukfpra-D3-C-Mn 500-400-667 mg-mg-unit capsule Discontinued NMA PO .twice daily May 06, 2019 12:00am October 29, 2022 12:01pm hydroCHLOROthiazide 12.5 mg / losartan potassium 50 mg oral tablet (20 sources) Thiazide Diuretic, Angiotensin 2 Receptor Karina Start: 11-19-2019 End: 09-18-2023 Losartan-Hydrochlorothiazide 50-12.5 mg tablet Discontinued 1 {tbl} PO DAILY 90 September 03, 2023 12:42pm September 18, 2023 9:45am Start: 11-19-2019 End: 09-18-2023 take 1 tablet by mouth once daily Losartan-Hydrochlorothiazide Discontinue d 1 TABLET PO DAILY September 03, 2023 12:42pm September 18, 2023 9:45am linseed oil 1000 mg oral capsule (20 sources) Start: 05-16-2016 End: 05-23-2020 take 1 capsule by mouth once daily Flaxseed Oil 1,000 MG capsule Discontinued 1000 mg PO DAILY May 16, 2016 12:00am May 23, 2020 1:42pm losartan potassium 25 mg oral tablet (20 sources) Angiotensin 2 Receptor Karina Start: 09-18-2023 End: 06-21-2025 take 1 tablet by mouth once daily Losartan 25 mg tablet Discontinued 25 mg PO DAILY 90 September 03, 2024 8:36am June 21, 2025 11:57am 24 hr mirabegron 50 mg extended release oral tablet (20 sources) beta3-Adrenergic Agonist Start: 10-29-2022 End: 07-23-2025 take 1 tablet by mouth once daily Mirabegron (Myrbetriq) 50 mg tablet extended release 24 hr Discontinued 50 mg PO DAILY October 29, 2022 1:00am July 23, 2025 11:00am Jyngwcapqewn-Ojq-Gw on-Fa-Vit K 1 EACH capsule (9 sources) Start: 05-16-2016 End: 10-29-2022 take 1 capsule by mouth once daily Qakaluliqbbv-Ilt-Th on-Fa-Vit K 1 EACH capsule Discontinued 1 NMA PO DAILY May 16, 2016 12:00am October 29, 2022 12:01pm naproxen 500 mg oral tablet (20 sources) Nonsteroidal Anti-inflammatory Drug Start: 05-16-2016 End: 05-12-2019 take 1 tablet by mouth twice daily as needed for pain Naproxen 500 MG tablet Discontinued 500 mg PO TWICE DAILY NEEDED as needed for Pain May 16, 2016 12:00am May 12, 2019 9:30am nitrofurantoin, macrocrystals 25 mg / nitrofurantoin, monohydrate 75 mg oral capsule (20 sources) Nitrofuran Antibacterial Start: 07-23-2024 End: 07-30-2024 take 1 capsule by mouth every twelve hours at mealtime Nitrofurantoin Monohyd/M-Cryst 100 mg capsule Discontinued 1 NMA PO Q12H 14 7 0 July 23, 2024 12:00am July 29, 2024 12:00am July 30, 2024 12:05am administer with a meal/food; swallow whole; do not open, crush, dissolve , or chew Start: 02-10-2024 End: 02-17-2024 take 1 capsule by mouth every twelve hours at mealtime Nitrofurantoin Monohyd/M-Cryst (Macrobid) 100 mg capsule Discontinued 100 mg PO Q12H 14 7 0 February 10, 2024 12:00am February 16, 2024 12:00am February 17, 2024 12:06am administer with a meal/food; swallow whole; do not open, crush, dissolve , or chew Start: 07-06-2022 End: 07-13-2022 take 1 capsule by mouth every twelve hours at mealtime Nitrofurantoin Monohyd/M-Cryst 100 mg capsule Discontinued 1 NMA PO Q12H 14 7 0 July 06, 2022 12:00am July 12, 2022 12:00am July 13, 2022 12:05am administer with a meal/food; swallow whole; do not open, crush, dissolve , or chew Start: 12-18-2021 End: 12-25-2021 take 1 capsule by mouth every twelve hours at mealtime Nitrofurantoin Monohyd/M-Cryst (Macrobid) 100 mg capsule Discontinued 100 mg PO Q12H 14 7 0 December 18, 2021 1:00am December 24, 2021 1:00am December 25, 2021 1:02am must administer with a meal/food 24 hr oxybutynin chloride 5 mg extended release oral tablet (20 sources) Cholinergic Muscarinic Antagonist Start: 04-20-2022 End: 10-29-2022 take 1 tablet by mouth once daily Oxybutynin Chloride 5 mg tablet extended release 24hr Discontinued 5 mg PO DAILY April 20, 2022 12:00am October 29, 2022 12:01pm potassium chloride 20 meq extended release oral tablet (20 sources) Start: 09-25-2023 End: 07-21-2025 take 1 tablet by mouth once daily Potassium Chloride 20 mEq tablet extended release Discontinued 20 meq PO DAILY 30 August 31, 2024 8:04am July 21, 2025 12:45pm rosuvastatin calcium 20 mg oral tablet (20 sources) HMG-CoA Reductase Inhibitor Start: 05-06-2019 End: 02-10-2025 take 1 tablet by mouth once daily Rosuvastatin (Crestor) 20 mg tablet Discontinued 20 mg PO DAILY 90 3 February 02, 2025 9:58am February 10, 2025 8:39am traMADol hydrochloride 50 mg oral tablet (20 sources) Opioid Agonist Start: 07-29-2020 End: 08-03-2020 take 1 tablet by mouth every six hours as needed for pain Tramadol 50 mg tablet Discontinued 50 mg PO EVERY 6 HOURS as needed for pain 20 5 0 July 29, 2020 12:00am August 02, 2020 12:00am August 03, 2020 12:02am Start: 07-20-2020 End: 07-23-2020 take 1 tablet by mouth every four hours as needed for pain Tramadol 50 MG tablet Discontinued 50 mg PO EVERY 4 HOURS NEEDED as needed for Pain 12 3 0 July 20, 2020 12:00am July 22, 2020 12:00am July 23, 2020 12:02am triamcinolone acetonide 0.25 mg/ml topical cream (20 sources) Corticosteroid Start: 05-06-2019 End: 05-12-2019 Triamcinolone Acetonide 0.025 % cream Discontinued 1 NMA TOPICAL TWICE A DAY May 06, 2019 12:00am May 12, 2019 9:31am warfarin sodium 2 mg oral tablet (20 sources) Vitamin K Antagonist Start: 12-04-2023 End: 08-17-2024 Warfarin 2 mg tablet Discontinued 2 mg PO FLETCHER Protocol: Adjustment Start Date: Saturday07/29/24INR Value: 3.1INR Date: 07/29/24Recheck Date: 08/28/24 Condition: Saturday Dose/Route: 4 mg Instructions: 1 x 4 mg tablet Condition: Saturday Dose/Route: 2 mg Instructions: 1 x 2 mg tablet Condition: Saturday Dose/Route: 4 mg Instructions: 1 x 4 mg tablet Condition: Saturday Dose/Route: 4 mg Instructions: 1 x 4 mg tablet Condition: Dose/Route: 4 mg Instructions: 1 x 4 mg tablet Condition: Saturday Dose/Route: 4 mg Instructions: 1 x 4 mg tablet Condition: Saturday Dose/Route: 4 mg Instructions: 1 x 4 mg tablet December 04, 2023 1:00am August 17, 2024 11:12am Please contact the information source for Protocol details. Start: 09-02-2023 End: 09-29-2024 take 1 tablet by mouth once daily Warfarin 4 mg tablet Discontinued 4 mg PO DAILY Protocol: Adjustment Start Date: Saturday11/27/23INR Value: 3.4INR Date: 11/27/23Recheck Date: 12/11/23 Condition: Saturday Dose/Route: 2 mg Instructions: 0.5 x 4 mg tablets Condition: Saturday Dose/Route: 4 mg Instructions: 1 x 4 mg tablet Condition: Saturday Dose/Route: 4 mg Instructions: 1 x 4 mg tablet Condition: Saturday Dose/Route: 4 mg Instructions: 1 x 4 mg tablet Condition: Dose/Route: 4 mg Instructions: 1 x 4 mg tablet Condition: Saturday Dose/Route: 4 mg Instructions: 1 x 4 mg tablet Condition: Saturday Dose/Route: 4 mg Instructions: 1 x 4 mg tablet 17 10September 18, 2023 9:45am December 04, 2023 12:19pm Please contact the information source for Protocol details. Problems Active Problems Problem Classification Problem Date Documented Date Episodic/Chronic Aortic; peripheral; and visceral artery aneurysms (20 sources) Aortic root dilatation; Translations: [Thoracic aortic ectasia] Chronic Blindness and vision defects (9 sources) Homonymous bilateral field defects, right side; Translations: [Right homonymous superior quadrantanopia] 08-17-2024 Episodic Cardiac and circulatory congenital anomalies (20 sources) H/O: cardiac anomaly; Translations: [Personal history of (corrected) congenital malformations of heart and circulatory system] 07-20-2020 Episodic Cardiac dysrhythmias (20 sources) Atrial fibrillation; Translations: [Unspecified atrial fibrillation] Onset: 09-17-2025 09-02-2023 Chronic Cardiac dysrhythmias (17 sources) Tachycardia; Translations: [Tachycardia, unspecified] 12-19-2023 Episodic Coagulation and hemorrhagic disorders (9 sources) Blood coagulation disorder; 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] 08-25-2024 Chronic Conduction disorders (20 sources) Right bundle branch block; Translations: [Unspecified right bundle-branch block] 07-20-2020 Chronic Disorders of lipid metabolism (20 sources) Other hyperlipidemia; Translations: [Hyperlipidemia] Onset: 12-24-2017 Chronic Essential hypertension (20 sources) Essential hypertension; Translations: [Essential (primary) hypertension] Chronic Comment on above: CONTROLLED ON MED Fluid and electrolyte disorders (20 sources) Hypokalemia; Translations: [Hypokalemia] 09-25-2023 Episodic Heart valve disorders (20 sources) Presence of prosthetic heart valve; Translations: [Aortic stenosis, non-rheumatic ] Onset: 08-18-2008 Chronic Comment on above: 27 mm Biocor valve p er Dr. Erika Ortzi @ [place] 08/24/08 Menopausal disorders (20 sources) Postmenopausal bleeding; Translations: [Postmenopausal bleeding] 10-29-2023 Chronic Comment on above: nl EMb, possible jennifer yp on US. 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] 09-10-2023 Episodic Other aftercare (5 sources) halfway (current) use of anticoagulants; Translations: [Long-term (current) use of anticoagulants] Onset: 07-18-2025 02-04-2024 Episodic Other lower respiratory disease (20 sources) Dyspnea; Translations: [Shortness of breath] 08-30-2023 Episodic Other lower respiratory disease (20 sources) Productive cough ; Translations: [Productive cough] 08-30-2023 Episodic Other lower respiratory disease (11 sources) Shortness of breath; Translations: [Shortness of breath] 09-02-2023 Episodic Other nervous system disorders (9 sources) Difficulty walking; Translations: [Difficulty in walking, not elsewhere classified] 08-17-2024 Chronic Other screening for suspected conditions (not mental disorders or infectious disease) (20 sources) Endometrium thickened; Translations: [Abnormal findings on diagnostic imaging of other specified body structures] 10-29-2023 Chronic Comment on above: s/p nl emb, possible polyp on US. patient declines D and C. declines repeat Ultrasound for followup at this time. s/p cardiac clearance. Other screening for suspected conditions (not mental disorders or infectious disease) (20 sources) Electrocardiogram abnormal; Translations: [Abnormal electrocardiogram [ECG] [EKG]] 09-16-2023 Episodic Other upper respiratory infections (9 sources) Pharyngitis; Translations: [Acute pharyngitis, unspecified] 06-28-2024 Episodic Unclassified (1 source) Unknown / UNK(Unknown) Onset: 12-24-2017 Unclassified (1 source) Chronic atrial fibrillation, unspecified; Translations: [Chronic atrial fibrillation, unspecified] Onset: 08-18-2025 Urinary tract infections (20 sources) Urinary tract infectious disease; Translations: [Urinary tract infection, site not specified] Episodic Past or Other Problems Problem Classification Problem Date Documented Da te Episodic/Chronic Diabetes mellitus without complication (1 source) Impaired glucose tolerance (oral); Translations: [Impaired glucose tolerance (oral)] Onset: 12-24-2024 Episodic Results Test Name Value Interpretation Reference Range Facility International normalized rat io (INR) calculationOrdered By: Elizabeth Krishnan on 09-13-2025 INR Coag (Bld) [Relative time] 2.4 {INR} [facility] Prothrombin Time w/INRon INR Coag (PPP) [Relative time] 2.4 {INR} Normal [facility] Comment on above: Performed By: #### L 300.3900 #### [facility] [address] [place], [place], [id number] PT Coag (PPP) [Time] 26.9 s High 11.7-14.9 [facility] Comment on above: Performed By: #### L 300.3900 #### [facility] [address] [place], [address] Prothrombin timeOrdered By: Elizabeth Krishnan on 09-13-2025 PT Coag (PPP) [Time] 26.9 s High 11.7-14.9 [facility] Echocardiogram study reportO rdered By: Mario Orellana on 08-30-2025 Study report [facility] [address] [place] [address] Echo Complete 08/19/25 1259 MR#: [id number] Acct: [id number] Name: CHRISTINA CHEN Rep #:[id number] : 1940 85 From: Mario Arevalo Attending Dr: LEATHA Kincaid atus: DEP CLI Ordering Dr: Larry Nolasco Date: 08/19/25 Location: [facility] Sex: F C Admitted: Reason For Study : PROSTHETIC HEART VALVE Procedure This was a 2D Doppler, Color Flow transthoracic echocardiogram. Exam performed in department. Left Ventricle Normal LV size. The left ventricular ejection fraction is 55 %. No regional wallmotion abnormalities noted. Right Ventricle Normal RV size. Normal systolic function. Atria The left atrium is moderately enlarged. The right atrium is moderately enlarged. Mitral Valve Normal mitral valve. Trivial eccentric mitral valve insufficiency. Tricuspid Valve Normal tricuspid valve. Moderate (2+) tricuspid valve insufficiency. Pulmonary artery systolic pressure is 50 mmHg. Moderate pulmonary hypertension. Aortic Valve Peak aortic valve gradient 12 mmHg. Mean aortic valve gradient 7 mmHg. Bioprosthetic aortic valve. Pulmonic Valve Normal pulmonic valve. Great Vessels Normal aortic root. The pulmonary artery is normal size. Inferior vena cava collapse with respiration. Pericardium/Pleural No pericardial effusion. MMode/2D Measurements & Calculations LVIDd: 4.3 cm IVSd: 0.82 cm LVOT diam: 2.0 cm LVIDs: 2.9 cm LVPWd: 0.73 cm LVOT area: 3.0 cm2 RVDd: 3.2 cm FS: 32.6 % Ao root diam: 3.1 cm LAV(MOD-bp): 70.0 ml LVAd ap4: 17.1 cm2 LAV(MOD-bp) Indexed: 38.8 ml/m2 LVLd ap4: 6.3 cm LAV(MOD-sp2): 67.0 ml EDV(MOD-sp4): 40.0 ml LAV(MOD-sp4): 63.0 ml EDV(sp4-el): 39.7 ml LVAs ap4: 10.2 cm2 LVLs ap4: 5.1 cm ESV(MOD-sp4): 18.6 ml ESV(sp4-el): 17.3 ml EF(MOD-sp4): 53.4 % EF(sp4-el): 56.3 % SV(MOD-sp4): 21.4 ml SV(sp4-el): 22.3 ml LA A4 area: 23.5 cm2 SI(MOD-sp4): 11.8 ml/m2 LA dimension(2D): 3.6 cm RA A4 area: 24.9 cm2 TAPSE: 1.4 cm Doppler Measurements & Calculations MV E max antonio: 109.4 cm/sec Ao V2 max: 175.7 cm/sec LV V1 max: 127.4 cm/sec Ao max P.4 mmHg LV V1 max P.6 mmHg Ao V2 mean: 127.8 cm/sec LV V1 mean P.7 mmHg Ao mean P.2 mmHg LV V1 mean: 90.3 cm/sec Ao V2 VTI: 35.5 cm LV V1 VTI: 24.0 cm AV (velocity ratio): 0.68 MATHEW(I,D): 2.1 cm2 MATHEW(V,D): 2.2 cm2 SV(LVOT): 73.1 ml PA V2 max: 56.6 cm/sec TR max antonio: 339.6 cm/sec TR max P.1 mmHg ECHO/Echo Complete Interpretation Summary Normal LV size. The left ventricular ejection fraction is 55 %. The left atrium is moderately enlarged. The right atrium is moderately enlarged. Pulmonary artery systolic pressure is 50 mmHg. Moderate pulmonary hypertension. Bioprosthetic aortic valve. Mean aortic valve gradient 7 mmHg. Ordering Physician: Larry Nolasco Referring Physician: SYL DOMÍNGUEZ Performed By: Adry Sosa RDCS 08/30/25 1415 Date _ Mario Orellana MD CC: Dr. Syl Domínguez MD; LEATHA Kincaid ~ Date Dictated: 08/19/25 1259 Date Transcribed: 08/23/25 0736 Cutter Gas: Signed [facility] Work Phone: Prothrombin Time w/INRon INR Coag (PPP) [Relative time] 2.8 {INR} Normal [facility] Comment on above: Performed By: #### L 300.3900 #### [facility] [address] [place], [address] PT Coag (PPP) [Time] 30.2 s High 11.7-14.9 [facility] Comment on above: Performed By: #### L 300.3900 #### [facility] [address] [place], [address] Anion gap in Serum or Plasma Ordered By: Larry Nolasco on 08-23-2025 Anion gap [Moles/Vol] 12 mmol/L 04-01 [facility] BUN/creatinine ratioOrdered By: Larry Nolasco on 08-23-2025 Urea nitrogen/Creatinine [Mass ratio] 9.8 mg/mg Low 09-[address] [facility] Basic Metabolic Profile (BMP )on 08-23-2025 BUN/CRE 9.8 RATIO Low 09-[address] [facility] Comment on above: Performed By: #### L 300.3900 #### [facility] [address] [place], [address] Calcium [Mass/Vol] 9.2 mg/dL Normal 7.6-11.0 [facility] Comment on above: Performed By: #### L 300.3900 #### [facility] [address] [place], [address] Chloride [Moles/Vol] 105 mmol/L Normal 98-108 [facility] Comment on above: Performed By: #### L 300.3900 #### [facility] [address] [place], [address] CO2 [Moles/Vol] 22.6 mmol/L Normal 21.0-32.[address] [facility] Comment on above: Performed By: #### L 300.3900 #### [facility] [address] [place], [address] Creatinine [Mass/Vol] 0.85 mg/dL Normal 0.70-1.20 [facility] Comment on above: Performed By: #### L 300.3900 #### [facility] [address] [place], [address] GAP 12 Normal 5-[address] [facility] Comment on above: Performed By: #### L 300.3900 #### [facility] [address] [place], [address] GFR/1.73 sq M.predicted among non-blacks MDRD (S/P/Bld) [Vol rate/Area] 68 mL/min/{1.73_m2} Normal >[address] [facility] Comment on above: Result Comment: mL/m in/1.73m2 CKD-EPI Creatinine Equation (2020) Performed By: #### L 300.3900 #### [facility] [address] [place], [address] Glucose [Mass/Vol] 117 mg/dL High 70-99 [facility] Comment on above: Performed By: #### L 300.3900 #### [facility] [address] [place], [address] Potassium [Moles/Vol] 4.2 mmol/L Normal 3.3-5.1 [facility] Comment on above: Performed By: #### L 300.3900 #### [facility] [address] [place], [address] Sodium [Moles/Vol] 140 mmol/L Normal 133-145 [facility] Comment on above: Performed By: #### L 300.3900 #### [facility] [address] [place], [address] Urea nitrogen [Mass/Vol] 8 mg/dL Normal 4-[address] [facility] Comment on above: Performed By: #### L 300.3900 #### [facility] [address] [place], [place], [id number] Carbon dioxide, total [Moles /volume] in Central venous bloodOrdered By: Larry Nolasco on 08-23-2025 CO2 [Moles/Vol] 22.6 mmol/L 21.0-32.[address] [facility] Chloride assayOrdered By: Roman Nolasco on 08-23-2025 Chloride [Moles/Vol] 105 mmol/L 98-108 [facility] Glomerular filtration rate ( GFR) estimation/1.73 sq m using serum, plasma, or whole bOrdered By: Larry Nolasco on 08-23-2025 GFR/1.73 sq M.predicted among non-blacks MDRD (S/P/Bld) [Vol rate/Area] 68 mL/min/{1.73_m2} >[address] [facility] Comment on above: mL/min/1.73m2 CKD-EP I Creatinine Equation (2020) Magnesiumon 08-23-2025 Magnesium [Mass/Vol] 2.3 mg/dL High 1.5-2.2 [facility] Comment on above: Performed By: #### L 300.3900 #### [facility] [address] [place], [place], [id number] Magnesium measurement (mass/ volume)Ordered By: Larry Nolasco on 08-23-2025 Magnesium (Unsp spec) [Mass/Vol] 2.3 mg/dL High 1.5-2.[address] [facility] Potassium measurement (mass/ volume)Ordered By: Larry Nolasco on 08-23-2025 Potassium (Unsp spec) [Mass/Vol] 4.2 mmol/L 3.3-5.[address] [facility] Prothrombin Time w/INRon INR Coag (PPP) [Relative time] 4.1 {INR} Invalid Interpretation Code [facility] Comment on above: Result Comment: JOVANNA VCRITICAL VALUE CALLED TO NOAH MOSES 08/23/25 1038 Maggie Guadarrama. RESULTS READ BACK BY . NOAH MOSES Performed By: #### L 501.9520, L300.3900, L501.5200, L500.2500 #### [facility] [address] [place], [address] PT Coag (PPP) [Time] 40.5 s High 11.7-14.9 [facility] Comment on above: Performed By: #### L 501.9520, L300.3900, L501.5200, L500.2500 #### [facility] [address] [place], [address] Serum creatinine measurement (mass/volume)Ordered By: Larryalfonso Nolasco on 08-23-2025 Creatinine [Mass/Vol] 0.85 mg/dL 0.70-1.20 [facility] Serum glucose measurement (m ass/volume)Ordered By: Larry Nolasco on 08-23-2025 Glucose [Mass/Vol] 117 mg/dL High 70-99 [facility] Serum or plasma calcium kenyon urement (mass/volume)Ordered By: Larry Nolasco on 08-23-2025 Calcium [Mass/Vol] 9.2 mg/dL 7.6-11.0 [facility] Serum or plasma urea nitroge n measurement (mass/volume)Ordered By: Larry Nolasco on 08-23-2025 Urea nitrogen [Mass/Vol] 8 mg/dL 4-[address] [facility] Sodium levelOrdered By: Graeme Nolasco on 08-23-2025 Sodium [Moles/Vol] 140 mmol/L 133-145 [facility] TSH DL <= 0.005 mIU/L QnOrde red By: Larry Nolasco on 08-23-2025 TSH Qn 3.350 uIU/mL 0.300-4.[address] [facility] Thyroid Stim Hormone (TSH)on 08-23-2025 TSH 3.350 uIU/mL Normal 0.300-4.[address] [facility] Comment on above: Performed By: #### L 300.3900 #### [facility] [address] [place], [place], [id number] Echo Completeon 08-19-2025 Echo Complete [facility] [address] [place] [address] Echo Complete 08/19/25 1259 MR#: [id number] Acct: [id number] Name: CHRISTINA CHEN Rep #: [id number] : 1940 85 From: Mario Orellana MD Attending Dr: LEATHA Kincaid Status: DEP CL I Ordering Dr: Larry Nolasco Date: 08/19/25 Location: [facility] Sex: F C Admitted: Reason For Study : PROSTHETIC HEART VALVE Procedure This was a 2D Doppler, Color Flow transthoracic echocardiogram. Exam performed in department. Left Ventricle Normal LV size. The left ventricular ejection fraction is 55 %. No regional wall motion abnormalities noted. Right Ventricle Normal RV size. Normal systolic function. Atria The left atrium is moderately enlarged. The right atrium is moderately enlarged. Mitral Valve Normal mitral valve. Trivial eccentric mitral valve insufficiency. Tricuspid Valve Normal tricuspid valve. Moderate (2+) tricuspid valve insufficiency. Pulmonary artery systolic pressure is 50 mmHg. Moderate pulmonary hypertension. Aortic Valve Peak aortic valve gradient 12 mmHg. Mean aortic valve gradient 7 mmHg. Bioprosthetic aortic valve. Pulmonic Valve Normal pulmonic valve. Great Vessels Normal aortic root. The pulmonary artery is normal size. Inferior vena cava collapse with respiration. Pericardium/Pleural No pericardial effusion. MMode/2D Measurements Calculations LVIDd: 4.3 cm IVSd: 0.82 cm LVOT diam: 2.0 cm LVIDs: 2.9 cm LVPWd: 0.73 cm LVOT area: 3.0 cm2 RVDd: 3.2 cm FS: 32.6 % Ao root diam: 3.1 cm LAV(MOD-bp): 70.0 ml LVAd ap4: 17.1 cm2 LAV(MOD-bp) Indexed: 38.8 ml/m2 LVLd ap4: 6.3 cm LAV(MOD-sp2): 67.0 ml EDV(MOD-sp4): 40.0 ml LAV(MOD-sp4): 63.0 ml EDV(sp4-el): 39.7 ml LVAs ap4: 10.2 cm2 LVLs ap4: 5.1 cm ESV(MOD-sp4): 18.6 ml ESV(sp4-el): 17.3 ml EF(MOD-sp4): 53.4 % EF(sp4-el): 56.3 % SV(MOD-sp4): 21.4 ml SV(sp4-el): 22.3 ml LA A4 area: 23.5 cm2 SI(MOD-sp4): 11.8 ml/m2 LA dimension(2D): 3.6 cm RA A4 area: 24.9 cm2 TAPSE: 1.4 cm Doppler Measurements Calculations MV E max antonio: 109.4 cm/sec Ao V2 max: 175.7 cm/sec LV V1 max: 127.4 cm/sec Ao max P.4 mmHg LV V1 max P.6 mmHg Ao V2 mean: 127.8 cm/sec LV V1 mean P.7 mmHg Ao mean P.2 mmHg LV V1 mean: 90.3 cm/sec Ao V2 VTI: 35.5 cm LV V1 VTI: 24.0 cm AV (velocity ratio): 0.68 MATHEW(I,D): 2.1 cm2 MATHEW(V,D): 2.2 cm2 SV(LVOT): 73.1 ml PA V2 max: 56.6 cm/sec TR max antonio: 339.6 cm/sec TR max P.1 mmHg ECHO/Echo Complete Interpretation Summary Normal LV size. The left ventricular ejection fraction is 55 %. The left atrium is moderately enlarged. The right atrium is moderately enlarged. Pulmonary artery systolic pressure is 50 mmHg. Moderate pulmonary hypertension. Bioprosthetic aortic valve. Mean aortic valve gradient 7 mmHg. Ordering Physician: Larry Nolasco Referring Physician: SYL DOMÍNGUEZ Performed By: Adry Sosa RDCS 08/30/25 1415 Date Mario Orellana MD CC: Dr. Syl Domínguez MD; LEATHA Kincaid Date Dictated: 08/19/25 1259 Date Transcribed: 08/23/25 5036 [employer]utter [employer]: Signed [facility] normalized rat io (INR) calculationOrdered By: Elizabeth Krishnan on 07-26-2025 INR Coag (Bld) [Relative time] 3.3 {INR} [facility] Prothrombin Time w/INRon INR Coag (PPP) [Relative time] 3.3 {INR} Normal [facility] Comment on above: Performed By: #### L 300.3900 #### [facility] [address] [place], [place], [id number] PT Coag (PPP) [Time] 34.6 s High 11.7-14.9 [facility] Comment on above: Performed By: #### L 300.3900 #### [facility] [address] [place], [address] Prothrombin timeOrdered By: Elizabeth Krishnan on 07-26-2025 PT Coag (PPP) [Time] 34.6 s High 11.7-14.9 [facility] Cardiology Visit Reporton Cardiology Visit Report [facility] [address] [place], [place] [address] OFFICE VISIT Date of Service: 07/23/25 MR#: [id number] Acct: [id number] Name: CHRISTINA CHEN Rep #: [id number] : 1940 Provider: LEATHA Kincaid Age/Sex: 85/F Location: [facility] [place] Status: Signed HPI HPI History of Present Illness Details: Christina Chen is an 85-year-old female who presents to office today for follow-up for monitoring her cardiovascular health. She has a history of aortic valve stenosis status post aortic valve replacement with a 23 mm Biocor valve 08/24/2008 at [facility], aortic root dilation, atrial fibrillation, hyperlipidemia and hypertension. Upon presentation today, patient reports she occasionally feel a pressure sensation/SOB in her chest when walking to her mailbox. She reports this sensation is chronic and she rarely notices it. Further ROS below. Intake Vital Signs 12/24/24 13:04 07/23/25 06:57 Height 5 ft 3 in 5 ft 3 in Weight: 176 lb BMI 31.1 BP 127/93 H Blood Pressure Location Lt brachial Position Sitting Respiration 18 Pulse 103 H Pulse Source Monitor Pulse Oximetry (%) 93 Intake Visit Reasons: 7 M FU Superintendent Of Generation Required: No Is patient in pain?: No Allergies Penicillins Allergy (Verified 07/23/25 10:59) Hives Sulfa (Sulfonamide Antibiotics) Allergy (Verified 07/23/25 10:59) Hives atorvastatin calcium (From Lipitor) Adverse Reaction (Verified 07/23/25 10:59) Pain in joints simvastatin (From Zocor) Adverse Reaction (Verified 07/23/25 10:59) Pain in joints Medications ???Medication ???Instructions ???Recorded ???Confirmed ???Type Lactobacillus 25 billion 1 cap PO BID 10/29/22 07/23/25 His tory cell-Bifido 25 billion [id number] capsule (Women's Probiotic) alendronate 70 mg tablet 70 mg PO QWEEK 10/29/22 07/23/25 H istory ascorbic acid (vitamin C) 500 mg 500 mg PO DAILY 10/29/22 07/23/25 History capsule d-mannose 500 mg capsule (AZO 1,000 mg PO BID 10/29/22 07/23/25 History D-Mannose) multivitamin with minerals-folic 2 tab PO DAILY 12/04/23 07/23/25 H istory acid 200 mcg chewable tablet (Women's Multivitamin Gummies) warfarin 4 mg tablet 4 mg PO DAILY #90 tabs 09/29/24 Rx metoprolol tartrate 100 mg tablet 100 mg PO BID #60 tabs 10/28/24 0 07/23/25 Rx rosuvastatin 20 mg tablet (Crestor) 20 mg PO DAILY #90 tabs 5 07/23/25 Rx losartan 25 mg tablet 25 mg PO DAILY #90 tabs 06/21/25 0 07/23/25 Rx potassium chloride 20 mEq 20 meq PO DAILY #30 tabs 07/21/25 07/23/25 Rx tablet,extended release furosemide 40 mg tablet (Lasix) 40 mg PO .COMPLEX #40 tabs 5 07/23/25 Rx vibegron 75 mg tablet (Gemtesa) 75 mg PO QDAY 07/23/25 07/23/25 Hi story Ejection fraction %: 53 Have you fallen in the past year?: No PFSH 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 Warfarin-induced coagulopathy Wears glasses Post-menopausal Cancer High cholesterol Back pain Non-smoker Shortness of breath on exertion History of Holter monitoring History of echocardiogram History of stress test Cardiology follow-up encounter History of atrial fibrillation Osteoporosis Urinary tract infection with hematuria Aortic root dilatation Nonrheumatic aortic (valve) stenosis Aortic dilatation Essential hypertension History of bicuspid aortic valve Hyperlipidemia Right bundle branch block Surgical History History of prosthetic aortic valve History of aortic valve replacement with bioprosthetic valve ( 08/24/08) History of bilateral oophorectomy History of tubal ligation History of bunionectomy Family History Father CAD (coronary artery disease) Mother Cerebral hemorrhage Sister Lung cancer Social History Smoking Status: Never smoker alcohol intake: never substance use type: does not use caffeine: Yes Type: other Number of servings: 1 ROS Const Const: Negative for fatigue, weakness, headache(s) or frequent falls Eyes Eyes: Negative for blurry vision ENT ENT: Negative for headache(s), dizziness or Nosebleed/epistaxis Cardio Chest Pain: No Palpitations: No Edema: None Muscle aches with walking: None Resp Respiratory: Positive for SOB with activity; Negative for SOB at rest or SOB orthopnea SOB lying down GI GI: Negative nausea, vomiting, heartburn, bright, red blood in stools or black,tarry stools : Negative for hematuria Neuro Neuro: Negative for dizziness, lightheadedness, near syncope, syncope, frequent falls, headache(s), weakness or blurry vision (more content not included)... Normal [facility] International normalized rat io (INR) calculationOrdered By: Syl Harper on 07-05-2025 INR Coag (Bld) [Relative time] 3.4 {INR} [facility] Prothrombin Time w/INRon INR Coag (PPP) [Relative time] 3.4 {INR} Normal [facility] Comment on above: Order Comment: Comme nts: THIS IS A STANDING ORDER Performed By: #### L 300.3900 #### [facility] [address] [place], [address] PT Coag (PPP) [Time] 35.3 s High 11.7-14.9 [facility] Comment on above: Order Comment: Comme nts: THIS IS A STANDING ORDER Performed By: #### L 300.3900 #### [facility] [address] [place], [address] Prothrombin timeOrdered By: Syl Harper on 07-05-2025 PT Coag (PPP) [Time] 35.3 s High 11.7-14.9 [facility] Prothrombin Time w/INRon INR Coag (PPP) [Relative time] 3.8 {INR} Normal [facility] Comment on above: Performed By: #### L 300.3900 #### [facility] [address] [place], [address] PT Coag (PPP) [Time] 37.9 s High 11.7-14.9 [facility] Comment on above: Performed By: #### L 300.3900 #### [facility] [address] [place], [address] International normalized rat io (INR) calculationOrdered By: Elizabeth Krishnan on 05-24-2025 INR Coag (Bld) [Relative time] 3.2 {INR} [facility] Prothrombin Time w/INRon INR Coag (PPP) [Relative time] 3.2 {INR} Normal [facility] Comment on above: Performed By: #### L 300.3900 #### [facility] [address] [place], [address] PT Coag (PPP) [Time] 33.4 s High 11.7-14.9 [facility] Comment on above: Performed By: #### L 300.3900 #### [facility] [address] [place], [place], [id number] Prothrombin timeOrdered By: Elizabeth Krishnan on 05-24-2025 PT Coag (PPP) [Time] 33.4 s High 11.7-14.9 [facility] International normalized rat io (INR) calculationOrdered By: Elizabeth Krishnan on 04-26-2025 INR Coag (Bld) [Relative time] 3.1 {INR} [facility] Prothrombin Time w/INRon INR Coag (PPP) [Relative time] 3.1 {INR} Normal [facility] Comment on above: Performed By: #### L 300.3900 #### [facility] [address] [place], [address] PT Coag (PPP) [Time] 32.5 s High 11.7-14.9 [facility] Comment on above: Performed By: #### L 300.3900 #### [facility] [address] [place], [place], [phone] ([phone] Prothrombin timeOrdered By: Elizabeth Krishnan on 04-26-2025 PT Coag (PPP) [Time] 32.5 s High 11.7-14.9 [facility] International normalized rat io (INR) calculationOrdered By: Elizabeth Krishnan on 03-29-2025 INR Coag (Bld) [Relative time] 3.2 {INR} [facility] Prothrombin Time w/INRon INR Coag (PPP) [Relative time] 3.2 {INR} Normal [facility] Comment on above: Performed By: #### L 300.3900 #### [facility] [address] [place], [address] PT Coag (PPP) [Time] 33.1 s High 11.7-14.9 [facility] Comment on above: Performed By: #### L 300.3900 #### [facility] [address] [place], [place], [phone] ([phone] Prothrombin timeOrdered By: Elizabeth Krishnan on 03-29-2025 PT Coag (PPP) [Time] 33.1 s High 11.7-14.9 [facility] International normalized rat io (INR) calculationOrdered By: Elizabeth Krishnan on 03-01-2025 INR Coag (Bld) [Relative time] 3.2 {INR} [facility] Prothrombin Time w/INRon INR Coag (PPP) [Relative time] 3.2 {INR} Normal [facility] Comment on above: Performed By: #### L 300.3900 #### [facility] [address] [place], [address] PT Coag (PPP) [Time] 33.5 s High 11.7-14.9 [facility] Comment on above: Performed By: #### L 300.3900 #### [facility] [address] [place], [place], [phone] ([phone] Prothrombin timeOrdered By: Elizabeth Krishnan on 03-01-2025 PT Coag (PPP) [Time] 33.5 s High 11.7-14.9 [facility] International normalized rat io (INR) calculationOrdered By: Syl Harper on 02-01-2025 INR Coag (Bld) [Relative time] 3.1 {INR} [facility] Prothrombin Time w/INRon INR Coag (PPP) [Relative time] 3.1 {INR} Normal [facility] Comment on above: Order Comment: Comme nts: STANDING ORDER: Fax to [facility] Performed By: #### L 300.3900 #### [facility] [address] [place], [address] PT Coag (PPP) [Time] 32.5 s High 11.7-14.9 [facility] Comment on above: Order Comment: Comme nts: STANDING ORDER: Fax to [facility] Performed By: #### L 300.3900 #### [facility] [address] [place], [address] Prothrombin timeOrdered By: Syl Harper on 02-01-2025 PT Coag (PPP) [Time] 32.5 s High 11.7-14.9 [facility] International normalized rat io (INR) calculationOrdered By: Elizabeth Krishnan on 01-04-2025 INR Coag (Bld) [Relative time] 2.8 {INR} [facility] Prothrombin Time w/INRon INR Coag (PPP) [Relative time] 2.8 {INR} Normal [facility] Comment on above: Performed By: #### L 300.3900 #### [facility] [address] [place], [address] PT Coag (PPP) [Time] 29.7 s High 11.7-14.9 [facility] Comment on above: Performed By: #### L 300.3900 #### [facility] [address] [place], [place], [phone] Prothrombin timeOrdered By: Elizabeth Krishnan on 01-04-2025 PT Coag (PPP) [Time] 29.7 s High 11.7-14.9 [facility] Cardiology Visit Reporton Cardiology Visit Report [facility] [address] [place], [place] [address] OFFICE VISIT Date of Service: 12/24/24 MR#: [id number] Acct: [id number] Name: CHRISTINA CHEN Rep #: [id number] : 1940 Provider: Dr. Mario Orellana MD Age/Sex: 84/F Location: [facility] [place] Status: Signed HPI HPI History of Present Illness Details: This is an 84-year-old white female who presents today for an outpatient cardiovascular follow-up visit. She has a history of aortic valve stenosis status post aortic valve replacement with a 23 mm Biocor valve on 08-24-2008 at [facility], aortic root dilatation, hyperlipidemia, and hypertension. At her last office visit, she was noted to be in atrial fibrillation. She was started on warfarin. Her echocardiogram from 09/17/2023 demonstrated an ejection fraction of 55%, moderately enlarged right atrium and mildly enlarged left atrium. Her stress test at that time was noted to be normal. From a cardiac standpoint, the patient is doing well. She denies any palpitations, chest pain, pressure or heaviness. She does have occasional SOB with exertion-climbing stairs. This is nothing new or worsening. She denies Orthopnea, and PND. She does not have bleeding issues; no blood in urine, stool or nosebleeds. She does acknowledge fatigue. She denies myalgias, or claudication. She denies edema, or sudden weight gain. She denies dizziness, lightheadedness, syncopal or near syncopal episodes, and headaches. 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 Required: No Accompanied by: Daughter Is patient in pain?: No Allergies Penicillins Allergy (Verified 12/24/24 13:08) Hives Sulfa (Sulfonamide Antibiotics) Allergy (Verified 12/24/24 13:08) Hives atorvastatin calcium (From Lipitor) Adverse Reaction (Verified 12/24/24 13:08) Pain in joints simvastatin (From Zocor) Adverse Reaction (Verified 12/24/24 13:08) Pain in joints Medications ???Medication ???Instructions ???Recorded ???Confirmed ???Type aspirin 81 mg chewable tablet 81 mg PO DAILY@0800 05/16/1612/24 History Lactobacillus 25 billion 1 cap PO BID 10/29/22 12/24/24 His tory cell-Bifido 25 billion [id number] capsule (Women's Probiotic) alendronate 70 mg tablet 70 mg PO QWEEK 10/29/22 12/24/24 H istory ascorbic acid (vitamin C) 500 mg 500 mg PO DAILY 10/29/22 12/24/24 History capsule d-mannose 500 mg capsule (AZO 1,000 mg PO BID 10/29/22 12/24/24 History D-Mannose) mirabegron 50 mg tablet,extended 50 mg PO DAILY 10/29/22 12/24/24 H istory release 24 hr (Myrbetriq) multivitamin with minerals-folic 2 tab PO DAILY 12/04/23 12/24/24 H istory acid 200 mcg chewable tablet (Women's Multivitamin Gummies) potassium chloride 20 mEq 20 meq PO DAILY #30 tabs 08/31/24 12/24/24 Rx tablet,extended release losartan 25 mg tablet 25 mg PO DAILY #90 tabs 09/03/24 0 12/24/24 Rx warfarin 4 mg tablet 4 mg PO DAILY #90 tabs 09/29/24 Rx rosuvastatin 20 mg tablet (Crestor) 20 mg PO DAILY #90 tabs 4 12/24/24 Rx metoprolol tartrate 100 mg tablet 100 mg PO BID #60 tabs 10/28/24 0 12/24/24 Rx furosemide 40 mg tablet (Lasix) 40 mg PO DAILY #90 tabs 11/23/24 0 12/24/24 Rx Have you fallen in the past year?: No PFSH 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 Warfarin-induced coagulopathy Wears glasses Post-menopausal Cancer High cholesterol Back pain Non-smoker Shortness of breath on exertion History of Holter monitoring History of echocardiogram History of stress test Cardiology follow-up encounter History of atrial fibrillation Osteoporosis Urinary tract infection with hematuria Aortic root dilatation Nonrheumatic aortic (valve) stenosis Aortic dilatation Essential hypertension History of bicuspid aortic valve Hyperlipidemia Right bundle branch block Surgical History History of prosthetic aortic valve History of aortic valve replacement with bioprosthetic valve ( 08/24/08) History of bilateral oophorectomy History of tubal ligation History of bunionectomy Family History Father CAD (coronary artery disease) Mother Cerebral hemorrhage Sister Lung cancer Social History Smoking Status: Never smoker alcohol intake: never substance use type: does not use caffeine: Yes Typ (more content not included)... Normal [facility] International normalized rat io (INR) calculationOrdered By: Elizabeth Krishnan on 12-07-2024 INR Coag (Bld) [Relative time] 3.1 {INR} [facility] Prothrombin Time w/INRon INR Coag (PPP) [Relative time] 3.1 {INR} Normal [facility] Comment on above: Performed By: #### L 300.3900 #### [facility] [address] [place], [address] PT Coag (PPP) [Time] 33.0 s High 11.7-14.9 [facility] Comment on above: Performed By: #### L 300.3900 #### [facility] [address] [place], [address] Prothrombin timeOrdered By: Elizabeth Krishnan on 12-07-2024 PT Coag (PPP) [Time] 33.0 s High 11.7-14.9 [facility] [id number] DOrdered By: Hamilton Domínguez on 12-02-2024 Vitamin D 25-Hydroxy 43.7 ng/mL [facility] Comment on above: Vitamin D 25(OH) Sta tus Range Deficiency <20 ng/mL (50nmol/L) Insufficiency 20 - 30 ng/mL (50 - 75 nmol/L) Sufficiency 30 - 100 ng/mL (75 - 250 nmol/L) Toxicity >100 ng/mL (>250 nmol/L) Absolute neutrophil countOrd ered By: Syl Domínguez on 12-02-2024 Neutrophils (Bld) [#/Vol] 5.1 10*3/uL 2.0-7.[address] [facility] Albumin to globulin ratioOrd ered By: Syl Domínguez on 12-02-2024 Albumin/Globulin [Mass ratio] 1.0 {ratio} 0.9-2.[address] [facility] Basophil percentageOrdered B y: Syl Domínguez on 12-02-2024 Basophils/100 WBC (Bld) 1.3 % High 0-[address] [facility] Bilirubin, totalOrdered By: Syl Domínguez on 12-02-2024 Bilirubin [Mass/Vol] 1.00 mg/dL 0.20-1.00 [facility] Comment on above: For patients on eltr ombopag therapy, use of Dimension Marble TBIL is not recommended. Blood urea nitrogen (BUN)/cr eatinine ratioOrdered By: Syl Domínguez on 12-02-2024 Urea nitrogen/Creatinine [Mass ratio] 16.6 mg/mg 10-[address] [facility] CBC W/Diff, Automatedon 11-18 Absolute Lymph 1.40 X10 3/uL Normal 0.83-4.[address] [facility] Comment on above: Order Comment: Order Date: 08/13/24Order Info: 018- - CBCD Performed By: #### L 300.3900 #### [facility] [address] [place], [address] Absolute Neut 5.1 X10 3/uL Normal 2.0-7.[address] [facility] Comment on above: Order Comment: Order Date: 08/13/24Order Info: 018- - CBCD Performed By: #### L 300.3900 #### [facility] [address] [place], [address] Basophils/100 WBC (Bld) 1.3 % High 0-[address] [facility] Comment on above: Order Comment: Order Date: 08/13/24Order Info: 018- - CBCD Performed By: #### L 300.3900 #### [facility] [address] [place], [address] Eosinophils/100 WBC (Bld) 3.3 % Normal 0-[address] [facility] Comment on above: Order Comment: Order Date: 08/13/24Order Info: 018- - CBCD Performed By: #### L 300.3900 #### [facility] [address] [place], [address] Erythrocyte distribution width (RBC) [Ratio] 13.7 % Normal 11.6-14.[address] [facility] Comment on above: Order Comment: Order Date: 08/13/24Order Info: 018- - CBCD Performed By: #### L 300.3900 #### [facility] [address] [place], [address] Hematocrit (Bld) [Volume fraction] 44.2 % Normal 37-[address] [facility] Comment on above: Order Comment: Order Date: 08/13/24Order Info: 183- - CBCD Performed By: #### L 300.3900 #### [facility] [address] [place], [address] Hemoglobin (Bld) [Mass/Vol] 14.6 g/dL Normal 12.0-15.[address] [facility] Comment on above: Order Comment: Order Date: 08/13/24Order Info: 183- - CBCD Performed By: #### L 300.3900 #### [facility] [address] [place], [address] IG% 0.300 Normal 0.0-0.[address] [facility] Comment on above: Order Comment: Order Date: 08/13/24Order Info: 183- - CBCD Result Comment: IG% - Immature Granulocytes (promyelocytes, myelocytes and metamyelocytes) > 1% indicates that a LEFT SHIFT is Present. Performed By: #### L 300.3900 #### [facility] [address] [place], [address] Lymphocytes/100 WBC (Bld) 18.3 % Low 19-[address] [facility] Comment on above: Order Comment: Order Date: 08/13/24Order Info: 018- - CBCD Performed By: #### L 300.3900 #### [facility] [address] [place], [address] MCH (RBC) [Entitic mass] 31.4 pg Normal 27.0-32.[address] [facility] Comment on above: Order Comment: Order Date: 08/13/24Order Info: 018-1 - CBCD Performed By: #### L 300.3900 #### [facility] [address] [place], [address] MCHC (RBC) [Mass/Vol] 33.0 g/dL Normal 32-36 [facility] Comment on above: Order Comment: Order Date: 08/13/24Order Info: 183- - CBCD Performed By: #### L 300.3900 #### [facility] [address] [place], [address] MCV (RBC) [Entitic vol] 95.1 fL Normal 81-[address] [facility] Comment on above: Order Comment: Order Date: 08/13/24Order Info: 183- - CBCD Performed By: #### L 300.3900 #### [facility] [address] [place], [address] Monocytes/100 WBC (Bld) 10.0 % Normal 0-[address] [facility] Comment on above: Order Comment: Order Date: 08/13/24Order Info: 183- - CBCD Performed By: #### L 300.3900 #### [facility] [address] [place], [address] Neutrophils/100 WBC (Bld) 66.8 % Normal 47-[address] [facility] Comment on above: Order Comment: Order Date: 08/13/24Order Info: 183- - CBCD Performed By: #### L 300.3900 #### [facility] [address] [place], [address] Nucleated RBC (Bld) [#/Vol] 0 10*3/uL Normal 0-[address] [facility] Comment on above: Order Comment: Order Date: 08/13/24Order Info: 183- - CBCD Performed By: #### L 300.3900 #### [facility] [address] [place], [address] Platelet mean volume (Bld) [Entitic vol] 10.5 fL Normal 6.2-12.[address] [facility] Comment on above: Order Comment: Order Date: 08/13/24Order Info: 183- - CBCD Performed By: #### L 300.3900 #### [facility] [address] [place], [address] Platelets (Bld) [#/Vol] 191 10*3/uL Normal 150-[address] [facility] Comment on above: Order Comment: Order Date: 08/13/24Order Info: 183- - CBCD Performed By: #### L 300.3900 #### [facility] [address] [place], [address] RBC (Bld) [#/Vol] 4.65 10*6/uL Normal 4.2-5.4 [facility] Comment on above: Order Comment: Order Date: 08/13/24Order Info: 183- - CBCD Performed By: #### L 300.3900 #### [facility] [address] [place], [address] RDW SD 47.7 fl High 35.1-43.[address] [facility] Comment on above: Order Comment: Order Date: 08/13/24Order Info: 183- - CBCD Performed By: #### L 300.3900 #### [facility] [address] [place], [address] WBC (Bld) [#/Vol] 7.6 10*3/uL Normal 4.4-11.0 [facility] Comment on above: Order Comment: Order Date: 08/13/24Order Info: 183-1 - CBCD Performed By: #### L 300.3900 #### [facility] [address] [place], [address] Carbon dioxide measurementOr dered By: Syl Domínguez on 12-02-2024 CO2 [Moles/Vol] 30.0 mmol/L 21.0-32.[address] [facility] Chloride measurementOrdered By: Syl Domínguez on 12-02-2024 Chloride [Moles/Vol] 104 mmol/L 98-107 [facility] Comprehensive Metabolic Prof ilon 12-02-2024 Albumin [Mass/Vol] 3.6 g/dL Normal 3.2-5.0 [facility] Comment on above: Order Comment: Order Date: 08/13/24Order Info: 86-1 - CMPOrder Info: [id number] - LIPIDOrder Info: [id number] - MG Performed By: #### L 300.3900 #### [facility] [address] [place], [address] Albumin/Globulin [Mass ratio] 1.0 {ratio} Normal 0.9-2.[address] [facility] Comment on above: Order Comment: Order Date: 08/13/24Order Info: 86-1 - CMPOrder Info: [id number] - LIPIDOrder Info: [id number] - MG Performed By: #### L 300.3900 #### [facility] [address] [place], [address] ALK P 146 U/L High 45-[address] [facility] Comment on above: Order Comment: Order Date: 08/13/24Order Info: [id number] - CMPOrder Info: [id number] - LIPIDOrder Info: [id number] - MG Performed By: #### L 300.3900 #### [facility] [address] [place], [address] ALT [Catalytic activity/Vol] 46 U/L Normal 13-[address] [facility] Comment on above: Order Comment: Order Date: 08/13/24Order Info: [id number] - CMPOrder Info: [id number] - LIPIDOrder Info: [id number] - MG Performed By: #### L 300.3900 #### [facility] [address] [place], [address] AST [Catalytic activity/Vol] 41 U/L High 15-[address] [facility] Comment on above: Order Comment: Order Date: 08/13/24Order Info: [id number] - CMPOrder Info: [id number] - LIPIDOrder Info: [id number] - MG Performed By: #### L 300.3900 #### [facility] [address] [place], [address] Bilirubin [Mass/Vol] 1.00 mg/dL Normal 0.20-1.00 [facility] Comment on above: Order Comment: Order Date: 08/13/24Order Info: [id number] - CMPOrder Info: [id number] - LIPIDOrder Info: [id number] - MG Result Comment: For patients on eltrombopag therapy, use of Dimension Marble TBIL is not recommended. Performed By: #### L 300.3900 #### [facility] [address] [place], [address] BUN/CRE 16.6 RATIO Normal 10-[address] [facility] Comment on above: Order Comment: Order Date: 08/13/24Order Info: [id number] - CMPOrder Info: [id number] - LIPIDOrder Info: [id number] - MG Performed By: #### L 300.3900 #### [facility] [address] [place], [address] CA,Total 9.4 mg/dL Normal 8.5-10.[address] [facility] Comment on above: Order Comment: Order Date: 08/13/24Order Info: [id number] - CMPOrder Info: [id number] - LIPIDOrder Info: [id number] - MG Performed By: #### L 300.3900 #### [facility] [address] [place], [address] Chloride [Moles/Vol] 104 mmol/L Normal 98-107 [facility] Comment on above: Order Comment: Order Date: 08/13/24Order Info: [id number] - CMPOrder Info: [id number] - LIPIDOrder Info: [id number] - MG Performed By: #### L 300.3900 #### [facility] [address] [place], [address] CO2 [Moles/Vol] 30.0 mmol/L Normal 21.0-32.[address] [facility] Comment on above: Order Comment: Order Date: 08/13/24Order Info: [id number] - CMPOrder Info: [id number] - LIPIDOrder Info: [id number] - MG Performed By: #### L 300.3900 #### [facility] [address] [place], [address] Creatinine [Mass/Vol] 0.96 mg/dL Normal 0.55-1.02 [facility] Comment on above: Order Comment: Order Date: 08/13/24Order Info: [id number] - CMPOrder Info: [id number] - LIPIDOrder Info: [id number] - MG Result Comment: The validity of the calculated GFR GFRAA in patients over 70 years has not been determined. Clinical correlation is essential. Performed By: #### L 300.3900 #### [facility] [address] [place], [address] EST GFR - AA 71 mL/min Normal >[address] [facility] Comment on above: Order Comment: Order Date: 08/13/24Order Info: [id number] - CMPOrder Info: [id number] - LIPIDOrder Info: [id number] - MG Result Comment: Afri can Moldovan GFR Calc Performed By: #### L 300.3900 #### [facility] [address] [place], [address] GAP 5 Normal 5-[address] [facility] Comment on above: Order Comment: Order Date: 08/13/24Order Info: [id number] - CMPOrder Info: [id number] - LIPIDOrder Info: [id number] - MG Performed By: #### L 300.3900 #### [facility] [address] [place], [address] GFR/1.73 sq M.predicted among non-blacks MDRD (S/P/Bld) [Vol rate/Area] 59 mL/min/{1.73_m2} Low >[address] [facility] Comment on above: Order Comment: Order Date: 08/13/24Order Info: [id number] - CMPOrder Info: [id number] - LIPIDOrder Info: [id number] - MG Result Comment: Non- GFR Calc Performed By: #### L 300.3900 #### [facility] [address] [place], [address] Globulin (S) [Mass/Vol] 3.7 g/dL Normal 2.2-4.[address] [facility] Comment on above: Order Comment: Order Date: 08/13/24Order Info: [id number] - CMPOrder Info: [id number] - LIPIDOrder Info: [id number] - MG Performed By: #### L 300.3900 #### [facility] [address] [place], [address] Glucose [Mass/Vol] 115 mg/dL High 74-106 [facility] Comment on above: Order Comment: Order Date: 08/13/24Order Info: [id number] - CMPOrder Info: [id number] - LIPIDOrder Info: [id number] - MG Result Comment: Fast ing Glucose result from 100 to 125 mg/dL suggests IMPAIRED HOMEOSTASIS per A.D.A. criteria. Performed By: #### L 300.3900 #### [facility] [address] [place], [address] Potassium [Moles/Vol] 3.9 mmol/L Normal 3.5-5.1 [facility] Comment on above: Order Comment: Order Date: 08/13/24Order Info: [id number] - CMPOrder Info: [id number] - LIPIDOrder Info: [id number] - MG Performed By: #### L 300.3900 #### [facility] [address] [place], [address] Sodium [Moles/Vol] 138 mmol/L Normal 136-145 [facility] Comment on above: Order Comment: Order Date: 08/13/24Order Info: [id number] - CMPOrder Info: [id number] - LIPIDOrder Info: [id number] - MG Performed By: #### L 300.3900 #### [facility] [address] [place], [place], [address] T PROT 7.3 g/dL Normal 6.4-8.[address] [facility] Comment on above: Order Comment: Order Date: 08/13/24Order Info: [id number] - CMPOrder Info: [id number] - LIPIDOrder Info: [id number] - MG Performed By: #### L 300.3900 #### [facility] [address] [place], [place], [address] Urea nitrogen [Mass/Vol] 16 mg/dL Normal 7-[address] [facility] Comment on above: Order Comment: Order Date: 08/13/24Order Info: [id number] - CMPOrder Info: [id number] - LIPIDOrder Info: [id number] - MG Performed By: #### L 300.3900 #### [facility] [address] [place], [place], [address] Eosinophil percentageOrdered By: Syl Domínguez on 12-02-2024 Eosinophils/100 WBC (Bld) 3.3 % 0-[address] [facility] Erythrocyte distribution wid th ratioOrdered By: Syl Domínguez on 12-02-2024 Erythrocyte distribution width (RBC) [Ratio] 13.7 % 11.6-14.[address] [facility] Erythrocyte distribution wid th standard deviationOrdered By: Syl Domínguez on 12-02-2024 Erythrocyte distribution width (RBC) [Entitic vol] 47.7 fL High 35.1-43.[address] [facility] Estimated glomerular filtrat ion rate (GFR) AmericanOrdered By: Syl Domínguez on 12-02-2024 Estimated GFR (MDRD) Amer 71 mL/min >[address] [facility] Comment on above: GFR Calc Glomerular filtration rate ( GFR) estimationOrdered By: Syl Domínguez on 12-02-2024 Estimated GFR (MDRD) Non-Af Amer 59 mL/min Low >[address] [facility] Comment on above: Non- GFR Calc Glucose measurementOrdered B y: Syl Domínguez on 12-02-2024 Glucose [Mass/Vol] 115 mg/dL High 74-106 [facility] Comment on above: Fasting Glucose resu lt from 100 to 125 mg/dL suggests IMPAIRED HOMEOSTASIS per A.D.A. criteria. Hematocrit Auto (Bld) [Volum e fraction]Ordered By: Syl Domínguez on 12-02-2024 Hematocrit (Bld) [Volume fraction] 44.2 % 37-[address] [facility] Hemoglobin A1con 12-02-2024 HbA1c (Bld) [Mass fraction] 6.4 % High 3.8-5.[address] [facility] Comment on above: Order Comment: Order Date: 08/13/24Order Info: [id number] - A1C Result Comment: Norm al < 5.7 % Prediabetic 5.7 - 6.4 % Diabetic >or= 6.5 % Please note range changes. Performed By: #### L 300.3900 #### [facility] [address] [place], [place] [address], [address] Hemoglobin A1c percentageOrd ered By: Syl Domínguez on 12-02-2024 HbA1c (Bld) [Mass fraction] 6.4 % High 3.8-5.[address] [facility] Comment on above: Normal < 5.7 % Predi abetic 5.7 - 6.4 % Diabetic >or= 6.5 % Please note range changes. Hemoglobin measurementOrdere d By: Syl Domínguez on 12-02-2024 Hemoglobin (Bld) [Mass/Vol] 14.6 g/dL 12.0-15.[address] [facility] High density lipoprotein (HD L) measurementOrdered By: Syl Domínguez on 12-02-2024 Cholesterol in HDL [Mass/Vol] 52 mg/dL >[address] [facility] Comment on above: The drugs N-Acetylcy steine and Metamizole may falsely depress this assay. Reference Range HDL <40 mg/dL Low HDL Cholesterol HDL >or= 60 mg/dL High HDL Cholesterol Immature granulocytes/100 WB C Auto (Bld)Ordered By: Syl Domínguez on 12-02-2024 Immature granulocytes/100 WBC (Bld) 0.300 % 0.0-0.[address] [facility] Comment on above: IG% - Immature Granu locytes (promyelocytes, myelocytes and metamyelocytes) > 1% indicates that a LEFT SHIFT is Present. Laboratory - Chemistry and C hemistry - challengeOrdered By: Syl Palmerkenny on 12-02-2024 AST [Catalytic activity/Vol] 41 U/L High 15-[address] [facility] Lipid Profileon 12-02-2024 Cholesterol [Mass/Vol] 136 mg/dL Normal [address] [facility] Comment on above: Order Comment: Order Date: 08/13/24Order Info: [id number] - CMPOrder Info: [id number] - LIPIDOrder Info: [id number] - MG Result Comment: <200 mg/dL Desirable 200-240 mg/dL Borderline >240 mg/dL High Risk Performed By: #### L 300.3900 #### [facility] [address] [place], [address] Cholesterol in HDL [Mass/Vol] 52 mg/dL Normal [facility] Comment on above: Order Comment: Order Date: 08/13/24Order Info: [id number] - CMPOrder Info: [id number] - LIPIDOrder Info: [id number] - MG Result Comment: The drugs N-Acetylcysteine and Metamizole may falsely depress this assay. Reference Range HDL <40 mg/dL Low HDL Cholesterol HDL >or= 60 mg/dL High HDL Cholesterol Performed By: #### L 300.3900 #### [facility] [address] [place], [address] Cholesterol in LDL [Mass/Vol] 52 mg/dL Normal 0-[address] [facility] Comment on above: Order Comment: Order Date: 08/13/24Order Info: [id number] - CMPOrder Info: [id number] - LIPIDOrder Info: [id number] - MG Performed By: #### L 300.3900 #### [facility] [address] [place], [address] Cholesterol in VLDL [Mass/Vol] 32 mg/dL Normal 5-[address] [facility] Comment on above: Order Comment: Order Date: 08/13/24Order Info: [id number] - CMPOrder Info: [id number] - LIPIDOrder Info: [id number] - MG Performed By: #### L 300.3900 #### [facility] [address] [place], [place], [address] Triglyceride [Mass/Vol] 161 mg/dL Normal [facility] Comment on above: Order Comment: Order Date: 08/13/24Order Info: [id number] CMPOrder Info: [id number] - LIPIDOrder Info: [id number] - MG Result Comment: The drugs N-Acetylcysteine and Metamizole may falsely depress this assay. Serum Triglycerides Reference Interval Normal <150 mg/dL Borderline high 150 - 199 mg/dL High 200 - 499 mg/dL Very High > or = 500 mg/dL Performed By: #### L 300.3900 #### [facility] [address] [place], [place], [address] Low density lipoprotein (LDL ) cholesterol measurementOrdered By: Syl Domínguez on 12-02-2024 Cholesterol in LDL [Mass/Vol] 52 mg/dL 0-[address] [facility] Lymphocytes Auto (Unsp spec) [#/Vol]Ordered By: Syl Domínguez on 12-02-2024 Lymphocytes (Bld) [#/Vol] 1.40 10*3/uL 0.83-4.[address] [facility] Lymphocytes/100 WBC Auto (Un sp spec)Ordered By: Syl Domínguez on 12-02-2024 Lymphocytes/100 WBC (Bld) 18.3 % Low 19-[address] [facility] MCV (mean corpuscular volume ) determinationOrdered By: Syl Domínguez on 12-02-2024 MCV (RBC) [Entitic vol] 95.1 fL 81-[address] [facility] Magnesiumon 12-02-2024 Magnesium [Mass/Vol] 2.6 mg/dL Normal 1.6-2.6 [facility] Comment on above: Order Comment: Order Date: 08/13/24Order Info: [id number] CMPOrder Info: [id number] - LIPIDOrder Info: [id number] - MG Performed By: #### L 300.3900 #### [facility] [place], [address] Magnesium measurementOrdered By: Syl Domínguez on 12-02-2024 Magnesium [Mass/Vol] 2.6 mg/dL 1.6-2.6 [facility] Mean corpuscular hemoglobin (MCH) determinationOrdered By: Syl Domínguez on 12-02-2024 MCH (RBC) [Entitic mass] 31.4 pg 27.0-32.[address] [facility] Mean corpuscular hemoglobin concentration (MCHC) determinationOrdered By: Syl Domínguez on 12-02-2024 MCHC (RBC) [Mass/Vol] 33.0 g/dL 32-36 [facility] Mean platelet volume determi nationOrdered By: Syl Domínguez on 12-02-2024 Platelet mean volume (Bld) [Entitic vol] 10.5 fL 6.2-12.[address] [facility] Monocyte percentageOrdered B y: Syl Domínguez on 12-02-2024 Monocytes/100 WBC (Bld) 10.0 % 0-[address] [facility] Neutrophil percentageOrdered By: Syl Domínguez on 12-02-2024 Neutrophils/100 WBC (Bld) 66.8 % 47-[address] [facility] Nucleated red blood cell per centageOrdered By: Syl Domínguez on 12-02-2024 Nucleated RBC/100 WBC (Bld) [Ratio] 0 % 0-[address] [facility] Platelet countOrdered By: Vesta Domínguez on 12-02-2024 Platelets (Bld) [#/Vol] 191 10*3/uL 150-[address] [facility] Potassium measurementOrdered By: Syl Domínguez on 12-02-2024 Potassium [Moles/Vol] 3.9 mmol/L 3.5-5.1 [facility] RBC Auto (Bld) [#/Vol]Ordere d By: Syl Domínguez on 12-02-2024 RBC (Bld) [#/Vol] 4.65 10*6/uL 4.2-5.4 [facility] Serum anion gap measurementO rdered By: Sly Domínguez on 12-02-2024 Anion gap [Moles/Vol] 5 mmol/L 5-15 [facility] Serum globulin measurementOr dered By: Syl Domínguez on 12-02-2024 Globulin (S) [Mass/Vol] 3.7 g/dL 2.2-4.[address] [facility] Serum or plasma alanine mendieta otransferase (ALT) measurementOrdered By: Syl Domínguez on 12-02-2024 ALT [Catalytic activity/Vol] 46 U/L 13-[address] [facility] Serum or plasma albumin kenyon urement (mass/volume)Ordered By: Syl Domínguez on 12-02-2024 Albumin [Mass/Vol] 3.6 g/dL 3.2-5.0 [facility] Serum or plasma alkaline anne marie sphatase measurementOrdered By: Syl Domínguez on 12-02-2024 ALP [Catalytic activity/Vol] 146 U/L High 45-[address] [facility] Serum or plasma calcium kenyon urement (mass/volume)Ordered By: Syl Domínguez on 12-02-2024 Calcium [Mass/Vol] 9.4 mg/dL 8.5-10.1 [facility] Serum or plasma cholesterol measurement (mass/volume)Ordered By: Syl Domínguez on 12-02-2024 Cholesterol [Mass/Vol] 136 mg/dL <[address] [facility] Comment on above: <200 mg/dL Desirable 200-240 mg/dL Borderline >240 mg/dL High Risk Serum or plasma creatinine m easurement (mass/volume)Ordered By: Syl Domínguez on 12-02-2024 Creatinine [Mass/Vol] 0.96 mg/dL 0.55-1.02 [facility] Comment on above: The validity of the calculated GFR & GFRAA in patients over 70 years has not been determined. Clinical correlation is essential. Serum or plasma urea nitroge n measurement (mass/volume)Ordered By: Syl Domínguez on 12-02-2024 Urea nitrogen [Mass/Vol] 16 mg/dL 7-[address] [facility] Sodium levelOrdered By: Syl Domínguez on 12-02-2024 Sodium [Moles/Vol] 138 mmol/L 136-145 [facility] Total proteinOrdered By: Umer Domínguez on 12-02-2024 Protein [Mass/Vol] 7.3 g/dL 6.4-8.2 [facility] Triglycerides measurementOrd ered By: Syl Domínguez on 12-02-2024 Triglyceride [Mass/Vol] 161 mg/dL <[address] [facility] Comment on above: The drugs N-Acetylcy steine and Metamizole may falsely depress this assay.Serum Triglycerides Reference Interval Normal <150 mg/dL Borderline high 150 - 199 mg/dL High 200 - 499 mg/dL Very High > or = 500 mg/dL Very low density lipoprotein (VLDL) cholesterol measurementOrdered By: Syl Domínguez on 12-02-2024 VLDL Cholesterol 32 mg/dL 5-[address] [facility] Vitamin D,25 Hydroxyon 12-02 Vitamin D 25-OH 43.7 ng/mL Normal [facility] Comment on above: Order Comment: Order Date: 08/13/24Order Info: [id number] - [id number] Result Comment: June min D 25(OH) Status Range Deficiency <20 ng/mL (50nmol/L) Insufficiency 20 - 30 ng/mL (50 - 75 nmol/L) Sufficiency 30 - 100 ng/mL (75 - 250 nmol/L) Toxicity >100 ng/mL (>250 nmol/L) Performed By: #### L 300.3900 #### [facility] [address] [place], [place], [id number] White blood cell (WBC) count Ordered By: Syl Domínguez on 12-02-2024 WBC (Bld) [#/Vol] 7.6 10*3/uL 4.4-11.0 [facility] International normalized rat io (INR) calculationOrdered By: Elizabeth Krishnan on 11-09-2024 INR Coag (Bld) [Relative time] 3.2 {INR} [facility] Prothrombin Time w/INRon INR Coag (PPP) [Relative time] 3.2 {INR} Normal [facility] Comment on above: Performed By: #### L 300.3900 #### [facility] [address] [place], [place], [address] PT Coag (PPP) [Time] 32.2 s High 11.7-14.9 [facility] Comment on above: Performed By: #### L 300.3900 #### [facility] [address] [place], [place], [address] Prothrombin timeOrdered By: Elizabeth Krishnan on 11-09-2024 PT Coag (PPP) [Time] 32.2 s High 11.7-14.9 [facility] Prothrombin Time w/INRon INR Coag (PPP) [Relative time] 3.1 {INR} Normal [facility] Comment on above: Performed By: #### L 300.3900 #### [facility] [address] [place], [place], [address] PT Coag (PPP) [Time] 31.9 s High 11.7-14.9 [facility] Comment on above: Performed By: #### L 300.3900 #### [facility] [address] [place], [place], [address] Urgent Care Visit Reporton 1 12-02-2023 Urgent Care Visit Report [facility] [address], [address] [place], [place] [address] OFFICE VISIT Date of Service: 10/02/24 MR#: [id number] Acct: [id number] Name: CHRISTINA CHEN Rep #: [id number] : 1940 Provider: LEATHA Medina Age/Sex: 84/F Location: [facility] Status: Signed Intake Vital Signs 08/17/24 13:44 10/02/24 07:37 Height 5 ft 3 in Weight: 175 lb 14.862 oz BP 130/74 H Blood Pressure Location Lt brachial Position Sitting Respiration 15 Pulse 71 Pulse Source NIBP Temp 98.4 F Temp Source Oral Pulse Oximetry (%) 96 Oxygen Delivery Method room air Intake Visit Reasons: PAIN IN RIGHT HAND Chief Complaint: right thumb/hand pain 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 denies fall/injury/trauma/overuse. pt believes it to be arthritis but unsure what she can take when on Warfarin. [facility] Medical History Wears glasses Post-menopausal Cancer High cholesterol Back pain Non-smoker Shortness of breath on exertion History of Holter monitoring History of echocardiogram History of stress test Cardiology follow-up encounter History of atrial fibrillation Osteoporosis Urinary tract infection with hematuria Aortic root dilatation Nonrheumatic aortic (valve) stenosis Aortic dilatation Essential hypertension History of bicuspid aortic valve Hyperlipidemia Right bundle branch block Surgical History History of aortic valve replacement with bioprosthetic valve ( 08/24/08) History of bilateral oophorectomy History of tubal ligation History of bunionectomy Family History Father CAD (coronary artery disease) Mother Cerebral hemorrhage Sister Lung cancer Social History Smoking Status: Never smoker alcohol intake: never substance use type: does not use caffeine: Yes Type: other Number of servings: 1 HPI HPI Chief Complaint: right thumb/hand pain Details: CHRISTINA CHEN, is a 84 F who presents to the office today for complaint of right wrist and thumb pain. Patient states this has been ongoing for the past couple of weeks and worsening recently. She denies any trauma to the hand however does state having history of arthritis. Patient denies numbness, tingling or loss range of motion to the wrist or hand. No other associated symptoms or alleviating/aggravating factors. ROS Const Constitutional: No other (6 system ROS completed with pertinent findings in HPI otherwise normal.) Exam Const General: cooperative and healthy appearing Skin General: no rashes or lesions noted Neuro General: patient alert Extrem Other: Pain to palpation right wrist and thumb with minor swelling. 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 Encouraged to get plenty of rest and use Tylenol or Ibuprofen (unless contraindicated) for comfort. Patient also educated on other symptomatic management techniques. To be seen in 7-10 days if no improvement; sooner if worsening of symptoms. Patient advised to follow- up with her PCP regarding her INR levels. Patient advised of potential red flags and when appropriate to report to the ED. Patient verbalized understanding and agreement with all the above. Clinical Quality Measures Falls Risk Screening/Assistive Devices Have you fallen in the past year?: No 10/02/24 0831 Date Shay Maher Signature: Date (if applicable) CC: Normal [facility] - CoagulationOrde red By: Elizabeth Krishnan on 03-16-2024 INR Coag (Bld) [Relative time] 3.6 {INR} [facility] PT Coag (PPP) [Time] 35.5 s 11.7-14.9 [facility] Absolute lymphocyte countOrd ered By: Elizabeth Krishnan on 02-07-2024 Lymphocytes Auto (Unsp spec) [#/Vol] 1.46 10*3/uL 0.83-4.[address] [facility] Automated lymphocyte count a s percentage of total leukocytesOrdered By: Elizabeth Krishnan on 02-07-2024 Lymphocytes/100 WBC Auto (Unsp spec) 20.9 % 19-[address] [facility] Basophil percentageOrdered B y: Elizabeth Krishnan on 02-07-2024 Basophils/100 WBC (Bld) 1.1 % 0-[address] [facility] Eosinophils/100 WBC (Bld) 4.0 % 0-[address] [facility] Hemoglobin (Bld) [Mass/Vol] 14.9 g/dL 12.0-15.[address] [facility] Monocytes/100 WBC (Bld) 8.6 % 0-[address] [facility] Neutrophils (Bld) [#/Vol] 4.6 10*3/uL 2.0-7.[address] [facility] Neutrophils/100 WBC (Bld) 65.3 % 47-[address] [facility] WBC (Bld) [#/Vol] 7.0 10*3/uL 4.4-11.0 [facility] Determination of erythrocyte mean corpuscular volume (MCV)Ordered By: Elizabeth Krishnan on 02-07-2024 MCV (RBC) [Entitic vol] 93.0 fL 81-[address] [facility] Erythrocyte distribution wid th ratioOrdered By: Elizabeth Krishnan on 02-07-2024 Erythrocyte distribution width (RBC) [Ratio] 14.4 % 11.6-14.[address] [facility] Erythrocyte distribution wid th standard deviationOrdered By: Elizabeth Krishnan on 02-07-2024 Erythrocyte distribution width (RBC) [Entitic vol] 49.1 fL 35.1-43.[address] [facility] Hematocrit Auto (Bld) [Volum e fraction]Ordered By: Elizabeth Krishnan on 02-07-2024 Hematocrit (Bld) [Volume fraction] 45.3 % 37-[address] [facility] Immature granulocytes/100 WB C Auto (Bld)Ordered By: Elizabeth Krishnan on 02-07-2024 Immature granulocytes/100 WBC (Bld) 0.100 % 0.0-0.[address] [facility] Comment on above: IG% - Immature Granu locytes (promyelocytes, myelocytes and metamyelocytes) > 1% indicates that a LEFT SHIFT is Present. Laboratory - Hematology and Cell countsOrdered By: Elizabeth Krishnan on 02-07-2024 MCH (RBC) [Entitic mass] 30.6 pg 27.0-32.[address] [facility] MCHC (RBC) [Mass/Vol] 32.9 g/dL 32-36 [facility] Nucleated RBC/100 WBC (Bld) [Ratio] 0 % 0-[address] [facility] Platelet mean volume (Bld) [Entitic vol] 10.6 fL 6.2-12.[address] [facility] Platelets (Bld) [#/Vol] 203 10*3/uL 150-[address] [facility] RBC Auto (Bld) [#/Vol]Ordere d By: Elizabeth Krishnan on 02-07-2024 RBC (Bld) [#/Vol] 4.87 10*6/uL 4.2-5.4 [facility] Culture, urineOrdered By: Hortencia Ambriz on 02-06-2024 Bacteria identified Cx Nom (U) Presumptive E. coli [facility] Laboratory - Chemistry and C hemistry - challengeon 02-06-2024 Glucose Ql (U) Negative [facility] Ketones Ql (U) Trace (5) [facility] pH (U) 5.0 [pH] [facility] Specific gravity (U) [Rel density] 1.[address] [facility] Urobilinogen (U) [Mass/Vol] Negative [facility] Laboratory - Hematology and Cell countson 02-06-2024 Hemoglobin Ql (U) Negative [facility] Laboratory - Specimen inform ationon 02-06-2024 Clarity (U) Clear [facility] Color (U) YELLOW [facility] Laboratory - Urinalysison Nitrite Ql (U) Negative [facility] Protein Ql (U) Negative [facility] No Panel Informationon 02-05 Urine Leukocytes Positive [facility] Urine Non-Hemolyzed Blood Negative [facility] Laboratory - CoagulationOrde red By: Elizabeth Krishnan on 02-03-2024 INR Coag (Bld) [Relative time] 3.2 {INR} [facility] PT Coag (PPP) [Time] 32.2 s 11.7-14.9 [facility] Laboratory - CoagulationOrde red By: Elizabeth Krishnan on 01-13-2024 INR Coag (Bld) [Relative time] 3.3 {INR} [facility] PT Coag (PPP) [Time] 33.1 s 11.7-14.9 [facility] Laboratory - CoagulationOrde red By: Elizabeth Krishnan on 12-31-2023 INR Coag (Bld) [Relative time] 2.9 {INR} [facility] PT Coag (PPP) [Time] 30.9 s 11.7-14.9 [facility] Laboratory - CoagulationOrde red By: Elizabeth Krishnan on 12-24-2023 INR Coag (Bld) [Relative time] 1.8 {INR} [facility] PT Coag (PPP) [Time] 21.3 s 11.7-14.9 [facility] Capillary blood internationa l normalized ratio (INR)Ordered By: Shyann Ambriz on 12-17-2023 INR Coag (BldC) [Relative time] 1.[address] [facility] Comment on above: Critical Value > 4.0 Whole blood prothrombin time Ordered By: Shyann Ambriz on 12-17-2023 PT Coag (Bld) [Time] 15.1 s 11.7-14.9 [facility] Activated partial thrombopla stin time (aPTT) in platelet poor plasma by coagulation aOrdered By: Shyann Ambriz on 12-11-2023 aPTT Coag (PPP) [Time] 44.0 s 24.1-36.[address] [facility] Basophil percentageOrdered B y: Shyann Ambriz on 12-11-2023 Chloride [Moles/Vol] 110 mmol/L 98-107 [facility] Glucose [Mass/Vol] 125 mg/dL 74-106 [facility] Comment on above: Fasting Glucose resu lt from 100 to 125 mg/dL suggests IMPAIRED HOMEOSTASIS per A.D.A. criteria. Hemoglobin (Bld) [Mass/Vol] 13.5 g/dL 12.0-15.[address] [facility] Potassium [Moles/Vol] 4.0 mmol/L 3.5-5.1 [facility] Sodium [Moles/Vol] 139 mmol/L 136-145 [facility] WBC (Bld) [#/Vol] 6.6 10*3/uL 4.4-11.0 [facility] Determination of erythrocyte mean corpuscular volume (MCV)Ordered By: Shyann Ambriz on 12-11-2023 MCV (RBC) [Entitic vol] 92.1 fL 81-[address] [facility] Erythrocyte distribution wid th ratioOrdered By: Shyann Ambriz on 12-11-2023 Erythrocyte distribution width (RBC) [Ratio] 13.4 % 11.6-14.[address] [facility] Erythrocyte distribution wid th standard deviationOrdered By: Shyann Ambriz on 12-11-2023 Erythrocyte distribution width (RBC) [Entitic vol] 45.7 fL 35.1-43.[address] [facility] Hematocrit Auto (Bld) [Volum e fraction]Ordered By: Shyann Ambriz on 12-11-2023 Hematocrit (Bld) [Volume fraction] 40.9 % 37-[address] [facility] International normalized rat io (INR) calculationOrdered By: Shyann Ambriz on 12-11-2023 INR Coag (PPP) [Relative time] 3.9 {INR} [facility] Laboratory - Chemistry and C hemistry - challengeOrdered By: Shyann Ambriz on 12-11-2023 CO2 [Moles/Vol] 22.0 mmol/L 21.0-32.[address] [facility] Urea nitrogen/Creatinine [Mass ratio] 15.5 mg/mg 10-[address] [facility] Laboratory - CoagulationOrde red By: Shyann Ambriz on 12-11-2023 PT Coag (PPP) [Time] 38.8 s 11.7-14.9 [facility] Laboratory - Hematology and Cell countsOrdered By: Shyann Ambriz on 12-11-2023 MCH (RBC) [Entitic mass] 30.4 pg 27.0-32.[address] [facility] MCHC (RBC) [Mass/Vol] 33.0 g/dL 32-36 [facility] Platelets (Bld) [#/Vol] 179 10*3/uL 150-[address] [facility] No Panel InformationOrdered By: Shyann Ambriz on 12-11-2023 Estimated GFR (MDRD) Amer 76 mL/min >[address] [facility] Comment on above: GFR Calc Estimated GFR (MDRD) Non-Af Amer 63 mL/min >[address] [facility] Comment on above: Non- GFR Calc Platelet mean volume Antony-Ec ker (Bld) [Entitic vol]Ordered By: Shyann Ambriz on 12-11-2023 Platelet mean volume (Bld) [Entitic vol] 10.8 fL 6.2-12.[address] [facility] RBC Auto (Bld) [#/Vol]Ordere d By: Shyann Ambriz on 12-11-2023 RBC (Bld) [#/Vol] 4.44 10*6/uL 4.2-5.4 [facility] Serum or plasma calcium kenyon urement (mass/volume)Ordered By: Shyann Ambriz on 12-11-2023 Calcium [Mass/Vol] 9.1 mg/dL 8.5-10.1 [facility] Serum or plasma creatinine m easurement (mass/volume)Ordered By: Shyann Ambriz on 12-11-2023 Creatinine [Mass/Vol] 0.91 mg/dL 0.55-1.02 [facility] Comment on above: The validity of the calculated GFR & GFRAA in patients over 70 years has not been determined. Clinical correlation is essential. Serum or plasma urea nitroge n measurement (mass/volume)Ordered By: Shyann Ambriz on 12-11-2023 Urea nitrogen [Mass/Vol] 14 mg/dL 7-[address] [facility] Thin prep Papanicolaou smear with manual screeningOrdered By: Shyann Ambriz on 12-11-2023 Thin prep Papanicolaou smear with manual screening 7 5-[address] [facility] Absolute lymphocyte countOrd ered By: Syl Domínguez on 11-28-2023 Lymphocytes Auto (Unsp spec) [#/Vol] 1.35 10*3/uL 0.83-4.[address] [facility] Basophil percentageOrdered B y: Syl Domínguez on 11-28-2023 Basophils/100 WBC (Bld) 1.2 % 0-[address] [facility] Bilirubin [Mass/Vol] 1.00 mg/dL 0.20-1.00 [facility] Comment on above: For patients on eltr ombopag therapy, use of Dimension Marble TBIL is not recommended. Chloride [Moles/Vol] 106 mmol/L 98-107 [facility] Cholesterol [Mass/Vol] 147 mg/dL <[address] [facility] Comment on above: <200 mg/dL Desirable 200-240 mg/dL Borderline >240 mg/dL High Risk Eosinophils/100 WBC (Bld) 2.3 % 0-[address] [facility] Glucose [Mass/Vol] 92 mg/dL 74-106 [facility] Neutrophils (Bld) [#/Vol] 6.1 10*3/uL 2.0-7.[address] [facility] Neutrophils/100 WBC (Bld) 71.3 % 47-[address] [facility] Potassium [Moles/Vol] 4.2 mmol/L 3.5-5.1 [facility] Protein [Mass/Vol] 7.4 g/dL 6.4-8.2 [facility] Sodium [Moles/Vol] 138 mmol/L 136-145 [facility] Triglyceride [Mass/Vol] 159 mg/dL <[address] [facility] Comment on above: The drugs N-Acetylcy steine and Metamizole may falsely depress this assay.Serum Triglycerides Reference Interval Normal <150 mg/dL Borderline high 150 - 199 mg/dL High 200 - 499 mg/dL Very High > or = 500 mg/dL WBC (Bld) [#/Vol] 8.6 10*3/uL 4.4-11.0 [facility] Blood erythrocytes count (nu mber/volume)Ordered By: Syl Domínguez on 11-28-2023 RBC (Bld) [#/Vol] 4.90 10*6/uL 4.2-5.4 [facility] Blood hemoglobin measurement (mass/volume)Ordered By: Syl Domínguez on 11-28-2023 Hemoglobin (Bld) [Mass/Vol] 14.9 g/dL 12.0-15.[address] [facility] Blood lymphocytes/100 leukoc ytesOrdered By: Syl Domínguez on 11-28-2023 Lymphocytes/100 WBC (Bld) 15.8 % 19-[address] [facility] Blood monocytes/100 leukocyt esOrdered By: Syl Domínguez on 11-28-2023 Monocytes/100 WBC (Bld) 9.2 % 0-[address] [facility] Blood platelet mean volumeOr dered By: Syl Domínguez on 11-28-2023 Platelet mean volume (Bld) [Entitic vol] 10.5 fL 6.2-12.[address] [facility] Determination of erythrocyte mean corpuscular volume (MCV)Ordered By: Syl Domínguez on 11-28-2023 MCV (RBC) [Entitic vol] 92.4 fL 81-[address] [facility] Hematocrit Auto (Bld) [Volum e fraction]Ordered By: Syl Domínguez on 11-28-2023 Hematocrit (Bld) [Volume fraction] 45.3 % 37-[address] [facility] Laboratory - Chemistry and C hemistry - challengeOrdered By: Syl Domínguez on 11-28-2023 ALP [Catalytic activity/Vol] 88 U/L 45-[address] [facility] ALT [Catalytic activity/Vol] 30 U/L 13-[address] [facility] CO2 [Moles/Vol] 26.0 mmol/L 21.0-32.[address] [facility] Globulin (S) [Mass/Vol] 3.8 g/dL 2.2-4.[address] [facility] Magnesium [Mass/Vol] 2.4 mg/dL 1.6-2.6 [facility] Urea nitrogen/Creatinine [Mass ratio] 15.5 mg/mg 10-[address] [facility] Laboratory - Hematology and Cell countsOrdered By: Syl Domínguez on 11-28-2023 Erythrocyte distribution width (RBC) [Entitic vol] 45.8 fL 35.1-43.[address] [facility] Erythrocyte distribution width (RBC) [Ratio] 13.3 % 11.6-14.[address] [facility] Immature granulocytes/100 WBC (Bld) 0.200 % 0.0-0.[address] [facility] Comment on above: IG% - Immature Granu locytes (promyelocytes, myelocytes and metamyelocytes) > 1% indicates that a LEFT SHIFT is Present. MCH (RBC) [Entitic mass] 30.4 pg 27.0-32.[address] [facility] Nucleated RBC/100 WBC (Bld) [Ratio] 0 % 0-[address] [facility] MCHC Auto (RBC) [Mass/Vol]Or dered By: Syl Domínguez on 11-28-2023 MCHC (RBC) [Mass/Vol] 32.9 g/dL 32-36 [facility] No Panel InformationOrdered By: Syl Domínguez on 11-28-2023 Estimated GFR (MDRD) Amer 66 mL/min >[address] [facility] Comment on above: GFR Calc Estimated GFR (MDRD) Non-Af Amer 54 mL/min >[address] [facility] Comment on above: Non- GFR Calc Thyroid Stimulating Hormone (TSH) 2.78 uIU/mL 0.358-3.[address] [facility] Vitamin D 25-Hydroxy 38.0 ng/mL [facility] Comment on above: Vitamin D 25(OH) Sta tus Range Deficiency <20 ng/mL (50nmol/L) Insufficiency 20 - 30 ng/mL (50 - 75 nmol/L) Sufficiency 30 - 100 ng/mL (75 - 250 nmol/L) Toxicity >100 ng/mL (>250 nmol/L) Platelets bldOrdered By: Umer Domínguez on 11-28-2023 Platelets (Bld) [#/Vol] 206 10*3/uL 150-[address] [facility] Serum or plasma albumin kenyon urement (mass/volume)Ordered By: Syl Domínguez on 11-28-2023 Albumin [Mass/Vol] 3.6 g/dL 3.2-5.0 [facility] Serum or plasma albumin/glob ulin mass ratioOrdered By: Syl Domínguez on 11-28-2023 Albumin/Globulin [Mass ratio] 0.9 {ratio} 0.9-2.[address] [facility] Serum or plasma calcium kenyon urement (mass/volume)Ordered By: Syl Domínguez on 11-28-2023 Calcium [Mass/Vol] 9.7 mg/dL 8.5-10.1 [facility] Serum or plasma cholesterol in HDL measurement (mass/volume)Ordered By: Syl Domínguez on 11-28-2023 Cholesterol in HDL [Mass/Vol] 57 mg/dL >[address] [facility] Comment on above: The drugs N-Acetylcy steine and Metamizole may falsely depress this assay. Reference Range HDL <40 mg/dL Low HDL Cholesterol HDL >or= 60 mg/dL High HDL Cholesterol Serum or plasma cholesterol in VLDL measurement (mass/volume)Ordered By: Syl Domínguez on 11-28-2023 Cholesterol in VLDL [Mass/Vol] 32 mg/dL 5-[address] [facility] Serum or plasma creatinine m easurement (mass/volume)Ordered By: Syl Domínguez on 11-28-2023 Creatinine [Mass/Vol] 1.03 mg/dL 0.55-1.02 [facility] Comment on above: The validity of the calculated GFR & GFRAA in patients over 70 years has not been determined. Clinical correlation is essential. Serum or plasma low density lipoprotein (LDL) cholesterol measurement (mass/volume)Ordered By: Syl Domínguez on 11-28-2023 Cholesterol in LDL [Mass/Vol] 58 mg/dL 0-[address] [facility] Serum or plasma urea nitroge n measurement (mass/volume)Ordered By: Syl Domínguez on 11-28-2023 Urea nitrogen [Mass/Vol] 16 mg/dL 7-[address] [facility] Thin prep Papanicolaou smear with manual screeningOrdered By: Syl Domínguez on 11-28-2023 Thin prep Papanicolaou smear with manual screening 31 U/L 15-[address] [facility] Thin prep Papanicolaou smear with manual screening 6 5-[address] [facility] Whole blood hemoglobin A1c/t otal hemoglobin ratio (mass fraction)Ordered By: Syl Domínguez on 11-28-2023 HbA1c (Bld) [Mass fraction] 6.2 % 3.8-5.[address] [facility] Comment on above: Normal < 5.7 % Predi abetic 5.7 - 6.4 % Diabetic >or= 6.5 % Please note range changes. Laboratory - CoagulationOrde red By: Elizabeth Krishnan on 11-27-2023 PT Coag (PPP) [Time] 34.6 s 11.7-14.9 [facility] Whole blood international no rmalized ratio (INR)Ordered By: Elizabeth Krishnan on 11-27-2023 INR Coag (Bld) [Relative time] 3.4 {INR} [facility] Laboratory - CoagulationOrde red By: Elizabeth Krishnan on 11-13-2023 PT Coag (PPP) [Time] 23.8 s 11.7-14.9 [facility] Whole blood international no rmalized ratio (INR)Ordered By: Elizabeth Krishnan on 11-13-2023 INR Coag (Bld) [Relative time] 2.1 {INR} [facility] Cervical or vaginal specimen microscopic examination by liquid based cytology (reported as document) Ordered By: Shyann Ambriz on 10-24-2023 Cytology report Cyto stain.thin prep Doc (Cvx/Vag) Comment . [facility] Comment on above: Criteria not met, HP V Genotype not performed.Performed at: - [facility] [id number] Director: Tameka Leon MD, Phone: [phone] at: = - [facility] [id number] Director: Tameka Leon MD, Phone: [phone] Cervical or vagninal specime n microscopic examination by cytology stain (reported asOrdered By: Shyann Ambriz on 10-24-2023 Cytology report Cyto stain Doc (Cvx/Vag) Comment . [facility] Comment on above: The Pap smear is a s creening test designed to aid in thedetection of premalignant and malignant conditions of theuterine cervix. It is not a diagnostic procedure andshould not be used as the sole means of detecting cervicalcancer. Both false-positive and false-negative reports dooccur. Detection in cervical specim en of any of human papilloma virus (HPV) 16, 18, 31, 33,Ordered By: Shyann Ambriz on 10-24-2023 HPV 16+18+31+33+35+39+45+ 51+52+56+58+59+66+68 DNA Probe+sig amp Ql (Cvx) Negative Negative [facility] Comment on above: This nucleic acid am plification test detects fourteen high- risk HPV types (16,18,31,33,35,39,45,51,52,56,58,59,66,68)without differentiation. Laboratory - CytologyOrdered By: Shyann Ambriz on 10-24-2023 Automation Driver Cyto stain Nom (Cvx/Vag) [ID] Comment . [facility] Comment on above: Natalie Nelson ytotechnologist (ASCP) Laboratory - Miscellaneous t estsOrdered By: Shyann Ambriz on 10-24-2023 Service comment (Unsp spec) [Interp] Comment . [facility] Comment on above: This liquid based Th inPrep(R) pap test was screened withthe use of an image guided system. Service comment (Unsp spec) [Interp] . . [facility] No Panel InformationOrdered By: Shyann Ambriz on 10-24-2023 Pathology report final diagnosis Narrative Comment . [facility] Comment on above: NEGATIVE FOR INTRAEP ITHELIAL LESION OR MALIGNANCY.CELLULAR CHANGES ASSOCIATED WITH INFLAMMATION ARE PRESENT. INR in Blood by Coagulation assayOrdered By: Elizabeth Krishnan on 10-23-2023 INR Coag (Bld) [Relative time] 2.2 {INR} [facility] Laboratory - CoagulationOrde red By: Elizabeth Krishnan on 10-23-2023 PT Coag (PPP) [Time] 24.5 s 11.7-14.9 [facility] INR in Blood by Coagulation assayOrdered By: Elizabeth Krishnan on 10-14-2023 INR Coag (Bld) [Relative time] 3.8 {INR} [facility] Laboratory - CoagulationOrde red By: Elizabeth Krishnan on 10-14-2023 PT Coag (PPP) [Time] 38.4 s 11.7-14.9 [facility] Basophil percentageOrdered B y: Elizabeth Krishnan on 10-03-2023 Chloride [Moles/Vol] 108 mmol/L 98-107 [facility] Glucose [Mass/Vol] 114 mg/dL 74-106 [facility] Comment on above: Fasting Glucose resu lt from 100 to 125 mg/dL suggests IMPAIRED HOMEOSTASIS per A.D.A. criteria. Potassium [Moles/Vol] 4.1 mmol/L 3.5-5.1 [facility] Sodium [Moles/Vol] 141 mmol/L 136-145 [facility] Laboratory - Chemistry and C hemistry - challengeOrdered By: Elizabeth Krishnan on 10-03-2023 CO2 [Moles/Vol] 27.0 mmol/L 21.0-32.[address] [facility] Urea nitrogen/Creatinine [Mass ratio] 14.1 mg/mg - [facility] No Panel InformationOrdered By: Elizabeth Krishnan on 10-03-2023 Estimated GFR (MDRD) Amer 75 mL/min >[address] [facility] Comment on above: GFR Calc Estimated GFR (MDRD) Non-Af Amer 62 mL/min >[address] [facility] Comment on above: Non- GFR Calc Serum or plasma calcium kenyon urement (mass/volume)Ordered By: Elizabeth Krishnan on 10-03-2023 Calcium [Mass/Vol] 8.5 mg/dL 8.5-10.1 [facility] Serum or plasma creatinine m easurement (mass/volume)Ordered By: Elizabeth Krishnan on 10-03-2023 Creatinine [Mass/Vol] 0.92 mg/dL 0.55-1.02 [facility] Comment on above: The validity of the calculated GFR & GFRAA in patients over 70 years has not been determined. Clinical correlation is essential. Serum or plasma urea nitroge n measurement (mass/volume)Ordered By: Elizabeth Krishnan on 10-03-2023 Urea nitrogen [Mass/Vol] 13 mg/dL 7-[address] [facility] Thin prep Papanicolaou smear with manual screeningOrdered By: Elizabeth Krishnan on 10-03-2023 Thin prep Papanicolaou smear with manual screening 6 5-[address] [facility] Basophil percentageOrdered B y: Elizabeth Krishnan on 09-25-2023 Chloride [Moles/Vol] 107 mmol/L 98-107 [facility] Glucose [Mass/Vol] 92 mg/dL 74-106 [facility] Potassium [Moles/Vol] 3.3 mmol/L 3.5-5.1 [facility] Sodium [Moles/Vol] 140 mmol/L 136-145 [facility] Laboratory - Chemistry and C hemistry - challengeOrdered By: Elizabeth Krishnan on 09-25-2023 CO2 [Moles/Vol] 29.0 mmol/L 21.0-32.[address] [facility] Urea nitrogen/Creatinine [Mass ratio] 15.8 mg/mg 10-[address] [facility] No Panel InformationOrdered By: Elizabeth Krishnan on 09-25-2023 Estimated GFR (MDRD) Amer 79 mL/min >[address] [facility] Comment on above: GFR Calc Estimated GFR (MDRD) Non-Af Amer 65 mL/min >[address] [facility] Comment on above: Non- GFR Calc Serum or plasma calcium kenyon urement (mass/volume)Ordered By: Elizabeth Krishnan on 09-25-2023 Calcium [Mass/Vol] 8.8 mg/dL 8.5-10.1 [facility] Serum or plasma creatinine m easurement (mass/volume)Ordered By: Elizabeth Krishnan on 09-25-2023 Creatinine [Mass/Vol] 0.88 mg/dL 0.55-1.02 [facility] Comment on above: The validity of the calculated GFR & GFRAA in patients over 70 years has not been determined. Clinical correlation is essential. Serum or plasma urea nitroge n measurement (mass/volume)Ordered By: Elizabeth Krishnan on 09-25-2023 Urea nitrogen [Mass/Vol] 14 mg/dL 7-[address] [facility] Thin prep Papanicolaou smear with manual screeningOrdered By: Elizabeth Krishnan on 09-25-2023 Thin prep Papanicolaou smear with manual screening 4 5-[address] [facility] Basophil percentageOrdered B y: Elizabeth Krishnan on 09-17-2023 Chloride [Moles/Vol] 108 mmol/L 98-107 [facility] Glucose [Mass/Vol] 120 mg/dL 74-106 [facility] Comment on above: Fasting Glucose resu lt from 100 to 125 mg/dL suggests IMPAIRED HOMEOSTASIS per A.D.A. criteria. Potassium [Moles/Vol] 4.1 mmol/L 3.5-5.1 [facility] Sodium [Moles/Vol] 138 mmol/L 136-145 [facility] Laboratory - Chemistry and C hemistry - challengeOrdered By: Elizabeth Krishnan on 09-17-2023 CO2 [Moles/Vol] 28.0 mmol/L 21.0-32.[address] [facility] Urea nitrogen/Creatinine [Mass ratio] 12.8 mg/mg 10-[address] [facility] No Panel InformationOrdered By: Elziabeth Krishnan on 09-17-2023 Estimated GFR (MDRD) Amer 74 mL/min >[address] [facility] Comment on above: GFR Calc Estimated GFR (MDRD) Non-Af Amer 61 mL/min >[address] [facility] Comment on above: Non- GFR Calc Serum or plasma calcium kenyon urement (mass/volume)Ordered By: Elizabeth Krishnan on 09-17-2023 Calcium [Mass/Vol] 9.1 mg/dL 8.5-10.1 [facility] Serum or plasma creatinine m easurement (mass/volume)Ordered By: Elizabeth Krishnan on 09-17-2023 Creatinine [Mass/Vol] 0.94 mg/dL 0.55-1.02 [facility] Comment on above: The validity of the calculated GFR & GFRAA in patients over 70 years has not been determined. Clinical correlation is essential. Serum or plasma urea nitroge n measurement (mass/volume)Ordered By: Elizabeth Krishnan on 09-17-2023 Urea nitrogen [Mass/Vol] 12 mg/dL 7-[address] [facility] Thin prep Papanicolaou smear with manual screeningOrdered By: Elizabeth Krishnan on 09-17-2023 Thin prep Papanicolaou smear with manual screening 2 5-[address] [facility] Basophil percentageOrdered B y: Elizabeth Krishnan on 09-10-2023 Chloride [Moles/Vol] 104 mmol/L 98-107 [facility] Glucose [Mass/Vol] 136 mg/dL 74-106 [facility] Comment on above: Fasting Glucose resu lt greater than or equal to 126 mg/dL suggests DIABETES MELLITUS per A.D.A. criteria. Potassium [Moles/Vol] 3.4 mmol/L 3.5-5.1 [facility] Sodium [Moles/Vol] 138 mmol/L 136-145 [facility] INR in Blood by Coagulation assayOrdered By: Elizabeth Krishnan on 09-10-2023 INR Coag (Bld) [Relative time] 1.7 {INR} [facility] Laboratory - Chemistry and C hemistry - challengeOrdered By: Elizabeth Krishnan on 09-10-2023 CO2 [Moles/Vol] 31.0 mmol/L 21.0-32.[address] [facility] Urea nitrogen/Creatinine [Mass ratio] 16.2 mg/mg 09-[address] [facility] Laboratory - CoagulationOrde red By: Elizabeth Krishnan on 09-10-2023 aPTT Coag (Bld) [Time] 38.7 s 24.1-36.[address] [facility] PT Coag (PPP) [Time] 20.0 s 11.7-14.9 [facility] No Panel InformationOrdered By: Elizabeth Krishnan on 09-10-2023 Estimated GFR (MDRD) Amer 69 mL/min >[address] [facility] Comment on above: GFR Calc Estimated GFR (MDRD) Non-Af Amer 57 mL/min >[address] [facility] Comment on above: Non- GFR Calc Serum or plasma calcium kenyon urement (mass/volume)Ordered By: Elizabeth Krishnan on 09-10-2023 Calcium [Mass/Vol] 9.2 mg/dL 8.5-10.1 [facility] Serum or plasma creatinine m easurement (mass/volume)Ordered By: Elizabeth Krishnan on 09-10-2023 Creatinine [Mass/Vol] 0.99 mg/dL 0.55-1.02 [facility] Comment on above: The validity of the calculated GFR & GFRAA in patients over 70 years has not been determined. Clinical correlation is essential. Serum or plasma urea nitroge n measurement (mass/volume)Ordered By: Elizabeth Krishnan on 09-10-2023 Urea nitrogen [Mass/Vol] 16 mg/dL 7-[address] [facility] Thin prep Papanicolaou smear with manual screeningOrdered By: Elizabeth Krishnan on 09-10-2023 Thin prep Papanicolaou smear with manual screening 3 5-[address] [facility] Whole blood hemoglobin A1c/t otal hemoglobin ratio (mass fraction)Ordered By: Syl Domínguez on 09-10-2023 HbA1c (Bld) [Mass fraction] 5.8 % 3.8-5.[address] [facility] Comment on above: Normal < 5.7 % Predi abetic 5.7 - 6.4 % Diabetic >or= 6.5 % Please note range changes. Whole blood hemoglobin A1c/t otal hemoglobin ratio (mass fraction)Ordered By: Syl Domínguez on 09-03-2023 HbA1c (Bld) [Mass fraction] 5.9 % 3.8-5.[address] [facility] Comment on above: Normal < 5.7 % Predi abetic 5.7 - 6.4 % Diabetic >or= 6.5 % Please note range changes. Absolute lymphocyte countOrd ered By: Syl Domínguez on 09-02-2023 Lymphocytes Auto (Unsp spec) [#/Vol] 1.52 10*3/uL 0.83-4.[address] [facility] Basophil percentageOrdered B y: Syl Domínguez on 09-02-2023 Basophils/100 WBC (Bld) 0.8 % 0-[address] [facility] Bilirubin [Mass/Vol] 1.30 mg/dL 0.20-1.00 [facility] Comment on above: For patients on eltr ombopag therapy, use of Dimension Marble TBIL is not recommended. Chloride [Moles/Vol] 107 mmol/L 98-107 [facility] Cholesterol [Mass/Vol] 122 mg/dL <[address] [facility] Comment on above: <200 mg/dL Desirable 200-240 mg/dL Borderline >240 mg/dL High Risk Eosinophils/100 WBC (Bld) 2.7 % 0-[address] [facility] Glucose [Mass/Vol] 131 mg/dL 74-106 [facility] Comment on above: Fasting Glucose resu lt greater than or equal to 126 mg/dL suggests DIABETES MELLITUS per A.D.A. criteria. Neutrophils (Bld) [#/Vol] 7.5 10*3/uL 2.0-7.[address] [facility] Neutrophils/100 WBC (Bld) 73.9 % 47-[address] [facility] Potassium [Moles/Vol] 3.7 mmol/L 3.5-5.1 [facility] Protein [Mass/Vol] 7.2 g/dL 6.4-8.2 [facility] Sodium [Moles/Vol] 139 mmol/L 136-145 [facility] Triglyceride [Mass/Vol] 156 mg/dL <[address] [facility] Comment on above: The drugs N-Acetylcy steine and Metamizole may falsely depress this assay.Serum Triglycerides Reference Interval Normal <150 mg/dL Borderline high 150 - 199 mg/dL High 200 - 499 mg/dL Very High > or = 500 mg/dL WBC (Bld) [#/Vol] 10.2 10*3/uL 4.4-11.0 [facility] Blood erythrocytes count (nu mber/volume)Ordered By: Syl Domínguez on 09-02-2023 RBC (Bld) [#/Vol] 4.51 10*6/uL 4.2-5.4 [facility] Blood hemoglobin measurement (mass/volume)Ordered By: Syl Domínguez on 09-02-2023 Hemoglobin (Bld) [Mass/Vol] 14.5 g/dL 12.0-15.[address] [facility] Blood lymphocytes/100 leukoc ytesOrdered By: Syl Domínguez on 09-02-2023 Lymphocytes/100 WBC (Bld) 14.9 % 19-[address] [facility] Blood monocytes/100 leukocyt esOrdered By: Syl Domínguez on 09-02-2023 Monocytes/100 WBC (Bld) 7.5 % 0-[address] [facility] Blood platelet mean volumeOr dered By: Syl Domínguez on 09-02-2023 Platelet mean volume (Bld) [Entitic vol] 9.9 fL 6.2-12.[address] [facility] Determination of erythrocyte mean corpuscular volume (MCV)Ordered By: Syl Domínguez on 09-02-2023 MCV (RBC) [Entitic vol] 95.8 fL 81-[address] [facility] Hematocrit Auto (Bld) [Volum e fraction]Ordered By: Syl Domínguez on 09-02-2023 Hematocrit (Bld) [Volume fraction] 43.2 % 37-[address] [facility] Laboratory - Chemistry and C hemistry - challengeOrdered By: Syl Harper on 09-02-2023 Natriuretic peptide B (Bld) [Mass/Vol] 260.8 pg/mL 0-[address] [facility] Laboratory - Chemistry and C hemistry - challengeOrdered By: Syl Domínguez on 09-02-2023 ALP [Catalytic activity/Vol] 101 U/L 45-[address] [facility] ALT [Catalytic activity/Vol] 33 U/L 13-[address] [facility] CO2 [Moles/Vol] 27.0 mmol/L 21.0-32.[address] [facility] Globulin (S) [Mass/Vol] 3.6 g/dL 2.2-4.[address] [facility] Urea nitrogen/Creatinine [Mass ratio] 10.6 mg/mg 10-[address] [facility] Laboratory - Hematology and Cell countsOrdered By: Syl Domínguez on 09-02-2023 Erythrocyte distribution width (RBC) [Entitic vol] 48.0 fL 35.1-43.[address] [facility] Erythrocyte distribution width (RBC) [Ratio] 13.6 % 11.6-14.[address] [facility] Immature granulocytes/100 WBC (Bld) 0.200 % 0.0-0.[address] [facility] Comment on above: IG% - Immature Granu locytes (promyelocytes, myelocytes and metamyelocytes) > 1% indicates that a LEFT SHIFT is Present. MCH (RBC) [Entitic mass] 32.2 pg 27.0-32.[address] [facility] Nucleated RBC/100 WBC (Bld) [Ratio] 0 % 0-[address] [facility] MCHC Auto (RBC) [Mass/Vol]Or dered By: Syl Domínguez on 09-02-2023 MCHC (RBC) [Mass/Vol] 33.6 g/dL 32-36 [facility] No Panel InformationOrdered By: Syl Domínguez on 09-02-2023 Estimated GFR (MDRD) Amer 73 mL/min >[address] [facility] Comment on above: GFR Calc Estimated GFR (MDRD) Non-Af Amer 60 mL/min >[address] [facility] Comment on above: Non- GFR Calc Thyroid Stimulating Hormone (TSH) 2.79 uIU/mL 0.358-3.[address] [facility] Vitamin D 25-Hydroxy 44.9 ng/mL [facility] Comment on above: Vitamin D 25(OH) Sta tus Range Deficiency <20 ng/mL (50nmol/L) Insufficiency 20 - 30 ng/mL (50 - 75 nmol/L) Sufficiency 30 - 100 ng/mL (75 - 250 nmol/L) Toxicity >100 ng/mL (>250 nmol/L) Platelets bldOrdered By: Umer Domínguez on 09-02-2023 Platelets (Bld) [#/Vol] 215 10*3/uL 150-[address] [facility] Serum or plasma albumin kenyon urement (mass/volume)Ordered By: Syl Domínguez on 09-02-2023 Albumin [Mass/Vol] 3.6 g/dL 3.2-5.0 [facility] Serum or plasma albumin/glob ulin mass ratioOrdered By: Syl Domínguez on 09-02-2023 Albumin/Globulin [Mass ratio] 1.0 {ratio} 0.9-2.[address] [facility] Serum or plasma calcium kenyon urement (mass/volume)Ordered By: Syl Domínguez on 09-02-2023 Calcium [Mass/Vol] 9.1 mg/dL 8.5-10.1 [facility] Serum or plasma cholesterol in HDL measurement (mass/volume)Ordered By: Syl Domínguez on 09-02-2023 Cholesterol in HDL [Mass/Vol] 61 mg/dL >[address] [facility] Comment on above: The drugs N-Acetylcy steine and Metamizole may falsely depress this assay. Reference Range HDL <40 mg/dL Low HDL Cholesterol HDL >or= 60 mg/dL High HDL Cholesterol Serum or plasma cholesterol in VLDL measurement (mass/volume)Ordered By: Syl Domínguez on 09-02-2023 Cholesterol in VLDL [Mass/Vol] 31 mg/dL 5-[address] [facility] Serum or plasma creatinine m easurement (mass/volume)Ordered By: Syl Domínguez on 09-02-2023 Creatinine [Mass/Vol] 0.94 mg/dL 0.55-1.02 [facility] Comment on above: The validity of the calculated GFR & GFRAA in patients over 70 years has not been determined. Clinical correlation is essential. Serum or plasma low density lipoprotein (LDL) cholesterol measurement (mass/volume)Ordered By: Syl Domínguez on 09-02-2023 Cholesterol in LDL [Mass/Vol] 30 mg/dL 0-[address] [facility] Serum or plasma urea nitroge n measurement (mass/volume)Ordered By: Syl Domínguez on 09-02-2023 Urea nitrogen [Mass/Vol] 10 mg/dL 7-[address] [facility] Thin prep Papanicolaou smear with manual screeningOrdered By: Syl Domínguez on 09-02-2023 Thin prep Papanicolaou smear with manual screening 24 U/L 15-[address] [facility] Thin prep Papanicolaou smear with manual screening 5 5-[address] [facility] Culture, urineOrdered By: St thom Elder on 03-16-2023 Bacteria identified Cx Nom (U) Escherichia coli [facility] Basophil percentageOrdered B y: Marco Antonio Elder on 03-14-2023 Basophil percentage >100 SEEN /hpf 0-5 [facility] Comment on above: Microscopic field is filled. Other elements may be obscured. Bilirubin Test strip Ql (U)O rdered By: Marco Antonio Elder on 03-14-2023 Bilirubin Ql (U) Negative Negative [facility] Ketones Test strip Ql (U)Ord ered By: Marco Antonio Elder on 03-14-2023 Ketones Ql (U) Negative Negative [facility] Laboratory - Chemistry and C hemistry - challengeon 03-14-2023 Bilirubin Ql (U) Moderate (2+) [facility] Glucose Ql (U) Negative [facility] Ketones Ql (U) Small (15+) [facility] pH (U) 6.5 [pH] [facility] Specific gravity (U) [Rel density] 1.[address] [facility] Urobilinogen (U) [Mass/Vol] 0.4419430 mg/dL [facility] Laboratory - Hematology and Cell countson 03-14-2023 Hemoglobin Ql (U) Moderate [facility] Laboratory - Specimen inform ationon 03-14-2023 Clarity (U) Cloudy [facility] Color (U) Yellow [facility] Laboratory - Urinalysison Nitrite Ql (U) Positive [facility] Protein Ql (U) Positive [facility] Mucus LM Ql (Urine sed)Order ed By: Marco Antonio Elder on 03-14-2023 Mucus Ql (Urine sed) 0 SEEN /hpf [facility] Nitrite Test strip Ql (U)Ord ered By: Marco Antonio Elder on 03-14-2023 Nitrite Ql (U) Positive Negative [facility] No Panel Informationon 03-14 Urine Leukocytes Positive [facility] Urine Non-Hemolyzed Blood Negative [facility] Protein Test strip Ql (U)Ord ered By: Marco Antonio Elder on 03-14-2023 Protein Ql (U) 100 mg/dl Negative [facility] Squamous epithelial cells de tection in urine sediment by light microscopyOrdered By: Marco Antonio Elder on 03-14-2023 Epithelial cells.squamous LM Ql (Urine sed) 0 SEEN /hpf 5-[address] [facility] Urine blood detectionOrdered By: Marco Antonio Elder on 03-14-2023 RBC Ql (U) 50 /ul Negative [facility] RBC Ql (U) 0 SEEN /hpf 0-[address] [facility] Urine clarityOrdered By: Piter Elder on 03-14-2023 Clarity (U) Turbid Clear [facility] Urine color determinationOrd ered By: Marco Antonio Elder on 03-14-2023 Color (U) Yellow Yellow [facility] Urine glucose detectionOrder ed By: Marco Antonio Elder on 03-14-2023 Glucose Ql (U) Normal mg/dl Normal [facility] Urine leukocyte esterase det ection by dipstickOrdered By: Marco Antonio Elder on 03-14-2023 Leukocyte esterase Test strip Ql (U) 500 /ul Negative [facility] Urine pHOrdered By: Marco Antonio martinez on 03-14-2023 pH (U) 7.0 [pH] 5.0 - 8.[address] [facility] Urine sediment bacteria coun t by microscopy (number/high power field)Ordered By: Marco Antonio Elder on 03-14-2023 Bacteria LM.HPF (Urine sed) [#/Area] 0 /[HPF] None Seen [facility] Urine specific gravity measu rementOrdered By: Marco Antonio Elder on 03-14-2023 Specific gravity (U) [Rel density] 1.010 1.002-1.[address] [facility] Urobilinogen Auto test strip Ql (U)Ordered By: Marco Antonio Elder on 03-14-2023 Urobilinogen Ql (U) Normal mg/dl Normal [facility] Culture, urineOrdered By: Dr Duncan Domínguez on 01-05-2023 Bacteria identified Cx Nom (U) Escherichia coli [facility] Absolute lymphocyte countOrd ered By: Dr. Domínguez on 01-02-2023 Lymphocytes Auto (Unsp spec) [#/Vol] 1.45 10*3/uL 0.83-4.[address] [facility] Basophil percentageOrdered B y: Dr. Domínguez on 01-02-2023 Basophil percentage >100 SEEN /hpf 0-5 [facility] Comment on above: Microscopic field is filled. Other elements may be obscured. Basophils/100 WBC (Bld) 1.0 % 0-[address] [facility] Bilirubin [Mass/Vol] 1.20 mg/dL 0.20-1.00 [facility] Comment on above: For patients on eltr ombopag therapy, use of Dimension Marble TBIL is not recommended. Chloride [Moles/Vol] 106 mmol/L 98-107 [facility] Cholesterol [Mass/Vol] 154 mg/dL <[address] [facility] Comment on above: <200 mg/dL Desirable 200-240 mg/dL Borderline >240 mg/dL High Risk Eosinophils/100 WBC (Bld) 2.8 % 0-[address] [facility] Glucose [Mass/Vol] 106 mg/dL 74-106 [facility] Comment on above: Fasting Glucose resu lt from 100 to 125 mg/dL suggests IMPAIRED HOMEOSTASIS per A.D.A. criteria. Neutrophils (Bld) [#/Vol] 4.8 10*3/uL 2.0-7.[address] [facility] Neutrophils/100 WBC (Bld) 66.7 % 47-[address] [facility] Potassium [Moles/Vol] 3.7 mmol/L 3.5-5.1 [facility] Protein [Mass/Vol] 7.3 g/dL 6.4-8.2 [facility] Sodium [Moles/Vol] 141 mmol/L 136-145 [facility] Triglyceride [Mass/Vol] 163 mg/dL <[address] [facility] Comment on above: The drugs N-Acetylcy steine and Metamizole may falsely depress this assay.Serum Triglycerides Reference Interval Normal <150 mg/dL Borderline high 150 - 199 mg/dL High 200 - 499 mg/dL Very High > or = 500 mg/dL WBC (Bld) [#/Vol] 7.3 10*3/uL 4.4-11.0 [facility] Bilirubin Test strip Ql (U)O rdered By: Dr. Domínguez on 01-02-2023 Bilirubin Ql (U) Negative Negative [facility] Blood erythrocytes count (nu mber/volume)Ordered By: Dr. Domínguez on 01-02-2023 RBC (Bld) [#/Vol] 4.44 10*6/uL 4.2-5.4 [facility] Blood hemoglobin measurement (mass/volume)Ordered By: Dr. Domínguez on 01-02-2023 Hemoglobin (Bld) [Mass/Vol] 14.2 g/dL 12.0-15.[address] [facility] Blood lymphocytes/100 leukoc ytesOrdered By: Dr. Domínguez on 01-02-2023 Lymphocytes/100 WBC (Bld) 20.0 % 19-[address] [facility] Blood monocytes/100 leukocyt esOrdered By: Dr. Domínguez on 01-02-2023 Monocytes/100 WBC (Bld) 9.2 % 0-[address] [facility] Blood platelet mean volumeOr dered By: Dr. Domínguez on 01-02-2023 Platelet mean volume (Bld) [Entitic vol] 10.4 fL 6.2-12.[address] [facility] Determination of erythrocyte mean corpuscular volume (MCV)Ordered By: Dr. Domínguez on 01-02-2023 MCV (RBC) [Entitic vol] 96.8 fL 81-[address] [facility] Hematocrit Auto (Bld) [Volum e fraction]Ordered By: Dr. Domínguez on 01-02-2023 Hematocrit (Bld) [Volume fraction] 43.0 % 37-[address] [facility] Ketones Test strip Ql (U)Ord ered By: Dr. Domínguez on 01-02-2023 Ketones Ql (U) Negative Negative [facility] Laboratory - Chemistry and C hemistry - challengeOrdered By: Dr. Domínguez on 01-02-2023 ALP [Catalytic activity/Vol] 63 U/L 45-[address] [facility] ALT [Catalytic activity/Vol] 20 U/L 13-[address] [facility] CO2 [Moles/Vol] 27.0 mmol/L 21.0-32.[address] [facility] Globulin (S) [Mass/Vol] 3.7 g/dL 2.2-4.[address] [facility] Urea nitrogen/Creatinine [Mass ratio] 19.9 mg/mg 10-[address] [facility] Laboratory - Hematology and Cell countsOrdered By: Dr. Domínguez on 01-02-2023 Erythrocyte distribution width (RBC) [Entitic vol] 46.7 fL 35.1-43.[address] [facility] Erythrocyte distribution width (RBC) [Ratio] 13.1 % 11.6-14.[address] [facility] Immature granulocytes/100 WBC (Bld) 0.300 % 0.0-0.[address] [facility] Comment on above: IG% - Immature Granu locytes (promyelocytes, myelocytes and metamyelocytes) > 1% indicates that a LEFT SHIFT is Present. MCH (RBC) [Entitic mass] 32.0 pg 27.0-32.[address] [facility] Nucleated RBC/100 WBC (Bld) [Ratio] 0 % 0-[address] [facility] MCHC Auto (RBC) [Mass/Vol]Or dered By: Dr. Domínguez on 01-02-2023 MCHC (RBC) [Mass/Vol] 33.0 g/dL 32-36 [facility] Mucus LM Ql (Urine sed)Order ed By: Dr. Domínguez on 01-02-2023 Mucus Ql (Urine sed) 1+ /hpf [facility] Nitrite Test strip Ql (U)Ord ered By: Dr. Domínguez on 01-02-2023 Nitrite Ql (U) Positive Negative [facility] No Panel InformationOrdered By: Dr. Domínguez on 01-02-2023 Estimated GFR (MDRD) Amer 88 mL/min >[address] [facility] Comment on above: GFR Calc Estimated GFR (MDRD) Non-Af Amer 72 mL/min >[address] [facility] Comment on above: Non- GFR Calc Vitamin D 25-Hydroxy 47.8 ng/mL [facility] Comment on above: Vitamin D 25(OH) Sta tus Range Deficiency <20 ng/mL (50nmol/L) Insufficiency 20 - 30 ng/mL (50 - 75 nmol/L) Sufficiency 30 - 100 ng/mL (75 - 250 nmol/L) Toxicity >100 ng/mL (>250 nmol/L) Platelets bldOrdered By: Dr. Domínguez on 01-02-2023 Platelets (Bld) [#/Vol] 210 10*3/uL 150-[address] [facility] Protein Test strip Ql (U)Ord ered By: Dr. Domínguez on 01-02-2023 Protein Ql (U) 30 mg/dl Negative [facility] Serum or plasma albumin kenyon urement (mass/volume)Ordered By: Dr. Domínguez on 01-02-2023 Albumin [Mass/Vol] 3.6 g/dL 3.2-5.0 [facility] Serum or plasma albumin/glob ulin mass ratioOrdered By: Dr. Domínguez on 01-02-2023 Albumin/Globulin [Mass ratio] 1.0 {ratio} 0.9-2.[address] [facility] Serum or plasma calcium kenyon urement (mass/volume)Ordered By: Dr. Domínguez on 01-02-2023 Calcium [Mass/Vol] 9.0 mg/dL 8.5-10.1 [facility] Serum or plasma cholesterol in HDL measurement (mass/volume)Ordered By: Dr. Domínguez on 01-02-2023 Cholesterol in HDL [Mass/Vol] 55 mg/dL >[address] [facility] Comment on above: The drugs N-Acetylcy steine and Metamizole may falsely depress this assay. Reference Range HDL <40 mg/dL Low HDL Cholesterol HDL >or= 60 mg/dL High HDL Cholesterol Serum or plasma cholesterol in VLDL measurement (mass/volume)Ordered By: Dr. Domínguez on 01-02-2023 Cholesterol in VLDL [Mass/Vol] 33 mg/dL 5-[address] [facility] Serum or plasma creatinine m easurement (mass/volume)Ordered By: Dr. Domínguez on 01-02-2023 Creatinine [Mass/Vol] 0.81 mg/dL 0.55-1.02 [facility] Comment on above: The validity of the calculated GFR & GFRAA in patients over 70 years has not been determined. Clinical correlation is essential. Serum or plasma low density lipoprotein (LDL) cholesterol measurement (mass/volume)Ordered By: Dr. Domínguez on 01-02-2023 Cholesterol in LDL [Mass/Vol] 66 mg/dL 0-[address] [facility] Serum or plasma urea nitroge n measurement (mass/volume)Ordered By: Dr. Domínguez on 01-02-2023 Urea nitrogen [Mass/Vol] 16 mg/dL 7-[address] [facility] Squamous epithelial cells de tection in urine sediment by light microscopyOrdered By: Dr. Domínguez on 01-02-2023 Epithelial cells.squamous LM Ql (Urine sed) 5-10 SEEN /hpf 5-[address] [facility] Thin prep Papanicolaou smear with manual screeningOrdered By: Dr. Domínguez on 01-02-2023 Thin prep Papanicolaou smear with manual screening 21 U/L 15-[address] [facility] Thin prep Papanicolaou smear with manual screening 8 5-[address] [facility] Urine blood detectionOrdered By: Dr. Domínguez on 01-02-2023 RBC Ql (U) 50 /ul Negative [facility] RBC Ql (U) 0-5 SEEN /hpf 0-[address] [facility] Urine clarityOrdered By: Dr. Domínguez on 01-02-2023 Clarity (U) Cloudy Clear [facility] Urine color determinationOrd ered By: Dr. Domínguez on 01-02-2023 Color (U) Yellow Yellow [facility] Urine glucose detectionOrder ed By: Dr. Domínguez on 01-02-2023 Glucose Ql (U) Normal mg/dl Normal [facility] Urine leukocyte esterase det ection by dipstickOrdered By: Dr. Domínguez on 01-02-2023 Leukocyte esterase Test strip Ql (U) 500 /ul Negative [facility] Urine pHOrdered By: Dr. Arnaldo vieira on 01-02-2023 pH (U) 6.0 [pH] 5.0 - 8.[address] [facility] Urine sediment bacteria coun t by microscopy (number/high power field)Ordered By: Dr. Domínguez on 01-02-2023 Bacteria LM.HPF (Urine sed) [#/Area] 4 /[HPF] None Seen [facility] Urine specific gravity measu rementOrdered By: Dr. Domínguez on 01-02-2023 Specific gravity (U) [Rel density] 1.010 1.002-1.[address] [facility] Urobilinogen Auto test strip Ql (U)Ordered By: Dr. Domínguez on 01-02-2023 Urobilinogen Ql (U) Normal mg/dl Normal [facility] Culture, urineOrdered By: Michael Lorenzana on 11-08-2022 Bacteria identified Cx Nom (U) Presumptive E. coli [facility] Basophil percentageOrdered B y: Shay Lorenzana on 11-06-2022 Basophil percentage 25-50 SEEN /hpf 0-[address] [facility] Laboratory - Chemistry and C hemistry - challengeon 11-06-2022 Glucose Ql (U) Negative [facility] Specific gravity (U) [Rel density] 1.[address] [facility] Urobilinogen (U) [Mass/Vol] Negative [facility] Laboratory - Hematology and Cell countson 11-06-2022 Hemoglobin Ql (U) Hemolyzed [facility] Laboratory - Specimen inform ationon 11-06-2022 Clarity (U) Cloudy [facility] Laboratory - Urinalysison Protein Ql (U) Negative [facility] Mucus LM Ql (Urine sed)Order ed By: Shay Lorenzana on 11-06-2022 Mucus Ql (Urine sed) 0 SEEN /hpf [facility] Nitrite ur dipstickon 2021 Nitrite Ql (U) Negative Negative [facility] No Panel Informationon 11-06 Urine Leukocytes Positive [facility] Urine Non-Hemolyzed Blood Large [facility] Protein Test strip Ql (U)Ord ered By: Shay Lorenzana on 11-06-2022 Protein Ql (U) 30 mg/dl Negative [facility] Squamous epithelial cells de tection in urine sediment by light microscopyOrdered By: Shay Lorenzana on 11-06-2022 Epithelial cells.squamous LM Ql (Urine sed) 0-5 SEEN /hpf 5-[address] [facility] Urine blood detectionOrdered By: Shay Lorenzana on 11-06-2022 RBC Ql (U) 150 /ul Negative [facility] RBC Ql (U) 10-25 SEEN /hpf 0-[address] [facility] Urine clarityOrdered By: Herbert Lorenzana on 11-06-2022 Clarity (U) Sl. Cloudy Clear [facility] Urine color determinationon 11-06-2022 Color (U) Yellow Yellow [facility] Urine glucose detectionOrder ed By: Shay Lorenzana on 11-06-2022 Glucose Ql (U) Normal mg/dl Normal [facility] Urine ketones detection by t est stripon 11-06-2022 Ketones Ql (U) Negative Negative [facility] Urine leukocyte esterase det ection by dipstickOrdered By: Shay Lorenzana on 11-06-2022 Leukocyte esterase Test strip Ql (U) 500 /ul Negative [facility] Urine pHon 11-06-2022 pH (U) 7.0 [pH] 5.0 - 8.[address] [facility] Urine sediment bacteria coun t by microscopy (number/high power field)Ordered By: Shay Lorenzana on 11-06-2022 Bacteria LM.HPF (Urine sed) [#/Area] 1 /[HPF] None Seen [facility] Urine specific gravity measu rementOrdered By: Shay Lorenzana on 11-06-2022 Specific gravity (U) [Rel density] 1.010 1.002-1.[address] [facility] Urine total bilirubin detect ion by test stripon 11-06-2022 Bilirubin Ql (U) Negative Negative [facility] Urobilinogen Auto test strip Ql (U)Ordered By: Shay Lorenzana on 11-06-2022 Urobilinogen Ql (U) Normal mg/dl Normal [facility] Culture, urineOrdered By: Michael Lorenzana on 10-04-2022 Bacteria identified Cx Nom (U) Escherichia coli [facility] Basophil percentageOrdered B y: Shay Lorenzana on 10-03-2022 Basophil percentage >100 SEEN /hpf 0-5 [facility] Comment on above: Microscopic field is filled. Other elements may be obscured. Bilirubin Test strip Ql (U)O rdered By: Shay Lorenzana on 10-03-2022 Bilirubin Ql (U) Negative Negative [facility] Ketones Test strip Ql (U)Ord ered By: Shay Lorenzana on 10-03-2022 Ketones Ql (U) Negative Negative [facility] Mucus LM Ql (Urine sed)Order ed By: Shay Lorenzana on 10-03-2022 Mucus Ql (Urine sed) 0 SEEN /hpf [facility] Nitrite Test strip Ql (U)Ord ered By: Shay Lorenzana on 10-03-2022 Nitrite Ql (U) Positive Negative [facility] Protein Test strip Ql (U)Ord ered By: Shay Lorenzana on 10-03-2022 Protein Ql (U) 30 mg/dl Negative [facility] Squamous epithelial cells de tection in urine sediment by light microscopyOrdered By: Shay Lorenzana on 10-03-2022 Epithelial cells.squamous LM Ql (Urine sed) 0 SEEN /hpf 5-[address] [facility] Urine blood detectionOrdered By: Shay Lorenzana on 10-03-2022 RBC Ql (U) 50 /ul Negative [facility] RBC Ql (U) 0-5 SEEN /hpf 0-[address] [facility] Urine clarityOrdered By: Herbert Lorenzana on 10-03-2022 Clarity (U) Cloudy Clear [facility] Urine color determinationOrd ered By: Shay Lorenzana on 10-03-2022 Color (U) Yellow Yellow [facility] Urine glucose detectionOrder ed By: Shay Lorenzana on 10-03-2022 Glucose Ql (U) Normal mg/dl Normal [facility] Urine leukocyte esterase det ection by dipstickOrdered By: Shay Lorenzana on 10-03-2022 Leukocyte esterase Test strip Ql (U) 500 /ul Negative [facility] Urine pHOrdered By: Shay ly on 10-03-2022 pH (U) 7.0 [pH] 5.0 - 8.[address] [facility] Urine sediment bacteria coun t by microscopy (number/high power field)Ordered By: Shay Lorenzana on 10-03-2022 Bacteria LM.HPF (Urine sed) [#/Area] 3 /[HPF] None Seen [facility] Urine specific gravity measu rementOrdered By: Shay Lorenzana on 10-03-2022 Specific gravity (U) [Rel density] 1.010 1.002-1.[address] [facility] Urobilinogen Auto test strip Ql (U)Ordered By: Shay Lorenzana on 10-03-2022 Urobilinogen Ql (U) Normal mg/dl Normal [facility] Laboratory - Chemistry and C hemistry - challengeon 10-02-2022 Bilirubin Ql (U) Negative [facility] Glucose Ql (U) Negative [facility] Ketones Ql (U) Negative [facility] pH (U) 6.0 [pH] [facility] Specific gravity (U) [Rel density] 1.[address] [facility] Urobilinogen (U) [Mass/Vol] 0.9532512 mg/dL [facility] Laboratory - Hematology and Cell countson 10-02-2022 Hemoglobin Ql (U) Moderate [facility] Laboratory - Specimen inform ationon 10-02-2022 Color (U) STRAW [facility] Laboratory - Urinalysison Nitrite Ql (U) Positive [facility] Protein Ql (U) Trace [facility] No Panel Informationon 10-02 Urine Leukocytes Positive [facility] Urine Non-Hemolyzed Blood Negative [facility] Bilirubin Test strip Ql (U)o n 08-06-2022 Bilirubin Ql (U) Negative Negative [facility] Work Phone: Ketones Test strip Ql (U)on 08-06-2022 Ketones Ql (U) Negative Negative [facility] Work Phone: Nitrite Test strip Ql (U)on 08-06-2022 Nitrite Ql (U) Negative Negative [facility] Work Phone: [phone] Protein Test strip Ql (U)on 08-06-2022 Protein Ql (U) 30 mg/dl Negative [facility] Work Phone: Urine blood detectionon 07-19 RBC Ql (U) 50 /ul Negative [facility] Work Phone: Urine clarityon 08-06-2022 Clarity (U) Sl. Cloudy Clear [facility] Work Phone: [phone] Urine color determinationon 08-06-2022 Color (U) Yellow Yellow [facility] Work Phone: [phone] Urine glucose detectionon Glucose Ql (U) Normal mg/dl Normal [facility] Work Phone: [phone] Urine leukocyte esterase det ection by dipstickon 08-06-2022 Leukocyte esterase Test strip Ql (U) 500 /ul Negative [facility] Work Phone: [phone] Urine pHon 08-06-2022 pH (U) 6.5 [pH] 5.0 - 8.[address] [facility] Work Phone: Urine specific gravity measu rementon 08-06-2022 Specific gravity (U) [Rel density] 1.010 1.002-1.[address] [facility] Work Phone: Urobilinogen Auto test strip Ql (U)on 08-06-2022 Urobilinogen Ql (U) Normal mg/dl Normal [facility] Work Phone: [phone] Absolute lymphocyte counton 07-06-2022 Lymphocytes Auto (Unsp spec) [#/Vol] 1.65 10*3/uL 0.83-4.[address] [facility] Work Phone: [phone] Basophil percentageon 2021 Basophil percentage >100 SEEN /hpf 0-5 [facility] Work Phone: [phone] Bilirubin [Mass/Vol] 1.10 mg/dL 0.20-1.00 [facility] Work Phone: Comment on above: For patients on eltr ombopag therapy, use of Dimension Marble TBIL is not recommended. Cholesterol [Mass/Vol] 160 mg/dL <[address] [facility] Work Phone: Comment on above: <200 mg/dL Desirable 200-240 mg/dL Borderline >240 mg/dL High Risk Protein [Mass/Vol] 7.4 g/dL 6.4-8.2 [facility] Work Phone: Triglyceride [Mass/Vol] 204 mg/dL <[address] [facility] Work Phone: Comment on above: The drugs N-Acetylcy steine and Metamizole may falsely depress this assay.Serum Triglycerides Reference Interval Normal <150 mg/dL Borderline high 150 - 199 mg/dL High 200 - 499 mg/dL Very High > or = 500 mg/dL Basophils/100 WBC (Bld) 0.7 % 0-[address] [facility] Work Phone: Chloride [Moles/Vol] 106 mmol/L 98-107 [facility] Work Phone: [phone] Eosinophils/100 WBC (Bld) 1.7 % 0-[address] [facility] Work Phone: Glucose [Mass/Vol] 123 mg/dL 74-106 [facility] Work Phone: Comment on above: Fasting Glucose resu lt from 100 to 125 mg/dL suggests IMPAIRED HOMEOSTASIS per A.D.A. criteria. Neutrophils (Bld) [#/Vol] 7.4 10*3/uL 2.0-7.[address] [facility] Work Phone: [phone] Neutrophils/100 WBC (Bld) 71.1 % 47-[address] [facility] Work Phone: [phone] Potassium [Moles/Vol] 3.5 mmol/L 3.5-5.1 [facility] Work Phone: [phone] Sodium [Moles/Vol] 139 mmol/L 136-145 [facility] Work Phone: [phone] WBC (Bld) [#/Vol] 10.4 10*3/uL 4.4-11.0 [facility] Work Phone: [phone] Bilirubin Test strip Ql (U)o n 07-06-2022 Bilirubin Ql (U) Negative Negative [facility] Work Phone: Blood erythrocytes count (nu mber/volume)on 07-06-2022 RBC (Bld) [#/Vol] 4.69 10*6/uL 4.2-5.4 [facility] Work Phone: [phone] Blood hemoglobin measurement (mass/volume)on 07-06-2022 Hemoglobin (Bld) [Mass/Vol] 15.2 g/dL 12.0-15.[address] [facility] Work Phone: Blood lymphocytes/100 leukoc yteson 07-06-2022 Lymphocytes/100 WBC (Bld) 15.8 % 19-[address] [facility] Work Phone: Blood monocytes/100 leukocyt eson 07-06-2022 Monocytes/100 WBC (Bld) 10.4 % 0-[address] [facility] Work Phone: Blood platelet mean volumeon 07-06-2022 Platelet mean volume (Bld) [Entitic vol] 10.6 fL 6.2-12.[address] [facility] Work Phone: [phone] Determination of erythrocyte mean corpuscular volume (MCV)on 07-06-2022 MCV (RBC) [Entitic vol] 92.8 fL 81-[address] [facility] Work Phone: [phone] Direct bilirubinon Bilirubin.direct [Mass/Vol] 0.23 mg/dL 0.00-0.[address] [facility] Work Phone: Hematocrit Auto (Bld) [Volum e fraction]on 07-06-2022 Hematocrit (Bld) [Volume fraction] 43.5 % 37-[address] [facility] Work Phone: [phone] Ketones Test strip Ql (U)on 07-06-2022 Ketones Ql (U) Negative Negative [facility] Work Phone: [phone] Laboratory - Chemistry and C hemistry - challengeon 07-06-2022 Bilirubin Ql (U) Negative [facility] Work Phone: Glucose Ql (U) Negative [facility] Work Phone: Ketones Ql (U) Negative [facility] Work Phone: pH (U) 6.0 [pH] [facility] Work Phone: [phone] Specific gravity (U) [Rel density] 1.[address] [facility] Work Phone: [phone] Urobilinogen (U) [Mass/Vol] Negative [facility] Work Phone: ALP [Catalytic activity/Vol] 52 U/L 45-[address] [facility] Work Phone: ALT [Catalytic activity/Vol] 24 U/L 13-[address] [facility] Work Phone: [phone] Globulin (S) [Mass/Vol] 3.6 g/dL 2.2-4.[address] [facility] Work Phone: [phone] CO2 [Moles/Vol] 26.0 mmol/L 21.0-32.[address] [facility] Work Phone: [phone] Urea nitrogen/Creatinine [Mass ratio] 15.8 mg/mg 10-[address] [facility] Work Phone: Laboratory - Hematology and Cell countson 07-06-2022 Hemoglobin Ql (U) Hemolyzed [facility] Work Phone: [phone] Erythrocyte distribution width (RBC) [Entitic vol] 44.3 fL 35.1-43.[address] [facility] Work Phone: [phone] Erythrocyte distribution width (RBC) [Ratio] 13.2 % 11.6-14.[address] [facility] Work Phone: [phone] Immature granulocytes/100 WBC (Bld) 0.300 % 0.0-0.[address] [facility] Work Phone: [phone] Comment on above: IG% - Immature Granu locytes (promyelocytes, myelocytes and metamyelocytes) > 1% indicates that a LEFT SHIFT is Present. MCH (RBC) [Entitic mass] 32.4 pg 27.0-32.[address] [facility] Work Phone: Nucleated RBC/100 WBC (Bld) [Ratio] 0 % 0-[address] [facility] Work Phone: Laboratory - Specimen inform ationon 07-06-2022 Clarity (U) Clear [facility] Work Phone: Color (U) Yellow [facility] Work Phone: Laboratory - Urinalysison Nitrite Ql (U) Positive [facility] Work Phone: [phone] Protein Ql (U) 3+ [facility] Work Phone: MCHC Auto (RBC) [Mass/Vol]on 07-06-2022 MCHC (RBC) [Mass/Vol] 34.9 g/dL 32-36 [facility] Work Phone: Mucus LM Ql (Urine sed)on Mucus Ql (Urine sed) 0 SEEN /hpf [facility] Work Phone: Nitrite Test strip Ql (U)on 07-06-2022 Nitrite Ql (U) Positive Negative [facility] Work Phone: No Panel Informationon 07-06 Urine Leukocytes Positive [facility] Work Phone: Urine Non-Hemolyzed Blood Large [facility] Work Phone: Estimated GFR (MDRD) Amer 79 mL/min >[address] [facility] Work Phone: Comment on above: GFR Calc Estimated GFR (MDRD) Non-Af Amer 65 mL/min >[address] [facility] Work Phone: Comment on above: Non- GFR Calc Thyroid Stimulating Hormone (TSH) 2.21 uIU/mL 0.358-3.[address] [facility] Work Phone: Platelets bldon 07-06-2022 Platelets (Bld) [#/Vol] 191 10*3/uL 150-[address] [facility] Work Phone: Protein Test strip Ql (U)on 07-06-2022 Protein Ql (U) 30 mg/dl Negative [facility] Work Phone: Serum or plasma albumin kenyon urement (mass/volume)on 07-06-2022 Albumin [Mass/Vol] 3.8 g/dL 3.2-5.0 [facility] Work Phone: Serum or plasma albumin/glob ulin mass ratioon 07-06-2022 Albumin/Globulin [Mass ratio] 1.0 {ratio} 0.9-2.[address] [facility] Work Phone: Serum or plasma calcium kenyon urement (mass/volume)on 07-06-2022 Calcium [Mass/Vol] 9.4 mg/dL 8.5-10.1 [facility] Work Phone: Serum or plasma cholesterol in HDL measurement (mass/volume)on 07-06-2022 Cholesterol in HDL [Mass/Vol] 51 mg/dL >[address] [facility] Work Phone: Comment on above: The drugs N-Acetylcy steine and Metamizole may falsely depress this assay. Reference Range HDL <40 mg/dL Low HDL Cholesterol HDL >or= 60 mg/dL High HDL Cholesterol Serum or plasma cholesterol in VLDL measurement (mass/volume)on 07-06-2022 Cholesterol in VLDL [Mass/Vol] 41 mg/dL 5-[address] [facility] Work Phone: Serum or plasma creatinine m easurement (mass/volume)on 07-06-2022 Creatinine [Mass/Vol] 0.88 mg/dL 0.55-1.02 [facility] Work Phone: Comment on above: The validity of the calculated GFR & GFRAA in patients over 70 years has not been determined. Clinical correlation is essential. Serum or plasma low density lipoprotein (LDL) cholesterol measurement (mass/volume)on 07-06-2022 Cholesterol in LDL [Mass/Vol] 68 mg/dL 0-[address] [facility] Work Phone: Serum or plasma urea nitroge n measurement (mass/volume)on 07-06-2022 Urea nitrogen [Mass/Vol] 14 mg/dL 7-[address] [facility] Work Phone: Squamous epithelial cells de tection in urine sediment by light microscopyon 07-06-2022 Epithelial cells.squamous LM Ql (Urine sed) 5-10 SEEN /hpf 5-[address] [facility] Work Phone: Thin prep Papanicolaou smear with manual screeningon 07-06-2022 Thin prep Papanicolaou smear with manual screening 23 U/L 15-[address] [facility] Work Phone: Thin prep Papanicolaou smear with manual screening 7 5-[address] [facility] Work Phone: [phone] Urine blood detectionon 06-18 RBC Ql (U) 250 /ul Negative [facility] Work Phone: [phone] RBC Ql (U) 50-100 SEEN /hpf 0-[address] [facility] Work Phone: Urine clarityon 07-06-2022 Clarity (U) Cloudy Clear [facility] Work Phone: Urine color determinationon 07-06-2022 Color (U) Straw Yellow [facility] Work Phone: Urine glucose detectionon Glucose Ql (U) Normal mg/dl Normal [facility] Work Phone: Urine leukocyte esterase det ection by dipstickon 07-06-2022 Leukocyte esterase Test strip Ql (U) 500 /ul Negative [facility] Work Phone: [phone] Urine pHon 07-06-2022 pH (U) 6.5 [pH] 5.0 - 8.[address] [facility] Work Phone: [phone] Urine sediment bacteria coun t by microscopy (number/high power field)on 07-06-2022 Bacteria LM.HPF (Urine sed) [#/Area] 4 /[HPF] None Seen [facility] Work Phone: [phone] Urine specific gravity measu rementon 07-06-2022 Specific gravity (U) [Rel density] 1.010 1.002-1.[address] [facility] Work Phone: Urobilinogen Auto test strip Ql (U)on 07-06-2022 Urobilinogen Ql (U) Normal mg/dl Normal [facility] Work Phone: [phone] Basophil percentageon 2021 Bilirubin [Mass/Vol] 1.00 mg/dL 0.20-1.00 [facility] Work Phone: [phone] Comment on above: For patients on eltr ombopag therapy, use of Dimension Marble TBIL is not recommended. Chloride [Moles/Vol] 105 mmol/L 98-107 [facility] Work Phone: [phone] Glucose [Mass/Vol] 88 mg/dL 74-106 [facility] Work Phone: [phone] Potassium [Moles/Vol] 3.4 mmol/L 3.5-5.1 [facility] Work Phone: [phone] Protein [Mass/Vol] 7.3 g/dL 6.4-8.2 [facility] Work Phone: [phone] Sodium [Moles/Vol] 139 mmol/L 136-145 [facility] Work Phone: [phone] Laboratory - Chemistry and C hemistry - challengeon 03-29-2022 ALP [Catalytic activity/Vol] 57 U/L 45-[address] [facility] Work Phone: [phone] ALT [Catalytic activity/Vol] 23 U/L 13-[address] [facility] Work Phone: [phone] CO2 [Moles/Vol] 26.0 mmol/L 21.0-32.[address] [facility] Work Phone: [phone] Globulin (S) [Mass/Vol] 3.3 g/dL 2.2-4.[address] [facility] Work Phone: [phone] Urea nitrogen/Creatinine [Mass ratio] 16.3 mg/mg 10-[address] [facility] Work Phone: No Panel Informationon 03-29 Estimated GFR (MDRD) Amer 75 mL/min >[address] [facility] Work Phone: Comment on above: GFR Calc Estimated GFR (MDRD) Non-Af Amer 62 mL/min >[address] [facility] Work Phone: Comment on above: Non- GFR Calc Vitamin D 25-Hydroxy 64.4 ng/mL [facility] Work Phone: Comment on above: Vitamin D 25(OH) Sta tus Range Deficiency <20 ng/mL (50nmol/L) Insufficiency 20 - 30 ng/mL (50 - 75 nmol/L) Sufficiency 30 - 100 ng/mL (75 - 250 nmol/L) Toxicity >100 ng/mL (>250 nmol/L) Serum or plasma albumin kenyon urement (mass/volume)on 03-29-2022 Albumin [Mass/Vol] 4.0 g/dL 3.2-5.0 [facility] Work Phone: Serum or plasma albumin/glob ulin mass ratioon 03-29-2022 Albumin/Globulin [Mass ratio] 1.2 {ratio} 0.9-2.[address] [facility] Work Phone: Serum or plasma calcium kenyon urement (mass/volume)on 03-29-2022 Calcium [Mass/Vol] 9.5 mg/dL 8.5-10.1 [facility] Work Phone: Serum or plasma creatinine m easurement (mass/volume)on 03-29-2022 Creatinine [Mass/Vol] 0.92 mg/dL 0.55-1.02 [facility] Work Phone: Comment on above: The validity of the calculated GFR & GFRAA in patients over 70 years has not been determined. Clinical correlation is essential. Serum or plasma urea nitroge n measurement (mass/volume)on 03-29-2022 Urea nitrogen [Mass/Vol] 15 mg/dL 7-[address] [facility] Work Phone: Thin prep Papanicolaou smear with manual screeningon 03-29-2022 Thin prep Papanicolaou smear with manual screening 26 U/L 15-[address] [facility] Work Phone: Thin prep Papanicolaou smear with manual screening 8 5-[address] [facility] Work Phone: Basophil percentageon 2021 Bilirubin [Mass/Vol] 0.90 mg/dL 0.20-1.00 [facility] Work Phone: Comment on above: For patients on eltr ombopag therapy, use of Dimension [place]ble TBIL is not recommended. Cholesterol [Mass/Vol] 159 mg/dL <[address] [facility] Work Phone: Comment on above: <200 mg/dL Desirable 200-240 mg/dL Borderline >240 mg/dL High Risk Protein [Mass/Vol] 7.4 g/dL 6.4-8.2 [facility] Work Phone: Triglyceride [Mass/Vol] 209 mg/dL [facility] Work Phone: Comment on above: The drugs N-Acetylcy steine and Metamizole may falsely depress this assay.Serum Triglycerides Reference Interval Normal <150 mg/dL Borderline high 150 - 199 mg/dL High 200 - 499 mg/dL Very High > or = 500 mg/dL Direct bilirubinon Bilirubin.direct [Mass/Vol] 0.17 mg/dL 0.00-0.[address] [facility] Work Phone: Laboratory - Chemistry and C hemistry - challengeon 01-26-2022 ALP [Catalytic activity/Vol] 59 U/L 45-[address] [facility] Work Phone: ALT [Catalytic activity/Vol] 24 U/L 13-[address] [facility] Work Phone: Globulin (S) [Mass/Vol] 3.5 g/dL 2.2-4.[address] [facility] Work Phone: Serum or plasma albumin kenyon urement (mass/volume)on 01-26-2022 Albumin [Mass/Vol] 3.9 g/dL 3.2-5.0 [facility] Work Phone: Serum or plasma cholesterol in HDL measurement (mass/volume)on 01-26-2022 Cholesterol in HDL [Mass/Vol] 53 mg/dL [facility] Work Phone: Comment on above: The drugs N-Acetylcy steine and Metamizole may falsely depress this assay. Reference Range HDL <40 mg/dL Low HDL Cholesterol HDL >or= 60 mg/dL High HDL Cholesterol Serum or plasma cholesterol in VLDL measurement (mass/volume)on 01-26-2022 Cholesterol in VLDL [Mass/Vol] 42 mg/dL 5-[address] [facility] Work Phone: Serum or plasma low density lipoprotein (LDL) cholesterol measurement (mass/volume)on 01-26-2022 Cholesterol in LDL [Mass/Vol] 64 mg/dL 0-[address] [facility] Work Phone: Thin prep Papanicolaou smear with manual screeningon 01-26-2022 Thin prep Papanicolaou smear with manual screening 26 U/L 15-[address] [facility] Work Phone: Basophil percentageon 2021 Basophil percentage >100 SEEN /hpf [facility] Work Phone: Bilirubin Test strip Ql (U)o n 01-04-2022 Bilirubin Ql (U) Negative Negative [facility] Work Phone: Culture, urineon 01-04-2022 Bacteria identified Cx Nom (U) Escherichia coli [facility] Work Phone: Bacteria identified Cx Nom (U) Streptococcus agalactiae (B) [facility] Work Phone: Ketones Test strip Ql (U)on 01-04-2022 Ketones Ql (U) Negative Negative [facility] Work Phone: Laboratory - Chemistry and C hemistry - challengeon 01-04-2022 Bilirubin Ql (U) Negative [facility] Work Phone: Glucose Ql (U) Negative [facility] Work Phone: Ketones Ql (U) Small (15+) [facility] Work Phone: pH (U) 6.5 [pH] [facility] Work Phone: Specific gravity (U) [Rel density] 1.[address] [facility] Work Phone: [phone] Urobilinogen (U) [Mass/Vol] 0.4665553 mg/dL [facility] Work Phone: [phone] Laboratory - Hematology and Cell countson 01-04-2022 Hemoglobin Ql (U) Moderate [facility] Work Phone: Laboratory - Specimen inform ationon 01-04-2022 Clarity (U) Cloudy [facility] Work Phone: Color (U) YELLOW [facility] Work Phone: Laboratory - Urinalysison Nitrite Ql (U) Positive [facility] Work Phone: Protein Ql (U) Negative [facility] Work Phone: Mucus LM Ql (Urine sed)on Mucus Ql (Urine sed) 0 SEEN /hpf [facility] Work Phone: Nitrite Test strip Ql (U)on 01-04-2022 Nitrite Ql (U) Negative Negative [facility] Work Phone: No Panel Informationon 01-04 Urine Leukocytes Positive [facility] Work Phone: Urine Non-Hemolyzed Blood Large [facility] Work Phone: Protein Test strip Ql (U)on 01-04-2022 Protein Ql (U) 30 mg/dl Negative [facility] Work Phone: Squamous epithelial cells de tection in urine sediment by light microscopyon 01-04-2022 Epithelial cells.squamous LM Ql (Urine sed) 0 SEEN /hpf [facility] Work Phone: Urine blood detectionon 12-19 RBC Ql (U) 250 /ul Negative [facility] Work Phone: RBC Ql (U) 0-5 SEEN /hpf [facility] Work Phone: Urine clarityon 01-04-2022 Clarity (U) Sl. Cloudy Clear [facility] Work Phone: Urine color determinationon 01-04-2022 Color (U) Yellow Yellow [facility] Work Phone: Urine glucose detectionon Glucose Ql (U) Normal mg/dl Normal [facility] Work Phone: Urine leukocyte esterase det ection by dipstickon 01-04-2022 Leukocyte esterase Test strip Ql (U) 500 /ul Negative [facility] Work Phone: [phone] Urine pHon 01-04-2022 pH (U) 7.0 [pH] [facility] Work Phone: Urine sediment bacteria coun t by microscopy (number/high power field)on 01-04-2022 Bacteria LM.HPF (Urine sed) [#/Area] 1 /[HPF] None Seen [facility] Work Phone: Urine specific gravity measu rementon 01-04-2022 Specific gravity (U) [Rel density] 1.[address] [facility] Work Phone: Urobilinogen Auto test strip Ql (U)on 01-04-2022 Urobilinogen Ql (U) Normal mg/dl Normal [facility] Work Phone: Basophil percentageon 2021 Basophil percentage >100 SEEN /hpf [facility] Work Phone: Bilirubin Test strip Ql (U)o n 12-18-2021 Bilirubin Ql (U) Negative Negative [facility] Work Phone: Culture, urineon 12-18-2021 Bacteria identified Cx Nom (U) Escherichia coli [facility] Work Phone: Bacteria identified Cx Nom (U) Streptococcus agalactiae (B) [facility] Work Phone: Ketones Test strip Ql (U)on 12-18-2021 Ketones Ql (U) Negative Negative [facility] Work Phone: Laboratory - Chemistry and C hemistry - challengeon 12-18-2021 Bilirubin Ql (U) Negative [facility] Work Phone: Glucose Ql (U) Negative [facility] Work Phone: Ketones Ql (U) Trace (5) [facility] Work Phone: pH (U) 5.0 [pH] [facility] Work Phone: Specific gravity (U) [Rel density] 1.[address] [facility] Work Phone: Urobilinogen (U) [Mass/Vol] Negative [facility] Work Phone: Laboratory - Hematology and Cell countson 12-18-2021 Hemoglobin Ql (U) Hemolyzed [facility] Work Phone: Laboratory - Specimen inform ationon 12-18-2021 Clarity (U) Cloudy [facility] Work Phone: Color (U) STRAW [facility] Work Phone: Laboratory - Urinalysison Nitrite Ql (U) Negative [facility] Work Phone: Protein Ql (U) Negative [facility] Work Phone: Mucus LM Ql (Urine sed)on Mucus Ql (Urine sed) 0 SEEN /hpf [facility] Work Phone: Nitrite Test strip Ql (U)on 12-18-2021 Nitrite Ql (U) Negative Negative [facility] Work Phone: No Panel Informationon 12-18 Urine Leukocytes Positive [facility] Work Phone: Urine Non-Hemolyzed Blood Large [facility] Work Phone: Protein Test strip Ql (U)on 12-18-2021 Protein Ql (U) 30 mg/dl Negative [facility] Work Phone: Squamous epithelial cells de tection in urine sediment by light microscopyon 12-18-2021 Epithelial cells.squamous LM Ql (Urine sed) 0 SEEN /hpf [facility] Work Phone: Urine blood detectionon 11-20 RBC Ql (U) 250 /ul Negative [facility] Work Phone: RBC Ql (U) 50-100 SEEN /hpf [facility] Work Phone: Urine clarityon 12-18-2021 Clarity (U) Cloudy Clear [facility] Work Phone: Urine color determinationon 12-18-2021 Color (U) Yellow Yellow [facility] Work Phone: Urine glucose detectionon Glucose Ql (U) Normal mg/dl Normal [facility] Work Phone: Urine leukocyte esterase det ection by dipstickon 12-18-2021 Leukocyte esterase Test strip Ql (U) 500 /ul Negative [facility] Work Phone: Urine pHon 12-18-2021 pH (U) 6.5 [pH] [facility] Work Phone: Urine sediment bacteria coun t by microscopy (number/high power field)on 12-18-2021 Bacteria LM.HPF (Urine sed) [#/Area] 2 /[HPF] None Seen [facility] Work Phone: Urine specific gravity measu rementon 12-18-2021 Specific gravity (U) [Rel density] 1.[address] [facility] Work Phone: Urobilinogen Auto test strip Ql (U)on 12-18-2021 Urobilinogen Ql (U) Normal mg/dl Normal [facility] Work Phone: CNOVon 06-02-2021 CNOV Office Visit (UCWSTR ) CHRISTINA CHEN ([id number]) 1940 F Date Time Provider Department 06/02/21 9:15 AM CHRISSY FREITASWSTR During your visit today, we recorded the following information about you: Temperature Pulse Respiration Blood pressure 98.2 degrees 82/minute 16/minute 128/70 Weight 81.2 kg Chrissy Freitas APRN.CNP 06/02/2021 10:16 AM Signed Subjective HPI HPI Christina Chen is a 81 year old female who [...] Internal hemorrhoids without mention of complication - 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 EVERT Florez APRN.CNP 06/02/2021 9:25 AM Signed Macrobid for 5-7 days Tylenol/ibuprofen as needed for discomfort AZO otc Increase hydration -Follow up with PCP or return to clinic if symptoms not improving in 3 days or if you develop any new (or worsening) symptoms such as fever, chills or back pain go to ER. Referring Provider: SELF [[id number]] Allergies As of Date: 06/02/2021 Noted Allergy Reaction AMOXICILLIN 12/17/2008 2 - Rash LIPITOR (ATORVASTATIN CALCIUM) 10/07/2015 17 - Myalgia SULFA (SULFONAMIDE ANTIBIOTICS) 07/27/2005 ZOCOR (SIMVASTATIN) 10/07/2015 17 - Myalgia Date Reviewed: 06/02/2021 Reviewed by: Adela Kumar Ma - Fully Assessed Reason for Visit: Urinary Frequency [1086] Cmt: chills, increased yesterday Primary Visit Diagnosis:Urinary frequency [R35.0] Other Visit Diagnosis:UTI symptoms [R39.9] Order(s):UA DIP, URINE (POC) [[id number]] Order #: [id number]. #:[id number] URINE CULTURE [SQURCUL] Order #: [id number] nitrofurantoi (more content not included)... Normal [facility] Urine Cultureon 06-02-2021 Bacteria identified Cx Nom (U) Sp. Request/Comment: - Specimen received in preservative Culture Result - >=100,000 CFU/ml Escherichia coli --> ABNORMAL ALERT ORGANISM: Escherichia coli METHOD: Minimum inhibitory concentration(Vitek) Antibiotic Interp JHOANA Status Ampicillin SUSCEPTIBLE <=2 F Gentamicin SUSCEPTIBLE <=1 F Trimeth sulfameth SUSCEPTIBLE <=20 F Cefazolin SUSCEPTIBLE <=4 F CLSI breakpoints for therapy of uncomplicated UTI's due to E.coli, K.pneumoniae, and P.mirabilis were applied and may be used to predict the activity of oral agents(cefaclor, cefdinir, cefpodoxime, cefprozil, cefuroxime, cephalexin, loracarbef). Ciprofloxacin SUSCEPTIBLE <=0.25 F Nitrofurantoin SUSCEPTIBLE <=16 F Cefepime SUSCEPTIBLE <=1 F Piperacillin/Tazobac SUSCEPTIBLE <=4 F Ampicillin Sulbact SUSCEPTIBLE <=2 F Ceftriaxone SUSCEPTIBLE <=1 F Meropenem SUSCEPTIBLE <=0.25 F Ertapenem SUSCEPTIBLE <=0.5 F Critically abnormal [facility] Comment on above: Performed By: #### U RCUL #### [facility] [address] [place] [address] [facility] [address] [place], [place] [id number] CNOVon 01-24-2021 CNOV Office Visit (FAMPWS ) CHRISTINA CHEN ([id number]) 1940 F Date Time Provider Department 01/24/21 8:40 AM MASON TORRES III During your visit today, we recorded the following information about you: Pulse Respiration Blood pressure Weight 80/minute 18/minute 140/84 80.3 kg Height 1.6 m Mason Torres III MD 01/24/2021 9:19 AM Signed SUBJECTIVE: This is a 81 year old [...] Internal hemorrhoids without mention of complication - halfway (current) use of aspirin - Low back [...] 0.5 tablets by mouth twice daily. - Zysprtikjmw-Mapnjwdef-Wmm C-Mn (GLUCOSAMINE CHONDROITIN MAXSTR) 500-400 mg cap Take 1 capsule by mouth twice daily. - CRANBERRY EXTRACT (CRANBERRY ORAL) Take by mouth. - cinnamon bark(CINNAMON 500 MG CAP) Take one(1) tablet two(2) times daily. - Rbpydhvnnufaf-Mn-Aokm-Mineral s (ONE-A-DAY WOMENS FORMULA) 27-0.4 mg ORAL Tab [...] 80 Resp 18 Ht 160 cm (5' 2.99) Wt 80.3 kg (177 lb) BMI 31.36 [...] and regular exercise same medications CMP, lipid Mason Torres III MD Medical Decision Making: Problems: Moderate: 2+ stable chronic illnesses Data: Unique test result(s) reviewed: 2 Unique test(s) ordered: 2 Risk: Moderate: Drug management Medical Decision Making Level: 4 - Moderate CHRISTINE Bojorquez MD, III MD 01/24/2021 9:15 AM Signed PLAN: healthy diet and regular exercise same medications CMP, lipid Mason Torres III MD Referring Provider: SELF [[id number]] Allergies As of Date: 01/24/2021 Noted Allergy Reaction AMOXICILLIN 12/17/2008 2 - Rash LIPITOR (ATORVASTATIN CALCIUM) 10/07/2015 17 - Myalgia SULFA (SULFONAMIDE ANTIBIOTICS) 07/27/2005 ZOCOR (SIMVASTATIN) 10/07/2015 17 - Myalgia Date Reviewed: 01/24/2021 Reviewed by: Maggie Cordero Ma - Fully Assessed Reason for Visit: Physical [83] Primary Visit Diagnosis:Aortic root dilatation (HCC) [I77.810] Other Visit Diagnoses:Hyperlipidemia LDL goal <130 [E78.5] Statin intolerance [Z78.9] H/O aortic valve replacement [Z95.2] Prescriptions as of 01/24/2021 S (more content not included)... Normal [facility] CNNURSEon 01-18-2021 CNNURSE Nurse Visit (LESLIE) CHRISTINA CHEN ([id number]) 1940 F Date Time Provider Department 01/18/21 ERIKA WILSON JR During your visit today, we recorded the following information about you: Allergies As of Date: 01/18/2021 Noted Allergy Reaction AMOXICILLIN 12/17/2008 2 - Rash DELETED: INFLUENZA VACC,TRI 2002 *07/27/2005 16 - Unknown Comments: Patient states that she gets this every year and is unsure why this is listed. LIPITOR (ATORVASTATIN CALCIUM) 10/07/2015 17 - Myalgia SULFA (SULFONAMIDE ANTIBIOTICS) 07/27/2005 ZOCOR (SIMVASTATIN) 10/07/2015 17 - Myalgia Date Reviewed: 03/30/2020 Reviewed by: Santo GalvezOperating ManagerRajat Childers - Fully Assessed Order(s):Myrl SARS-COV-2 VACCINE 2D DOSE APPT [[id number]] Order #: [id number] Prescriptions as of 01/18/2021 Sig: LOSARTAN 50 MG-HYDROCHLOROTHI* Take 1 tablet by mouth once d* CALCIUM 600 + D ORAL Take by mouth. ROSUVASTATIN 20 MG TABLET Take 1 tablet by mouth daily * METOPROLOL TARTRATE 25 MG TAB* Take 0.5 tablets by mouth twi* BIOTIN 10,000 MCG CAPSULE Take by mouth. BRZJHPKIDOR-PVMOEZXTG-UJN C-M* Take 1 capsule by mouth twice* CRANBERRY ORAL Take by mouth. * CINNAMON 500 MG CAPSULE Take one(1) tablet two(2) michelle* * FLAXSEED OIL 1,030 MG CAPSULE Take one(1) tablet once (1) d* * ECOTRIN LOW STRENGTH 81 MG TA* Take one(1) tablet daily. * ONE-A-DAY WOMENS FORMULA 27 M* Take one(1) tablet daily. 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 HALLIE: No Please review and advise.Giana Mccloud MAAllergies As of Date: 04/01/2018 Noted Allergy ReactionAMOXICILLIN 12/17/2008 2 - RashINFLUENZA VACC,TRI 2002 (LIVE) 07/27/2005 16 - Unknown Comments: Patient states that she gets this every year and is unsure why this is listed.LIPITOR (ATORVASTATIN CALCIUM) 10/07/2015 17 - MyalgiaSULFA (SULFONAMIDE ANTIBIOTICS) 07/27/2005ZOCOR (SIMVASTATIN) 10/07/2015 17 - MyalgiaDate Reviewed: 12/24/2017Reviewed by: Giana Mccloud - Fully AssessedReason for Visit: Refill Request [94]Order(s):rosuvastatin (CRESTOR) 5 mg tabletTake 1 tablet by mouth daily at bedtime.Disp: 30 tabletRfl: 11Prescriptions as of 04/01/2018 Sig: ROSUVASTATIN 5 MG TABLET Take 1 tablet by mouth daily * METOPROLOL TARTRATE 25 MG TAB* TAKE ONE-HALF TABLET BY MOUTH* BIOTIN 10,000 MCG CAPSULE Take by mouth. BOVSENWCELU-IQSUTDPFH-QOX C-M* Take 1 capsule by mouth twice* CRANBERRY ORAL Take by mouth. * CINNAMON 500 MG CAPSULE Take one(1) tablet two(2) michelle* * FLAXSEED OIL 1,030 MG CAPSULE Take one(1) tablet once (1) d* * ECOTRIN LOW STRENGTH 81 MG TA* Take one(1) tablet daily. * ONE-A-DAY WOMENS FORMULA 27 M* Take one(1) tablet daily.Problem List As Of Date 04/01/2018 Noted Resolved [...] *INVALID FOR* Lichen planus [L43.9] INVALID FOR* More...Prescriptions ordered this encounter Disp Refills Start End ROSUVASTATIN 5 MG TABLET 30 t* 11 04/01/2018 Route: ORAL Sig: Take 1 tablet by mouth daily at bedtime.Medications Discontinued During This Encounter rosuvastatin (CRESTOR) 5 mg tablet 30 t* 11 12/24/2017 04/01/2018 Route: ORAL Sig: Take 0.5 tablets by mouth daily at bedtime. Disc: Reason for discontinue is not on file. Status:Closed by GIANA MCCLOUD MA on 04/01/18 [facility] CNClaudia 12-24-2017 CNOV Office Visit (AGCARDWST) ----CHRISTINA CHEN ([id number]) 1940 FDate Time Provider Department12/24/17 10:30 AM GRANT CHAUDHARY AGCARDWST During your visit today, we recorded the following information about you: Pulse Blood pressure Weight Height 65/minute 108/80 67.9 kg 1.6 Chanda Chaudhary MD 12/24/2017 1:38 PM SignedPERTINENT CARDIAC HISTORYAortic stenosis - AVR 2008Normal coronaries 2008HL - statin intolerantRBBBTAA - 4.5 cmADHERENCE TO GUIDELINESACE-I or ARB for HF with prior LVEFANDlt;40 (NQF 0081) - N/AASA or Plavix for ASHD (NQF 0067) - metBeta karina for ASHD with prior IL or prior LVEFANDlt;40 (NQF 0070) - N/ABeta karina for HF with prior LVEFANDlt;40 (NQF 0083) - N/AACE-I or ARB for ASHD with DM or prior LVEFANDlt;40 (NQF 0066) - N/AStatin therapy for ASHD or FHL or DM - intolerantBMI documented and plan if ANDgt;25 (NQF 0421) - lifestyle recommendation formTobacco use screening and referral (NQ 0028) - lifestyle recommendation formRecommendation for whole food, plant based diet - lifestyle recommendation formCLINICAL IMPRESSION/PLAN:Christina Chen has stable aortic valve disease. Her thoracic aorta will bewatched annually.We had a long conversation regarding options for treatment of herhyperlipidemia. She has not tolerated simvastatin or atorvastatin but has nevertried rosuvastatin. We will initiate a dose of 2.5 milligrams 3 times weekly.I've asked her to contact me in a couple weeks let me know how she istolerating this. Dose can be increased as tolerated and we will check lipids.Other options include Zetia or a PCSK9 inhibitor.I will see her in 8 months, which time she will have an echocardiogram. Ifthere is increased chest pain or shortness of breath, she has been advised tocontact me. She's been encouraged to remain active.Written and verbal health teaching given to patient, patient verbalizesunderstanding and agrees with treatment plan.This note was generated using Otelic voice recognition system, and there may besome incorrect words, spellings, and punctuation that were not noted inchecking the note before saving.DIAGNOSIS FOR VISIT:AVRHyperlipidemiaHISTOR Y OF PRESENT ILLNESSChristina Chen returns for follow-up of her aortic valve disease, dilatedthoracic aorta and hyperlipidemia.She reports stable exercise tolerance. She is walking on a regular basis. Sheis also been shoveling her walk. She denies chest discomfort. She's had noedema, syncope, palpitations, TIAs, amaurosis or claudication.She reports that she has not tried any statin therapy recently. She was notseen in primary care until just recently and has not had a conversationregarding treatment of her hyperlipidemia.ALLERGIES:SUNITA RGIESAllergen Reactions- Amoxicillin Rash- Influenza Vacc,Tri * Unknown Patient states that she gets this every year and is unsure why this islisted.- Lipitor [Atorvastat* Myalgia- Sulfa (Sulfonamide *- Zocor [Simvastatin] MyalgiaCURRENT OUTPATIENT MEDICATIONS:metoprolol tartrate, short acting, (LOPRESSOR) 25 mg tablet TAKE ONE-HALFTABLET BY MOUTH TWICE DAILYBiotin 10,000 mcg cap Take by mouth.Fbuytmeyftj-Xevbhygzo-N it C-Mn (GLUCOSAMINE CHONDROITIN MAXSTR) 500-400 mg capTake 1 capsule by mouth twice daily.CRANBERRY EXTRACT (CRANBERRY ORAL) Take by mouth.cinnamon bark(CINNAMON 500 MG CAP) Take one(1) tablet two(2) times daily.FLAXSEED OIL 1,030 MG CAP Take one(1) tablet once (1) daily.aspirin(ECOTRIN LOW STRENGTH 81 MG TAB) Take one(1) tablet daily.Xnwenmjomvtwz-Eb-Lssh-M inerals (ONE-A-DAY WOMENS FORMULA) 27-0.4 mg ORAL TabTake one(1) tablet daily.PHYSICAL EXAMINATION:VITAL SIGNS: BP 108/80 Pulse 65 Ht 5' 3ANDquot; (1.60m) Wt 149 lb 9.6 oz(67.9kg) BMI 26.51 kg/(m2).Chest: Clear to percussion and auscultation. Trachea is midline. Air entry isequal. Cardiac: Regular rhythm. S1 and S2 are normal. PMI is nondisplaced.There is a soft systolic ejection murmur. There is no aortic insufficiency.Carotids are brisk without bruits. JVP is less than 10 cm. Abdomen: Soft andnontender. There are no pulsatile masses or bruits. No liver enlargement.Bowel sounds are active. Extremities: No edema. Pulses are intact andsymmetrical.EKG demonstrates sinus rhythm with atrial prematures and incomplete rightbundle block. There is no change from 12/24/16.Recent labs were reviewed. LDL was 219. Renal function is normal.Recent echocardiogram shows excellent bioprosthetic aortic valve gradients.There is slightly dilated aorta, which is now 4.5 centimeters. This hasincreased slightly since last study.Electronically Signed:Grant Chaudhary MDFebruary 2017 10:55 [facility]: Mason Torres III Janet Chaudhary MD 12/24/2017 10:56 AM AddendumStart Crestor at 2.5 mg three times a weekCall in two weeks and report progressLIFESTYLE CHANGEA healthy lifestyle is the most important component of your overall treatmentplan. Please give serious thought to the following areas and commit to makinglong term changes.EAT A WHOLE FOOD, PLANT BASED DIETThe nutrition your body gets is more important than the medicine you take.What matters most is the overall way you eat. We encourage you to minimize theuse of animal products (which include dairy and all meats except fatty fish)and use whole, unprocessed plant foods to provide your protein, vitamins andother nutrients. We have a lot of information to share with you on this topic. We also hold Shared Medical Appointments, where you can come visit with in the company of other patients and spend over an hour talking aboutthe challenges of changing the way you eat. This is not a ANDquot;dietANDquot;.It is a way of life that you will keep with you.EXERCISE REGULARLYIt is not important to spend hours in the gym, lifting weights and perspiringheavily. A total of 2-3 hours per week of aerobic (causing you to bemoderately short of breath) exercise is sufficient to improve your health.Talk to us before you begin a new exercise program, if you have heart diseaseor experience shortness of breath or chest pain.REDUCE STRESSChronic emotional and physical stress leads to disease. Ways of reducingstress include meditation, visualization, prayer, yoga and other forms ofrelaxation therapy. Consistency is the david. Find a technique that works foryou and do it every day.CULTIVATE RELATIONSHIPSLoneliness and isolation have a major negative impact on health. Seek outothers who can love, care for and nurture you. Avoid hurtful relationships.MAINTAIN IDEAL BODY WEIGHTThe best way to do this is to do all the things above. Our bodies naturallyfind the right weight if we keep moving and feed ourselves the right food. Ifyour BMI is greater than 25, we strongly recommend a referral to a weightmanagement program. Please speak to us or your family physician aboutavailable programs.AVOID NICOTINE IN ALL FORMSThis includes all tobacco products, whether chewed, smoked, vaped, or rubbed onthe skin. Smoking cessation programs, which can make use of tobaccosubstitutes, medications to suppress cravings and behavior management, areavailable. Please contact your family physician about programs in your area.Referring Provider: GRANT CHAUDHARY [[id number]]Allergies As of Date: 12/24/2017 Noted Allergy ReactionAMOXICILLIN 12/17/2008 2 - RashINFLUENZA VACC,TRI 2002 (LIVE) 07/27/2005 16 - Unknown Comments: Patient states that she gets this every year and is unsure why this is listed.LIPITOR (ATORVASTATIN CALCIUM) 10/07/2015 17 - MyalgiaSULFA (SULFONAMIDE ANTIBIOTICS) 07/27/2005ZOCOR (SIMVASTATIN) 10/07/2015 17 - MyalgiaDate Reviewed: 12/24/2017Reviewed by: Giana Mccloud - Fully AssessedReason for Visit: Follow Up [171]Primary Visit Diagnosis:S/P AVR [Z95.2] Other Visit Diagnosis:Other hyperlipidemia [E78.4]Order(s):ECG B/O W INTERP (MED OFFICE) [ECG06] Order #: [id number] rosuvastatin (CRESTOR) 5 mg tabletTake 0.5 tablets by mouth daily at bedtime.Disp: 30 tabletRfl: 11 ECHO [[id number]] Order #: [id number]: 1 FUTUREPrescriptions as of 12/24/2017 Sig: METOPROLOL TARTRATE 25 MG TAB* TAKE ONE-HALF TABLET BY MOUTH* BIOTIN 10,000 MCG CAPSULE Take by mouth. 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 EAT A WHOLE FOOD, PLANT BASED [...] your family physician about programs in your area.Prescriptions ordered this encounter Disp Refills Start End ROSUVASTATIN 5 MG TABLET 30 t* 11 12/24/2017 Route: ORAL Sig: Take 0.5 tablets by mouth daily at bedtime.Follow-up and Disposition History RecordedEncounter Number: [id number] Status:Closed by GRANT CHAUDHARY MD on 12/24/17 [facility] PROGRESSon 12-24-2017 PROGRESS HNO ID: [id number] thor: Grant George: (none)Author Type: PhysicianType: Progress NotesFiled: 12/24/2017 1:38 PMNote Text:PERTINENT CARDIAC HISTORYAortic stenosis - AVR 2008Normal coronaries 2008HL - statin intolerantRBBBTAA - 4.5 cmADHERENCE TO GUIDELINESACE-I or ARB for HF with prior LVEF<40 (NQF 0081) - N/AASA or Plavix for ASHD (NQF 0067) - metBeta karina for ASHD with prior IL or prior LVEF<40 (NQF 0070) - N/ABeta karina for HF with prior LVEF<40 (NQF 0083) - N/AACE-I or ARB for ASHD with DM or prior LVEF<40 (NQF 0066) - N/AStatin therapy for ASHD or FHL or DM - intolerantBMI documented and plan if >25 (NQF 0421) - lifestyle recommendation formTobacco use screening and referral (NQF 0028) - lifestyle recommendationformRecommendat ion for whole food, plant based diet - lifestyle recommendationformCLINICAL IMPRESSION/PLAN:Christina Chen has stable aortic valve disease. Her thoracic aorta will bewatched annually.We had a long conversation regarding options for treatment of herhyperlipidemia. She has not tolerated simvastatin or atorvastatin but hasnever tried rosuvastatin. We will initiate a dose of 2.5 milligrams 3times weekly. I've asked her to contact me in a couple weeks let me knowhow she is tolerating this. Dose can be increased as tolerated and we willcheck lipids. Other options include Zetia or a PCSK9 inhibitor.I will see her in 8 months, which time she will have an echocardiogram. Ifthere is increased chest pain or shortness of breath, she has been advisedto contact me. She's been encouraged to remain active.Written and verbal health teaching given to patient, patient verbalizesunderstanding and agrees with treatment plan.This note was generated using Otelic voice recognition system, and theremay be some incorrect words, spellings, and punctuation that were notnoted in checking the note before saving.DIAGNOSIS FOR VISIT:AVRHyperlipidemiaHISTOR Y OF PRESENT ILLNESSChristina Chen returns for follow-up of her aortic valve disease, dilatedthoracic aorta and hyperlipidemia.She reports stable exercise tolerance. She is walking on a regular basis.She is also been shoveling her walk. She denies chest discomfort. She'shad no edema, syncope, palpitations, TIAs, amaurosis or claudication.She reports that she has not tried any statin therapy recently. She wasnot seen in primary care until just recently and has not had aconversation regarding treatment of her hyperlipidemia.ALLERGIES:SUNITA RGIESAllergen Reactions- Amoxicillin Rash- Influenza Vacc,Tri * Unknown Patient states that she gets this every year and is unsure why this islisted.- Lipitor [Atorvastat* Myalgia- Sulfa (Sulfonamide *- Zocor [Simvastatin] MyalgiaCURRENT OUTPATIENT MEDICATIONS:metoprolol tartrate, short acting, (LOPRESSOR) 25 mg tablet TAKE ONE-HALFTABLET BY MOUTH TWICE DAILYBiotin 10,000 mcg cap Take by mouth.Wvpftcfsicg-Rwncgqfhw-L it C-Mn (GLUCOSAMINE CHONDROITIN MAXSTR) 500-400 mgcap Take 1 capsule by mouth twice daily.CRANBERRY EXTRACT (CRANBERRY ORAL) Take by mouth.cinnamon bark(CINNAMON 500 MG CAP) Take one(1) tablet two(2) times daily.FLAXSEED OIL 1,030 MG CAP Take one(1) tablet once (1) daily.aspirin(ECOTRIN LOW STRENGTH 81 MG TAB) Take one(1) tablet daily.Drljmratrgvyz-Ow-Rhoy-M inerals (ONE-A-DAY WOMENS FORMULA) 27-0.4 mg ORALTab Take one(1) tablet daily.PHYSICAL EXAMINATION:VITAL SIGNS: BP 108/80 Pulse 65 Ht 5' 3 (1.60m) Wt 149 lb 9.6 oz(67.9kg) BMI 26.51 kg/(m2).Chest: Clear to percussion and auscultation. Trachea is midline. Airentry is equal. Cardiac: Regular rhythm. S1 and S2 are normal. PMI isnondisplaced. There is a soft systolic ejection murmur. There is noaortic insufficiency. Carotids are brisk without bruits. JVP is lessthan 10 cm. Abdomen: Soft and nontender. There are no pulsatile massesor bruits. No liver enlargement. Bowel sounds are active. Extremities:No edema. Pulses are intact and symmetrical.EKG demonstrates sinus rhythm with atrial prematures and incomplete rightbundle block. There is no change from 12/24/16.Recent labs were reviewed. LDL was 219. Renal function is normal.Recent echocardiogram shows excellent bioprosthetic aortic valvegradients. There is slightly dilated aorta, which is now 4.5 centimeters.This has increased slightly since last study.Electronically Signed:Grant Chaudhary MDFebruary 2017 10:55 [facility]: Mason Torres III MD [facility] Culture, urine Bacteria identified Cx Nom (U) Presumptive E. coli [facility] Work Phone: Bacteria identified Cx Nom (U) Escherichia coli [facility] Work Phone: Vital Signs Date Time Vital Sign Value Performing Clinician Faci lity 07-23-2025 06:57-0400 Body mass index (BMI) [Ratio] 31.1 kg/m2 Dr. Syl Domínguez MD Work Phone: [facility] 07-23-2025 06:57-0400 Body weight 79.[address] Syl Domínguez MD Work Phone: [facility] 07-23-2025 06:57-0400 Diastolic blood pressure 93 mm[Hg] Dr. Syl Domínguez MD Work Phone: [facility] 07-23-2025 06:57-0400 Heart rate 103 /min Dr. Syl Domínguez MD Work Phone: [facility] 07-23-2025 06:57-0400 Respiratory rate 18 /min Dr. Syl Domínguez MD Work Phone: [facility] 07-23-2025 06:57-0400 SaO2% (BldA) [Mass fraction] 93 % Dr. Syl Domínguez MD Work Phone: [facility] 07-23-2025 06:57-0400 Systolic blood pressure 127 mm[Hg] Dr. Syl Domínguez MD Work Phone: [facility] 12-24-2024 13:04-0500 Body height 160.[address] Syl Domínguez MD Work Phone: [facility] 12-24-2024 13:04-0500 Body mass index (BMI) [Ratio] 31.1 kg/m2 Dr. Syl Domínguez MD Work Phone: [facility] 12-24-2024 13:04-0500 Body weight 79.[address] Syl Domínguez MD Work Phone: [facility] 12-24-2024 13:04-0500 Diastolic blood pressure 87 mm[Hg] Dr. Syl Domínguez MD Work Phone: [facility] 12-24-2024 13:04-0500 Heart rate 98 /min Dr. Syl Domínguez MD Work Phone: [facility] 12-24-2024 13:04-0500 Respiratory rate 16 /min Dr. Syl Domínguez MD Work Phone: [facility] 12-24-2024 13:04-0500 Systolic blood pressure 127 mm[Hg] Dr. Syl Domínguez MD Work Phone: [facility] 02-06-2024 16:01-0400 Body height 160.[address] Syl Domínguez Work Phone: [facility] 02-06-2024 16:00-0400 Body mass index (BMI) [Ratio] 30.8 kg/m2 Dr. Syl Domínguez Work Phone: [facility] 02-06-2024 16:00-0400 Body weight 78.[address] Syl Domínguez Work Phone: [facility] 02-06-2024 16:00-0400 Diastolic blood pressure 79 mm[Hg] Dr. Syl Domínguez Work Phone: [facility] 02-06-2024 16:00-0400 Systolic blood pressure 124 mm[Hg] Dr. Syl Domínguez Work Phone: [facility] 02-04-2024 11:18-0400 Body mass index (BMI) [Ratio] 30.4 kg/m2 Dr. Syl Domínguez Work Phone: [facility] 02-04-2024 11:18-0400 Body weight 78.[address] Syl Domínguez Work Phone: [facility] 02-04-2024 11:18-0400 Diastolic blood pressure 91 mm[Hg] Dr. Syl Domínguez Work Phone: [facility] 02-04-2024 11:18-0400 Heart rate 92 /min Dr. Syl Domínguez Work Phone: [facility] 02-04-2024 11:18-0400 Respiratory rate 18 /min Dr. Syl Domínguez Work Phone: [facility] 02-04-2024 11:18-0400 SaO2% (BldA) [Mass fraction] 95 % Dr. Syl Domínguez Work Phone: [facility] 02-04-2024 11:18-0400 Systolic blood pressure 127 mm[Hg] Dr. Syl Domínguez Work Phone: [facility] 12-17-2023 11:41-0500 Body height 160.[address] Syl Domínguez Work Phone: [facility] 12-17-2023 11:40-0500 Body mass index (BMI) [Ratio] 30.6 kg/m2 Dr. Syl Domínguez Work Phone: [facility] 12-17-2023 11:40-0500 Body weight 78.[address] Syl Domínguez Work Phone: [facility] 12-17-2023 11:40-0500 Diastolic blood pressure 90 mm[Hg] Dr. Syl Domínguez Work Phone: [facility] 12-17-2023 11:40-0500 Systolic blood pressure 124 mm[Hg] Dr. Syl Domínguez Work Phone: [facility] 12-17-2023 11:20-0500 Diastolic blood pressure 88 mm[Hg] Dr. Syl Domínguez Work Phone: [facility] 12-17-2023 11:20-0500 Heart rate 105 /min Dr. Syl Domínguez Work Phone: [facility] 12-17-2023 11:20-0500 Systolic blood pressure 133 mm[Hg] Dr. Syl Domínguez Work Phone: [facility] 12-09-2023 11:07-0500 Body mass index (BMI) [Ratio] 30.8 kg/m2 Dr. Syl Domínguez Work Phone: [facility] 12-09-2023 11:07-0500 Body weight 78.[address] Syl Domínguez Work Phone: [facility] 12-09-2023 11:07-0500 Diastolic blood pressure 82 mm[Hg] Dr. Syl Domínguez Work Phone: [phone](456)[phone] [place] [address] 12-09-2023 11:07-0500 Systolic blood pressure 114 mm[Hg] Dr. Syl Domínguez Work Phone: 0(138)[phone] [place] [address] 10-24-2023 13:13-0500 Body height 160.[address] Syl Domínguez Work Phone: 9(880)[phone] [place] [address] 10-24-2023 13:06-0500 Body mass index (BMI) [Ratio] 30.3 kg/m2 Dr. Syl Domínguez Work Phone: 3(366)[phone] [place] [address] 10-24-2023 13:06-0500 Body weight 77.[address] Syl Domínguez Work Phone: [facility] 10-14-2023 10:22-0500 Body height 160.[address] Syl Domínguez Work Phone: [facility] 10-14-2023 10:22-0500 Body mass index (BMI) [Ratio] 30.4 kg/m2 Dr. Syl Domínguez Work Phone: [facility] 10-14-2023 10:22-0500 Body weight 78.[address] Syl Domínguez Work Phone: [facility] 10-14-2023 10:22-0500 Diastolic blood pressure 83 mm[Hg] Dr. Syl Domínguez Work Phone: [facility] 10-14-2023 10:22-0500 Heart rate 108 /min Dr. Syl Domínguez Work Phone: [facility] 10-14-2023 10:22-0500 Respiratory rate 18 /min Dr. Syl Domínguez Work Phone: [facility] 10-14-2023 10:22-0500 SaO2% (BldA) [Mass fraction] 97 % Dr. Syl Domínguez Work Phone: [facility] 10-14-2023 10:22-0500 Systolic blood pressure 127 mm[Hg] Dr. Syl Domínguez Work Phone: [facility] 09-02-2023 09:46-0400 Body height 160.[address] Syl Domínguez Work Phone: [facility] 09-02-2023 09:46-0400 Body mass index (BMI) [Ratio] 30.8 kg/m2 Dr. Syl Domínguez Work Phone: [facility] 09-02-2023 09:46-0400 Body weight 78.[address] Syl Domínguez Work Phone: [facility] 09-02-2023 09:46-0400 Diastolic blood pressure 72 mm[Hg] Dr. Syl Domínguez Work Phone: [facility] 09-02-2023 09:46-0400 Heart rate 135 /min Dr. Syl Domínguez Work Phone: [facility] 09-02-2023 09:46-0400 Respiratory rate 18 /min Dr. Syl Domínguez Work Phone: [facility] 09-02-2023 09:46-0400 SaO2% (BldA) [Mass fraction] 97 % Dr. Syl Domínguez Work Phone: [facility] 09-02-2023 09:46-0400 Systolic blood pressure 107 mm[Hg] Dr. Syl Domínguez Work Phone: [facility] 03-14-2023 11:43-0400 Body temperature 96.9 [degF] Dr. Syl Domínguez Work Phone: [facility] 03-14-2023 11:43-0400 Diastolic blood pressure 76 mm[Hg] Dr. Syl Domínguez Work Phone: [facility] 03-14-2023 11:43-0400 Heart rate 78 /min Dr. Syl Domínguez Work Phone: [facility] 03-14-2023 11:43-0400 Respiratory rate 16 /min Dr. Syl Domínguez Work Phone: [facility] 03-14-2023 11:43-0400 SaO2% (BldA) [Mass fraction] 96 % Dr. Syl Domínguez Work Phone: [facility] 03-14-2023 11:43-0400 Systolic blood pressure 120 mm[Hg] Dr. Syl Domínguez Work Phone: [facility] 11-06-2022 07:47-0500 Body height 160.[address] Syl Domínguez Work Phone: [facility] 11-06-2022 07:47-0500 Body temperature 97.3 [degF] Dr. Syl Domínguez Work Phone: [facility] 11-06-2022 07:47-0500 Diastolic blood pressure 70 mm[Hg] Dr. Syl Domínguez Work Phone: [facility] 11-06-2022 07:47-0500 Heart rate 82 /min Dr. Syl Domínguez Work Phone: [facility] 11-06-2022 07:47-0500 Respiratory rate 16 /min Dr. Syl Domínguez Work Phone: [facility] 11-06-2022 07:47-0500 SaO2% (BldA) [Mass fraction] 97 % Dr. Syl Domínguez Work Phone: [facility] 11-06-2022 07:47-0500 Systolic blood pressure 122 mm[Hg] Dr. Syl Domínguez Work Phone: [facility] 10-29-2022 11:05-0500 Body mass index (BMI) [Ratio] 30.1 kg/m2 Dr. Syl Domínguez Work Phone: [facility] 10-29-2022 11:05-0500 Body weight 77.[address] Syl Domínguez Work Phone: [facility] 10-29-2022 11:05-0500 Diastolic blood pressure 80 mm[Hg] Dr. Syl Domínguez Work Phone: [facility] 10-29-2022 11:05-0500 Heart rate 75 /min Dr. Syl Domínguez Work Phone: [facility] 10-29-2022 11:05-0500 Respiratory rate 16 /min Dr. Syl Domínguez Work Phone: [facility] 10-29-2022 11:05-0500 Systolic blood pressure 116 mm[Hg] Dr. Syl Domínguez Work Phone: [facility] 10-02-2022 15:31-0500 Body temperature 98.2 [degF] Dr. Syl Domínguez Work Phone: [facility] 10-02-2022 15:31-0500 Diastolic blood pressure 80 mm[Hg] Dr. Syl Domínguez Work Phone: [facility] 10-02-2022 15:31-0500 Heart rate 83 /min Dr. Syl Domínguez Work Phone: [facility] 10-02-2022 15:31-0500 Respiratory rate 16 /min Dr. Syl Domínguez Work Phone: [facility] 10-02-2022 15:31-0500 SaO2% (BldA) [Mass fraction] 97 % Dr. Syl Domínguez Work Phone: [facility] 10-02-2022 15:31-0500 Systolic blood pressure 130 mm[Hg] Dr. Syl Domínguez Work Phone: [facility] 07-06-2022 13:33-0400 Body temperature 97.5 [degF] MD Syl Domínguez [facility] Work Phone: 07-06-2022 13:33-0400 Diastolic blood pressure 82 mm[Hg] MD Syl Domínguez [facility] Work Phone: 07-06-2022 13:33-0400 Heart rate 93 /min MD Syl Domínguez [facility] Work Phone: 07-06-2022 13:33-0400 Respiratory rate 15 /min MD Syl Domínguez [facility] Work Phone: 07-06-2022 13:33-0400 SaO2% (BldA) [Mass fraction] 96 % MD Mccarty [facility] Work Phone: 07-06-2022 13:33-0400 Systolic blood pressure 150 mm[Hg] MD Syl Domínguez [facility] Work Phone: 04-20-2022 08:53-0400 Body height 160.02 cm MD Syl Domínguez [facility] Work Phone: 04-20-2022 08:53-0400 Body mass index (BMI) [Ratio] 31.5 kg/m2 MD Mccarty [facility] Work Phone: 04-20-2022 08:53-0400 Body weight 80.73 kg MD Syl Domínguez [facility] Work Phone: 04-20-2022 08:53-0400 Diastolic blood pressure 83 mm[Hg] MD Syl Domínguez [facility] Work Phone: 04-20-2022 08:53-0400 Heart rate 68 /min MD Syl Domínguez [facility] Work Phone: 04-20-2022 08:53-0400 Respiratory rate 18 /min MD Syl Domínguez [facility] Work Phone: 04-20-2022 08:53-0400 SaO2% (BldA) [Mass fraction] 97 % MD Syl Domínguez [facility] Work Phone: 04-20-2022 08:53-0400 Systolic blood pressure 134 mm[Hg] MD Syl Domínguez [facility] Work Phone: 03-20-2022 10:25-0400 Body height 160.02 cm MD Syl Domínguez [facility] Work Phone: 01-04-2022 13:17-0500 Body temperature 97.4 [degF] MD Syl Domínguez [facility] Work Phone: 01-04-2022 13:17-0500 Diastolic blood pressure 90 mm[Hg] MD Syl Domínguez [facility] Work Phone: 01-04-2022 13:17-0500 Heart rate 107 /min MD Syl Domínguez [facility] Work Phone: 01-04-2022 13:17-0500 Respiratory rate 16 /min [facility] Work Phone: 01-04-2022 13:17-0500 SaO2% (BldA) [Mass fraction] 97 % MD Syl Domínguez [facility] Work Phone: 01-04-2022 13:17-0500 Systolic blood pressure 146 mm[Hg] MD Syl Domínguez [facility] Work Phone: 12-18-2021 13:50-0500 Body mass index (BMI) [Ratio] 31.5 kg/m2 MD Syl Domínguez [facility] Work Phone: 12-18-2021 13:50-0500 Body temperature 97.3 [degF] MD Syl Domínguez [facility] Work Phone: 12-18-2021 13:50-0500 Body weight 80.73 kg MD Syl Domínguez [facility] Work Phone: 12-18-2021 13:50-0500 Diastolic blood pressure 84 mm[Hg] MD Syl Domínguez [facility] Work Phone: 12-18-2021 13:50-0500 Heart rate 86 /min MD Syl Domínguez [facility] Work Phone: 12-18-2021 13:50-0500 Respiratory rate 16 /min MD Syl Domínguez [facility] Work Phone: 12-18-2021 13:50-0500 SaO2% (BldA) [Mass fraction] 97 % [facility] Work Phone: 12-18-2021 13:50-0500 Systolic blood pressure 138 mm[Hg] MD Syl Domínguez [facility] Work Phone: Encounters Encounter Date Encounter Type Care Provider Facility Start: 09-18-2025 ambulatory Syl Harper REGISTRY RN Facility :[facility] Start: 09-13-2025 End: 09-13-2025 ambulatory Syl Harper REGISTRY RN Facility:[facility] Start: 08-19-2025 Non-patient / Non-visit Dr. Fransisco RODRIGUEZ -[facility] Start: 08-19-2025 End: 08-19-[address] Syl Domínguez MD Work Phone: -Cardiovascular Services Start: 08-19-2025 End: 08-19-2025 Patient encounter procedure Larry ZHANG -[facility] Services Work Phone: Start: 08-19-2025 End: 08-19-2025 ambulatory Larry Nolasco Facility:[facility] Start: 08-02-2025 Non-patient / Non-visit Dr. Fransisco RODRIGUEZ -[facility] Work Phone: Start: 08-02-2025 End: 08-02-[address] Syl Domínguez MD Work Phone: -Pulmonary Services/Neurology Start: 08-02-2025 End: 08-02-2025 Patient encounter procedure Larry ZHANG -Pulmonary Services/Neurology Work Phone: Start: 08-02-2025 End: 08-02-2025 ambulatory Larry Nolasco Facility:[facility] Start: 07-26-2025 End: 08-17-2025 Discharged Recurring Elizabeth Krishnan REGISTRY RN-C -[facility] [place] Work Phone: Start: 07-26-2025 End: 08-17-[address] Syl Domínguez MD Work Phone: -[facility] [place] Start: 07-23-2025 End: 07-23-2025 Patient encounter procedure Larry ZHANG -[facility] Work Phone: Start: 07-23-2025 End: 07-23-[address] Syl Domínguez MD Work Phone: [facility] Start: 07-05-2025 End: 07-05-[address] Syl Domínguez MD Work Phone: -[facility] [place] Start: 07-05-2025 End: 07-05-2025 Discharged Recurring Elizabeth Krishnan REGISTRY RN-C -[facility] [place] Work Phone: Start: 05-24-2025 End: 06-17-2025 Discharged Recurring Elizabeth Krishnan REGISTRY RN-C -[facility] [place] Work Phone: Start: 05-24-2025 End: 06-17-[address] Syl Domínguez MD Work Phone: -[facility] [place] Start: 05-18-2025 Non-patient / Non-visit Dr. Juanis jones MD -[facility] Work Phone: Start: 04-26-2025 End: 04-26-2025 Discharged Recurring Elizabeth Krishnan REGISTRY RN-C -[facility] [place] Work Phone: Start: 04-26-2025 End: 04-26-[address] Syl Domínguez MD Work Phone: -[facility] [place] Start: 03-29-2025 End: 03-29-2025 Discharged Recurring Elizabeth Krishnan REGISTRY RN-C -[facility] [place] Work Phone: Start: 03-29-2025 End: 03-29-[address] Syl Domínguez MD Work Phone: [facility] Work Phone: Start: 03-01-2025 End: 03-17-2025 Discharged Recurring Elizabeth Krishnan REGISTRY RN-C -[facility] [place] Work Phone: Start: 03-01-2025 End: 03-17-2025 ambulatory Syl Harper REGISTRY RN Facility:[facility] Start: 02-01-2025 End: 02-01-2025 Discharged Recurring Elizabeth Krishnan REGISTRY RN-C -[facility] [place] Work Phone: Start: 02-01-2025 End: 02-01-[address] Syl Domínguez MD Work Phone: [facility] Work Phone: Start: 01-04-2025 End: 01-15-2025 Discharged Recurring Elizabeth Krishnan REGISTRY RN-C -[facility] [place] Work Phone: Start: 01-04-2025 End: 01-15-2025 ambulatory Elizabeth Krishnan Facility:[facility] Start: 12-24-2024 End: 12-24-[address] Mario Orellana MD -[facility] Work Phone: Start: 12-24-2024 End: 12-24-2024 ambulatory Syl Domínguez Facility:[facility] Start: 12-07-2024 End: 12-07-2024 Discharged Recurring Elizabeth Krishnan REGISTRY RN-C -[facility] [place] Work Phone: Start: 12-07-2024 End: 12-07-2024 ambulatory Elizabeth Krishnan Facility:[facility] Start: 12-02-2024 End: 12-02-[address] Syl Domínguez MD -Labor[facility], [place] Work Phone: Start: 12-02-2024 End: 12-02-2024 ambulatory Syl Domínguez Facility:[facility] Start: 11-09-2024 End: 11-09-2024 Discharged Recurring Elizabeth Krishnan -C -[facility] Work Phone: Start: 11-09-2024 End: 11-09-2024 ambulatory Elizabeth Krishnan Facility:[facility] Start: 10-13-2024 End: 10-17-2024 ambulatory Elizabeth Krishnan Facility:[facility] Start: 10-02-2024 End: 10-02-2024 ambulatory Shay ZHANG Facility:[facility] Start: 03-16-2024 End: 03-17-[address] Syl Domínguez Work Phone: [facility] Work Phone: Start: 03-16-2024 End: 03-17-[address] Syl Domínguez Work Phone: [facility] Work Phone: Start: 02-07-2024 End: 02-07-[address] Syl Domínguez Work Phone: [facility] Work Phone: Start: 02-07-2024 End: 02-07-[address] Syl Domínguez Work Phone: [facility] Work Phone: Start: 02-06-2024 End: 02-06-[address] Syl Domínguez Work Phone: [facility] Work Phone: Start: 02-06-2024 End: 02-06-[address] Syl Domínguez Work Phone: [facility] Work Phone: Start: 02-06-2024 End: 02-06-[address] Syl Domínguez Work Phone: [facility] Work Phone: Start: 02-04-2024 End: 02-04-[address] Syl Domínguez Work Phone: [facility] Work Phone: Start: 02-03-2024 End: 02-16-[address] Syl Domínguez Work Phone: [facility] Work Phone: Start: 02-03-2024 End: 02-16-[address] Syl Domínguez Work Phone: [facility] Work Phone: Start: 02-03-[address] Syl Domínguez Work Phone: [facility] Work Phone: Start: 01-13-2024 End: 01-16-[address] [facility] Dom[facility]nguez [facility] [facility] Work Phone: Start: 01-13-2024 End: 01-16-[address] Syl Domínguez Work Phone: [facility] Work Phone: Start: 01-13-[address] Syl Domínguez Work Phone: [facility] Work Phone: Start: 12-31-[address] Syl Domínguez Work Phone: [facility] Work Phone: Start: 12-30-2023 End: 12-30-[address] Syl Domínguez Work Phone: [facility] Work Phone: Start: 12-30-2023 End: 12-30-[address] Syl Domínguez Work Phone: [facility] Ultrasound Work Phone: Start: 12-24-[address] Syl Domínguez Work Phone: [facility] Work Phone: Start: 12-23-2023 End: 12-23-2023 Non-patient / Non-visit Dr. Syl Domínguez Work Phone: [facility] Work Phone: Start: 12-23-2023 End: 12-23-[address] Syl Domínguez Work Phone: [facility] Work Phone: Start: 12-23-2023 End: 12-23-[address] Syl [facility]uez [facility] Work Phone: Start: 12-17-2023 End: 12-17-[address] Syl Domínguez Work Phone: [facility] Work Phone: Start: 12-11-2023 End: 12-11-[address] Syl Domínguez Work Phone: [facility] Work Phone: Start: 12-11-2023 End: 12-11-[address] Syl Domínguez Work Phone: [facility] Work Phone: Start: 12-09-2023 End: 12-09-2023 Non-patient / Non-visit Dr. Syl Domínguez Work Phone: [facility] Work Phone: Start: 12-09-2023 End: 12-09-[address] Syl Domínguez Work Phone: [facility] Work Phone: Start: 12-04-2023 End: 12-04-[address] Syl Domínguez Work Phone: [facility] Work Phone: Start: 12-04-2023 End: 12-04-[address] Syl Domínguez Work Phone: [facility]-Pre-Admission Testing Work Phone: Start: 11-28-2023 End: 11-28-[address] Syl Domínguez Work Phone: [facility] Work Phone: Start: 11-28-2023 End: 11-28-[address] Syl Domínguez Work Phone: [facility] Work Phone: Start: 11-27-[address] Syl Domínguez Work Phone: [facility] Work Phone: Start: 11-13-2023 End: 11-17-[address] Syl Domínguez Work Phone: [facility] Work Phone: Start: 10-24-2023 End: 10-24-[address] Syl Domínguez Work Phone: [facility] Work Phone: Start: 10-24-2023 End: 10-24-[address] Syl Domínguez Work Phone: [facility], Specimen Work Phone: Start: 10-24-2023 End: 10-24-[address] Syl Domínguez Work Phone: [facility] Work Phone: Start: 10-23-[address] Syl Domínguez [facility] Phone: [facility] Work [facility]: Start: 10-14-2023 End: 10-14-[address] Syl Domínguez Work Phone: [facility] Work Phone: Start: 10-14-2023 End: 10-14-[address] Syl Domínguez Work Phone: [facility] Work Phone: Start: 10-14-2023 End: 10-14-[address] Syl Domínguez Work Phone: [facility] Work Phone: Start: 10-14-2023 End: 10-14-[address] Syl Domínguez [facility] Phone: [facility]: Start: 10-03-2023 End: 10-03-[address] Syl Domínguez Work Phone: [facility] Work Phone: Start: 10-03-2023 End: 10-03-[address] Syl Domínguez [facility] Phone: [facility]: Start: 09-25-2023 End: 09-25-[address] Syl Domínguez Work Phone: [facility] Work Phone: Start: 09-25-2023 End: 09-25-[address] Syl Domínguez Work Phone: [facility]-Laboratory, [facility] Start: 09-18-2023 Non-patient / Non-visit Dr. Vesta Domínguez Work Phone: [facility] Work Phone: Start: 09-17-2023 Non-patient / Non-visit Dr. Vesta Domínguez Work Phone: [facility] Start: 09-17-2023 End: 09-17-[address] Syl Domínguez Work Phone: [facility] Work Phone: Start: 09-17-2023 End: 09-17-[address] Syl Domínguez [facility] Phone[facility] Work Phone: Start: 09-10-2023 End: 09-10-[address] Syl Domínguez Work Phone: [facility] Work Phone: Start: 09-10-2023 End: 09-10-[address] Syl Domínguez [facility] Phone: [facility]: Start: 09-02-2023 End: 09-02-[address] Syl Domínguez Work Phone: [facility] Work Phone: Start: 09-02-2023 End: 09-02-[address] Syl Domínguez Work Phone: [facility] Work Phone: Start: 09-02-2023 End: 09-02-[address] Syl Domínguez [facility] Phone: [facility]: Start: 03-14-2023 End: 03-14-[address] Syl Domínguez Work Phone: [facility] Work Phone: Start: 03-14-2023 End: 03-14-[address] Syl Domínguez [facility] Phone: [facility] Start: 03-14-2023 End: 03-14-[address] Syl Domínguez [facility] Start: 01-02-2023 End: 01-02-[address] Syl Domínguez Work Phone: [facility] Work Phone: Start: 01-02-2023 End: 01-02-[address] Syl Domínguez Work Phone: [facility], [facility] Start: 11-14-2022 Non-patient / Non-visit Dr. Vesta Domínguez Work Phone: [facility] Start: 11-14-2022 End: 11-14-[address] Syl Domínguez Work Phone: [facility] Work Phone: Start: 11-14-2022 End: 11-14-[address] Syl Domínguez Work Phone: [facility]Cardi[facility] Services Start: 11-06-2022 End: 11-06-[address] Syl Domínguez Work Phone: [facility] Work Phone: Start: 11-06-2022 End: 11-06-[address] Syl Domínguez [facility] Phone: [facility] Start: 11-06-2022 End: 11-06-[address] Syl Domínguez [facility] Phone[facility] Start: 10-29-2022 End: 10-29-[address] Syl Domínguez Work Phone: [facility] Start: 10-02-2022 End: 10-02-[address] Syl Domínguez Work Phone: [facility] Work Phone: Start: 10-02-2022 End: 10-02-[address] Syl Domínguez Work Phone: [facility] Start: 08-29-2022 End: 08-29-[address] Syl Domínguez Work Phone: [facility] Work Phone: Start: 08-29-2022 End: 08-29-[address] Syl Domínguez Work Phone: [facility] Start: 08-06-2022 End: 08-06-2022 ambulatory MD Syl Domínguez [facility] Work Phone: Start: 08-06-2022 End: 08-06-2022 Patient encounter procedure MD Syl Domínguez [facility] Start: 07-13-2022 End: 07-13-2022 ambulatory MD Mccarty [facility] Work Phone: Start: 07-13-2022 End: 07-13-2022 Patient encounter procedure MD Syl Pearsonilkenny [facility] Start: 07-06-2022 End: 07-06-2022 Patient encounter procedure MD Syl Domínguez [facility] Start: 07-06-2022 End: 07-06-2022 ambulatory MD Mccarty [facility] Work Phone: Start: 07-06-2022 End: 07-06-2022 Patient encounter procedure MD Syl Domínguez [facility] Start: 04-20-2022 End: 04-20-2022 Patient encounter procedure MD Syl Domínguez [facility] Start: 03-29-2022 End: 03-29-2022 Patient encounter procedure MD Syl Domínguez [facility] Start: 03-20-2022 End: 03-20-2022 Patient encounter procedure MD Syl Domínguez [facility]Outpatient Bone Densitometry Start: 01-26-2022 End: 01-26-2022 Patient encounter procedure MD Syl Domínguez [facility]Labor[facility] Start: 01-04-2022 End: 01-04-2022 Patient encounter procedure MD Syl Domínguez [facility], Spec[facility] Start: 01-04-2022 End: 01-04-2022 Patient encounter procedure MD Syl Domínguez [facility] Start: 12-18-2021 End: 12-18-2021 Patient encounter procedure MD Syl Domínguez [facility], Spec[facility] Start: 12-18-2021 End: 12-18-2021 Patient encounter procedure MD Syl Domínguez [facility] Start: 08-25-2018 Ambulatory GRANT CHAUDHARY Facility :[facility] Start: 12-24-2017 End: 12-24-2017 [facility] Procedures Date Procedure Procedure Detail Performing Clinician Start: 02-06-[address] Syl Domínguez Work Phone: Start: 12-30-[address] Hamilton Domínguez Work Phone: Start: 12-30-[address] Syl Domínguez Work Phone: Start: 10-14-[address] Hamilton Domínguez Work Phone: Start: 09-17-2023 Cardiovascular stres s test using pharmacologic stress agent Dr. Syl Domínguez Work Phone: Start: 09-02-2023 Plain chest X-ray Dr. Hamilton Domínguez Work Phone: Start: 08-29-[address] Vesta Domínguez Work Phone: Start: 07-13-2022 Plain x-ray of pelvi s and lower extremity MD Syl Domínguez Start: 03-20-2022 Dual energy X-ray absorptiometry MD Syl Domínguez Start: 01-04-2022 Urine culture MD Syl chin Start: 12-18-2021 Urine culture MD Syl chin Urine culture MD Syl Ramos er Urine culture Dr. Syl cox Work Phone: Urine culture Dr. Syl cox Work Phone: Urine culture Dr. Syl cox Work Phone: Urine culture Dr. Syl cox Work Phone: Plan of Treatment Date Care Activity Detail Author Start: 09-13-2025 Registered Recurring Registered Recu rring -Laboratory [place] Work Phone: Start: 07-23-2025 End: 07-23-2025 Evaluation of diagnostic study results [facility] Start: 10-24-2023 Liquid based cervica l cytology screening [facility] 24 Hour ECG [facility] 24 Hour ECG [facility] Blood chemistry [facility] NM Heart Views W str ess and W radionuclide IV [facility] Partial thromboplast in time, activated [facility] Path report.final Dx Spec [facility] Patient referral [facility] Work Phone: Prothrombin time [facility] Work Phone: [facility] Pelvis [facility] Pelvis transvaginal [facility] Immunizations Immunization Date Immunization Notes Care Provider Fa christty 07-20-2020 tetanus toxoid, redu denise diphtheria toxoid, and acellular pertussis vaccine, adsorbed MD Syl Domínguez [facility] Payers Date Payer Category Payer Self-pay [id number] 2009 Unknown [id number] Unknown [id number] 2.16.8 [id number] Unknown [id number] 2.16.8 [id number] Unknown [id number] 2.16.8 [id number] Unknown [id number] 2.16.8 [id number] Unknown [id number] 2.16.8 [id number] Unknown [id number] 2.16.8 [id number] Unknown [id number] 2.16.8 [id number] Unknown [id number] 2.16.8 [id number] Unknown [id number] 2.16.8 [id number] Unknown [id number] 2.16.8 [id number] Unknown [id number] 2.16.8 [id number] Unknown [id number] 2.16.8 [id number] Unknown [id number] 2.16.8 [id number] Unknown [id number] 2.16.8 40.1.394985.3.579.2.462 Unknown [id number] 2.16.8 [id number] Unknown [id number] 2.16.8 [id number] Unknown [id number] 2.16.8 40.1.887189.3.579.2.462 Unknown [id number] 2.16.8 [id number] Unknown [id number] 2.16.8 [id number] Unknown [id number] 2.16.8 [id number] Social History Date Type Detail Facility Start: 01-04-2022 End: 02-06-2024 Tobacco smoking status NHIS Unknown if ever smoked [facility] Start: 07-21-2020 None [facility] Start: 07-21-2020 Alone [facility] Start: 1940 Sex Assigned At Female [facility] Start: 08-17-2024 Tobacco smoking stat us COIS Never smoked tobacco (finding) [facility] Start: 08-17-2024 Non-smoker Non-smoker [facility] Start: 02-15-2025 Sex Female (finding) [facility] Sex Female [facility] Goals Date Patient Goal Desired Activity /State Clinical Notes 08-18-2008 to 07-23-2025 Note Date & Type Note Facility 07-23-2025 Evaluation note Diagnosis Onset Date Resolution halfway current use of anticoagulant acute July 232024 11:23am Aortic root dilatation chronic July 23, 2025 11:23am Atrial fibrillation, chronic chronic July 23, 2025 11:23am Essential hypertension chronic July 23, 2025 11:23am History of aortic valve replacement with bioprosthetic valve August, chronic July 23, 2025 11:23am History of bicuspid aortic valve chronic July 23, 2025 11:23am Hyperlipidemia chronic July 23, 2025 11:23am Nonrheumatic aortic (valve) stenosis chronic July 23, 2025 11:[address] [facility] Work Phone: 1(515) 722-743102-06-2025 Evaluation note* Diagnosis Onset Date Resolution Status Admit Date Atrial fibrillation acute u 2024 1:02pm Aortic root dilatation chronic 2024 1:02pm Essential hypertension chronic 2024 1:02pm History of aortic valve replacement with bioprosthetic valve August, chronic December 1:02pm Hyperlipidemia chronic December 242024 1:02pm [facility] Work Phone: 1(313) 512-786312-07-2023 NotePap Smear Specimen AdequacyDeceer 2022 11:59pmComment.Satisfactory for evaluation. Endocervical and/or squamous metaplasticcells (endocervical component)are present.[facility] INTER[facility]AC[facility] A#[id number] Valley Medical CenterComment on above:Satisfactory for evaluation. Endocervical and/or squamous metaplasticcells (endocervical component)are present.10-24-2023 NotePap Smear Specimen AdequacyDecember 2022 11:59pmComment.Satisfactory for evaluation. Endocervical and/or squamous metaplasticcells (endocervical component)are present.[facility] A#[id number] [facility] on above:Satisfactory for evaluation. Endocervical and/or squamous metaplasticcells (endocervical component)are present.10-24-2023 NotePap Smear Specimen AdequacyDecember 2022 11:59pmComment.Satisfactory for evaluation. Endocervical and/or squamous metaplasticcells (endocervical component)are present.[facility] A#[id number] [facility] on above:Satisfactory for evaluation. Endocervical and/or squamous metaplasticcells (endocervical component)are present.10-24-2023 NotePap Smear Specimen AdequacyDecember 2022 11:59pmComment.Satisfactory for evaluation. Endocervical and/or squamous metaplasticcells (endocervical component)are present.[facility] A#[id number] Health St. [facility] on above:Satisfactory for evaluation. Endocervical and/or squamous metaplasticcells (endocervical component)are present.10-24-2023 NotePap Smear Specimen AdequacyDecember 2022 11:59pmComment.Satisfactory for evaluation. Endocervical and/or squamous metaplasticcells (endocervical component)are present.[facility] A#[id number] [facility] on above:Satisfactory for evaluation. Endocervical and/or squamous metaplasticcells (endocervical component)are present.10-24-2023 NotePap Smear Specimen AdequacyDecember 2022 11:59pmComment.Satisfactory for evaluation. Endocervical and/or squamous metaplasticcells (endocervical component)are present.[facility] A#[id number] [facility] on above:Satisfactory for evaluation. Endocervical and/or squamous metaplasticcells (endocervical component)are present.10-24-2023 NotePap Smear Specimen AdequacyDecember 2022 12:59amComment.Satisfactory for evaluation. Endocervical and/or squamous metaplasticcells (endocervical component)are present.[facility] A#[id number] Health St. [facility] Medical CenterComment on above:Satisfactory for evaluation. Endocervical and/or squamous metaplasticcells (endocervical component)are present.10-24-2023 NotePap Smear Specimen AdequacyDecember 2022 12:59amComment.Satisfactory for evaluation. Endocervical and/or squamous metaplasticcells (endocervical component)are present.[facility] A#[id number] Health St. [facility] Medical CenterComment on above:Satisfactory for evaluation. Endocervical and/or squamous metaplasticcells (endocervical component)are present.10-24-2023 NotePap Smear Specimen AdequacyDecember 2022 12:59amComment.Satisfactory for evaluation. Endocervical and/or squamous metaplasticcells (endocervical component)are present.[facility] A#[id number] Health St. [facility] Medical CenterComment on above:Satisfactory for evaluation. Endocervical and/or squamous metaplasticcells (endocervical component)are present.11-14-2021 NoteHNO ID: [id number] Author: Elise Chaudhry MA Service: ? Author Type: Office Manager Receptionist Type: Progress Notes Filed: 11/14/2021 3:01 PM Note Text: POPULATION HEALTH NAVIGATION OUTREACH Action/FYI Upon reviewing the patient's chart, it has been found that Dr. Syl Domínguez with [facility] is her current PCP. PCP field [...] future healthcare decisions with a power of senior trial attorney, living will, or advance directives? Referrals: Message Sent to Practice: Navigation Signature: Elise Chaudhry MA November 14, 2021 2:57 [facility]12-28-2021 NotePatient Outreach (NETNAV) CHRISTINA CHEN ([id number]) 1940 F Date Time Provider Department 11/14/21 ELISE CHAUDHRY During your visit today, we recorded the following information about you: Elise Cahudhry MA 11/14/2021 3:01 PM Signed POPULATION HEALTH NAVIGATION OUTREACH Action/FYI Upon reviewing the patient's chart, it has been found that Dr. Syl Domínguez with [facility] is her current PCP. PCP field [...] future healthcare decisions with a power of senior trial attorney, living will, or advance directives? Referrals: Message Sent to Practice: Navigation Signature: Elise Chaudhry MA November 14, 2021 2:57 PM Allergies [...] 10,000 mcg cap Take by mouth. - Aqlhrizsthv-Trnwgnctd-Gem C-Mn (GLUCOSAMINE CHONDROITIN MAXSTR) 500-400 mg cap Take 1 capsule by mouth twice daily. - CRANBERRY EXTRACT (CRANBERRY ORAL) Take by mouth. - cinnamon bark(CINNAMON 500 MG CAP) Take one(1) tablet two(2) times daily. - FLAXSEED OIL 1,030 MG CAP Take one(1) tablet once (1) daily. - aspirin(ECOTRIN LOW STRENGTH 81 MG TAB) Take one(1) tablet daily. - Jmlhkmcucilhm-Kp-Llgf-Minerals (ONE-A-DAY WOMENS FORMULA) 27-0.4 mg ORAL Tab [...] chronicus [L28.0] 12/15/2019 Encounter Status:Closed by ELISE CHAUDHRY on 11/14/21[facility]07-16-2021 NoteHNO ID: [id number] Author: Chrissy Freitas APRN.DE ICER INSTALLER Service: ? Author Type: Nurse Practitioner Type: Progress Notes Filed: 06/02/2021 10:16 AM Note Text: Subjective HPI HPI Christina Chen is a 81 year old female who [...] Internal hemorrhoids without mention of complication - halfway (current) use of aspirin - Low back pain - Need for prophylactic hormone replacement therapy (postmenopausal) - Osteopenia 10/23/2011 - Other and unspecified hyperlipidemia - Overweight - Presence of prosthetic heart valve - Primary generalized (osteo)arthritis - Statin intolerance 10/07/2015 I have confirmed and edited as necessary, the [facility] Review of Systems Constitutional: Negative for chills [...] detail warranting prompt ER evaluation. Chrissy Freitas APRN.[facility]03-09-2021 NoteHNO ID: [id number] Author: Mason Torres III Service: ? 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 - Qtyqcjbsnwa-Ujrtamshh-Hoc C-Mn (GLUCOSAMINE CHONDROITIN MAXSTR) 500-400 mg cap Take 1 capsule by mouth twice daily. - CRANBERRY EXTRACT (CRANBERRY ORAL) Take by mouth. - cinnamon bark(CINNAMON 500 MG CAP) Take one(1) tablet two(2) times daily. - Krzedakvlyqul-Po-Xnrc-Minerals (ONE-A-DAY WOMENS FORMULA) 27-0.4 mg ORAL Tab [...] 80 Resp 18 Ht 160 cm (5' 2.99) Wt 80.3 kg (177 lb) BMI 31.36 [...] and regular exercise same medications CMP, lipid Mason Torres III MD Medical Decision Making: Problems: Moderate: 2+ stable chronic illnesses Data: Unique test result(s) reviewed: 2 Unique test(s) ordered: 2 Risk: Moderate: Drug management Medical Decision Making Level: 4 - Moderate Mason Torres III [facility]10-01-2008 Evaluation note* Diagnosis Onset Date Resolution Status Aortic root dilatation chron ic Essential hypertension chron ic History of aortic valve repl acement with bioprosthetic valve August, chronic Hyperlipidemia chronic Urinary tract infection with hematuria acute [facility] Work Phone: 1(251) 922-462610-01-2008 Evaluation note* Diagnosis Onset Date Resolution Status Urinary tract infection with hematuria acute Aortic root dilatation chron ic Essential hypertension chron ic History of aortic valve repl acement with bioprosthetic valve August, chronic Hyperlipidemia chronic Urinary tract infection with hematuria acute [facility] Work Phone: 1(242) 413-654810-01-2008 Evaluation note* Diagnosis Onset Date Resolution Status Atrial fibrillation acute Shortness of breath acute Aortic root dilatation chron ic Essential hypertension chron ic History of aortic valve repl acement with bioprosthetic valve August, chronic Hyperlipidemia [facility] Work Phone: 1(650) 523-683910-01-2008 Evaluation note* Diagnosis Onset Date Resolution Status Atrial fibrillation acute Shortness of breath acute Aortic root dilatation chron ic Essential hypertension chron ic History of aortic valve repl acement with bioprosthetic valve August, chronic Hyperlipidemia chronic Atrial fibrillation acute Aortic root dilatation chron ic Essential hypertension chron ic History of aortic valve repl acement with bioprosthetic valve August, chronic Hyperlipidemia [facility] Work Phone: 1(813) 339-673710-01-2008 Evaluation note* Diagnosis Onset Date Resolution Status Atrial fibrillation acute Shortness of breath acute Aortic root dilatation chron ic Essential hypertension chron ic History of aortic valve repl acement with bioprosthetic valve August, chronic Hyperlipidemia chronic Atrial fibrillation acute Aortic root dilatation chron ic Essential hypertension chron ic History of aortic valve repl acement with bioprosthetic valve August, chronic Hyperlipidemia chronic Postmenopausal bleeding acut e Thickened endometrium acute [facility] Work Phone: [phone] Evaluation note* Diagnosis Onset Date Resolution Status Atrial fibrillation acute Shortness of breath acute Aortic root dilatation chron ic Essential hypertension chron ic History of aortic valve repl acement with bioprosthetic valve August, chronic Hyperlipidemia chronic Atrial fibrillation acute Aortic root dilatation chron ic Essential hypertension chron ic History of aortic valve repl acement with bioprosthetic valve August, chronic Hyperlipidemia chronic Postmenopausal bleeding acut e Thickened endometrium acute Postmenopausal bleeding acut e Thickened endometrium acute Essential hypertension chron ic History of aortic valve repl acement with bioprosthetic valve August, chronic [facility] Work Phone: [phone] 316-957910-01-2008 Evaluation note* Diagnosis Onset Date Resolution Status Atrial fibrillation acute Shortness of breath acute Aortic root dilatation chron ic Essential hypertension chron ic History of aortic valve repl acement with bioprosthetic valve August, chronic Hyperlipidemia chronic Atrial fibrillation acute Aortic root dilatation chron ic Essential hypertension chron ic History of aortic valve repl acement with bioprosthetic valve August, chronic Hyperlipidemia chronic Postmenopausal bleeding acut e Thickened endometrium acute Postmenopausal bleeding acut e Thickened endometrium acute Essential hypertension chron ic History of aortic valve repl acement with bioprosthetic valve August, chronic Postmenopausal bleeding acut e Thickened endometrium acute [facility] Work Phone: [phone] Evaluation note* Diagnosis Onset Date Resolution Status Atrial fibrillation acute Aortic root dilatation chron ic Essential hypertension chron ic History of aortic valve repl acement with bioprosthetic valve August, chronic Hyperlipidemia chronic Postmenopausal bleeding acut e Thickened endometrium acute Postmenopausal bleeding acut e Thickened endometrium acute Essential hypertension chron ic History of aortic valve repl acement with bioprosthetic valve August, chronic Postmenopausal bleeding acut e Thickened endometrium acute [facility] Work Phone: [phone] 707-546110-01-2008 Evaluation note* Diagnosis Onset Date Resolution Status Postmenopausal bleeding acut e Thickened endometrium acute Essential hypertension chron ic History of aortic valve repl acement with bioprosthetic valve August, chronic Postmenopausal bleeding acut e Thickened endometrium acute Atrial fibrillation acute halfway current use of anticoagulant acute Aortic root dilatation chron ic Essential hypertension chron ic History of aortic valve repl acement with bioprosthetic valve August, chronic Hyperlipidemia chronic Postmenopausal bleeding acut e Thickened endometrium acute [facility] Work Phone: Evaluation note* Diagnosis Onset Date Resolution Status Urinary tract infection with hematuria acute Urinary tract infection with hematuria acute [facility] Work Phone: Evaluation note* Diagnosis Onset Date Resolution Status Urinary tract infection with hematuria acute 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 Work Phone: Evaluation noteNo assessment information available [facility] Work Phone: Evaluation note* Diagnosis Onset Date Resolution Status Admit Date halfway current use of anticoagulant acute July 23 025 11:23am Nonrheumatic aortic (valve) stenosis acute July 23 025 11:23am Aortic root dilatation chronic Se [id number] 11:23am Atrial fibrillation, chronic chronic July 23, 2025 11:23am Essential hypertension chronic Se [id number] 11:23am History of aortic valve replacement with bioprosthetic valve August, chronic July 11:23am History of bicuspid aortic valve chronic July 23, 11:23am Hyperlipidemia chronic July 23, 2025 11:23am [facility] Work Phone: Reason for referral (narrative)No [facility] for [facility] Summary Purpose Family History No Family History Records Found Relationship Condition Age at Onset Recorded Date/T latrice father Coronary artery disease Unknown mother Cerebral hemorrhage Unknown sister Malignant neoplasm of lung Unknown Advance Directives No Advanced Directives Records Found Advance Directive Response Recorded Date/ Time Advance Directives Yes May 16 6:35am Living Will No July 20 9:48pm Power of Trim Setter No July 20, 2020 9:48pm Advance Directive Response Recorded Date/ Time Advance Directives Yes May 16 5:35am Living Will No July 20 8:48pm Power of Trim Setter No July 20, 2020 8:48pm Advance Directive Response Recorded Date/ Time Advance Directives Yes October 7:47am Living Will No November 06 7:47am Power of Trim Setter No November 06, 2022 7:47am Advance Directive Response Recorded Date/ Time Advance Directives Yes October 8:47am Living Will No November 06 8:47am Power of Trim Setter No November 06, 2022 8:47am Advance Directive Response Recorded Date/ Time Advance Directives Yes October 7:47am Living Will Yes December 04 11:32am Power of Trim Setter Yes December 04, 2023 11:32am Advance Directive Response Recorded Date/ Time Name of Medical Power of Trim Setter DAUGHTERS December 04, 2023 11:32am Advance Directives Yes October 7:47am Living Will Yes December 04 11:32am Power of Trim Setter Yes December 04, 2023 11:32am Advance Directive Response Recorded Date/ Time Name of Medical Power of Trim Setter DAUGHTERS December 04, 2023 12:32pm Advance Directives Yes October 8:47am Living Will Yes December 04 12:32pm Power of Trim Setter Yes December 04, 2023 12:32pm Advance Directive Response Recorded Date/ Time Living Will Yes December 04 12:32pm Do you have a Healthcare Power of Trim Setter? Yes December 04, 2023 12:32pm Living Will Yes December 19 3:48am Do you have a Healthcare Power of Trim Setter? Yes December 19, 2024 3:48am Living Will Yes January 16, 2025 8:44am Do you have a Healthcare Power of Trim Setter? Yes January 16, 2025 8:44am Living Will Yes October 18 6:02am Do you have a Healthcare Power of Trim Setter? Yes October 18, 2024 6:02am Living Will Yes November 18 6:04am Do you have a Healthcare Power of Trim Setter? Yes November 18, 2024 6:04am Advance Directives Yes October 8:47am Advance Directive Response Recorded Date/ Time Living Will Yes December 04 12:32pm Do you have a Healthcare Power of Trim Setter? Yes December 04, 2023 12:32pm Living Will Yes December 19 3:48am Do you have a Healthcare Power of Trim Setter? Yes December 19, 2024 3:48am Living Will Yes January 16, 2025 8:44am Do you have a Healthcare Power of Trim Setter? Yes January 16, 2025 8:44am Living Will Yes February 15, 2025 11:04pm Do you have a Healthcare Power of Trim Setter? Yes February 15, 2025 11:04pm Living Will Yes March 18, 2025 1: 05am Do you have a Healthcare Power of Trim Setter? Yes March 18, 2025 1:05am Advance Directives Yes October 8:47am Advance Directive Response Recorded Date/ Time Living Will Yes January 16, 2025 8:44am Do you have a Healthcare Power of Trim Setter? Yes January 16, 2025 8:44am Living Will Yes February 15, 2025 11:04pm Do you have a Healthcare Power of Trim Setter? Yes February 15, 2025 11:04pm Living Will Yes April 18, 2025 4 :28am Do you have a Healthcare Power of Trim Setter? Yes April 18, 2025 4:28am Living Will Yes March 18, 2025 1: 05am Do you have a Healthcare Power of Trim Setter? Yes March 18, 2025 1:05am Advance Directives Yes October 8:47am Advance Directive Response Recorded Date/ Time Living Will Yes February 15, 2025 11:04pm Do you have a Healthcare Power of Trim Setter? Yes February 15, 2025 11:04pm Living Will Yes April 18, 2025 4 :28am Do you have a Healthcare Power of Trim Setter? Yes April 18, 2025 4:28am Living Will Yes March 18, 2025 1: 05am Do you have a Healthcare Power of Trim Setter? Yes March 18, 2025 1:05am Advance Directives Yes October 8:47am Advance Directive Response Recorded Date/ Time Living Will Yes April 18, 2025 4 :28am Do you have a Healthcare Power of Trim Setter? Yes April 18, 2025 4:28am Living Will Yes March 18, 2025 1: 05am Do you have a Healthcare Power of Trim Setter? Yes March 18, 2025 1:05am Advance Directives Yes October 8:47am Advance Directive Response Recorded Date/ Time Living Will Yes April 18, 2025 4 :28am Do you have a Healthcare Power of Trim Setter? Yes April 18, 2025 4:28am Advance Directives Yes October 8:47am Advance Directive Response Recorded Date/ Time Advance Directives Yes October 8:47am Chief Complaint and Reason for Visit Chief Complaint Urinary tract infect ion Urinary tract infection UTI INT LABS SCREENING Reason for Visit Urinary tract infect ion with hematuria Urinary tract infection with hematuria Chief Complaint SCREENING 6 M FU EORDER Urinary tract infection Reason for Visit Aortic root dilatati on Essential hypertension History of aortic valve replacement with bioprosthetic valve Hyperlipidemia Urinary tract infection with hematuria Chief Complaint 6 M FU EORDER Urinary tract infection Reason for Visit Aortic root dilatati on Essential hypertension History of aortic valve replacement with bioprosthetic valve Hyperlipidemia Urinary tract infection with hematuria Chief Complaint EORDER Urinary tract infection UTI Reason for Visit Urinary tract infect ion with hematuria Chief Complaint EORDER Urinary tract infection UTI CONCERN FOR UTI Reason for Visit Urinary tract infect ion with hematuria Urinary tract infection with hematuria Chief Complaint UTI CONCERN FOR UTI 6 M FU CONCERN FOR UTI Reason for Visit Urinary tract infect ion with hematuria Aortic root dilatation Essential hypertension History of aortic valve replacement with bioprosthetic valve Hyperlipidemia Urinary tract infection with hematuria Chief Complaint UTI CONCERN FOR UTI 6 M FU CONCERN FOR UTI Presence of xenogenic heart valve Reason for Visit Urinary tract infect ion with hematuria Aortic root dilatation Essential hypertension History of aortic valve replacement with bioprosthetic valve Hyperlipidemia Urinary tract infection with hematuria Chief Complaint CONCERN FOR UTI 6 M FU CONCERN FOR UTI Presence of xenogenic heart valve Reason for Visit Urinary tract infect ion with hematuria Aortic root dilatation Essential hypertension History of aortic valve replacement with bioprosthetic valve Hyperlipidemia Urinary tract infection with hematuria Chief Complaint Urinary tract infect ion Reason for Visit Urinary tract infect ion with hematuria Chief Complaint E ORDERS/2 ORDERING DOCTORS SOB, cough see clinical note L.L. Reason for Visit Atrial fibrillation Shortness of breath Aortic root dilatation Essential hypertension History of aortic valve replacement with bioprosthetic valve Hyperlipidemia Chief Complaint E ORDERS/2 ORDERING DOCTORS SOB, cough see clinical note L.Siria DAY Reason for Visit Atrial fibrillation Shortness of breath Aortic root dilatation Essential hypertension History of aortic valve replacement with bioprosthetic valve Hyperlipidemia Chief Complaint E ORDERS/2 ORDERING DOCTORS SOB, cough see clinical note L.L. BARB NEW ONSET A-FIB *DO NOT HOLD METOPROLOL*L Amb Documentation Reason for Visit Atrial fibrillation Shortness of breath Aortic root dilatation Essential hypertension History of aortic valve replacement with bioprosthetic valve Hyperlipidemia Chief Complaint E ORDERS/2 ORDERING DOCTORS SOB, cough see clinical note L.Joana. BARB NEW ONSET A-FIB *DO NOT HOLD METOPROLOL*L Amb Documentation INT LABS Reason for Visit Atrial fibrillation Shortness of breath Aortic root dilatation Essential hypertension History of aortic valve replacement with bioprosthetic valve Hyperlipidemia Chief Complaint E ORDERS/2 ORDERING DOCTORS SOB, cough see clinical note L.L. BARB NEW ONSET A-FIB *DO NOT HOLD METOPROLOL*L Amb Documentation INT LABS 6 W FU E-ORDER UTERINE BLEEDING Reason for Visit Atrial fibrillation Shortness of breath Aortic root dilatation Essential hypertension History of aortic valve replacement with bioprosthetic valve Hyperlipidemia Atrial fibrillation Aortic root dilatation Essential hypertension History of aortic valve replacement with bioprosthetic valve Hyperlipidemia Chief Complaint E ORDERS/2 ORDERING DOCTORS SOB, cough see clinical note L.Joana. EORDERS NEW ONSET A-FIB *DO NOT HOLD METOPROLOL*L Amb Documentation INT LABS 6 W FU E-ORDER UTERINE BLEEDING NEED ORDER/NEW INR abn pelvic us ref by Dr Jj PAP Reason for Visit Atrial fibrillation Shortness of breath Aortic root dilatation Essential hypertension History of aortic valve replacement with bioprosthetic valve Hyperlipidemia Atrial fibrillation Aortic root dilatation Essential hypertension History of aortic valve replacement with bioprosthetic valve Hyperlipidemia Postmenopausal bleeding Thickened endometrium Chief Complaint E ORDERS/2 ORDERING DOCTORS SOB, cough see clinical note L.L. EORDERS NEW ONSET A-FIB *DO NOT HOLD METOPROLOL*L Amb Documentation INT LABS 6 W FU E-ORDER UTERINE BLEEDING abn pelvic us ref by Dr Jj PAP NEED ORDER/NEW INR NEED ORDER/NEW INR EORDER Reason for Visit Atrial fibrillation Shortness of breath Aortic root dilatation Essential hypertension History of aortic valve replacement with bioprosthetic valve Hyperlipidemia Atrial fibrillation Aortic root dilatation Essential hypertension History of aortic valve replacement with bioprosthetic valve Hyperlipidemia Postmenopausal bleeding Thickened endometrium Chief Complaint E ORDERS/2 ORDERING DOCTORS SOB, cough see clinical note L.L. EORDERS NEW ONSET A-FIB *DO NOT HOLD METOPROLOL*L Amb Documentation INT LABS 6 W FU E-ORDER UTERINE BLEEDING abn pelvic us ref by Dr Jj PAP NEED ORDER/NEW INR EORDER D&C Symphion Obesity INR - ADD ORDER FROM DR AMBRIZ 12/11/23 emb Reason for Visit Atrial fibrillation Shortness of breath Aortic root dilatation Essential hypertension History of aortic valve replacement with bioprosthetic valve Hyperlipidemia Atrial fibrillation Aortic root dilatation Essential hypertension History of aortic valve replacement with bioprosthetic valve Hyperlipidemia Postmenopausal bleeding Thickened endometrium Postmenopausal bleeding Thickened endometrium Essential hypertension History of aortic valve replacement with bioprosthetic valve Chief Complaint E ORDERS/2 ORDERING DOCTORS SOB, cough see clinical note L.L. EORDERS NEW ONSET A-FIB *DO NOT HOLD METOPROLOL*L Amb Documentation INT LABS 6 W FU E-ORDER UTERINE BLEEDING abn pelvic us ref by Dr Jj PAP NEED ORDER/NEW INR EORDER D&C Symphion Obesity INR - ADD ORDER FROM DR AMBRIZ 12/11/23 emb AFIB INR - Reason for Visit Atrial fibrillation Shortness of breath Aortic root dilatation Essential hypertension History of aortic valve replacement with bioprosthetic valve Hyperlipidemia Atrial fibrillation Aortic root dilatation Essential hypertension History of aortic valve replacement with bioprosthetic valve Hyperlipidemia Postmenopausal bleeding Thickened endometrium Postmenopausal bleeding Thickened endometrium Essential hypertension History of aortic valve replacement with bioprosthetic valve Postmenopausal bleeding Thickened endometrium Chief Complaint EORDERS NEW ONSET A-FIB *DO NOT HOLD METOPROLOL*L Amb Documentation INT LABS 6 W FU E-ORDER UTERINE BLEEDING abn pelvic us ref by Dr Jj PAP NEED ORDER/NEW INR EORDER D&C Symphion Obesity INR - ADD ORDER FROM DR AMBRIZ 12/11/23 emb AFIB Atrial fibrillation ABNORMAL FINDINGS ON DIAGNOSTIC IMAGING INR - Reason for Visit Atrial fibrillation Aortic root dilatation Essential hypertension History of aortic valve replacement with bioprosthetic valve Hyperlipidemia Postmenopausal bleeding Thickened endometrium Postmenopausal bleeding Thickened endometrium Essential hypertension History of aortic valve replacement with bioprosthetic valve Postmenopausal bleeding Thickened endometrium Chief Complaint NEW ONSET A-FIB *DO NOT HOLD METOPROLOL*L Amb Documentation INT LABS 6 W FU E-ORDER UTERINE BLEEDING abn pelvic us ref by Dr Jj PAP NEED ORDER/NEW INR EORDER Hysteroscopy,D&C Symphion D&C Symphion Obesity INR - ADD ORDER FROM DR AMBRIZ 12/11/23 emb AFIB Atrial fibrillation ABNORMAL FINDINGS ON DIAGNOSTIC IMAGING INR - Reason for Visit Atrial fibrillation Aortic root dilatation Essential hypertension History of aortic valve replacement with bioprosthetic valve Hyperlipidemia Postmenopausal bleeding Thickened endometrium Postmenopausal bleeding Thickened endometrium Essential hypertension History of aortic valve replacement with bioprosthetic valve Postmenopausal bleeding Thickened endometrium Chief Complaint INT LABS 6 W FU E-ORDER UTERINE BLEEDING abn pelvic us ref by Dr Jj PAP NEED ORDER/NEW INR EORDER Hysteroscopy,D&C Symphion D&C Symphion Obesity INR - ADD ORDER FROM DR AMBRIZ 12/11/23 emb AFIB Atrial fibrillation ABNORMAL FINDINGS ON DIAGNOSTIC IMAGING INR - Reason for Visit Atrial fibrillation Aortic root dilatation Essential hypertension History of aortic valve replacement with bioprosthetic valve Hyperlipidemia Postmenopausal bleeding Thickened endometrium Postmenopausal bleeding Thickened endometrium Essential hypertension History of aortic valve replacement with bioprosthetic valve Postmenopausal bleeding Thickened endometrium Chief Complaint abn pelvic us ref by Dr Анна NUNES NEED ORDER/NEW INR EORDER Hysteroscopy,D&C Symphion D&C Symphion Obesity INR - ADD ORDER FROM DR AMBRIZ 12/11/23 emb AFIB Atrial fibrillation ABNORMAL FINDINGS ON DIAGNOSTIC IMAGING INR - INR - 3 M FU Discuss results EORDER Reason for Visit Postmenopausal bleed ing Thickened endometrium Postmenopausal bleeding Thickened endometrium Essential hypertension History of aortic valve replacement with bioprosthetic valve Postmenopausal bleeding Thickened endometrium Atrial fibrillation 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 Aortic root dilatation Essential hypertension History of aortic valve replacement with bioprosthetic valve Hyperlipidemia Postmenopausal bleeding Thickened endometrium Chief Complaint EORDER Hysteroscopy,D&C Symphion D&C Symphion Obesity INR - ADD ORDER FROM DR AMBRIZ 12/11/23 emb AFIB Atrial fibrillation ABNORMAL FINDINGS ON DIAGNOSTIC IMAGING INR - INR - 3 M FU Discuss results EORDER INR - Reason for Visit Postmenopausal bleed ing Thickened endometrium Essential hypertension History of aortic valve replacement with bioprosthetic valve Postmenopausal bleeding Thickened endometrium Atrial fibrillation 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 Aortic root dilatation Essential hypertension History of aortic valve replacement with bioprosthetic valve Hyperlipidemia Postmenopausal bleeding Thickened endometrium Chief Complaint Admit Date INR- DRAW November 09, 2024 7:39am EORDERS December 02, 2024 8 :00am INR- DRAW December 07, 2024 8 :20am 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 December 242024 1:02pm INR- DRAW January 04, 2025 8:05am INR- DRAW February 01, 2025 8:0 6am Reason for Visit Admit Date Atrial fibrillation December 24, 2024 1 :02pm Aortic root dilatation December 24 1:02pm Essential hypertension December 24 1:02pm History of aortic valve repl acement with bioprosthetic valve December 24, 2024 1:02pm Hyperlipidemia December 24, 2024 1 :02pm Chief Complaint Admit Date 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 December 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 1:02pm INR- DRAW January 04, 2025 8:05am INR- DRAW February 01, 2025 8:0 6am INR- DRAW March 01, 2025 8:1 1am INR- DRAW March 29, 2025 7:52a m Chief Complaint Admit Date INR- DRAW February 01, 2025 8:0 6am INR- DRAW March 01, 2025 8:1 1am INR- DRAW March 29, 2025 7:52a m INR- DRAW April 26, 2025 7:30a m Chief Complaint Admit Date INR- DRAW March 01, 2025 8:1 1am INR- DRAW March 29, 2025 7:52a m INR- DRAW April 26, 2025 7:30a m INR- DRAW May 24, 2025 7:38a m Chief Complaint Admit Date INR- DRAW March 29, 2025 7:52a m INR- DRAW April 26, 2025 7:30a m INR- DRAW May 24, 2025 7:38a m INR- DRAW July 05, 2025 8: 37am Chief Complaint Admit Date INR- DRAW March 29, 2025 7:52a m INR- DRAW April 26, 2025 7:30a m INR- DRAW May 24, 2025 7:38a m INR- DRAW July 05, 2025 8: 37am 7 M FU July 23, 2025 11:23am Reason for Visit Admit Date halfway current use of anticoagulant S eptember 2024 11:23am Nonrheumatic aortic (valve) stenosis Sep 2024 11:23am Aortic root dilatation July 23 11:23am Atrial fibrillation, chronic July 232024 11:23am Essential hypertension July 23 11:23am History of aortic valve repl acement with bioprosthetic valve July 23, 2025 11:23am History of bicuspid aortic valve Septemb er 2024 11:23am Hyperlipidemia July 23, 2025 11:23am Chief Complaint Admit Date INR- DRAW April 26, 2025 7:30a m INR- DRAW May 24, 2025 7:38a m INR- DRAW July 05, 2025 8: 37am 7 M FU July 23, 2025 11:23am INR- DRAW July 26, 2025 7:58am AFIB August 02, 2025 8:37am Atrial fibrillation August 02, 2025 9:05am Reason for Visit Admit Date halfway current use of anticoagulant S eptember 2024 11:23am Aortic root dilatation July 23 11:23am Atrial fibrillation, chronic July 232024 11:23am Essential hypertension July 23 11:23am History of aortic valve repl acement with bioprosthetic valve July 23, 2025 11:23am History of bicuspid aortic valve Septemb er 2024 11:23am Hyperlipidemia July 23, 2025 11:23am [facility] Chief Complaint Admit Date INR- DRAW May 24, 2025 7:38a m INR- DRAW July 05, 2025 8: 37am 7 M FU July 23, 2025 11:23am INR- DRAW July 26, 2025 7:58am AFIB August 02, 2025 8:37am Atrial fibrillation August 02, 2025 9:05am Presence of xenogenic heart valve Octobe r 2024 12:26pm INR- DRAW September 13, 2025 8 :43am Additional Source Comments INFORMATION SOURCE (unrecogn ized section and content) DATE CREATED AUTHOR 05/07/2018 [facility] DATE CREATED AUTHOR AUTHOR'S ORGANIZ ATION 05/12/2018 [facility] DATE CREATED AUTHOR AUTHOR'S ORGANIZ ATION 02/25/2021 [facility] DATE CREATED AUTHOR AUTHOR'S ORGANIZ ATION 01/06/2022 [facility] DATE CREATED AUTHOR AUTHOR'S ORGANIZ ATION 09/19/2025 [facility] Goals (unrecognized section and content) Goals may be documented in a n alternate sectionGoals may be documented in an alternate sectionGoals may be documented in an alternate sectionGoals may be documented in an alternate sectionGoals may be documented in an alternate sectionGoals may be documented in an alternate sectionGoals may be documented in an alternate sectionGoals may be documented in an alternate sectionGoals may be documented in an alternate sectionGoals may be documented in an alternate sectionGoals may be documented in an alternate sectionGoals may be documented in an alternate sectionGoals may be documented in an alternate sectionGoals may be documented in an alternate sectionGoals may be documented in an alternate sectionGoals may be documented in an alternate sectionGoals may be documented in an alternate sectionGoals may be documented in an alternate sectionGoals may be documented in an alternate sectionGoals may be documented in an alternate sectionGoals may be documented in an alternate sectionGoals may be documented in an alternate sectionGoals may be documented in an alternate sectionGoals may be documented in an alternate sectionGoals may be documented in an alternate sectionGoals may be documented in an alternate sectionGoals may be documented in an alternate sectionGoals may be documented in an alternate sectionGoals may be documented in an alternate sectionGoals may be documented in an alternate sectionGoals may be documented in an alternate sectionGoals may be documented in an alternate section Care Teams (unrecognized sec tion and content) Team Status: Active Member Role Status Dates Dr. Mason Torres III, MD Family Provider Active Dr. Syl Domínguez MD Primary Care Provider Active Team Status: Inactive Member Role Status Dates Syl Domínguez MD Referring Provider Active Dr. Reuben Ramirez MD Attending Provider Active Dr. Syl Domínguez MD Primary Care Provider Active Team Status: Inactive Member Role Status Dates Dr. Syl Domínguez MD Primary Care Provider, Referr ing Provider Active Shay ZHANG, PA Attending Provider Active Team Status: Active Member Role Status Dates Dr. Syl Domínguez MD Primary Care Provider Active Dr. Reuben Ramirez MD Attending Provider Active Team Status: Inactive Member Role Status Dates Dr. Syl Domínguez MD Primary Care Provider Active Shay ZHANG, PA Attending Provider, Referring Provi inocencio Active Team Status: Inactive Member Role Status Dates Dr. Syl Domínguez MD Primary Care Provider Active Dr. Reuben Ramirez MD Attending Provider Active Team Status: Inactive Member Role Status Dates Dr. Syl Domínguez MD Primary Care Provider Active Shay ZHANG, PA Attending Provider Active Team Status: Inactive Member Role Status Dates Dr. Syl Domínguez MD Primary Care Pr ovider, Attending Provider, Referring Provider Active Team Status: Inactive Member Role Status Dates Dr. Syl Domínguez MD Primary Care Provider, Referr ing Provider Active Marco Antonio Elder PA, PA Attending Provider Active Team Status: Inactive Member Role Status Dates Dr. Syl Domínguez MD Primary Care Provider Active Marco Antonio Elder PA, PA Attending Provider, Referring Pr ovider Active Team Status: Inactive Member Role Status Dates Dr. Syl Domínguez MD Primary Care Provider, Referr ing Provider Active Elizabeth Krishnan REGISTRY RN, REGISTRY RN-C Attending Provider Active Team Status: Inactive Member Role Status Dates Dr. Syl Domínguez MD Primary Care Provider Active Syl Harper REGISTRY RN, REGISTRY RN-C Attending Provider, Referring Pro vider Active Team Status: Inactive Member Role Status Dates Dr. Syl Domínguez MD Primary Care Provider Active Elizabeth Krishnan REGISTRY RN, REGISTRY RN-C Attending Provider, Referring P rovider Active Team Status: Active Member Role Status Dates Dr. Syl Domínguez MD Primary Care Provider Active Dr. Mario Orellana MD Attending Provider Active Team Status: Active Member Role Status Dates Dr. Syl Domínguez MD Primary Care Provider Active Elizabeth Krishnan REGISTRY RN, REGISTRY RN-C Attending Provider Active Team Status: Inactive Member Role Status Dates Dr. Syl Domínguez MD Primary Care Provider Active Elizabeth Krishnan REGISTRY RN, REGISTRY RN-C Attending Provider Active Team Status: Inactive Member Role Status Dates Dr. Syl Domínguez MD Primary Care Provider Active Dr. Juanis Jj MD Attending Provider, Referring P rovider Active Team Status: Active Member Role Status Dates Dr. Syl oDmínguez MD Primary Care Provider Active Elizabeth Krishnan REGISTRY RN, REGISTRY RN-C Attending Provider, Referring P rovider Active Team Status: Inactive Member Role Status Dates Dr. Syl Domínguez MD Primary Care Provider, Referr ing Provider Active Dr. Shyann Ambriz MD Attending Provider Active Team Status: Inactive Member Role Status Dates Dr. Syl Domínguez MD Primary Care Provider Active Dr. Shyann Ambriz MD Attending Provider, Referr ing Provider Active Team Status: Active Member Role Status Dates Dr. Syl Domínguez MD Primary Care Provider Active Dr. Silvestre Teran MD Attending Provider Active Dr. Shyann Ambriz MD Referring Provider Active Team Status: Inactive Member Role Status Dates Dr. Syl Domínguez MD Primary Care Provider Active Elizabeth Krishnan NP, REGISTRY RN-C Attending Provider, Referring P rovider Active Dr. Shyann Ambriz MD Other Provider Active Team Status: Inactive Member Role Status Dates Dr. Syl Domínguez MD Primary Care Provider Active Shanell Salas PA, PA Attending Provider, Referr ing Provider Active Team Status: Active Member Role Status Dates Dr. Syl Domínguez MD Primary Care Provider Active Dr. Peter Burgos MD Attending Provider Active Shanell Salas PA, PA Referring Provider Active Team Status: Active Member Role Status Dates Dr. Syl Domínguez MD Primary Care Provider Active Team Status: Inactive Member Role Status Dates Dr. Syl Domínguez MD Primary Care Provider Active Start: November 09, 2024 End: November 09, 2024 Elizabeth Krishnan REGISTRY RN, REGISTRY RN-C Attending Provider Active Start: November 09, 2024 End: November 09, 2024 Elizabeth Krishnan REGISTRY RN, REGISTRY RN-C Referring Provider Active Start: November 09, 2024 End: November 09, 2024 Team Status: Inactive Member Role Status Dates Dr. Syl Domínguez MD Primary Care Provider Active Start: December 02, 2024 End: December 02, 2024 Dr. Syl Domínguez MD Attending Provider Active Start: December 02, 2024 End: December 02, 2024 Dr. Syl Domínguez MD Referring Provider Active Start: December 02, 2024 End: December 02, 2024 Team Status: Inactive Member Role Status Dates Dr. Syl Domínguez MD Primary Care Provider Active Start: December 07, 2024 End: December 07, 2024 Elizabeth Krishnan REGISTRY RN, REGISTRY RN-C Attending Provider Active Start: December 07, 2024 End: December 07, 2024 Elizabeth Krishnan REGISTRY RN, REGISTRY RN-C Referring Provider Active Start: December 07, 2024 End: December 07, 2024 Team Status: Inactive Member Role Status Dates Dr. Syl Domínguez MD Primary Care Provider Active Start: December 24, 2024 End: December 24, 2024 Dr. Syl Domínguez MD Referring Provider Active Start: December 24, 2024 End: December 24, 2024 Dr. Mario Orellana MD Attending Provider Active S tart: December 24, 2024 End: December 24, 2024 Team Status: Inactive Member Role Status Dates Dr. Syl Domínguez MD Primary Care Provider Active Start: January 04, 2025 End: January 15, 2025 Elizabeth Krishnan REGISTRY RN, REGISTRY RN-C Attending Provider Active Start: January 04, 2025 End: January 15, 2025 Elizabeth Krishnan REGISTRY RN, REGISTRY RN-C Referring Provider Active Start: January 04, 2025 End: January 15, 2025 Team Status: Inactive Member Role Status Dates Dr. Syl Domínguez MD Primary Care Provider Active Start: February 01, 2025 End: February 01, 2025 Elizabeth Krishnan REGISTRY RN, REGISTRY RN-C Attending Provider Active Start: February 01, 2025 End: February 01, 2025 Elizabeth Krishnan REGISTRY RN, REGISTRY RN-C Referring Provider Active Start: February 01, 2025 End: February 01, 2025 Team Status: Inactive Member Role Status Dates Dr. Syl Domínguez MD Primary Care Provider Active Start: March 01, 2025 End: March 17, 2025 Elizabeth Krishnan REGISTRY RN, REGISTRY RN-C Attending Provider Active Start: March 01, 2025 End: March 17, 2025 Elizabeth Krishnan REGISTRY RN, REGISTRY RN-C Referring Provider Active Start: March 01, 2025 End: March 17, 2025 Syl Harper REGISTRY RN, REGISTRY RN-C Other Provider Active Start : March 01, 2025 End: March 17, 2025 Team Status: Inactive Member Role Status Dates Dr. Syl Domínguez MD Primary Care Provider Active Start: March 29, 2025 End: March 29, 2025 Elizabeth Krishnan REGISTRY RN, REGISTRY RN-C Attending Provider Active Start: March 29, 2025 End: March 29, 2025 Elizabeth Krishnan REGISTRY RN, REGISTRY RN-C Referring Provider Active Start: March 29, 2025 End: March 29, 2025 Syl Harper REGISTRY RN, REGISTRY RN-C Other Provider Active Start : March 29, 2025 End: March 29, 2025 Team Status: Active Member Role/Relationship Status Dates Dr. Syl Domínguez MD Primary Care Provider Active Team Status: Inactive Member Role/Relationship Status Dates Dr. Syl Domínguez MD Primary Care Provider Active Start: February 01, 2025 End: February 01, 2025 Elizabeth Krishnan REGISTRY RN, REGISTRY RN-C Attending Provider Active Start: February 01, 2025 End: February 01, 2025 Elizabeth Krishnan REGISTRY RN, REGISTRY RN-C Referring Provider Active Start: February 01, 2025 End: February 01, 2025 Team Status: Inactive Member Role/Relationship Status Dates Dr. Syl Domínguez MD Primary Care Provider Active Start: March 01, 2025 End: March 17, 2025 Elizabeth Krishnan REGISTRY RN, REGISTRY RN-C Attending Provider Active Start: March 01, 2025 End: March 17, 2025 Elizabeth Krishnan REGISTRY RN, REGISTRY RN-C Referring Provider Active Start: March 01, 2025 End: March 17, 2025 Syl Harper REGISTRY RN, REGISTRY RN-C Other Provider Active Start : March 01, 2025 End: March 17, 2025 Team Status: Inactive Member Role/Relationship Status Dates Dr. Syl Domínguez MD Primary Care Provider Active Start: March 29, 2025 End: March 29, 2025 Elizabeth Krishnan REGISTRY RN, REGISTRY RN-C Attending Provider Active Start: March 29, 2025 End: March 29, 2025 Elizabeth Krishnan REGISTRY RN, REGISTRY RN-C Referring Provider Active Start: March 29, 2025 End: March 29, 2025 Syl Harper REGISTRY RN, REGISTRY RN-C Other Provider Active Start : March 29, 2025 End: March 29, 2025 Team Status: Inactive Member Role/Relationship Status Dates Dr. Syl Domínguez MD Primary Care Provider Active Start: April 26, 2025 End: April 26, 2025 Elizabeth Krishnan REGISTRY RN, REGISTRY RN-C Attending Provider Active Start: April 26, 2025 End: April 26, 2025 Elizabeth Krishnan REGISTRY RN, REGISTRY RN-C Referring Provider Active Start: April 26, 2025 End: April 26, 2025 Syl Harper REGISTRY RN, REGISTRY RN-C Other Provider Active Start : April 26, 2025 End: April 26, 2025 Team Status: Inactive Member Role/Relationship Status Dates Dr. Syl Domínguez MD Primary Care Provider Active Start: March 01, 2025 End: March 17, 2025 Elizabeth Krishnan REGISTRY RN, REGISTRY RN-C Attending Provider Active Start: March 01, 2025 End: March 17, 2025 Elizabeth Krishnan REGISTRY RN, REGISTRY RN-C Referring Provider Active Start: March 01, 2025 End: March 17, 2025 Syl Harper REGISTRY RN, REGISTRY RN-C Other Provider Active Start : March 01, 2025 End: March 17, 2025 Team Status: Inactive Member Role/Relationship Status Dates Dr. Syl Domínguez MD Primary Care Provider Active Start: March 29, 2025 End: March 29, 2025 Elizabeth Krishnan REGISTRY RN, REGISTRY RN-C Attending Provider Active Start: March 29, 2025 End: March 29, 2025 Elizabeth Krishnan REGISTRY RN, REGISTRY RN-C Referring Provider Active Start: March 29, 2025 End: March 29, 2025 Syl Harper REGISTRY RN, REGISTRY RN-C Other Provider Active Start : March 29, 2025 End: March 29, 2025 Team Status: Inactive Member Role/Relationship Status Dates Dr. Syl Domínguez MD Primary Care Provider Active Start: April 26, 2025 End: April 26, 2025 Elizabeth Krishnan REGISTRY RN, REGISTRY RN-C Attending Provider Active Start: April 26, 2025 End: April 26, 2025 Elizabeth Krishnan REGISTRY RN, REGISTRY RN-C Referring Provider Active Start: April 26, 2025 End: April 26, 2025 Syl Harper REGISTRY RN, REGISTRY RN-C Other Provider Active Start : April 26, 2025 End: April 26, 2025 Team Status: Inactive Member Role/Relationship Status Dates Dr. Syl Domínguez MD Primary Care Provider Active Start: May 18, 2025 Dr. Juanis Jj MD Attending Provider Active Start: May 18, 2025 Team Status: Inactive Member Role/Relationship Status Dates Dr. Syl Domínguez MD Primary Care Provider Active Start: May 24, 2025 End: June 17, 2025 Elizabeth Krishnan REGISTRY RN, REGISTRY RN-C Attending Provider Active Start: May 24, 2025 End: June 17, 2025 Elizabeth Krishnan REGISTRY RN, REGISTRY RN-C Referring Provider Active Start: May 24, 2025 End: June 17, 2025 Syl Harper REGISTRY RN, REGISTRY RN-C Other Provider Active Start : May 24, 2025 End: June 17, 2025 Team Status: Inactive Member Role/Relationship Status Dates Dr. Syl Domínguez MD Primary Care Provider Active Start: March 29, 2025 End: March 29, 2025 Elizabeth Krishnan REGISTRY RN, REGISTRY RN-C Attending Provider Active Start: March 29, 2025 End: March 29, 2025 Elizabeth Krishnan REGISTRY RN, REGISTRY RN-C Referring Provider Active Start: March 29, 2025 End: March 29, 2025 Syl Harper REGISTRY RN, REGISTRY RN-C Other Provider Active Start : March 29, 2025 End: March 29, 2025 Team Status: Inactive Member Role/Relationship Status Dates Dr. Syl Domínguez MD Primary Care Provider Active Start: April 26, 2025 End: April 26, 2025 Elizabeth Krishnan REGISTRY RN, REGISTRY RN-C Attending Provider Active Start: April 26, 2025 End: April 26, 2025 Elizabeth Krishnan REGISTRY RN, REGISTRY RN-C Referring Provider Active Start: April 26, 2025 End: April 26, 2025 Syl Harper REGISTRY RN, REGISTRY RN-C Other Provider Active Start : April 26, 2025 End: April 26, 2025 Team Status: Inactive Member Role/Relationship Status Dates Dr. Syl Domínguez MD Primary Care Provider Active Start: May 18, 2025 Dr. Juanis Jj MD Attending Provider Active Start: May 18, 2025 Team Status: Inactive Member Role/Relationship Status Dates Dr. Syl Domínguez MD Primary Care Provider Active Start: May 24, 2025 End: June 17, 2025 Elizabeth Krishnan REGISTRY RN, REGISTRY RN-C Attending Provider Active Start: May 24, 2025 End: June 17, 2025 Elizabeth Krishnan REGISTRY RN, REGISTRY RN-C Referring Provider Active Start: May 24, 2025 End: June 17, 2025 Syl Harper REGISTRY RN, REGISTRY RN-C Other Provider Active Start : May 24, 2025 End: June 17, 2025 Team Status: Inactive Member Role/Relationship Status Dates Dr. Syl Domínguez MD Primary Care Provider Active Start: July 05, 2025 End: July 05, 2025 Elizabeth Krishnan REGISTRY RN, REGISTRY RN-C Attending Provider Active Start: July 05, 2025 End: July 05, 2025 Elizabeth Krishnan REGISTRY RN, REGISTRY RN-C Referring Provider Active Start: July 05, 2025 End: July 05, 2025 Syl Harper REGISTRY RN, REGISTRY RN-C Other Provider Active Start : July 05, 2025 End: July 05, 2025 Team Status: Inactive Member Role/Relationship Status Dates Dr. Syl Domínguez MD Primary Care Provider Active Start: July 23, 2025 End: July 23, 2025 Dr. Syl Domínguez MD Referring Provider Active Start: July 23, 2025 End: July 23, 2025 LEATHA Kincaid Attending Provider Active St art: July 23, 2025 End: July 23, 2025 Team Status: Active Member Role/Relationship Status Dates Dr. Syl Domínguez MD Primary care physician Active Team Status: Inactive Member Role/Relationship Status Dates Dr. Syl Domínguez MD Primary care physician Active Start: April 26, 2025 End: April 26, 2025 Elizabeth Krishnan REGISTRY RN, REGISTRY RN-C Attending physician Active Start: April 26, 2025 End: April 26, 2025 Elizabeth Krishnan REGISTRY RN, REGISTRY RN-C Referring Provider Active Start: April 26, 2025 End: April 26, 2025 Syl Harper REGISTRY RN, REGISTRY RN-C Nurse Practitioner Active S tart: April 26, 2025 End: April 26, 2025 Team Status: Inactive Member Role/Relationship Status Dates Dr. Syl Domínguez MD Primary care physician Active Start: May 18, 2025 Dr. Juanis Jj MD Attending physician Active Start: May 18, 2025 Team Status: Inactive Member Role/Relationship Status Dates Dr. Syl Domínguez MD Primary care physician Active Start: May 24, 2025 End: June 17, 2025 Elizabeth Krishnan REGISTRY RN, REGISTRY RN-C Attending physician Active Start: May 24, 2025 End: June 17, 2025 Elizabeth Krishnan REGISTRY RN, REGISTRY RN-C Referring Provider Active Start: May 24, 2025 End: June 17, 2025 Syl Harper REGISTRY RN, REGISTRY RN-C Nurse Practitioner Active S tart: May 24, 2025 End: June 17, 2025 Team Status: Inactive Member Role/Relationship Status Dates Dr. Syl Domínguez MD Primary care physician Active Start: July 05, 2025 End: July 05, 2025 Elizabeth Krishnan REGISTRY RN, REGISTRY RN-C Attending physician Active Start: July 05, 2025 End: July 05, 2025 Elizabeth Krishnan REGISTRY RN, REGISTRY RN-C Referring Provider Active Start: July 05, 2025 End: July 05, 2025 Syl Harper REGISTRY RN, REGISTRY RN-C Nurse Practitioner Active S tart: July 05, 2025 End: July 05, 2025 Team Status: Inactive Member Role/Relationship Status Dates Dr. Syl Domínguez MD Primary care physician Active Start: July 23, 2025 End: July 23, 2025 Dr. Syl Domínguez MD Referring Provider Active Start: July 23, 2025 End: July 23, 2025 LEATHA Kincaid Attending physician Active S tart: July 23, 2025 End: July 23, 2025 Team Status: Inactive Member Role/Relationship Status Dates Dr. Syl Domínguez MD Primary care physician Active Start: July 26, 2025 End: August 17, 2025 Elizabeth Krishnan REGISTRY RN, REGISTRY RN-C Attending physician Active Start: July 26, 2025 End: August 17, 2025 Elizabeth Krishnan REGISTRY RN, REGISTRY RN-C Referring Provider Active Start: July 26, 2025 End: August 17, 2025 Syl Harper REGISTRY RN, REGISTRY RN-C Nurse Practitioner Active S tart: July 26, 2025 End: August 17, 2025 Team Status: Active Member Role/Relationship Status Dates Dr. Syl Domínguez MD Primary care physician Active Start: August 02, 2025 LEATHA Kincaid Attending physician Active S tart: August 02, 2025 LEATHA Kincaid Referring Provider Active St art: August 02, 2025 Team Status: Active Member Role/Relationship Status Dates Dr. Syl Domínguez MD Primary care physician Active Start: August 02, 2025 Dr. Mario Orellana MD Attending physician Active Start: August 02, 2025 LEATHA Kincaid Referring Provider Active St art: August 02, 2025 Team Status: Inactive Member Role/Relationship Status Dates Dr. Syl Domínguez MD Primary care physician Active Start: August 02, 2025 End: August 02, 2025 LEATHA Kincaid Attending physician Active S tart: August 02, 2025 End: August 02, 2025 LEATHA Kincaid Referring Provider Active St art: August 02, 2025 End: August 02, 2025 Team Status: Inactive Member Role/Relationship Status Dates Dr. Syl Domígnuez MD Primary care physician Active Start: May 18, 2025 Dr. Juanis Jj MD Attending physician Active Start: May 18, 2025 Team Status: Inactive Member Role/Relationship Status Dates Dr. Syl Domínguez MD Primary care physician Active Start: May 24, 2025 End: June 17, 2025 Elizabeth Krishnan REGISTRY RN, REGISTRY RN-C Attending physician Active Start: May 24, 2025 End: June 17, 2025 Elizabeth Krishnan REGISTRY RN, REGISTRY RN-C Referring Provider Active Start: May 24, 2025 End: June 17, 2025 Syl Harper REGISTRY RN, REGISTRY RN-C Nurse Practitioner Active S tart: May 24, 2025 End: June 17, 2025 Team Status: Inactive Member Role/Relationship Status Dates Dr. Syl Domínguez MD Primary care physician Active Start: July 05, 2025 End: July 05, 2025 Elizabeth Krishnan REGISTRY RN, REGISTRY RN-C Attending physician Active Start: July 05, 2025 End: July 05, 2025 Elizabeth Krishnan REGISTRY RN, REGISTRY RN-C Referring Provider Active Start: July 05, 2025 End: July 05, 2025 Syl Harper REGISTRY RN, REGISTRY RN-C Nurse Practitioner Active S tart: July 05, 2025 End: July 05, 2025 Team Status: Inactive Member Role/Relationship Status Dates Dr. Syl Domínguez MD Primary care physician Active Start: July 23, 2025 End: July 23, 2025 Dr. Syl Domínguez MD Referring Provider Active Start: July 23, 2025 End: July 23, 2025 LEATHA Kincaid Attending physician Active S tart: July 23, 2025 End: July 23, 2025 Team Status: Inactive Member Role/Relationship Status Dates Dr. Syl Domínguez MD Primary care physician Active Start: July 26, 2025 End: August 17, 2025 Elizabeth Krishnan REGISTRY RN, REGISTRY RN-C Attending physician Active Start: July 26, 2025 End: August 17, 2025 Elizabeth Krishnan REGISTRY RN, REGISTRY RN-C Referring Provider Active Start: July 26, 2025 End: August 17, 2025 Syl Harper REGISTRY RN, REGISTRY RN-C Nurse Practitioner Active S tart: July 26, 2025 End: August 17, 2025 Team Status: Inactive Member Role/Relationship Status Dates Dr. Syl Domínguez MD Primary care physician Active Start: August 02, 2025 End: August 02, 2025 LEATHA Kincaid Attending physician Active S tart: August 02, 2025 End: August 02, 2025 LEATHA Kincaid Referring Provider Active St art: August 02, 2025 End: August 02, 2025 Team Status: Active Member Role/Relationship Status Dates Dr. Syl Domínguez MD Primary care physician Active Start: August 02, 2025 Dr. Mario Orellana MD Attending physician Active Start: August 02, 2025 LEATHA Kincaid Referring Provider Active St art: August 02, 2025 Team Status: Inactive Member Role/Relationship Status Dates Dr. Syl Domínguez MD Primary care physician Active Start: August 19, 2025 End: August 19, 2025 LEATHA Kincaid Attending physician Active S tart: August 19, 2025 End: August 19, 2025 LEATHA Kincaid Referring Provider Active St art: August 19, 2025 End: August 19, 2025 Team Status: Active Member Role/Relationship Status Dates Dr. Syl Domínguez MD Primary care physician Active Start: August 19, 2025 Dr. Mario Orellana MD Attending physician Active Start: August 19, 2025 Team Status: Active Member Role/Relationship Status Dates Dr. Syl Domínguez MD Primary care physician Active Start: September 13, 2025 Elizabeth Krishnan REGISTRY RN, REGISTRY RN-C Attending physician Active Start: September 13, 2025 Elizabeth Krishnan REGISTRY RN, REGISTRY RN-C Referring Provider Active Start: September 13, 2025 Syl Harper REGISTRY RN, REGISTRY RN-C Nurse Practitioner Active S tart: September 13, 2025 LEATHA Kincaid Nurse Practitioner Active St art: September 13, 2025 FOR RECORDS PERTAINING TO PATIENTS WHO ARE [...] BE BASED ON THE PRIMARY CLINICAL RECORDS. [facility]. provides no warranty or guarantee of the accuracy or completeness of information in this document.
[2025-10-06 12:19] LABS: Hematocrit 45.2 % (37-47); Hemoglobin 14.7 g/dL (12.0-15.0); Immature Granulocytes Count 0.020 X10^3/uL (0.0-0.0); Mean Corp Hgb Conc 32.5 g/dL (32-36); Mean Corpuscular Volume 94.6 fL (81-99); Mean Platelet Vol. 10.9 fl (6.2-12.0); NRBC Flagged by Analyzer 0 % (0-5); Platelet Count 196 K/mm3 (150-450); RBC Distribution Width CV 13.6 % (11.6-14.6); RBC Distribution Width SD 47.7 fl (35.1-43.9); Red Blood Count 4.78 M/mm3 (4.2-5.4); White Blood Count 7.2 K/mm3 (4.4-11.0)
[2025-10-06 12:56] LABS: AST(SGOT) 35 U/L (<=31); Alanine Aminotransfer ALT/SGPT 22 U/L (<=34); Albumin, Serum 4.1 g/dL (3.4-4.8); Alkaline Phosphatase 125 U/L (35-104); Anion Gap 9 (5-15); BUN 13 mg/dL (4-19); BUN/Creat Ratio 14.9 RATIO (10-20); Calcium,Total 9.7 mg/dL (7.6-11.0); Carbon Dioxide 23.5 mmol/L (21.0-32.0); Chloride 105 mmol/L (98-108); Cholesterol 133 mg/dL (<=200); Globulin 2.9 g/dL (2.2-4.2); Glucose 104 mg/dL (70-99); Low Density Lipoprotein Calc. 60 mg/dL; Magnesium 2.3 mg/dL (1.5-2.2); Potassium 4.5 mmol/L (3.3-5.1); Triglycerides 118 mg/dL; Very Low Density Lipoprotein 24 mg/dL (5-40); Vitamin D,25 Hydroxy 40.1 ng/mL (30-100); cholesterol:hdl ratio screen 2.54
== END | disposition home or self-care (01) ==
LOC: MFPLAB 10:13
PROVIDERS: PCP Family Medicine; Visit Provider Family Medicine
DX: R73.02 Impaired glucose tolerance (oral) (principal); I10 Essential (primary) hypertension; E78.5 Hyperlipidemia, unspecified; M81.0 Age-related osteoporosis without current pathological fracture
CPT/HCPCS: 36415; 80053; 80061; 82306; 83036; 83735; 85025

== ENCOUNTER 2025-11-08 08:37 | Outpatient (RCR) | payer MEDICARE, SELFPAY ==
[2025-10-18 10:39] LABS: Prothrombin Time (Protime)PT. 29.8 SECONDS (11.7-14.9)
[2025-11-08 10:43] LABS: Prothrombin Time (Protime)PT. 30.3 SECONDS (11.7-14.9)
== END 2025-11-08 18:00 | disposition home or self-care (01) ==
LOC: MTLAB 08:37
PROVIDERS: PCP Family Medicine; Referring Provider Nurse Practitioner Gerontology; Visit Provider Nurse Practitioner Gerontology
DX: I48.20 Chronic atrial fibrillation, unspecified (principal); Z79.01 Long term (current) use of anticoagulants; R00.2 Palpitations
CPT/HCPCS: 36415; 85610